=== PATIENT | male | born 1960 | race Caucasian/White ===

== ENCOUNTER 2017-11-19 12:19 | Inpatient (IN) | payer OTHER ==
[2017-11-19] MEDS ORDERED: Norepinephrine 8 MG/0.9% NS 250 ML ONE (12:35)
[2017-11-19 13:29] LABS: Hemoglobin 12.5 g/dL (14.0-18.0); Mean Corpuscular Hemoglobin 29.6 pg (27.0-31.0); Mean Corpuscular Volume 89.7 fL (78.0-98.0); RBC Distribution Width 13.6 % (11.5-14.5); Red Blood Cell (RBC) Count 4.23 mill/uL (4.70-6.10); White Blood Cell (WBC) Count 10.2 thou/uL (4.8-10.8)
--- NOTE | 2017-11-19 13:29 | RAD ---
PORTABLE CHEST 1 VIEW: DATE: 11/19/17. TIME: 1:17 p.m. HISTORY: Chest pain. FINDINGS: The heart size is borderline. No lobar consolidation, pneumothoraces, rony pulmonary edema, or larg e effusions are seen. A right-sided shunt tubing is noted. POS: [facility]
[2017-11-19 13:51] LABS: Band 49 % (5-11); Lymphocytes 4 % (21-51); MDiff Complete? YES; Mean Platelet Volume 12.1 fL (7.4-10.4); Monocytes 6 % (0-10); Neutrophil 41 % (42-75); PLT Morphology Comment Appears Decreased; Platelet Count 35 thou/uL (130-400); Toxic Granulation SLIGHT; Vacuoles SLIGHT
[2017-11-19 13:52] LABS: ALT (SGPT) 39 U/L (8-55); AST (SGOT) 36 U/L (5-34); Albumin 2.7 g/dL (3.5-5.0); Alkaline Phosphatase 67 U/L (40-150); Anion Gap 17 mmol/L (10-20); BUN (Urea Nitrogen) 38 mg/dL (8.4-25.7); Bilirubin, Total 2.3 mg/dL (0.2-1.2); Calc. Creatinine Clearance 0 mL/min (70-130); Calcium 7.9 mg/dL (7.8-10.44); Carbon Dioxide 17 mmol/L (22-29); Chloride 100 mmol/L (98-107); Estimated GFR-MDRD 18; Glucose 81 mg/dL (70-105); Potassium 3.7 mmol/L (3.5-5.1); Protein, Total 5.7 g/dL (6.0-8.3); Sodium 130 mmol/L (136-145)
[2017-11-19 13:53] LABS: CKMB 1.4 ng/mL (0-6.6); Troponin I 0.297 ng/mL (< 0.028)
[2017-11-19] MEDS ORDERED: HYDROcodone/Acetaminophen 5/325 mg Tablet ONE (14:16)
[2017-11-19] MEDS ORDERED: Clindamycin/D5W 600 mg/50 ml Premix Bag ONE (14:16)
[2017-11-19 14:50] LABS: Bilirubin Moderate (Negative); Blood, Urine Small (Negative); Glucose, Urine (Dipstick) Negative (Negative); Leukocyte Moderate (Negative); Nitrite Positive (Negative); Protein, Urine (Dipstick) Trace mg/dL (Neg-Trace); Urobilinogen 0.2 mg/dL (0.2-1.0)
[2017-11-19 14:56] LABS: Clarity HAZY (Clear)
[2017-11-19 14:57] LABS: Other Microscopic Description Less than 2 mL rec'd; Specific Gravity, Urine 1.026 (1.002-1.036)
[2017-11-19] MEDS ORDERED: Fentanyl 100 MCG/2 ML VIAL SLOW IVP SCH (15:30)
[2017-11-19] MEDS ORDERED: Dextrose 50% Abboject 50 ML SYRINGE SLOW IVP PRN (16:22)
[2017-11-19] MEDS ORDERED: Ondansetron ODT 4 MG TAB PO PRN (16:22)
[2017-11-19] MEDS ORDERED: Docusate 100 MG CAP PO PRN (16:22)
[2017-11-19] MEDS ORDERED: Norepinephrine 8 MG/0.9% NS 250 ML IVPB SCH (16:22)
[2017-11-19] MEDS ORDERED: Ondansetron HCl/PF 4 MG/2 ML Vial IVP PRN (16:22)
[2017-11-19] MEDS ORDERED: Dextrose 5% in Water 1,000 ML IV PRN (16:22)
[2017-11-19] MEDS ORDERED: Sodium Chloride 0.9% 500 ML IV SCH ×2 (16:22→22:00)
[2017-11-19] MEDS ORDERED: Furosemide 20 MG/2 ML VIAL SLOW IVP SCH (16:30)
[2017-11-19 16:40] LABS: INR-International Normal Ratio 1.1; PTT 33.8 SEC (22.9-36.1); Prothrombin Time 14.5 SEC (12.0-14.7)
[2017-11-19] MEDS ORDERED: Vancomycin HCl 1 GM in Premix Bag 1 BAG IVPB SCH ×3 (16:45→21:00)
[2017-11-19] MEDS ORDERED: Sodium Chloride 0.9% 1,000 ML IV PRN (17:13)
[2017-11-19 17:28] LABS: Lactic Acid 2.2 mmol/L (0.5-2.2)
[2017-11-19 17:39] LABS: Troponin I 0.235 ng/mL (< 0.028)
[2017-11-19] MEDS: Fentanyl 100 MCG/2 ML VIAL SLOW IVP PRN ×2 (17:42→19:34)
[2017-11-19 17:53] LABS: Syphilis Antibody Nonreactive (Nonreactive); Syphilis Antibody Index 0.11 S/CO (<1.00 Non-Reactive)
[2017-11-19 17:55] LABS: HIV (1/2) Antibody/Antigen Non-Reactive (NonReactive); HIV 1/2 INDEX 0.14 S/CO (<1.00)
--- NOTE | 2017-11-19 19:19 | PDOC.FPRHP ---
Addendum entered and electronically signed by Ricardo Martinez MD 11/20/17 16:52: Correction to original note: patient has history of recurrent LLE cellulitis and currently has abnormal skin exam on the LLE Original Note: - History of Present Illness Chief Complaint: L leg pain History of Present Illness: 57 yo CM pmhx significant for recurrent RLE cellulitis, morbid obesity, hep C cirrhosis, CHF, COPD, T2DM, and JENNY presents from [facility] in [place] for RLE redness, pain, and swelling since Wednesday. EMS noted initial BP to be 50's/30's on site, and pt was bolused 1.5 L en transit. Patient was apparently started on Bactrim by his doctor several days ago without improvement. He states that he has a long history of recurrent cellulitis in this leg s/p multiple leg surgeries starting in 2006. Denies any current internal hardware - states that his surgeons had to take it all out. Says that he has an episode of cellulitis approximately once per year. Denies any recent fevers/rigors/chills, dizziness, or weakness. States that he hasn't really urinated at all in 3 days. Denies dysuria, N/V, suprapubic or back pain. States that his current pain level is 10/10. Says that his current difficulty breathing is the same as it always is when he is reclined. Does not require oxygen at the longterm. Was supposed to be started on a CPAP soon for his JENNY. ED Course: R IJ CVC placed and levophed started due to persistent hypotension with SBPs in the 70's. Patient was not given additional fluids due to dyspnea and concern for volume overload. CXR showed borderline cardiomegaly but was otherwise clear. - Allergies/Adverse Reactions Allergies Allergy/AdvReac Type Severity Reaction Status Date / Time Penicillins Allergy Verified 11/19/17 18:41 - Home Medications Medication Instructions Recorded Confirmed Type Aspirin [Aspirin EC] 81 mg PO DAILY 11/19/17 11/19/17 History Calcium Carbonate [Tums] 1,000 mg PO QAM-WM 11/19/17 11/19/17 History Furosemide 40 mg PO BID 11/19/17 11/19/17 History Ibuprofen 600 mg PO BID 11/19/17 11/19/17 History Lactulose 10 GM/15ML Oral Jocelynn 20 gm PO BID 11/19/17 11/19/17 History [Lactulose] Lisinopril 2.5 mg PO DAILY 11/19/17 11/19/17 History Metolazone 5 mg PO Q7DAYS 11/19/17 11/19/17 History Omeprazole 40 mg PO BID 11/19/17 11/19/17 History Simethicone 80 mg PO TID PRN 11/19/17 11/19/17 History Spironolactone 4 tab PO BID 11/19/17 11/19/17 History Sulfamethoxazole/Trimethoprim 1 tablet PO BID 11/19/17 11/19/17 History [Sulfamethoxazole/TMP DS] Terazosin HCl 10 mg PO HS 11/19/17 11/19/17 History glipiZIDE [Glipizide] 5 mg PO DAILY 11/19/17 11/19/17 History metFORMIN HCl [Metformin HCl] 500 mg PO BID 11/19/17 11/19/17 History - History PMHx: 1) T2DM, non-insulin dependent 2) Hepatitis C 3) Cirrhosis of liver 4) CHF 5) COPD 6) JENNY 7) Recurrent skin infections PSHx: 1) R lower leg surgeries x 7 2) Open cholecystectomy 3) Tissue graft from abdominal wall FHx: Noncontributory Social: Denies current ETOH, tobacco, or drug use. Denies history of IV drug use. States that he was born with hep C. Has been incarcerated for multiple years. - Review of Systems General: denies: fever/chills, weight/appetite/sleep changes Eyes: denies: eye pain, vision changes ENT: denies: nasal congestion, rhinorrhea Respiratory: reports: shortness of breath, exercise intolerance. denies: cough Cardiovascular: denies: chest pain, palpitation Gastrointestinal: reports: abdominal pain (mild). denies: nausea, vomiting, diarrhea Genitourinary: reports: other (anuria). denies: dysuria Skin: reports: rashes, lesions Musculoskeletal: reports: pain, tenderness, swelling Neurological: denies: numbness, syncope - Vital signs BP: 96/45 HR: 137 RR: 30 Tmax: 97.9 Pox: 98% on 2L Wt: 158 kg - Physical Exam Constitutional: awake, alert and oriented, other (morbidly obese) -Constitutional: appears in mild distress due to breathing HEENT: normocephalic and atraumatic, PERRLA, EOMI, no scleral icterus, grossly normal hearing, other (conjunctiva injected, MM dry, mallampati IV) Neck: supple, trachea midline, no thyromegaly, other (large neck circumference) Heart: RRR, normal S1/S2, no murmurs/rubs/gallops, pulses present, other ( anasarca with peau d'orange texture on abdominal skin) Lungs: CTAB, good air movement, no wheezing, other (tachypneic with increased expiratory time) Abdomen: soft (mildly TTP diffusely), bowel sounds present, no hernias (severly distended abdomen, large reducible ventral hernia RUQ), other (no obvious fluid wave) Musculoskeletal: normal tone, other (RLE grossly abnormal appearing, limited ROM due to pain and obesity) Neurological: no focal deficit, CN II-XII intact Skin: other (extensive warmth, erythema, edema, and bullous actively draining erruptions on the RLE to the knee anteriorly and mid-thigh posteriorly; exquisitely TTP) Heme/Lymphatic: no unusual bruising or bleeding, no purpura, no petechia Psychiatric: intact recent and remote memory, other (cooperative) FMR H&P: Results - Labs Result Diagrams: 11/23/17 04:15 11/23/17 04:10 Lab results: WBC 10.2 thou/uL (4.8-10.8) 11/19/17 13:13 Hgb 12.5 g/dL (14.0-18.0) L 11/19/17 13:13 Hct 38.0 % (42.0-52.0) L 11/19/17 13:13 MCV 89.7 fL (78.0-98.0) 11/19/17 13:13 Plt Count 35 thou/uL (130-400) L 11/19/17 13:13 Band Neuts % (Manual) 49 % (5-11) H 11/19/17 13:13 ESR Westergren 19 mm/hr (Less than 20) 11/19/17 13:12 Sodium 130 mmol/L (136-145) L 11/19/17 13:13 Potassium 3.7 mmol/L (3.5-5.1) 11/19/17 13:13 Chloride 100 mmol/L (98-107) 11/19/17 13:13 Carbon Dioxide 17 mmol/L (22-29) L 11/19/17 13:13 BUN 38 mg/dL (8.4-25.7) H 11/19/17 13:13 Creatinine 3.53 mg/dL (0.6-1.3) H 11/19/17 13:13 Glucose 81 mg/dL (70-105) 11/19/17 13:13 Lactic Acid 2.2 mmol/L (0.5-2.2) 11/19/17 16:54 Calcium 7.9 mg/dL (7.8-10.44) 11/19/17 13:13 Total Bilirubin 2.3 mg/dL (0.2-1.2) H 11/19/17 13:13 AST 36 U/L (5-34) H 11/19/17 13:13 ALT 39 U/L (8-55) 11/19/17 13:13 Alkaline Phosphatase 67 U/L (40-150) 11/19/17 13:13 CK-MB (CK-2) 1.4 ng/mL (0-6.6) 11/19/17 13:13 Serum Total Protein 5.7 g/dL (6.0-8.3) L 11/19/17 13:13 Albumin 2.7 g/dL (3.5-5.0) L 11/19/17 13:13 Urine Ketones Trace mg/dL (Negative) H 11/19/17 14:36 Urine Blood Small (Negative) H 11/19/17 14:36 Urine Nitrite Positive (Negative) H 11/19/17 14:36 Ur Leukocyte Esterase Moderate (Negative) H 11/19/17 14:36 - EKG Interpretation EKG: sinus tachycardia, low voltage; no acute ST segment or T wave changes FMR H&P: A/P - Problem List (1) Sepsis due to cellulitis Current Visit: Yes Status: Acute Code(s): L03.90 - CELLULITIS, UNSPECIFIED; A41.9 - SEPSIS, UNSPECIFIED ORGANISM Comment: Severe (2) Cellulitis of right lower extremity Current Visit: Yes Status: Acute Code(s): L03.115 - CELLULITIS OF RIGHT LOWER LIMB (3) Acute respiratory failure with hypoxia Current Visit: Yes Status: Acute Code(s): J96.01 - ACUTE RESPIRATORY FAILURE WITH HYPOXIA (4) Acute kidney injury Current Visit: Yes Status: Acute Code(s): N17.9 - ACUTE KIDNEY FAILURE, UNSPECIFIED (5) Elevated troponin Current Visit: Yes Status: Acute Code(s): R74.8 - ABNORMAL LEVELS OF OTHER SERUM ENZYMES (6) CHF (congestive heart failure) Current Visit: Yes Status: Acute Code(s): I50.9 - HEART FAILURE, UNSPECIFIED (7) Thrombocytopenia Current Visit: Yes Status: Acute Code(s): D69.6 - THROMBOCYTOPENIA, UNSPECIFIED (8) T2DM (type 2 diabetes mellitus) Current Visit: Yes Status: Chronic (9) COPD (chronic obstructive pulmonary disease) Current Visit: Yes Status: Chronic (10) Chronic hepatitis C with cirrhosis Current Visit: Yes Status: Acute Code(s): B18.2 - CHRONIC VIRAL HEPATITIS C ; K74.60 - UNSPECIFIED CIRRHOSIS OF LIVER (11) JENNY (obstructive sleep apnea) Current Visit: Yes Status: Chronic Code(s): G47.33 - OBSTRUCTIVE SLEEP APNEA (ADULT) (PEDIATRIC) (12) GERD (gastroesophageal reflux disease) Current Visit: Yes Status: Chronic Code(s): K21.9 - GASTRO-ESOPHAGEAL REFLUX DISEASE WITHOUT ESOPHAGITIS (13) HTN (hypertension) Current Visit: Yes Status: Chronic Code(s): I10 - ESSENTIAL (PRIMARY) HYPERTENSION (14) Morbid obesity due to excess calories Current Visit: Yes Status: Chronic Code(s): E66.01 - MORBID (SEVERE) OBESITY DUE TO EXCESS CALORIES - Plan 57 yo CM with: 1) Severe sepsis 2/2 #3: Admitting to CCU. Currently requiring vasopressor. Was not rescuscitated to standard goals for sepsis on admission due to concern for worsening overload/resp failure. Blood/urine/wound cultures pending. UA showed evidence of possible UTI, should be covered with current antibiotics. Strict I' s and O's and q1h VS. Trending lactate. 2) Acute hypoxic respiratory failure: Prn O2 and bipap; possibly 2/2 overloaded state although initial CXR clear. Monitor fluid status carefully and obtain ABG and/or r/p CXR if worsening. Will be an extremely difficult airway. 3) RLE cellulitis, recurrent: RLE doppler to r/o DVT; ESR 19 so unlikely concomittent osteomyelitis. Clinical exam inconsistent with necrotizing fasciitis. Triple abx therapy with Vanc, cefepime, and levaquin to provide adequate antipseudomonal/gram negative coverage. Wound care consulted. NPO for now in case surgical intervention required tmrw and d/t ongoing resp distress. 4) KIRK: intermittent boluses to continue cautious volume resuscitation; wean pressor as BP tolerates; caution with aggressive lasix; avoid nephrotoxic agents if possible. FeUrea pending. Renal US pending to r/o acute obstructive process. Malik in place. Strict I's and O's as above. 5) CHF: Appears to be in acute overloaded state; IV lasix at 20mg bid; need to balance diuresis with sepsis resuscitation and KIRK; daily weights. 6) Elevated troponins: not yet NSTEMI range, trending. EKG non-concerning. Likely demand. 7) Chronic hepatitis C with cirrhosis: checking HIV/RPR; no ascites on bedside US contributing to respiratory distress 8) T2DM: accuchecks AC/HS; no evidence of DKA; hold orals for now w/ SSI to keep glucoses 140-180. 9) HTN: holding home antihypertensives for now until BPs stabilize. 10) GERD: PPI 11) Thrombocytopenia: plts 35. likely 2/2 #7, holding ppx anticoagulation for now. Monitor for bleeding. 12) JENNY: prn bipap 13) COPD: prn duonebs and O2 14) Morbid obesity: likely with OHS as well; PT/OT Disposition/LOS: Anticipate discharge back to longterm after inpatient admission for 4-5 midnights. Attending Addendum - Attending Addendum Date/Time: 11/19/171999 I personally evaluated the patient and discussed the management with Dr. Martinez I agree with the History, Examination, Assessment and Plan documented above with any addition or exceptions noted below. Will need to closely monitor patient. Needs IVFs for sepsis. Closely monitor UOP. Has had poor output thus far. Malik placed for accurate I/Os. Trend labs. Continue renal studies for KIRK. Bladder scanned in ER. No evidence of rony ascites either. Pineda cultures pending. Emperic antibiotics for complex cellulitis. May require BPAP soon. Possibly require ppx intubation to be able to adequately resuscitate patient. Balance fluids with Lasix if possible. Critical care following. Wound care consulted. Will address chronic conditions and adjust medications as needed. Ross
[2017-11-19] MEDS: Cefepime 1 GM in Sodium Chloride 0.9% 100 ML IVPB SCH (19:33)
[2017-11-19 20:27] LABS: Troponin I 0.242 ng/mL (< 0.028)
[2017-11-19] MEDS: HYDROcodone/Acetaminophen 10/325 mg Tablet PO PRN (20:36)
--- NOTE | 2017-11-19 22:26 | ULT ---
ULTRASOUND WITH DOPPLER DUPLEX VENOUS LOWER EXTREMITY LEFT: 11/19/17 HISTORY: 57-year-old male with cellulitis of the left lower extremity, with erythema, swelling and pain. Rule out DVT. TECHNIQUE: Color flow Doppler, spectral waveform analysis of pulsed Doppler, and phelps-scale imaging with nyla nae and augmentation, were used to evaluate the left common femoral, femoral, popliteal, posterior t ibial, and superficial femoral, veins; and the proximal portions of the profunda femoral and greater saphenous, veins. FINDINGS: There is normal compressibility, demonstration of blood flow by color Doppler and pulsed Doppler, and response to augmentation, in all interrogated veins. There is edema in the soft tissues of the left lower extremity, especially distally in the leg. IMPRESSION: 1. No deep vein thrombosis in the left lower extremity. 2. Soft tissue edema of the left lower extremity. becky[] POS: [facility]
--- NOTE | 2017-11-19 22:29 | ULT ---
ULTRASOUND RETROPERITONEUM COMPLETE: (RENAL) 11/19/17 HISTORY: Acute kidney injury in 57-year-old male (decreased urinary output). FINDINGS: The right kidney measures 13 x 7 x 7 cm. The left kidney measures 12.5 x 5.5 x 5.5 cm. Both kidneys have normal cortical thickness and normal cortical echogenicity. There is no hydronephrosis. There is a Malik catheter in an empty urinary bladder. IMPRESSION: 1) Normal sonographic appearance of the kidneys. 2) Malik catheter within empty bladder. becyk [] POS: [facility]
--- NOTE | 2017-11-20 00:23 | CON ---
DATE OF CONSULTATION: 11/19/2017 SERVICE: Pulmonary Medicine. REASON FOR CONSULTATION: Severe sepsis. HISTORY OF PRESENT ILLNESS: The patient is a 57-year-old white male with past medical history significant for recurrent episodes of cellulitis in the left lower extremity. He presented to the hospital with marginal blood pressures, left leg was red and swollen, fevers, and lack of urine. He was brought from the intermediate to the Emergency Department, where his blood pressures were really quite low. He got a liter and a half of fluid. They are being conservative because of history of heart failure. His blood pressures perked up a little bit. That being said, work of breathing was quite elevated. As such, he was initiated on a little bit of BiPAP. He does like using it, but his work of breathing improved considerably. He has been tucked in the ICU because there is a good possibility he could decompensate further before things start to improve slightly. PAST MEDICAL HISTORY: 1. Type 2 diabetes mellitus. 2. Congestive heart failure. 3. Hypertension. 4. Dyslipidemia. 5. Gastroesophageal reflux disease. 6. Hepatitis C. 7. Morbid obesity. 8. Obstructive sleep apnea, new diagnosis. 9. Chronic obstructive pulmonary disease. 10. Peripheral vascular disease. PAST SURGICAL HISTORY: 1. Cholecystectomy. 2. Left leg surgery x7 including multiple skin grafts. 3. Tonsillectomy. ALLERGIES: PENICILLIN. MEDICATIONS: List of his inpatient medications were reviewed and heavily modified. SOCIAL HISTORY: The patient currently lives in intermediate. As such, he does have exposures to tuberculosis. He has no exposures at this time to alcohol or illicit drug use. FAMILY HISTORY: Noncontributory. REVIEW OF SYSTEMS: General, head, ears, eyes, nose, throat, cardiovascular, respiratory, GI, , musculoskeletal, neurologic, and skin is negative except as mentioned in the HPI. PHYSICAL EXAMINATION: VITAL SIGNS: Afebrile currently. Pulse 121, blood pressure 105/52, respirations 27, saturation 100% on BiPAP. HEENT: Normocephalic, atraumatic. Sclerae white. Conjunctivae pink. Oral and nasal mucosa is moist and without lesions. LUNGS: Decent air entry. There is a prolonged expiratory phase with wheezing and crackles present. HEART: Tachycardic. Regular. ABDOMEN: Soft, nontender, nondistended. Bowel sounds are positive. He is morbidly obese. There is no rebound or guarding. MUSCULOSKELETAL: No cyanosis or clubbing. There is pitting in the bilateral lower extremities, which is more extensive in the left leg. There is also erythema of the leg. It creeps up into his mid thigh. A line has been drawn around it. The read is no longer advancing at this time. It is tender to palpation and has heat and warmth to it. GENITOURINARY: No Malik. NEUROLOGIC: Grossly nonfocal. LABORATORY DATA: WBC 10.2, hemoglobin 12.5, platelets 35,000. ESR is actually normal. INR is 1.1. Creatinine 3.53, baseline unknown; BUN 38. Basic metabolic profile is otherwise unremarkable. AST 36, ALT falls within normal limits. Troponin is down trending to 0.235. Lactate 2.2, glucose 86. Urinalysis is positive for nitrites, bilirubin, and leukocyte esterase. HIV 1 and 2 and syphilis are unremarkable. Bacterial culture is unremarkable. IMAGING: Chest x-ray demonstrates borderline cardiomegaly. No acute pleural parenchymal abnormalities are otherwise identified. There is an IJ on the right that terminates in good position. ASSESSMENT: 1. Severe sepsis. 2. Cellulitis. 3. Acute kidney injury, suspected. 4. [id number]-[id number] myocardial infarction, likely secondary to demand. 5. Urinary tract infection, possible. PLAN: We will get a gao culture including the urine and blood. Agree with empiric antibiotics directed at soft tissue infection. We are going to watch very closely the line around the erythema. If it advances in a significant way , emergent surgical evaluation will be prompted. I will place a Malik catheter so that we can monitor very closely his in's and out's. He has already got 2-1/ 2 liters of fluid. With this, his blood pressures improved fairly dramatically. He will use BiPAP on an as needed basis. Once he clears his infection profile, we are going to need to diurese him. I am going to ultrasound the leg. The ESR was not significantly elevated, which is odd. I will send off a CRP, and a procalcitonin level with tomorrow morning's laboratories. He remains quite ill. He is going to stay in the ICU until he more clearly turns the corner. Thrombocytopenia is curious and likely represents end organ damage from his severe sepsis, but this will need to be monitored through time. No active signs of bleeding, currently. We will continue to monitor this and if it drops below 10,000 without acute bleeding episodes, we will consider him for transfusion. 70 minutes have been devoted to this patient in various activities. I personally reviewed all imaging studies and laboratory data noted within this document. For fifty percent of this time, I was interacting with the patient at the bedside or coordinating care with the care team. For the remainder of the time I was immediately available to the patient in the hospital unit. ALEJANDRINA
[2017-11-20] MEDS: Fentanyl 100 MCG/2 ML VIAL SLOW IVP PRN ×3 (00:38→16:59)
[2017-11-20] MEDS ORDERED: Sodium Chloride 0.9% 500 ML IV SCH ×4 (02:00→18:00)
--- NOTE | 2017-11-20 02:17 | CON ---
DATE OF CONSULTATION: 11/19/2017 REFERRING: ICU Service. REASON FOR CONSULT: Malik catheter placement, renal failure, and insufficiency. HISTORY OF PRESENT ILLNESS: A 57-year-old male, from [facility], transferred via EMS as he presents with significant left lower extremity cellulitis, he has a history of morbid obesity, hepatitis C with cirrhosis, CHF, COPD, diabetes, obstructive sleep apnea. There was oozing and swelling of his left lower extremity, presented with hypotension, presenting blood pressure 73/37, tachycardic at 124. Afebrile. He was only able to urinate a scant amount. He states that he has not urinated over the last 2-3 days. Remote history of transurethral resection of prostate in [facility]. He does not recall the exact nature. He has had this since the transurethral resection of prostate, there was difficulty placing his Malik catheter as he presented to other facilities due to recurrent lower extremity cellulitis. He states that after the TURP at an indwelling Malik catheter for 2 -3 months; however, history is quite vague. He states that typically he voids by sitting and relaxing his perineal muscles. He denies significant sensation of incomplete void; however, his flow is somewhat slow requiring relaxation of his pelvic floor muscles to void. He also relates that he urinates quite frequently, as he is on multiple diuretics due to congestive heart failure, cirrhosis. He denies history of IV drug abuse; however, has multiple body tattoos. ER attempted to pass a 20-Turkish coude however, unable to place to the level of the bladder. Upon placement to the floor, ICU nursing staff attempted to place a 16-Turkish coude with no avail. Therefore, urologic consultation was obtained. His renal function demonstrates renal insufficiency of creatinine of 3.5, postvoid residual demonstrated minimal if at all any PVR concerning regarding oliguria. PAST MEDICAL HISTORY: Include diabetes type 2, GERD, hepatitis C, hypertension , chronic lower extremity edema, COPD, obstructive sleep apnea, peripheral vascular disease. PAST SURGICAL HISTORY: Include cholecystectomy, orthopedic surgery, left leg surgery x7, tonsillectomy, transurethral resection of prostate in [place]. HOME MEDICATIONS: Lasix, aspirin 81 mg, calcium, glipizide, lactulose, metolazone, omeprazole, spironolactone, metformin. ALLERGIES: PENICILLIN. PHYSICAL EXAMINATION: CURRENT VITAL SIGNS: 98, 98, 128/71, 75 presenting heart rate of 122. He was hypotensive at 58/35 on admission. GENERAL: Patient is a morbidly obese male, appears to have some respiratory distress, however on conversation and provides his own history. HEENT: Grossly unremarkable. HEART: Regular rate. LUNGS: Decreased inspiratory effort distant. ABDOMEN: Morbidly obese, protuberant. There is a large midline laparotomy incision with no gross evidence of hernia per se. GENITOURINARY: Demonstrates uncircumcised phallus. Meatus is grossly unremarkable. Testes are descended with no evidence of intratesticular mass. There is no evidence of cellulitic changes of the scrotum or the perineum. RECTAL: Digital rectal exam demonstrates prostate 30 to 40 grams, but no discrete nodularity. EXTREMITIES: Demonstrates significant bullous edema and cellulitic changes of the lower leg. PERTINENT LABORATORY AND IMAGING: White count 10, hemoglobin 12, platelet 35, 49 bands. INR 1.1, PTT of 33. Sodium 130, BUN 138, creatinine 3.5. Lactic acid is 2.2 high normal, total bilirubin is 2.3, AST is 36. Urinalysis demonstrates trace ketones, small blood, hazy, positive nitrites, moderate leukocyte esterase. Urine culture has been sent per nursing staff. Serology nonreactive as syphilis IgM, IgG. HIV antigen is nonreactive. IMPRESSION AND PLAN: 1. Mr. Lim is a 57-year-old [employer] inmate with history of diabetes, BPH status post TURP in the remote past, presents with left lower extremity cellulitis. 2. Acute renal insufficiency. 3. Thrombocytopenia. 4. Elevated liver enzymes. 5. History of hepatitis C. 6. History of chronic obstructive pulmonary disease. 7. Sleep apnea with urologic consultation obtained due to difficult Malik catheter placement. BEDSIDE PROCEDURE: I explained to the patient regarding indwelling Malik catheter need as he presents with early sepsis. We will need strict I's and O' s given difficult Malik catheter placement and decreased urine output. He desires to proceed. I attempted to pass a 16 and a 14-Turkish coude and resistance met was at the level of bladder neck. There was no blood at the meatus per se after the attempted Malik. Therefore, I informed the patient regarding cystoscopic guidance. Indications reviewed. PROCEDURE: Patient's genital was formally prepped and draped. Using Viscous Lidocaine, we injected local injection of Viscous Lidocaine for local anesthesia. A flexible cystoscope was passed without significant issues. There is no gross evidence of urethral stricture. The bilateral lobes of the prostate was visualized. There appears to be mild regrowth adenoma; however, does not appeared to be significantly obstructing. The bladder neck was deviated due to prior TURP. I was able to see the bladder neck without significant issues and a 0.35 Super Stiff wire was passed to the level of the bladder and the cystoscope then subsequently removed. A 16-Turkish Councill-tip Malik catheter was able to be passed with a wire guide assist without any difficulty. There was no significant urine output. I did irrigate his Malik catheter confirming proper placement of the Malik catheter and this was secured to gravity bag. Recommend initiating Flomax to maximize outlet function. Continue indwelling Malik catheter. Do not remove Malik catheter unless initiated by . NUVIAD
[2017-11-20] MEDS: HYDROcodone/Acetaminophen 10/325 mg Tablet PO PRN ×2 (03:03→12:33)
[2017-11-20 05:03] LABS: ALT (SGPT) 38 U/L (8-55); AST (SGOT) 40 U/L (5-34); Albumin 2.8 g/dL (3.5-5.0); Alkaline Phosphatase 75 U/L (40-150); Anion Gap 15 mmol/L (10-20); BUN (Urea Nitrogen) 47 mg/dL (8.4-25.7); Bilirubin, Total 2.4 mg/dL (0.2-1.2); Calc. Creatinine Clearance 45 mL/min (70-130); Carbon Dioxide 19 mmol/L (22-29); Chloride 100 mmol/L (98-107); Cholesterol 111 mg/dl (< 200 Desired); Estimated GFR-MDRD 13; Globulin 3.2 g/dL (2.4-3.5); Glucose 91 mg/dL (70-105); HDL Cholesterol Less than 8 mg/dL (>60 Neg Risk); Potassium 3.9 mmol/L (3.5-5.1); Sodium 130 mmol/L (136-145); Triglycerides 382 mg/dL (Less than 150)
[2017-11-20 05:10] LABS: Cardiac Risk TEST NOT PERFORMED (Less than 4.5)
[2017-11-20] MEDS ORDERED: Furosemide 20 MG/2 ML VIAL SLOW IVP SCH (06:00)
[2017-11-20 06:10] LABS: Band 50 % (5-11); Hemoglobin 12.5 g/dL (14.0-18.0); Large Platelets SLIGHT; Lymphocytes 5 % (21-51); MDiff Complete? YES; Mean Corpuscular HGB CONC 33.6 g/dL (32.0-36.0); Mean Corpuscular Hemoglobin 29.8 pg (27.0-31.0); Mean Corpuscular Volume 88.7 fL (78.0-98.0); Mean Platelet Volume 11.9 fL (7.4-10.4); Monocytes 7 % (0-10); Neutrophil 38 % (42-75); PLT Morphology Comment Appears Decreased; Platelet Count 35 thou/uL (130-400); RBC Distribution Width 13.6 % (11.5-14.5); Red Blood Cell (RBC) Count 4.19 mill/uL (4.70-6.10); Toxic Granulation SLIGHT; Vacuoles SLIGHT; White Blood Cell (WBC) Count 11.3 thou/uL (4.8-10.8)
--- NOTE | 2017-11-20 07:51 | PDOC.FM ---
- Subjective Subjective: States that his pain is a little better this morning but still not controlled. Asking for something else for pain. Was on the biPAP once overnight. Says breathing is better and is no longer requiring oxygen. BPs stable off levophed. - Objective MAR Reviewed: Yes Vital Signs & Weight: Vital Signs (12 hours) Temp Pulse Resp Pulse Ox 11/20/17 07:36 95 11/20/17 04:00 98.6 F 11/20/17 00:00 98.6 F 11/19/17 20:00 98.1 F 115 H 26 H 96 Weight Weight 175 kg Most Recent Monitor Data Heart Rate from ECG 108 NIBP 100/61 NIBP BP-Mean 83 Respiration from ECG 30 SpO2 95 I&O: 11/19/17 11/20/17 11/21/17 06:59 06:59 06:59 Intake Total 2028. Output Total 32 Balance 1996. Result Diagrams: 11/20/17 03:40 11/20/17 03:40 Phys Exam - Physical Examination Constitutional: NAD morbidly obese Respiratory: no wheezing, clear to auscultation bilateral Cardiovascular: RRR, no significant murmur Gastrointestinal: soft, non-tender distended, no fluid wave Musculoskeletal: pulses present (UE), edema present (anasarca) Neurological: non-focal, normal sensation Psychiatric: normal affect, A&O x 3 Deviation from normal: red wheeping L leg, cellulitis border not significantly advanced Dx/Plan (1) Sepsis due to cellulitis Code(s): L03.90 - CELLULITIS, UNSPECIFIED; A41.9 - SEPSIS, UNSPECIFIED ORGANISM Status: Acute (2) Cellulitis of right lower extremity Code(s): L03.115 - CELLULITIS OF RIGHT LOWER LIMB Status: Acute (3) Acute respiratory failure with hypoxia Code(s): J96.01 - ACUTE RESPIRATORY FAILURE WITH HYPOXIA Status: Acute (4) Acute kidney injury Code(s): N17.9 - ACUTE KIDNEY FAILURE, UNSPECIFIED Status: Acute (5) Elevated troponin Code(s): R74.8 - ABNORMAL LEVELS OF OTHER SERUM ENZYMES Status: Acute (6) CHF (congestive heart failure) Code(s): I50.9 - HEART FAILURE, UNSPECIFIED Status: Acute (7) Thrombocytopenia Code(s): D69.6 - THROMBOCYTOPENIA, UNSPECIFIED Status: Acute (8) T2DM (type 2 diabetes mellitus) Status: Chronic (9) COPD (chronic obstructive pulmonary disease) Status: Chronic (10) Chronic hepatitis C with cirrhosis Code(s): B18.2 - CHRONIC VIRAL HEPATITIS C; K74.60 - UNSPECIFIED CIRRHOSIS OF LIVER Status: Acute (11) JENNY (obstructive sleep apnea) Code(s): G47.33 - OBSTRUCTIVE SLEEP APNEA (ADULT) (PEDIATRIC) Status: Chronic (12) GERD (gastroesophageal reflux disease) Code(s): K21.9 - GASTRO-ESOPHAGEAL REFLUX DISEASE WITHOUT ESOPHAGITIS Status: Chronic (13) HTN (hypertension) Code(s): I10 - ESSENTIAL (PRIMARY) HYPERTENSION Status: Chronic (14) Morbid obesity due to excess calories Code(s): E66.01 - MORBID (SEVERE) OBESITY DUE TO EXCESS CALORIES Status: Chronic - Plan Plan: 57 yo CM with: 1) Severe sepsis 2/2 #3: Continue CCU care. Procal 8.2; CRP 27. No longer requiring vasopressor, MAPs 70's-80's. Being conservative with fluids. Blood/ urine/wound cultures still pending. Strict I's and O's and q1h VS. 2) Acute hypoxic respiratory failure: Prn O2 and bipap; possibly 2/2 overloaded state although initial CXR clear. Monitor fluid status carefully and obtain ABG and/or r/p CXR if worsening. Will be an extremely difficult airway. 3) LLE cellulitis, recurrent: LLE doppler negative for VTE; ESR 19 so unlikely concomitant osteomyelitis. Clinical exam inconsistent with necrotizing fasciitis. Broad spectrum abx therapy with Vanc and cefepime. Levaquin stopped yesterday by air traffic controller. Wound care consulted. L foot gram stain growing out gram positive organisms. Pain control. 4) Acute renal insufficiency: cautious volume resuscitation; pressor weaned. No obstructive process. FeUrea not done but likely pre-renal process 2/2 sepsis. Consider nephrology consult if continuing to worsen. Will recheck BMP in 12 hrs. 5) CHF: Appears to be in acute overloaded state; IV lasix at 20mg bid; need to balance diuresis with sepsis resuscitation and KIRK; daily weights. 6) Elevated troponins: stable; EKG non-concerning. Likely demand. 7) Chronic hepatitis C with cirrhosis: HIV, RPR negative; no evidence of ascites 8) T2DM: accuchecks AC/HS; no evidence of DKA; hold orals for now w/ SSI to keep glucoses 140-180. 9) HTN: holding home antihypertensives for now until BPs stabilize. 10) GERD: PPI 11) Thrombocytopenia: plts 35. likely 2/2 sepsis v. chronic cirrhosis, holding ppx anticoagulation for now. Monitor for bleeding. 12) JENNY: prn bipap 13) COPD: prn duonebs and O2 14) Morbid obesity: likely with OHS as well; PT/OT Keep in CCU throughout today given potential to decompensate. Possible transfer to floor tomorrow.
[2017-11-20] MEDS: Tamsulosin HCl 0.4 MG CAP PO SCH (08:09)
--- NOTE | 2017-11-20 10:54 | PRG ---
DATE OF SERVICE: 11/20/2017 INPATIENT PROGRESS NOTE SUBJECTIVE: No new complaints, patient is resting comfortably. PHYSICAL EXAMINATION: VITAL SIGNS: Stable. He is afebrile. Urine output is scant. He is oliguric. ABDOMEN: Morbidly obese, protuberant. GENITOURINARY: Malik catheter in place. There is concentrated yellow urine in the tubing. EXTREMITIES: Demonstrates significant erythema, induration, edema of the left lower extremity with seepage. PERTINENT LABORATORY DATA AND IMAGING DATA: White blood cell count is 11, hemoglobin 12, platelet 35. His bandemia remains elevated at 50. Renal ultrasound demonstrated no evidence of hydronephrosis. Malik catheter is in the bladder empty. IMPRESSION AND PLAN: Mr. Lim is a 57-year-old male with, 1. History of morbid obesity. 2. History of recurrent lower extremity cellulitis 3. History of benign prostatic hypertrophy status post transurethral resection of prostate. 4. Thrombocytopenia, history of hepatitis C. 5. History of chronic obstructive pulmonary disease, obstructive sleep apnea. 6. Difficult Malik catheter placement. Therefore, urologic consultation obtained last night. I was able to pass catheter with guidewire cyst with the flexible cystoscope. There was mild bladder neck contracture; however, no significant obstruction to result in urinary retention. Decreased urine output due to multisystem dysfunction, sepsis. Recommend Nephrology consult and General Surgery evaluation for his left lower extremity cellulitis, as he may have evolving necrotizing fasciitis which needs to be ruled out. Continue broad -spectrum antibiotics, add vancomycin. MTDD
--- NOTE | 2017-11-20 11:06 | PRG ---
DATE OF SERVICE: 11/20/2017 SERVICE: Pulmonary Medicine. INTERVAL HISTORY: The patient is doing fine overnight. He appears less toxic today. He says he is breathing comfortably, though he does have some mild respiratory distress. Apparently, this is his baseline. Otherwise, there has been no interval change to his condition. His blood pressures have firmed up a little bit. He is off Levophed. PHYSICAL EXAMINATION: VITAL SIGNS: Afebrile, pulse 108, blood pressure 139/66, respirations 27, saturation 100% on 2 liters nasal cannula. GENERAL: The patient is awake and alert, in no apparent distress. LUNGS: There is reduced air entry. No prolonged expiratory phase or wheezing is present. There are also some dependent crackles. HEART: Normal rate, regular. ABDOMEN: Soft, nontender, nondistended. Bowel sounds are positive. MUSCULOSKELETAL: No cyanosis or clubbing. There is 1+ pitting in the right lower extremity, 2+ pitting in the left lower extremity. Left lower extremity is hot, red and swollen. LABORATORY DATA: WBC 11.3, hemoglobin 12.5, platelets 35,000 and roughly stable. INR 1.1. Creatinine 4.61 and up trending. BUN 47 and up trending. Basic 19 has improved with an anion gap, it is also trending in the right direction. Basic metabolic profile is otherwise unremarkable. Hemoglobin A1c 6.0, CRP 27.7. Total bilirubin 2.4 and stable. AST is marginally elevated at 40, ALT falls within normal limits. Triglycerides are elevated. Nitrites are positive. Leukocyte esterase is moderate. Wound culture is growing beta hemolytic streptococcus. One blood culture is currently negative. A pH 7.256, pCO2 40, pO2 71 on room air. ASSESSMENT: 1. Severe sepsis. 2. Cellulitis. 3. Acute kidney injury. 4. Non-ST elevation myocardial infarction secondary to demand. 5. Urinary tract infection. 6. Anion gap metabolic acidosis with failure to completely compensate. 7. Urinary tract infection, possible. DISCUSSION AND PLAN: We will continue our antibiotics and nebulized medications. His respiratory status will be watched very closely. We will cautiously give him a small diet. We will give him a 1.5 liters of fluid restriction. A Nephrology consultation will be placed because of his kidneys do not open up over the next 24-48 hours, he may require dialysis. He will remain in the ICU for the next 24 hours. Pulmonary or Critical Care will continue to follow along. ALEJANDRINA
--- NOTE | 2017-11-20 12:41 | ULT ---
BILATERAL UPPER EXTREMITY VENOUS ULTRASOUND: HISTORY: End stage renal disease. Vein mapping for dialysis. FINDINGS: This exam was very limited secondary to body habitus, restraints, and lack of motion of the patient's arms. The left upper extremity venous structures could not be visualized. The left brachial artery and radial artery are 4.9 and 2.5 mm in size, respectively. The right brachial and radial arteries measure 5.4 and 2.5 mm in size, respectively. The ulnar arter y could not be evaluated on the right. The right cephalic vein measures 4.1 mm at the shoulder, 3.3 mm in the proximal upper arm, 3.3 mm in the mid upper arm, 3.2 mm just proximal to the elbow, 1.8 mm just distal to the elbow, 2.2 mm at the forearm, and 2.0 mm at the wrist. The right basilic vein can not be visualized proximally but could be seen in the mid forearm at 2.1 mm, just proximal to elbow a t 1.9 mm, just distal to elbow 1.5 mm, at the forearm 1.6 mm, and at the wrist 1.2 mm. IMPRESSION: Limited vein mapping as above. POS: FEI
[2017-11-20 14:49] LABS: Actual Bicarbonate (HCO3a) 17.4 mEq/L (22-28); Base Excess (BEa) -9.1 mEq/L (-2.0 to +3.0); CO2 Tension 40.1 mmHg (35.0-45.0); O2 Tension (PaO2) 70.8 mmHg (80.0-100.0); pH, Arterial 7.26 (7.35-7.45)
[2017-11-20 14:50] LABS: Hematocrit-ABG 44.9 % (42.0-52.0); Hemoglobin (Hb) 12.7 g/dL (14.0-18.0)
[2017-11-20 14:51] LABS: ALV-art Gradient 28.805 (0-20); Calcium, Ionized 1.1 mmol/L (1.12-1.30); Puncture Site RRA
[2017-11-20] MEDS: Cefepime 1 GM in Sodium Chloride 0.9% 100 ML IVPB SCH (16:44)
--- NOTE | 2017-11-20 18:29 | PDOC.EVN ---
Event Note - Event Note Event Note: Called to bedside for intermittent sleepiness and mildly low BP. He is currently using bipap. at this time, patients BP improved significantly with one bolus of fluid 105/70 with HR of 107. he is oriented x3 but does seem slightly drowsy, but easily aroused with voice alone. his air movement is mildly decreased on ausculation. He has prolonged respiratory phase. He says he feels bad but getting better and wants to sit up and eat. Will allow and see if he tolerates. Concern about increased acidosis or uremia, so will order stat ABG and CMP. will see if he tolerates eating and being off bipap, if not will resume. will schedule duonebs and call for one now.
[2017-11-20 19:01] LABS: ALT (SGPT) 34 U/L (8-55); AST (SGOT) 35 U/L (5-34); Albumin 2.8 g/dL (3.5-5.0); Alkaline Phosphatase 72 U/L (40-150); Anion Gap 18 mmol/L (10-20); BUN (Urea Nitrogen) 56 mg/dL (8.4-25.7); Bilirubin, Total 2.4 mg/dL (0.2-1.2); Calc. Creatinine Clearance 36 mL/min (70-130); Calcium 8.1 mg/dL (7.8-10.44); Carbon Dioxide 17 mmol/L (22-29); Chloride 99 mmol/L (98-107); Estimated GFR-MDRD 10; Globulin 3.4 g/dL (2.4-3.5); Glucose 146 mg/dL (70-105); Potassium 4.2 mmol/L (3.5-5.1); Protein, Total 6.2 g/dL (6.0-8.3); Sodium 130 mmol/L (136-145)
[2017-11-20 19:39] LABS: Actual Bicarbonate (HCO3a) 17.2 mEq/L (22-28); Base Excess (BEa) -9.8 mEq/L (-2.0 to +3.0); Hematocrit-ABG 44.6 % (42.0-52.0); Hemoglobin (Hb) 12.6 g/dL (14.0-18.0); pH, Arterial 7.23 (7.35-7.45)
[2017-11-20 19:40] LABS: Calcium, Ionized 1.1 mmol/L (1.12-1.30); Puncture Site L RADIAL
[2017-11-20 21:40] LABS: Vancomycin, Random 14.6 ug/mL (See Comment)
[2017-11-20] MEDS ORDERED: Vancomycin HCl 1 GM in Premix Bag 1 BAG IVPB SCH (22:00)
[2017-11-20] MEDS ORDERED: Sodium Bicarbonate 150 MEQ in Dextrose 5% in Water 1,000 ML IV SCH (23:30)
--- NOTE | 2017-11-21 03:07 | HP ---
HISTORY OF PRESENT ILLNESS: A 57-year-old male incarcerated for 32 years. The patient is in the ICU , I have been asked to see him regarding his left leg. The patient has had some sort of injury to hi s leg requiring multiple operations since 2006. He has had a free flap from his abdomen. He states he suffers infections in left leg once a year. Sometimes, the infections are worse than the current one. I have been asked to see him for a severe cellulitis of the left leg. The patient has strong d opplerable pulses. He does have a history of tobacco abuse, but has not smoked for many years. He h as a history of hepatitis C and cirrhosis. Echocardiogram this hospitalization reveals an EF of 50%- 55%. The patient is morbidly obese, 5 feet 7 inches, 385 pounds, 60 BMI. The patient states he is m obile in a wheelchair, has not been able to walk for many years. He has chronic kidney disease and i s approaching the need for dialysis. He has hepatitis C, cirrhosis, COPD, type 2 diabetes mellitus, sleep apnea, apparently was transferred from [place] with hypotension. He has a right IJ triple lum en catheter. Currently, he is being treated with cefepime. ALLERGIES: PENICILLIN. SOCIAL HISTORY: Tobacco abuse in the past. ALCOHOL: None currently. MEDICATIONS: Metformin, glipizide, terazosin, Bactrim, spironolactone, simethicone, omeprazole, meto lazone, lisinopril, lactulose, ibuprofen, furosemide, aspirin as an outpatient. PAST MEDICAL HISTORY: Chronic kidney disease, hepatitis C, cirrhosis, diabetes mellitus, insulin-dep endent. He has refused insulin in the past and therefore was treated oral medications, hypertension, sleep apnea. He has not required a CPAP. He has incisional hernia and a right subcostal scar, morb id obesity, metabolic syndrome. PAST SURGICAL HISTORY: 1. Open cholecystectomy, right subcostal scar. Has an incisional hernia at the lateral aspect of th at, left paramedian incision for a tissue transfer, surgery to his left ankle, multiple operations mo re than 7 in number left ankle and leg. 2. Nonambulatory, wheelchair mobility. LABORATORIES: White count 11, hemoglobin 12, bands 50. Sodium 130, potassium 3.9, carbon dioxide 19 , BUN 47, creatinine 4.61, GFR 13, bilirubin 2.4. PT 14, INR 1.1. PHYSICAL EXAMINATION: VITAL SIGNS: 5 feet 7 inches, 385 pounds, 60 BMI, 102/57, heart rate 109. The patient is dyspneic a t rest. HEENT: Head of the bed is elevated, conversations is interrupted with breathing difficulty. LUNGS: Clear to auscultation, no wheezing. Prolonged expiration. CARDIAC: Regular rate and rhythm. ABDOMEN: Massively obese. Right subcostal scar with lateral incisional hernia, left paramedian scar without hernia. Abdomen protuberant and obese. Strong dopplerable pedal pulses, pedal. Cellulitis , foot to knee, extending somewhat above the knee, blistering of the skin anteriorly, lower half of t he leg. Tissue transverse graft, left ankle, marked edema, cellulitis, no area of fluctuance. Blist ers opened and there was clear serous fluid. ASSESSMENT AND PLAN: 1. Severe infection, left leg. Would recommend Infectious Disease consult. The patient should have better gram-positive coverage. We will ask Dr. Weems to see him. 2. I do not think the patient needs surgical intervention for his left leg. We will continue intrav enous therapy. He is a high surgical risk, high anesthetic risk and long-term prognosis for leg is p oor. He is at high risk for amputation, but he is at risk for wound healing due to multiple medical problems. 3. Hepatitis C and cirrhosis, likely fluid wave present in abdomen. 4. Sleep apnea. 5. Hypertension. 6. Diabetes. 7. Metabolic syndrome. 8. Morbid obesity.
[2017-11-21 05:02] LABS: Albumin 2.7 g/dL (3.5-5.0); Anion Gap 16 mmol/L (10-20); BUN (Urea Nitrogen) 62 mg/dL (8.4-25.7); BUN/Creatinine Ratio 10.02; Calc. Creatinine Clearance 33 mL/min (70-130); Calcium 7.9 mg/dL (7.8-10.44); Carbon Dioxide 19 mmol/L (22-29); Chloride 97 mmol/L (98-107); Estimated GFR-MDRD 9; Glucose 192 mg/dL (70-105); Potassium 3.8 mmol/L (3.5-5.1); Sodium 128 mmol/L (136-145)
[2017-11-21 05:18] LABS: Band 41 % (5-11); Hemoglobin 12.2 g/dL (14.0-18.0); Lymphocytes 11 % (21-51); MDiff Complete? YES; Mean Corpuscular HGB CONC 33.4 g/dL (32.0-36.0); Mean Corpuscular Hemoglobin 29.9 pg (27.0-31.0); Mean Corpuscular Volume 89.5 fL (78.0-98.0); Mean Platelet Volume 11.3 fL (7.4-10.4); Neutrophil 44 % (42-75); Platelet Count 40 thou/uL (130-400); RBC Distribution Width 13.8 % (11.5-14.5); Red Blood Cell (RBC) Count 4.07 mill/uL (4.70-6.10); White Blood Cell (WBC) Count 10.1 thou/uL (4.8-10.8)
[2017-11-21 05:19] LABS: Eosinophils 1 % (0-10); Monocytes 3 % (0-10); PLT Morphology Comment Appears Decreased
[2017-11-21] MEDS ORDERED: Sodium Bicarbonate 150 MEQ in Dextrose 5% in Water 1,000 ML IV SCH (05:31)
[2017-11-21] MEDS: HumaLOG 300 UNITS/3 ML VIAL SC PRN ×3 (05:40→21:41)
--- NOTE | 2017-11-21 07:19 | CON ---
DATE OF CONSULTATION: 11/20/2017 CONSULTING PHYSICIAN: Dr. Bijan Hernandez. REQUESTING PHYSICIAN: Dr. Christensen. REASON FOR CONSULTATION: Acute kidney injury. IMPRESSION: 1. Acute kidney injury. This is likely hemodynamically mediated and cytokine-mediated acute tubular necrosis in the context of sepsis. 2. Baseline chronic kidney disease, likely stage 3 in the context of possible diabetic or hypertensi ve nephrosclerosis. PLAN: 1. Hemodynamic support with gentle IV fluid given the cardiac status of this patient. 2. Renally dose all medications per low GFR and avoid potentially nephrotoxic agents. 3. There is no emergent indication at this point for renal replacement therapy; however, depends on the degree of acute tubular necrosis. The patient's clinical condition as relates to the renal funct ion might progressively get worse before any possibility of improvement. 4. Further management will be dependent on the clinical course. HISTORY OF PRESENT ILLNESS: This is a 57-year-old incarcerated gentleman with a history significant for recurrent cellulitis of the lower extremity, morbid obesity, diabetes, who was brought in here wi th left lower extremity swelling, redness and fever and the patient noted to be severely hypotensive on presentation requiring IV fluid boluses. Further clinical evaluation of this patient did reveal e vidence of kidney injury, possibly acute on chronic. Over the course of this hospitalization, trudy mckenna's creatinine has progressively worsened to 4.61 necessitating renal consultation. PAST MEDICAL HISTORY: Significant for type 2 diabetes, congestive heart failure, hypertension, dysli pidemia, reflux disease, hepatitis C, morbid obesity, obstructive sleep apnea, chronic obstructive pu lmonary disease and peripheral vascular disease. ALLERGIES: To PENICILLIN. MEDICATIONS: As listed on GIROPTIC. SOCIAL HISTORY: The patient is currently incarcerated. No alcohol, no illicit drug use. PHYSICAL EXAMINATION: GENERAL: The patient was found to be ill-looking, morbidly obese, fighting with his BiPAP machine Cumed. VITAL SIGNS: Blood pressure improved to 113/52, heart rate of 104, respiratory rate of 17, O2 sat 96 %. HEENT: Unremarkable with moist oral mucosa. No conjunctival injection or icterus. Revealed a mask for BiPAP in place. NECK: Supple. CARDIOVASCULAR SYSTEM: First and second heart sounds were heard. RESPIRATORY SYSTEM: Revealed a lot of transmitted sounds. DIGESTIVE SYSTEM: Revealed an obese abdomen. EXTREMITIES: Showed left lower extremity redness consistent with cellulitis. SUMMARY: A 57-year-old incarcerated gentleman presented here septic, now experiencing worsening in r enal function.
--- NOTE | 2017-11-21 07:53 | PDOC.FM ---
- Subjective Subjective: Mr. Lim continues to be somewhat drowsy and slow to respond. He is awake and can answer simple questions but is not entirely with it. He is no longer refusing the bipap and has been on it most of the night. His BPs have risen significantly since getting fluids overnight. He also received some bicarb overnight due to this persistent metabolic acidosis. MAP now in the 120's. His leg looks about the same. - Objective MAR Reviewed: Yes Vital Signs & Weight: Vital Signs (12 hours) Temp Pulse Resp Pulse Ox 11/21/17 07:09 101 H 99 11/21/17 07:07 109 H 21 H 99 11/21/17 07:00 97.9 F 11/21/17 04:00 98.0 F 11/21/17 01:55 94 L 11/21/17 01:52 102 H 11/21/17 01:50 100 11/21/17 00:00 97.9 F 11/20/17 22:17 110 H 11/20/17 22:14 100 11/20/17 20:00 97.7 F 104 H 22 H 97 Weight Admit Weight 175 kg Weight 175 kg Most Recent Monitor Data Heart Rate from ECG 95 NIBP 103/52 NIBP BP-Mean 83 Respiration from ECG 17 SpO2 97 I&O: 11/20/17 11/21/17 11/22/17 06:59 06:59 06:59 Intake Total 2028.1 1772 Output Total 32 53 25 Balance 1996.1 1719 -25 Result Diagrams: 11/21/17 04:00 11/21/17 04:00 Phys Exam - Physical Examination Constitutional: NAD morbidly obese, drowsy HEENT: sclera anicteric (conjunctival injection) bipap mask in place Respiratory: no rales diminished breath sounds b/l Cardiovascular: RRR, no significant murmur Gastrointestinal: soft, positive bowel sounds distended appearing Musculoskeletal: pulses present (UE's), edema present anasarca Deviation from normal: erythematous warm LLE, ruptured bullae, partial dressing over leg Dx/Plan (1) Sepsis due to cellulitis Code(s): L03.90 - CELLULITIS, UNSPECIFIED; A41.9 - SEPSIS, UNSPECIFIED ORGANISM Status: Acute (2) Cellulitis of right lower extremity Code(s): L03.115 - CELLULITIS OF RIGHT LOWER LIMB Status: Acute (3) Acute respiratory failure with hypoxia Code(s): J96.01 - ACUTE RESPIRATORY FAILURE WITH HYPOXIA Status: Acute (4) Acute kidney injury Code(s): N17.9 - ACUTE KIDNEY FAILURE, UNSPECIFIED Status: Acute (5) Elevated troponin Code(s): R74.8 - ABNORMAL LEVELS OF OTHER SERUM ENZYMES Status: Acute (6) CHF (congestive heart failure) Code(s): I50.9 - HEART FAILURE, UNSPECIFIED Status: Acute (7) Thrombocytopenia Code(s): D69.6 - THROMBOCYTOPENIA, UNSPECIFIED Status: Acute (8) T2DM (type 2 diabetes mellitus) Status: Chronic (9) COPD (chronic obstructive pulmonary disease) Status: Chronic (10) Chronic hepatitis C with cirrhosis Code(s): B18.2 - CHRONIC VIRAL HEPATITIS C; K74.60 - UNSPECIFIED CIRRHOSIS OF LIVER Status: Acute (11) JENNY (obstructive sleep apnea) Code(s): G47.33 - OBSTRUCTIVE SLEEP APNEA (ADULT) (PEDIATRIC) Status: Chronic (12) GERD (gastroesophageal reflux disease) Code(s): K21.9 - GASTRO-ESOPHAGEAL REFLUX DISEASE WITHOUT ESOPHAGITIS Status: Chronic (13) HTN (hypertension) Code(s): I10 - ESSENTIAL (PRIMARY) HYPERTENSION Status: Chronic (14) Morbid obesity due to excess calories Code(s): E66.01 - MORBID (SEVERE) OBESITY DUE TO EXCESS CALORIES Status: Chronic - Plan Plan: 1) Severe sepsis 2/2 #3: Continue CCU care. Initial procal 8.2; CRP 27. No longer requiring vasopressor, MAP >100. Blood culture growing out 1/2 coag negative staph, likely contaminant. Chiropractic Practice Manager following, appreciate continued recs. Mentation changes likely reflect ongoing metabolic dearrangements, acidosis and/or uremia. 2) Acute hypoxic respiratory failure: Prn O2 and bipap at 15/8, rate 10, FiO2 23 %. Anticipate difficult airway if pt were to require intubation. 3) Severe LLE cellulitis, recurrent: LLE doppler negative for VTE; ESR 19 so unlikely concomitant osteomyelitis. Clinical exam inconsistent with necrotizing fasciitis. Continue broad spectrum abx therapy with Vanc and cefepime. Pending r /p trough level tonight to continue renal dosing of the Vancomycin. Wound care and surgery following. Gen surg did not want to operate at this time. L leg wound culture growing out B hemolytic strep. 4) Acute renal insufficiency on likely chronic renal disease (baseline Cr unknown): Likely 2/2 severe sepsis and/or ATN from hypoperfusion. No obstructive process evident on renal US. Continues to be severely oliguric, only 53 mL out overnight. Nephrology on board, will likely need placement of temporary HD catheter today and initiation of dialysis therapy. 5) Metabolic acidosis: 2/2 #4; s/p bicarb drip overnight, acidosis minimally improved this morning. 6) CHF: echo showed EF of 50-55% and no evidence of diastolic dysfunction but was a technically difficult study. Dialysis should help volume overloaded state which is now appearing more due to renal failure. 7) Elevated troponins: EKG non-concerning. Likely demand. 8) Chronic hepatitis C with cirrhosis: HIV, RPR negative; no evidence of ascites on bedside US. 9) T2DM: accuchecks AC/HS; no evidence of DKA; hold orals for now w/ SSI to keep glucoses 140-180. 10) HTN: holding home antihypertensives for now until BPs stabilize. 11) GERD: cont. PPI 12) Thrombocytopenia: plts 35. likely 2/2 sepsis process v. chronic cirrhosis, holding ppx anticoagulation for now. Monitor for bleeding. 13) JENNY: prn bipap 14) COPD: prn duonebs and O2 15) Morbid obesity: likely with OHS as well; PT/OT With renal functioning worsening and severity of skin infection, patient will likely need at least 1-2 more days in the CCU; pending dialysis.
[2017-11-21] MEDS: Tamsulosin HCl 0.4 MG CAP PO SCH (08:53)
--- NOTE | 2017-11-21 08:57 | PRG ---
DATE OF SERVICE: 11/21/2017 SERVICE: Pulmonary Medicine. INTERVAL HISTORY: The patient did fairly well overnight. He was started up on a bicarbonate drip. Otherwise, there has been no interval change to his condition. He is tolerating the BiPAP a little b deandre than he was. PHYSICAL EXAMINATION: VITAL SIGNS: Afebrile currently. Pulse 94, blood pressure 101/55, respirations 21, saturation 98% o n 27% FiO2 and a PEEP of 5. HEENT: Normocephalic, atraumatic. Sclerae are white, conjunctivae pink. Oral and nasal mucosa is m oist without lesions. LUNGS: Decent air entry. There is a prolonged expiratory phase with a little bit of wheezing. Crac kles are also present. No rhonchi. HEART: Normal rate, regular. ABDOMEN: Soft, nontender, nondistended. Bowel sounds are positive. MUSCULOSKELETAL: No cyanosis or clubbing. There is 1+ pitting in the right lower extremity and 2-3+ pitting in the left lower extremity with erythema there. GENITOURINARY: Malik catheter in place. NEUROLOGIC: Grossly nonfocal. LABORATORY DATA: WBC 10.1, hemoglobin 12.2, platelets 40. This is gently up trending. Band count i s also falling off a touch. INR 1.1. PH 7.23, pCO2 42 on BiPAP at 15/8 at that time, pO2 108. Crea tinine 6.19, BUN 62, bicarbonate 19 and slightly improved, sodium 128 and down trending. Phosphorus 7, calcium 7.9, albumin 2.7. Nitrites are positive. Beta hemolytic streptococcus is growing in the left foot culture. Blood culture is growing coag negative Staph in 1-2 and urine cultures unremarkab le to date. IMAGING: Echocardiogram demonstrates normal ejection fraction. ASSESSMENT: 1. Severe sepsis. 2. Cellulitis. 3. Acute kidney injury. 4. Non-ST elevation myocardial infarction secondary to demand. 5. Anion gap metabolic acidosis with failure to completely compensate. DISCUSSION AND PLAN: We will continue antibiotics, nebulized medications. I will provide him with a brief course of steroids. Eventually, I would like to diurese the patient. That being said, his ki dney injury, and marginal blood pressures are preventing us from doing so. We will watch his volume status closely, but if his oxygen requirements start to go up, he will need to be electively intubate d. Pulmonary and Critical Care will continue to follow along for the time being.
--- NOTE | 2017-11-21 12:30 | PRG ---
DATE OF SERVICE: 11/21/2017 SUBJECTIVE: The patient is resting comfortably, no new complaints. OBJECTIVE: VITAL SIGNS: Stable, afebrile. I's and O's, patient is anuric previously, with bicarbonate drip has recently started to make some urine 145 mL ABDOMEN: Morbidly obese. GENITOURINARY: Malik catheter adequately secured demonstrating concentrated yellow urine. PERTINENT LABORATORY DATA: White blood cell count 10, hemoglobin 12, platelets 40, bands 41, BUN 62, creatinine 6.1, sodium 128. IMPRESSION AND PLAN: 1. Mr. Lim is a 57-year-old male inmate admitted for left lower extremity cellulitis, recurrent. 2. Benign prostatic hypertrophy status post transurethral resection of the prostate in [facility]. 3. Thrombocytopenia. 4. History of hepatitis C. 5. Chronic obstructive pulmonary disease. 6. Sleep apnea. 7. History of difficult Malik catheter placement, he required cystoscopic assist to place a Malik catheter. He is just recently start to make some urine. Nephrology consult is pending. General Surgery input appreciated. Continue indwelling Malik catheter, do not remove Malik unless it is okay with as it was difficult to replace Malik catheter. There was no high-grade bladder neck obstruction; however, due to deviated anatomy required cystoscopic assist. Voiding trial per when his medical condition has improved. Continue Flomax. MTDD
[2017-11-21] MEDS ORDERED: Furosemide 100 MG/10 ML VIAL SLOW IVP SCH (16:45)
--- NOTE | 2017-11-21 16:48 | RAD ---
2 VIEWS LEFT TIBIA/FIBULA: Date: 11/21/17 COMPARISON: None. HISTORY: left leg inflammatory process. Prior fracture with open reduction and internal fixation. FINDINGS: Two views of the left tibia/fibula shows remodeling of the tibia from prior fracture. There is loss o f bone. Diffuse soft tissue swelling is seen. No acute fracture is identified. Multiple small clips i n the lower leg may be from prior free flap coverage of the distal tibia. IMPRESSION: Remodeling of the distal tibia from prior surgery. POS: FEI
[2017-11-21] MEDS: Cefepime 1 GM in Sodium Chloride 0.9% 100 ML IVPB SCH (17:09)
--- NOTE | 2017-11-21 18:27 | ADD-PRG ---
ADDENDUM DATE OF SERVICE: 11/20/2017 The patient was seen and evaluated, examined and discussed with the residents, see Dr. Martinez' note, f or which I agree. Patient overnight has been fairly stable. Blood pressure has been okay, even off the pressors. Seemed to be in quite a bit of respiratory distress this morning, although he really s tates he does not feel like any different than his usual state, states he does not feel short of rito th, but does have quite a bit of prolonged expiration. His creatinine bumped to 4.6 and has very lit tle urinary output despite IV resuscitation, so a little worried about if he has damaged his kidneys quite a bit and so Renal involved with that, but right now the main thing is we have him on IV antibi otics for the cellulitis and sepsis. He is currently on vancomycin and cefepime on a sliding scale i nsulin for his diabetes and we are going to potentially put him on BiPAP currently as he does seem to be struggling breathing swenson right now and no pulmonary is about to see him and we did run this by Gina Sanchez. He states he thinks is pretty much baseline on the patient. He may have get IV Lasix an d I am just diuresed him currently as he may be a little bit volume overloaded, it could be playing i nto this as well. Platelets were low, so we are holding off anticoagulation because of that.
--- NOTE | 2017-11-21 18:28 | ADD-PRG ---
ADDENDUM: DATE OF SERVICE: 11/21/2017 The patient is still in the ICU and still in pretty critical condition. Extremely acidotic based on ABGs. We have him on BiPAP to try to help his respiratory issues and it sounds like breathing swenson susie remy is doing better with less expiratory wheezes after getting some steroids, but his kidney function h as worsened with his creatinine now up to 6 making little urine. His bicarbonate is little bit aziza r this morning at 19, now he is getting bicarbonate through the IV. Renal was involved and likely wi ll need semi-emergent dialysis. Bacteria are growing out streptococcal species and he is continuing on multiple antibiotics including vancomycin, cefepime and we are waiting on a vancomycin trough ludivina powell with his renal issues based dosing on that. PHYSICAL EXAMINATION: GENERAL: Today does seem to be breathing a little more comfortably seems little more confused, but susie remy will talk and seems to be making sense, although was a little bit confused about why he is so sick. PULMONARY: Chest has less prolonged expiration then yesterday, wearing BiPAP seems to be moving air little bit better. CARDIOVASCULAR: Little bit less tachycardic. Pulse rate at 109. EXTREMITIES: Left lower extremity is still extremely erythematous, indurated and swollen with previo us surgical changes on the bulla some oozing and erythema almost to the knee, so we will continue jadiel e IV antibiotics for the current infection. ASSESSMENT AND PLAN: We will continue the BiPAP and appreciate Pulmonary's involvement. We will con tinue to follow electrolytes, especially as he is about to get diurese, but obviously a very sick ind ividual with numerous medical problems and hopefully get acidosis fixed with dialysis while we contin ue IV antibiotics.
--- NOTE | 2017-11-21 19:24 | PRG ---
DATE OF SERVICE: 11/21/2017 SUBJECTIVE: The patient was seen and examined, still having some difficulty with breathing, noted wi th the following. OBJECTIVE: VITAL SIGNS: Afebrile with temperature 97.5, pulse 23, O2 sat 92% with blood pressure 130/65. HEENT: Unremarkable. CARDIOVASCULAR: First and second heart sounds were heard. RESPIRATORY: Revealed limit diminished breath sounds anteriorly. ABDOMEN: Digestive system revealed obese abdomen. EXTREMITIES: Showed no significant peripheral edema, but did show left lower extremity cellulitis, s welling, redness. LABORATORY INVESTIGATIONS: Showed sodium of 128, creatinine 6.19 with BUN of 62, bicarbonate of 19, phosphorus of 7.0. Urinary output seems to have picked up a little bit to about 60 mL per hour. IMPRESSION: 1. Acute tubular necrosis, worsening; however, beginning to show some signs of improvement as eviden grover by increased urinary output. 2. Metabolic acidosis. 3. Respiratory failure, essentially from body habitus. 4. Sepsis. PLAN: 1. The patient currently getting gentle bicarbonate supplementation; however, we will attempt p.r.n. diuresis with this patient. 2. We will hold off on renal replacement therapy (hemodialysis) and monitor this, possible evidence of recovery. 3. Continue renal supportive measures. 4. Further management will be dependent on the clinical course. Condition of patient still remains guarded. Would like to get ABG tomorrow morning.
--- NOTE | 2017-11-21 19:40 | PRG ---
DATE OF SERVICE: 11/21/2017 SUBJECTIVE: Triston Lim remains stable in the ICU. OBJECTIVE: VITAL SIGNS: Heart rate 93, blood pressure 138/71. LABORATORY DATA: White count 10, hemoglobin 12. Sodium 128; creatinine 6.19, worse than yesterday; GFR 9. BUN increased to 62, over 56 yesterday. The patient has been oliguric. Urine output 490. Left leg is unchanged, severe cellulitis, blisters , but crepitance, no ecchymosis. ASSESSMENT AND PLAN: 1. Longstanding left lower extremity venous stasis disease, status post multiple operations essentia lly not useful, requiring wheelchair. The patient's morbid obesity, chronic obstructive pulmonary di sease, cirrhosis, anasarca makes him a high surgical risk. Dr. Weems has been consulted. He receive d a dose of vancomycin yesterday. He is on cefepime. Continue medical therapy. The patient is at [facility] for limb loss. Overall, prognosis remains poor. 2. Oliguric renal failure. 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 Although, his renal f unction has deteriorated daily. He has high risk to need dialysis. He has had ultrasound vein mappi ng both arms. Right cephalic vein 4.1, 3.3, 3.3, 3.2 mm just proximal to the elbow 1.8 mm just dist al to the elbow, basilic vein could not be visualized proximally. Left upper extremity venous struct ures could not be visualized. 3. Await Dr. Weems' consult.
--- NOTE | 2017-11-21 20:36 | CON ---
DATE OF CONSULTATION: 11/21/2017 REASON FOR CONSULTATION: Left leg inflammatory process. HISTORY OF PRESENT ILLNESS: A 57-year-old patient with an inmate [facility] and has a history of cirrhosis of liver secondary to hepatitis C, unclear if it has been treated in the past, also history of type 2 diabetes, COPD, and CHF and recurrent cellulitis of lower extremities with lymphedema. Also, histor y of right lower extremity fracture with multiple surgeries in the past who was admitted with inflamm atory changes in the left lower extremity. The patient was brought from the facility and initial BP was low. Therefore, he was diagnosed with sepsis and transferred to the ICU after fluid bolus and in itiation of broad spectrum antimicrobial coverage. He also had noticed decreased urine output 3 days before admission. The patient had associated dyspnea, particularly when in the recumbent position. No headaches, no visual symptoms, sore throat, odynophagia, dysphagia, no chest pain, no abdominal p ain. The patient was started on Levophed due to persistence of hypotension after fluid administratio n. PAST MEDICAL HISTORY: Type 2 diabetes; hepatitis C with liver cirrhosis, unknown treatment status; c ongestive heart failure; COPD; JENNY; fracture, left leg with ORIF eventually infections and eventual r emoval of all the hardware which was done elsewhere. SURGICAL HISTORY: Also includes cholecystectomy and tissue graft from abdominal wall to the left leg . FAMILY HISTORY: Noncontributory. SOCIAL HISTORY: Longstanding inmate at [facility] therefore has not smoked or had alcoholic beverage for ma ny years. PHYSICAL EXAMINATION: VITAL SIGNS: T-max 98.1, blood pressure 108/58, pulse 81, respiratory rate 22, O2 sat 89% -99%. The patient has a BiPAP mask in place at this time. The temperature shows a max of 98.6. GENERAL: He is awake, a little bit drowsy. He is able to answer questions with by nodding and monos yllabic words. The patient has a right IJ catheter and has a Malik catheter in place. Urine output is less than 200 for the past 24 hours, now is up to 355. He has been positive for the past 48 hours in the I's and O's. SKIN: Shows the area of extensive erythema in a circumferential distribution in the right leg associ ated with deformities secondary to the prior surgical interventions. No blistering is noted at this point in time. No areas of necrosis noted either. There is stasis dermatitis in the right leg. The extent of the erythema ranges from the area immediately below the left knee all the way to the foot. HEENT: Ocular movements are conjugate. Oral cavity moist. NECK: Supple. LUNGS: With symmetric air entry. Coarse breath sounds. HEART: S1, S2, regular rate. ABDOMEN: Distended but not tender. No ascites noted. No bladder distention. EXTREMITIES: He is able to move extremities with limitations imposed by the inflammatory process. H e knows his name and knows where he is, follows commands. LABORATORY DATA: White cell count 10.2 with 49% bands, now 41% bands. White cell count 10.1, hemogl obin 12, platelets 40,000. INR 1.1, pH 7.23, pCO2 of 42, pO2 of 108. Sodium 128; creatinine 6.19, h e started at 3.53 on admission. AST 35, ALT 34, alkaline phosphatase 72, albumin 2.8. Urinalysis wi th moderate leukocyte esterase. Random vancomycin 14.6. HIV serology negative. Microbiology with g roup G strep from the foot drainage in the coagulase negative Staph from blood culture likely contami nant. Urine culture more like 10, 000-25,000 mixed enteric tere. Imaging studies include echocardi ogram with EF 50%-55%. No significant valvular abnormalities . Vascular ultrasound with no DVT. Re nal ultrasound with a normal sonographic appearance. A chest x-ray with borderline heart size and no obvious infiltrates in the right IJ catheter. ASSESSMENT: 1. Chronic hepatitis C with cirrhosis, unknown prior treatment. 2. Chronic complications, left leg associated with previous fracture and multiple procedures. All h ardware has been removed reportedly, now presents with inflammatory process in the left leg consistin g of cellulitis, possible associated osteomyelitis or abscess is not ruled out. DISCUSSION: The differential diagnosis includes cellulitis associated with the venous drainage and l ymphatic drainage changes secondary to the prior multiple surgeries. The possibility of associated o steomyelitis is considered as well. An abscess is not ruled out. The organisms would include Strept ococci gram negative rods in view of his cirrhosis Staphylococcus aureus. The patient is currently o n cefepime and vancomycin, which appears to be adequate and dose adjusted for renal function. May ne ed hemodialysis depending on clinical progress and eventually will need to image his leg to evaluate the bone site. We would start with just plain films of the left leg to verify that there is no evide nce of nonunion or osteolysis.
[2017-11-21 21:30] LABS: Vancomycin, Random 17.3 ug/mL (See Comment)
[2017-11-21] MEDS ORDERED: Vancomycin HCl 750 MG in Sodium Chloride 0.9% 250 ML 250 ML IVPB SCH (22:00)
[2017-11-22 05:32] LABS: Anion Gap 19 mmol/L (10-20); BUN (Urea Nitrogen) 74 mg/dL (8.4-25.7); BUN/Creatinine Ratio 16.34; Calc. Creatinine Clearance 46 mL/min (70-130); Calcium 8.8 mg/dL (7.8-10.44); Carbon Dioxide 23 mmol/L (22-29); Chloride 97 mmol/L (98-107); Estimated GFR-MDRD 14; Glucose 133 mg/dL (70-105); Phosphorus 5.5 mg/dL (2.3-4.7); Potassium 3.8 mmol/L (3.5-5.1); Sodium 135 mmol/L (136-145)
[2017-11-22 05:55] LABS: Band 35 % (5-11); Hemoglobin 12.7 g/dL (14.0-18.0); Lymphocytes 6 % (21-51); MDiff Complete? YES; Mean Corpuscular HGB CONC 32.9 g/dL (32.0-36.0); Mean Corpuscular Volume 88.1 fL (78.0-98.0); Mean Platelet Volume 10.1 fL (7.4-10.4); Monocytes 4 % (0-10); Myelocyte 2 % (0-0); Neutrophil 53 % (42-75); PLT Morphology Comment Appears Decreased; Platelet Count 63 thou/uL (130-400); RBC Distribution Width 13.9 % (11.5-14.5); Red Blood Cell (RBC) Count 4.39 mill/uL (4.70-6.10); Toxic Granulation SLIGHT; White Blood Cell (WBC) Count 13.6 thou/uL (4.8-10.8)
[2017-11-22] MEDS ORDERED: Sodium Chloride 0.45% 1,000 ML IV SCH ×2 (07:00)
--- NOTE | 2017-11-22 07:00 | PRG ---
DATE OF SERVICE: 11/22/2017 SERVICE: Pulmonary Medicine INTERVAL HISTORY: The patient is doing fine from a cardiovascular and respiratory standpoint. He anne s gone into a polyuria phase overnight. He put out 4 liters of fluid. Additionally, he is hungry. I can clearly say he has turned the corner at this point. As such, we will start offering him a diet . He will likely have no ongoing need for BiPAP for respiratory failure moving forward. PHYSICAL EXAMINATION: VITAL SIGNS: Afebrile, pulse 110, blood pressure 124/93, respirations 15, saturation 91% on 3 liters nasal cannula. GENERAL: The patient is awake, alert, in no apparent distress. LUNGS: Decent air entry. Dependent crackles are present. The wheezing has improved a little bit. The air entry is also improved. HEART: Tachycardic. Regular. ABDOMEN: Soft, nontender, nondistended. Bowel sounds are positive. MUSCULOSKELETAL: No cyanosis or clubbing. There is trace pitting in the right lower extremity. The re is 1+ pitting in the left lower extremity which is erythematous. LABORATORY DATA: WBC 13.6, hemoglobin 12.7, platelets 63,000 and improving. Band count is also impr oving to 35%. Creatinine 4.53, BUN 74. Basic metabolic profile is otherwise unremarkable. Phosphor us is 5.5, albumin 3.0. IMAGING: X-ray of the tibia and fibula demonstrate remodeling of the distal tibia. ASSESSMENT: 1. Severe sepsis. 2. Cellulitis. 3. Acute kidney injury, secondary to acute tubular necrosis, currently in a polyuric phase. 4. Non-ST elevation myocardial infarction. 5. Anion gap metabolic acidosis, much improved. DISCUSSION AND PLAN: We will provide the patient with half normal saline. He is still volume overlo aded. That being said, he is not making any concentrated urine and he runs the risk of developing a prerenal azotemia which I think he is already doing. We will try to give him a little less than his urine output to try to keep him negative 1-2 liters over the next 24 hours, but not much more than th at. Pulmonary Critical Care will continue to follow along. From my perspective, at this point he anne s turned the corner and can be considered for transition to the floor.
[2017-11-22] MEDS: HYDROcodone/Acetaminophen 10/325 mg Tablet PO PRN (07:55)
[2017-11-22] MEDS: Tamsulosin HCl 0.4 MG CAP PO SCH (07:55)
--- NOTE | 2017-11-22 07:59 | PRG ---
DATE OF SERVICE: 11/22/2017 SUBJECTIVE: No new complaints. PHYSICAL EXAMINATION: VITAL SIGNS: Stable. He is afebrile. I's and O's; urine output 5100 over the last 24 hours, previously oliguric. Malik catheter was not secured. When asked per nursing staff, he has been unlatching his statlocks. When I inquired about this, patient used profanities at me and threatening. I explained to the patient regarding importance of keeping an indwelling urethral Malik catheter, as it was a difficult Malik catheter placement. He agrees to have it secured. LABORATORY DATA: White blood cell count 13, hemoglobin 12, platelets 63. BUN 74, creatinine 4.53, previously 6.19. Urine culture is negative. IMPRESSION AND PLAN: 1. A 57-year-old inmate admitted for severe left lower extremity cellulitis. 2. Benign prostatic hypertrophy status post TURP at [facility]. 3. History of hepatitis C. 4. Urologic consultation initially obtained due to difficult Malik catheter placement, required cystoscopic assistance. 5. Mild bladder neck contracture, difficult Malik due to deviated anatomy. When the patient's medical status, renal function has improved we will initiate voiding trial per . Continue Flomax. MTDD
--- NOTE | 2017-11-22 08:11 | PDOC.FM ---
- Subjective Subjective: Patient seems to be improving overnight. He has been polyuric overnight with > 5L urine output. He is talking and answering questions, but some things he says do not make sense. Oriented to person, place, difficulty with date. He reports pain in his left leg where his recurrent cellulitis is. Also reports he had difficulty sleeping with bipap on overnight. - Objective MAR Reviewed: Yes Vital Signs & Weight: Vital Signs (12 hours) Temp Pulse Resp Pulse Ox 11/22/17 07:38 106 H 23 H 11/22/17 04:00 98.1 F 11/22/17 03:53 93 L 11/22/17 00:00 99.3 F 11/21/17 23:07 95 Weight Admit Weight 175 kg Weight 175 kg Most Recent Monitor Data Heart Rate from ECG 110 NIBP 124/93 NIBP BP-Mean 120 Respiration from ECG 15 SpO2 86 I&O: 11/21/17 11/22/17 11/23/17 06:59 06:59 06:59 Intake Total 1772 1255 Output Total 53 5115 Balance 6350 -2175 Result Diagrams: 11/22/17 03:40 11/22/17 03:40 <Rogelio Tolbert - Last Filed: 11/22/17 08:07> - Objective Vital Signs & Weight: Vital Signs (12 hours) Temp Pulse Resp BP Pulse Ox 11/23/17 07:39 99.6 F 106 H 18 122/77 94 L 11/23/17 06:47 103 H 16 11/23/17 03:59 99.3 F 109 H 20 121/65 95 11/23/17 02:39 106 H 18 95 11/22/17 23:58 98.6 F 112 H 14 149/61 H 96 11/22/17 22:03 106 H 18 97 11/22/17 20:00 98.6 F 112 H 14 100 Weight Admit Weight 175 kg Weight 159.029 kg Most Recent Monitor Data Heart Rate from ECG 106 NIBP 108/61 NIBP BP-Mean 77 Respiration from ECG 29 SpO2 86 I&O: 11/22/17 11/23/17 11/24/17 06:59 06:59 06:59 Intake Total 1255 1584 Output Total 5111 2140 Balance -3500 -1272 Result Diagrams: 11/23/17 04:15 11/23/17 04:10 <RomaineRenzoLuis A - Last Filed: 11/23/17 07:43> Phys Exam - Physical Examination Constitutional: NAD R pupil 5mm, L 3mm; both reactive to light central line in place on right diffuse wheezing Cardiovascular: RRR, no significant murmur Gastrointestinal: soft, non-tender hernia in RUQ, pt reports it is chronic Musculoskeletal: pulses present, edema present erythematous warm LLE, ruptured bullae, partial dressing over leg Deviation from normal: somewhat altered mentation, GCS 15, not oriented to time <Rogelio Tolbert - Last Filed: 11/22/17 08:07> Dx/Plan (1) Acute kidney injury Code(s): N17.9 - ACUTE KIDNEY FAILURE, UNSPECIFIED Status: Acute (2) Acute respiratory failure with hypoxia Code(s): J96.01 - ACUTE RESPIRATORY FAILURE WITH HYPOXIA Status: Acute (3) CHF (congestive heart failure) Code(s): I50.9 - HEART FAILURE, UNSPECIFIED Status: Acute (4) Cellulitis of right lower extremity Code(s): L03.115 - CELLULITIS OF RIGHT LOWER LIMB Status: Acute (5) Chronic hepatitis C with cirrhosis Code(s): B18.2 - CHRONIC VIRAL HEPATITIS C; K74.60 - UNSPECIFIED CIRRHOSIS OF LIVER Status: Acute (6) Elevated troponin Code(s): R74.8 - ABNORMAL LEVELS OF OTHER SERUM ENZYMES Status: Acute (7) Sepsis due to cellulitis Code(s): L03.90 - CELLULITIS, UNSPECIFIED; A41.9 - SEPSIS, UNSPECIFIED ORGANISM Status: Acute (8) Thrombocytopenia Code(s): D69.6 - THROMBOCYTOPENIA, UNSPECIFIED Status: Acute (9) COPD (chronic obstructive pulmonary disease) Status: Chronic (10) GERD (gastroesophageal reflux disease) Code(s): K21.9 - GASTRO-ESOPHAGEAL REFLUX DISEASE WITHOUT ESOPHAGITIS Status: Chronic (11) HTN (hypertension) Code(s): I10 - ESSENTIAL (PRIMARY) HYPERTENSION Status: Chronic (12) Morbid obesity due to excess calories Code(s): E66.01 - MORBID (SEVERE) OBESITY DUE TO EXCESS CALORIES Status: Chronic (13) JENNY (obstructive sleep apnea) Code(s): G47.33 - OBSTRUCTIVE SLEEP APNEA (ADULT) (PEDIATRIC) Status: Chronic (14) T2DM (type 2 diabetes mellitus) Status: Chronic - Plan Plan: 1) Severe sepsis 2/2 #3: Initial procal 8.2; CRP 27. No longer requiring vasopressor, MAP >90. Wound culture positive for MRSA, contact precautions. Vanc trough last night was 17.3 and was redosed accordingly last night with repeat trough tonight. Machine Hand following, appreciate continued recs. Mentation changes likely reflect ongoing metabolic dearrangements, acidosis and/ or uremia. Possibly just patient's baseline. Will consider transferring to IMCU for continued q1hr urine output levels. 2) Acute hypoxic respiratory failure: Prn O2 and bipap at 15/8, rate 10, FiO2 23 %. Anticipate difficult airway if pt were to require intubation. 3) Severe LLE cellulitis, recurrent: LLE doppler negative for VTE; ESR 19 so unlikely concomitant osteomyelitis. Clinical exam inconsistent with necrotizing fasciitis. Continue broad spectrum abx therapy with Vanc and cefepime. Pending r /p trough level tonight to continue renal dosing of the Vancomycin. Wound care and surgery following. Gen surg did not want to operate at this time. L leg wound culture growing out B hemolytic strep and MRSA with sensitivity to vancomycin. 4) Acute renal insufficiency on likely chronic renal disease (baseline Cr unknown): Likely 2/2 severe sepsis and/or ATN from hypoperfusion. No obstructive process evident on renal US. Oliguria turned the corner overnight and he is now polyuric with 250-300 ml per hour of urine output. Will replace with 1/2 NS with rate at half the previous hour's urinary output for the time. Nephrology on board, will likely need placement of temporary HD catheter today and initiation of dialysis therapy. OK to restart po food/fluid intake. 5) Metabolic acidosis: 2/2 #4; s/p bicarb drip a couple nights ago. Continuing to improve. 6) CHF: echo showed EF of 50-55% and no evidence of diastolic dysfunction but was a technically difficult study. 7) Elevated troponins: EKG non-concerning. Likely demand. 8) Chronic hepatitis C with cirrhosis: HIV, RPR negative; no evidence of ascites on bedside US. 9) T2DM: accuchecks AC/HS; no evidence of DKA; hold orals for now w/ SSI to keep glucoses 140-180. 10) HTN: holding home antihypertensives for now until BPs stabilize. 11) GERD: cont. PPI 12) Thrombocytopenia: plts 35. likely 2/2 sepsis process v. chronic cirrhosis, holding ppx anticoagulation for now. Monitor for bleeding. 13) JENNY: prn bipap 14) COPD: prn duonebs and O2 15) Morbid obesity: likely with OHS as well; PT/OT <Rogelio Tolbert - Last Filed: 11/22/17 08:07> Attending Addendum - Attending Addendum Date/Time: 11/23/17 0742 I personally evaluated the patient and discussed the management with Dr. Tolbert. I agree with the History, Examination, Assessment and Plan documented above with any addition or exceptions noted below. Lung campos auscultate clear. No evidence of pneumonia or pulmonary edema. <Luis Gavin - Last Filed: 11/23/17 07:43>
[2017-11-22] MEDS ORDERED: Enoxaparin Sodium 30 MG/0.3 ML SYRINGE SC SCH (11:00)
[2017-11-22] MEDS ORDERED: Furosemide 100 MG/10 ML VIAL SLOW IVP SCH (11:30)
--- NOTE | 2017-11-22 11:31 | PRG ---
DATE OF SERVICE: 11/22/2017 The patient was seen and examined, seems to be doing much better. PHYSICAL EXAMINATION: VITAL SIGNS: Afebrile with temperature 97.8, pulse 106, respiratory rate of 23, O2 sat 93% on room a ir. HEENT: Unremarkable. CARDIOVASCULAR: First and second heart sounds were heard. RESPIRATORY: Clear to auscultation. ABDOMEN: Revealed an obese abdomen. EXTREMITIES: Show a left lower extremity consistent with cellulitis, swelling, redness. NEUROLOGIC: Alert, oriented. LYMPHATICS: No peripheral lymphadenopathy. LABORATORY INVESTIGATIONS: Significant for creatinine down to 4.52, BUN of 74, bicarbonate of 23, so dium 135. IMPRESSION: 1. Acute tubular necrosis which seems to be showing evidence of improvement. 2. Hypervolemia responded very well to diuretics on this study. 3. Metabolic acidosis, which seems to have improved. 4. Hyponatremia, improved with extra ____ of diuresis. PLAN: 1. There is no need for a repeat ABG today. Therefore, this needs to be discontinued. 2. Discontinue IV fluid/bicarbonate supplementation. 3. P.r.n. diuretics with loop diuretic. 4. Renally dose medications and continue with renal supportive measures, avoiding potentially nephro toxic agents. 5. Further management to be dependent on the clinical course.
--- NOTE | 2017-11-22 13:30 | PQF ---
CLINICAL DOCUMENTATION IMPROVEMENT CLARIFICATION FORM: ICD-10 Updated PLEASE DO AN ADDENDUM TO THE PROGRESS NOTE WITH ANY DOCUMENTATION UPDATES OR ADDITIONS AND CARRY THROUGH TO DC SUMMARY. THANK YOU. DATE: 11/22, & ATTN: DR. MAHOGANY FRANCISCO/ DR. Isabela MITCHELL Please exercise your independent, professional judgment in responding to the clarification form. Clinical indicators are provided on the bottom of this form for your review. Please check appropriate box(s): AMI TYPE: [ X ] NSTEMI [ ] NSTEMI Type II [ X ] Demand Ischemia [ ] Other diagnosis [ ] Unable to determine CLINICAL INDICATORS - SIGNS / SYMPTOMS / LABS TROP I: 0.297, 0.235, 0.242 (11/19) ATTENDING H&P 11/19: PLAN: 6) ELEVATED TROPONINS: NOT YET NSTEMI RANGE, TRENDING. EKG NON-CONCERNING. LIKELY DEMAND. PULMONOLOGY H&P 11/19: ASSESSMENT: 4) NSTEMI, LIKELY 2/2 DEMAND PULMONOLOGY PN 11/20: NSTEMI, 2/2 DEMAND ATTENDING PN 11/20: PLAN: 7) ELEVATED TROPONINS: EKG NON-CONCERNING. LIKELY DEMAND RISKS: SEVERE SEPSIS ACUTE HYPOXIC RESPIRATORY FAILURE ELEVATED TROPONIN I DM II TREATMENTS: SERIAL CARDIAC ENZYMES IV ANTIBIOTICS (CEFEPIME & VANCOMYCIN 10/30 - PRESENT) SUPPLEMENTAL 02 (BIPAP 11/19 - ) INFECTIOUS DX CONSULT THANK YOU! Fany (This form is maintained as a part of the permanent medical record) 2014 [employer]. All Rights Reserved Fany Montano RN, BSN [email or web address] Office: [phone] [facility]
[2017-11-22] MEDS: Cefepime 1 GM in Sodium Chloride 0.9% 100 ML IVPB SCH (17:06)
--- NOTE | 2017-11-22 18:04 | PRG ---
DATE OF SERVICE: 11/22/2017 SUBJECTIVE: The patient is transferred to [facility]. He is awake. He does not have a BiPAP mask at this time. He is oriented, still with quite a bit of pain in the right shoulder and inflammatory changes in the left leg as noted below. No diarrhea and still with an indwelling Malik catheter. OBJECTIVE: GENERAL: Awake, oriented, does not appear in distress. CARDIOVASCULAR: S1, S2 regular rate. ABDOMEN: Soft. LUNGS: Symmetric clear breath sounds. EXTREMITIES: Somewhat erythematous right shoulder with btfywuyv-[id number] tenderness on palpation. On the left leg, inflammatory changes is still quite prominent. White cell count 13.6, hemoglobin 12, platelets 63,000 with 35% bands. Microbiology, group G strep a nd MRSA. MEDICATIONS: Medication list includes cefepime and vancomycin. Vancomycin trough 17.3. ASSESSMENT AND DISCUSSION: Chronic hepatitis C with cirrhosis, unknown prior treatment; chronic comp lications in left leg associated with prior fractures and multiple interventions. Reportedly, all anne rdware has been removed. The tibia and fibula x-ray showed remodeling from prior fracture, some loss of bone, but no acute fracture. No hardware in place. The patient has cellulitis, most likely rule out osteomyelitis in the left leg. The right shoulder may be involved by his septic arthritis. May need an arthrocentesis. Continue cefepime and vancomycin.
[2017-11-22] MEDS: Vancomycin HCl 750 MG in Sodium Chloride 0.9% 250 ML 250 ML IVPB SCH (20:59)
--- NOTE | 2017-11-22 20:59 | PRG ---
DATE OF SERVICE: 11/22/2017 SUBJECTIVE: Triston Lim has been moved to [facility]. He has had an increased urine output and IV flui ds that have been started to compensate. PHYSICAL EXAMINATION: VITAL SIGNS: 97.8 degrees, 111 heart rate, 136/70. LABORATORY DATA: White count 13, hemoglobin 12, sodium 135, potassium 3.8, BUN 74, creatinine 4.53. IMPRESSION AND PLAN: Patient's left leg is stable. Cellulitis is slowly resolving. Dr. Weems has s een him. Antibiotics adjusted. At this point, there is no indication for surgical intervention. MR I of the leg could be considered in the future, although renal failure this may be a relative contrai ndication. At this point, I will see him as needed. Please call if necessary.
[2017-11-23] MEDS: HYDROcodone/Acetaminophen 10/325 mg Tablet PO PRN (04:52)
[2017-11-23 05:23] LABS: Albumin 2.9 g/dL (3.5-5.0); Anion Gap 13 mmol/L (10-20); BUN (Urea Nitrogen) 57 mg/dL (8.4-25.7); BUN/Creatinine Ratio 28.36; Calc. Creatinine Clearance 93 mL/min (70-130); Calcium 8.7 mg/dL (7.8-10.44); Carbon Dioxide 27 mmol/L (22-29); Chloride 102 mmol/L (98-107); Estimated GFR-MDRD 35; Glucose 142 mg/dL (70-105); Phosphorus 2.9 mg/dL (2.3-4.7); Potassium 3.1 mmol/L (3.5-5.1); Sodium 139 mmol/L (136-145)
[2017-11-23 05:57] LABS: Band 31 % (5-11); Hemoglobin 12.2 g/dL (14.0-18.0); Lymphocytes 17 % (21-51); MDiff Complete? YES; Mean Corpuscular HGB CONC 32.7 g/dL (32.0-36.0); Mean Corpuscular Hemoglobin 28.6 pg (27.0-31.0); Mean Corpuscular Volume 87.3 fL (78.0-98.0); Mean Platelet Volume 9.4 fL (7.4-10.4); Monocytes 6 % (0-10); Neutrophil 46 % (42-75); PLT Morphology Comment Appears Decreased; Platelet Count 78 thou/uL (130-400); RBC Distribution Width 13.7 % (11.5-14.5); Red Blood Cell (RBC) Count 4.28 mill/uL (4.70-6.10); White Blood Cell (WBC) Count 8.3 thou/uL (4.8-10.8)
[2017-11-23] MEDS ORDERED: Potassium Chloride 20 MEQ TAB PO SCH (07:15)
--- NOTE | 2017-11-23 07:58 | PRG ---
DATE OF SERVICE: 11/23/2017 SUBJECTIVE: The patient is resting comfortably. PHYSICAL EXAMINATION: VITAL SIGNS: Stable. He is afebrile. I's and O's, urine output over 5 liters for 24 hours. Malik catheter adequately secured. LABORATORY DATA: White count today is decreased to 8, hemoglobin 12, platelets 73, BUN 57, creatinine 2.01. His highest creatinine was 6.19. IMPRESSION AND PLAN: 1. Mr. Lim is a 57-year-old inmate with history of severe left lower extremity cellulitis. 2. Benign prostatic hypertrophy status post TURP at [facility]. 3. History of hepatitis C. 4. Urologic consultation due to difficult Malik catheter placement, at that time, patient was anuric. Malik catheter required to be placed over a cystoscopic guidance due to altered anatomy due to mild bladder neck contracture. The patient has high output urine right now, renal function recovering as his septic parameters are improving. Continue indwelling Malik catheter, Flomax. When patient's medical status is improved, will initiate voiding trial. Please do not remove Malki unless it is okay with . As he is currently mostly bedbound, with high output urine, continue indwelling Malik catheter. will follow p.r.n. NUVIAD
[2017-11-23] MEDS: Enoxaparin Sodium 30 MG/0.3 ML SYRINGE SC SCH (09:11)
[2017-11-23] MEDS: Tamsulosin HCl 0.4 MG CAP PO SCH (09:11)
--- NOTE | 2017-11-23 09:22 | PDOC.FM ---
- Subjective Subjective: Patient has voided about 4 liters over the past 24 hours. He used bipap overnight and is currently >95% on RA. His mentation is stable from yesterday. Denies CP, N/V/D/C, SOB. Pain in leg about the same as yesterday per patient. - Objective MAR Reviewed: Yes Vital Signs & Weight: Vital Signs (12 hours) Temp Pulse Resp BP Pulse Ox 11/23/17 07:39 99.6 F 106 H 18 122/77 94 L 11/23/17 06:47 103 H 16 11/23/17 03:59 99.3 F 109 H 20 121/65 95 11/23/17 02:39 106 H 18 95 11/22/17 23:58 98.6 F 112 H 14 149/61 H 96 11/22/17 22:03 106 H 18 97 Weight Admit Weight 175 kg Weight 159.029 kg Most Recent Monitor Data Heart Rate from ECG 106 NIBP 108/61 NIBP BP-Mean 77 Respiration from ECG 29 SpO2 86 I&O: 11/22/17 11/23/17 11/24/17 06:59 06:59 06:59 Intake Total 1255 1584 Output Total 2034 6320 Balance -8906 -7658 Result Diagrams: 11/23/17 04:15 11/23/17 04:10 <Rogelio Tolbert - Last Filed: 11/23/17 16:33> - Objective Vital Signs & Weight: Vital Signs (12 hours) Temp Pulse Resp BP Pulse Ox 11/23/17 16:11 97.5 F L 97 18 144/82 H 90 L 11/23/17 13:50 93 L 11/23/17 13:10 98.8 F 96 24 H 129/74 93 L 11/23/17 11:08 98.3 F 105 H 22 H 124/66 94 L 11/23/17 10:16 97 20 11/23/17 08:00 99.6 F 106 H 20 94 L 11/23/17 07:39 99.6 F 106 H 18 122/77 94 L 11/23/17 06:47 103 H 16 Weight Admit Weight 175 kg Weight 159.029 kg Most Recent Monitor Data Heart Rate from ECG 106 NIBP 108/61 NIBP BP-Mean 77 Respiration from ECG 29 SpO2 86 I&O: 11/22/17 11/23/17 11/24/17 06:59 06:59 06:59 Intake Total 1255 1584 Output Total 5112 4410 Balance -1689 -5903 Result Diagrams: 11/23/17 04:15 11/23/17 04:10 <Jaswant Shirley - Last Filed: 11/23/17 16:51> Phys Exam - Physical Examination Constitutional: NAD R pupil 5cm, L 3mm; same as yesterday minimal diffuse wheezing, improved from yesterday Cardiovascular: RRR, no significant murmur Gastrointestinal: soft, non-tender hernia in RUQ, stable 2+ edema in LLE, warm Neurological: moves all 4 limbs GCS 15, mentation still altered, answers to questions not making total sens <Rogelio Tolbert - Last Filed: 11/23/17 16:33> Dx/Plan (1) Acute kidney injury Code(s): N17.9 - ACUTE KIDNEY FAILURE, UNSPECIFIED Status: Acute (2) Acute respiratory failure with hypoxia Code(s): J96.01 - ACUTE RESPIRATORY FAILURE WITH HYPOXIA Status: Acute (3) CHF (congestive heart failure) Code(s): I50.9 - HEART FAILURE, UNSPECIFIED Status: Acute (4) Cellulitis of right lower extremity Code(s): L03.115 - CELLULITIS OF RIGHT LOWER LIMB Status: Acute (5) Chronic hepatitis C with cirrhosis Code(s): B18.2 - CHRONIC VIRAL HEPATITIS C; K74.60 - UNSPECIFIED CIRRHOSIS OF LIVER Status: Acute (6) Elevated troponin Code(s): R74.8 - ABNORMAL LEVELS OF OTHER SERUM ENZYMES Status: Acute (7) Sepsis due to cellulitis Code(s): L03.90 - CELLULITIS, UNSPECIFIED; A41.9 - SEPSIS, UNSPECIFIED ORGANISM Status: Acute (8) Thrombocytopenia Code(s): D69.6 - THROMBOCYTOPENIA, UNSPECIFIED Status: Acute (9) COPD (chronic obstructive pulmonary disease) Status: Chronic (10) GERD (gastroesophageal reflux disease) Code(s): K21.9 - GASTRO-ESOPHAGEAL REFLUX DISEASE WITHOUT ESOPHAGITIS Status: Chronic (11) HTN (hypertension) Code(s): I10 - ESSENTIAL (PRIMARY) HYPERTENSION Status: Chronic (12) Morbid obesity due to excess calories Code(s): E66.01 - MORBID (SEVERE) OBESITY DUE TO EXCESS CALORIES Status: Chronic (13) JENNY (obstructive sleep apnea) Code(s): G47.33 - OBSTRUCTIVE SLEEP APNEA (ADULT) (PEDIATRIC) Status: Chronic (14) T2DM (type 2 diabetes mellitus) Status: Chronic - Plan Plan: 1) Severe sepsis 2/2 #3: Initial procal 8.2; CRP 27. No longer requiring vasopressor, MAP >90. Wound culture positive for MRSA, contact precautions. Vanc trough repeat tonight. Mentation changes likely reflect ongoing metabolic dearrangements, acidosis and/or uremia. Possibly just patient's baseline. Will consider transferring to [facility] for continued q1hr urine output levels. 2) Acute hypoxic respiratory failure: Prn O2 and bipap at 15/8, rate 10, FiO2 23 %. 3) Severe LLE cellulitis, recurrent: LLE doppler negative for VTE; ESR 19 so unlikely concomitant osteomyelitis. Clinical exam inconsistent with necrotizing fasciitis. Continue broad spectrum abx therapy with Vanc and cefepime. Pending r /p trough level tonight to continue renal dosing of the Vancomycin. Wound care and surgery following. Gen surg did not want to operate at this time. L leg wound culture growing out B hemolytic strep and MRSA with sensitivity to vancomycin. 4) Acute renal insufficiency on likely chronic renal disease (baseline Cr unknown): Likely 2/2 severe sepsis and/or ATN from hypoperfusion. No obstructive process evident on renal US. He is still polyuric with 250-300 ml per hour of urine output. Nephrology on board. OK to restart po food/fluid intake. 5) Metabolic acidosis: 2/2 #4; s/p bicarb drip a couple nights ago. Continuing to improve. 6) CHF: echo showed EF of 50-55% and no evidence of diastolic dysfunction but was a technically difficult study. 7) Elevated troponins: EKG non-concerning. Likely demand. 8) Chronic hepatitis C with cirrhosis: HIV, RPR negative; no evidence of ascites on bedside US. 9) T2DM: accuchecks AC/HS; no evidence of DKA; hold orals for now w/ SSI to keep glucoses 140-180. 10) HTN 11) GERD: cont. PPI 12) Thrombocytopenia: plts 78 today, continuing to improve. likely 2/2 sepsis process v. chronic cirrhosis. Monitor for bleeding. 13) JENNY: prn bipap 14) COPD: prn duonebs and O2 15) Morbid obesity: likely with OHS as well; PT/OT 16) AMS: with history of cirrhosis 2/2 HepC, we will check ammonia <Rogelio Tolbert - Last Filed: 11/23/17 16:33> Attending Addendum - Attending Addendum Date/Time: 11/23/17 4109 I personally evaluated the patient and discussed the management with Dr. Tolbert. I agree with the History, Examination, Assessment and Plan documented above with any addition or exceptions noted below. Patient doing somewhat better. Severe sepsis is resolved, and he has been afebrile. Continue abx per ID recs. His renal function is improving and is in polyuric phase currently. No evidence for volume overload or contraction. Acidosis resolved. Will transition to Medical floor. Continue current management. Patient has history of cirrhosis and has intermittent confusion, will check ammonia level to ensure that hepatic encephalopathy is not a current and ongoing problem. <Jaswant Shirley - Last Filed: 11/23/17 16:51>
[2017-11-23] MEDS ORDERED: Magnesium Sulfate 2 GM in Sodium Chloride 0.9% 100 ML IVPB SCH (10:00)
--- NOTE | 2017-11-23 10:26 | PRG ---
DATE OF SERVICE: 11/23/2017 SERVICE: Pulmonary Medicine. INTERVAL HISTORY: The patient is doing fine from a cardiovascular and respiratory standpoint. He is breathing comfortably. He is on less oxygen. He was 4 liters negative over the last 24 hours. IV fluids were interrupted, and he was given Lasix. Otherwise, there has been no interval change to his condition. PHYSICAL EXAMINATION: VITAL SIGNS: Afebrile, pulse 106, blood pressure 122/77, respirations 18, saturation 94% on room air. GENERAL: The patient is awake, alert, in no apparent distress. LUNGS: Decent air entry. There is no prolonged expiratory phase. Dependent crackles are present. HEART: Normal rate, regular. ABDOMEN: Soft, nontender, nondistended. Bowel sounds are positive. MUSCULOSKELETAL: No cyanosis or clubbing. There is no pitting in the bilateral lower extremities. NEUROLOGIC: Grossly nonfocal. LABORATORY DATA: WBC 8.3 and downtrending, hemoglobin 12.2, band count continues to downtrend to 31%. Monocytes are starting to pick back up. Creatinine 2.01, BUN 57, potassium 3.1. Basic metabolic profile is, otherwise, unremarkable. Strep group G is growing as well as methicillin-resistant Staphylococcus aureus. ASSESSMENT: 1. Acute hypoxic respiratory failure. 2. Severe sepsis. 3. Cellulitis. 4. Acute kidney injury secondary to acute tubular necrosis, resolving polyuric phase. 5. Afa-DC-vwwfokunq myocardial infarction. 6. Anion gap metabolic acidosis. DISCUSSION AND PLAN: The patient is doing fine. We will discontinue the IV fluids. Our goal is to get him 1-2 liters negative over each 24-hour period, as long as there remains volume. Potassium will be replaced. He will be managed on the floor, I will sign off. [facility]AMPUSGina
[2017-11-23] MEDS: Potassium Chloride 20 MEQ TAB PO SCH ×3 (14:48→20:04)
[2017-11-23] MEDS: Cefepime 1 GM in Sodium Chloride 0.9% 100 ML IVPB SCH (17:11)
--- NOTE | 2017-11-23 19:03 | PRG ---
DATE OF SERVICE: 11/23/2017 SUBJECTIVE: The patient was seen and examined, seems to be doing much better, sleepy, but arousable, noted with the following vital signs. PHYSICAL EXAMINATION: VITAL SIGNS: Afebrile with temperature 97.5, pulse 97, respiratory rate 18, O2 sat 96% with blood pr essure 144/82. HEENT: Unremarkable. Moist oral mucosa. NECK: Supple, no conjunctival injection or icterus. CARDIOVASCULAR: First and second heart sounds were heard. RESPIRATORY: Diminished breath sounds. ABDOMEN: Obese abdomen. EXTREMITIES: No peripheral edema. LABORATORY INVESTIGATION: Showed a creatinine that has gone down to 2, potassium 3.1. IMPRESSION: 1. Acute tubular necrosis, much improved. 2. Sepsis. 3. Hypokalemia. 4. Morbid obesity. PLAN: 1. Replete the potassium. 2. Renal supportive measures. 3. Avoid potentially nephrotoxic agents. 4. Further management to be dependent on the clinical course.
[2017-11-23] MEDS: Vancomycin HCl 750 MG in Sodium Chloride 0.9% 250 ML 250 ML IVPB SCH (21:46)
[2017-11-24] MEDS: Potassium Chloride 20 MEQ TAB PO SCH ×6 (00:18→21:59)
[2017-11-24] MEDS ORDERED: Furosemide 20 MG/2 ML VIAL SLOW IVP SCH (05:30)
[2017-11-24 05:34] LABS: Albumin 2.8 g/dL (3.5-5.0); Anion Gap 11 mmol/L (10-20); BUN (Urea Nitrogen) 27 mg/dL (8.4-25.7); BUN/Creatinine Ratio 32.93; Calc. Creatinine Clearance 229 mL/min (70-130); Calcium 8.4 mg/dL (7.8-10.44); Carbon Dioxide 27 mmol/L (22-29); Chloride 105 mmol/L (98-107); Estimated GFR-MDRD Greater than 90; Glucose 111 mg/dL (70-105); Phosphorus 1.6 mg/dL (2.3-4.7); Potassium 4.2 mmol/L (3.5-5.1); Sodium 139 mmol/L (136-145)
[2017-11-24 05:50] LABS: Actual Bicarbonate (HCO3a) 26.9 mEq/L (22-28); CO2 Tension 40.6 mmHg (35.0-45.0); O2 Tension (PaO2) 66.6 mmHg (80.0-100.0); pH, Arterial 7.44 (7.35-7.45)
[2017-11-24 05:53] LABS: Base Excess (BEa) 2.6 mEq/L (-2.0 to +3.0)
[2017-11-24 05:54] LABS: Calcium, Ionized 1.2 mmol/L (1.12-1.30); Hematocrit-ABG 39.9 % (42.0-52.0); Hemoglobin (Hb) 12.4 g/dL (14.0-18.0)
[2017-11-24 05:55] LABS: Analyzer IN Cardio ER; Puncture Site RRA
--- NOTE | 2017-11-24 06:16 | PDOC.EVN ---
Event Note - Event Note Event Note: Was paged by nurse with concern for patient becoming agitated and confused. Reported normal VS. Upon evaluation of patient, O2 sat at 87% on RA, RR-28 and labored. Auscultation reveals diffuse wheezing throughout. Patient is confused , AOx1-2. Had previously been requiring Bipap at night and reportedly has been drinking a great amount overnight with known diagnosis of CHF. A fluid restriction was placed, ABG ordered, and one time dose of IV lasix. ABG with pH 7.4, pCO2 40, and paO2 66. With the amount of distress patient is in, it is thought he could benefit from Bipap rather than o2 alone. Will transfer to [facility]. <Aminah Saravia - Last Filed: 11/24/17 06:12> Attending Addendum - Attending Addendum Date/Time: 11/24/17717 Evaluated patient. Confused, Ox1, thinks he is at the med after a long time spent thinking and believes it is 2020 or 2030 with Martinez as president. He denies shortness of breath or chest pain. O2 92%, RR 28, diffuse wheezes, no prominent crackles, no diaphoresis. Improved form a volume status, and even though drinking quite a bit has had impressive output. Feel tachypnea 2/2 obstructive lung disease. Nebs, CXR now , ABG not c/f retaining. May xfer to [facility] pending improvement but anticipate he will refuse mask. <Brennan Krishna - Last Filed: 11/24/17 07:21>
--- NOTE | 2017-11-24 07:31 | PDOC.FM ---
- Subjective Subjective: Patient was transferred to medical floor yesterday after improved respiratory and renal status. However, overnight patient had difficulty breathing. There was concern for fluid overload so CXR, ABG was done and patient sent to IMCU for possible bipap which patient has used at night since he has been in the hospital. During hospitalization, patient has fought the bipap and sometimes refused it. He is refusing at this time. Oriented to person, but not place or time. Mentation is somewhat worse at this time. - Objective Vital Signs & Weight: Vital Signs (12 hours) Temp Pulse Resp BP Pulse Ox 11/24/17 04:47 97.8 F 74 20 120/77 93 L 11/24/17 02:20 94 22 H 11/24/17 00:00 97.9 F 87 20 120/76 92 L 11/23/17 20:47 98.3 F 101 H 20 93 L 11/23/17 19:36 98.3 F 101 H 20 143/83 H 93 L Weight Admit Weight 175 kg Weight 159.029 kg Most Recent Monitor Data Heart Rate from ECG 106 NIBP 108/61 NIBP BP-Mean 77 Respiration from ECG 29 SpO2 86 I&O: 11/23/17 11/24/17 11/25/17 06:59 06:59 06:59 Intake Total 1584 4100 Output Total 5550 3450 Balance -3966 650 Result Diagrams: 11/23/17 04:15 11/24/17 04:25 <Rogelio Tolbert - Last Filed: 11/24/17 10:44> - Objective Vital Signs & Weight: Vital Signs (12 hours) Temp Pulse Resp BP BP Pulse Ox 11/24/17 11:51 98.0 F 87 20 128/52 L 94 L 11/24/17 10:23 95 24 H 94 L 11/24/17 08:00 97.8 F 74 20 92 L 11/24/17 04:47 97.8 F 74 20 120/77 93 L 11/24/17 02:20 94 22 H Weight Admit Weight 175 kg Weight 159.029 kg Most Recent Monitor Data Heart Rate from ECG 106 NIBP 108/61 NIBP BP-Mean 77 Respiration from ECG 29 SpO2 86 I&O: 11/23/17 11/24/17 11/25/17 06:59 06:59 06:59 Intake Total 1584 4100 Output Total 5550 3450 Balance -3966 650 Result Diagrams: 11/23/17 04:15 11/24/17 04:25 <Luis Gavin - Last Filed: 11/24/17 14:12> Phys Exam - Physical Examination Constitutional: NAD Neck: no JVD, full ROM wheezing in all lung campos, worse than yesterday Cardiovascular: RRR, no significant murmur Gastrointestinal: soft, non-tender edema in LLE which is improved from yesterday, erythema improving Neurological: normal sensation, moves all 4 limbs Deviation from normal: mentation mildly worse than yesterday, orientated to person, not time/place Deviation from normal: erythema improving from yesterday <Rogeilo Tolbert - Last Filed: 11/24/17 10:44> Dx/Plan (1) Acute kidney injury Code(s): N17.9 - ACUTE KIDNEY FAILURE, UNSPECIFIED Status: Acute (2) Acute respiratory failure with hypoxia Code(s): J96.01 - ACUTE RESPIRATORY FAILURE WITH HYPOXIA Status: Acute (3) CHF (congestive heart failure) Code(s): I50.9 - HEART FAILURE, UNSPECIFIED Status: Acute (4) Cellulitis of right lower extremity Code(s): L03.115 - CELLULITIS OF RIGHT LOWER LIMB Status: Acute (5) Chronic hepatitis C with cirrhosis Code(s): B18.2 - CHRONIC VIRAL HEPATITIS C; K74.60 - UNSPECIFIED CIRRHOSIS OF LIVER Status: Acute (6) Elevated troponin Code(s): R74.8 - ABNORMAL LEVELS OF OTHER SERUM ENZYMES Status: Acute (7) Sepsis due to cellulitis Code(s): L03.90 - CELLULITIS, UNSPECIFIED; A41.9 - SEPSIS, UNSPECIFIED ORGANISM Status: Acute (8) Thrombocytopenia Code(s): D69.6 - THROMBOCYTOPENIA, UNSPECIFIED Status: Acute (9) COPD (chronic obstructive pulmonary disease) Status: Chronic (10) GERD (gastroesophageal reflux disease) Code(s): K21.9 - GASTRO-ESOPHAGEAL REFLUX DISEASE WITHOUT ESOPHAGITIS Status: Chronic (11) HTN (hypertension) Code(s): I10 - ESSENTIAL (PRIMARY) HYPERTENSION Status: Chronic (12) Morbid obesity due to excess calories Code(s): E66.01 - MORBID (SEVERE) OBESITY DUE TO EXCESS CALORIES Status: Chronic (13) JENNY (obstructive sleep apnea) Code(s): G47.33 - OBSTRUCTIVE SLEEP APNEA (ADULT) (PEDIATRIC) Status: Chronic (14) T2DM (type 2 diabetes mellitus) Status: Chronic - Plan Plan: 1) Severe sepsis 2/2 #3: Initial procal 8.2; CRP 27. No longer requiring vasopressor. Wound culture positive for MRSA, contact precautions. Vanc trough repeat tonight. Mentation changes likely reflect ongoing metabolic dearrangements, acidosis and/or uremia. Possibly just patient's baseline. 2) Acute hypoxic respiratory failure: Prn O2 and bipap. 3) Severe LLE cellulitis, recurrent: LLE doppler negative for VTE; ESR 19 so unlikely concomitant osteomyelitis. Clinical exam inconsistent with necrotizing fasciitis. Continue broad spectrum abx therapy with Vanc and cefepime. Pending r /p trough level tonight to continue renal dosing of the Vancomycin. Wound care and surgery following. Gen surg did not want to operate at this time. L leg wound culture growing out B hemolytic strep and MRSA with sensitivity to vancomycin. 4) Acute renal insufficiency on likely chronic renal disease (baseline Cr unknown): Likely 2/2 severe sepsis and/or ATN from hypoperfusion. No obstructive process evident on renal US. Urine output has been appropriate, 1700ml output yesterday. 5) Metabolic acidosis: 2/2 #4; s/p bicarb drip a couple nights ago. Continuing to improve. 6) CHF: echo showed EF of 50-55% and no evidence of diastolic dysfunction but was a technically difficult study. 7) Elevated troponins: EKG non-concerning. Likely demand. 8) Chronic hepatitis C with cirrhosis: HIV, RPR negative; no evidence of ascites on bedside US. 9) T2DM: accuchecks AC/HS; no evidence of DKA; hold orals for now w/ SSI to keep glucoses 140-180. 10) HTN 11) GERD: cont. PPI 12) Thrombocytopenia: continuing to improve. likely 2/2 sepsis process v. chronic cirrhosis. Monitor for bleeding. 13) JENNY: prn bipap 14) COPD: prn duonebs and O2 15) Morbid obesity: likely with OHS as well; PT/OT 16) AMS: with history of cirrhosis 2/2 HepC, ammonia was appropriate <Rogelio Tolbert - Last Filed: 11/24/17 10:44> Attending Addendum - Attending Addendum Date/Time: 11/24/17 1410 I personally evaluated the patient and discussed the management with Dr. Tolbert. I agree with the History, Examination, Assessment and Plan documented above with any addition or exceptions noted below. On my exam today, bilateral wheezing, tachypnea noted. Consistent with COPD exascerbation. Steroids to be initiated and regular duonebs. Still has indwelling roldan. Urology recommends leaving it until he is ambulatory. I have asked nursing to encourage ambulation with assistance. Dr Tolbert to talk with Dr Weems about outpt antibiotic therapy. <Luis Gavin - Last Filed: 11/24/17 14:12>
--- NOTE | 2017-11-24 07:42 | RAD ---
PORTABLE UPRIGHT CHEST 1 VIEW: HISTORY: A 57-year-old male with a history of shortness of breath. COMPARISON: 11/19/17. FINDINGS: Right jugulovenous catheter. Monitor leads overlie the chest. Heart size is within normal limits. No confluent pneumonia, overt edema, or pleural effusion or other acute process. IMPRESSION: No significant acute intrathoracic disease. Stable from prior study. POS: OFF
--- NOTE | 2017-11-24 08:46 | PRG ---
DATE OF SERVICE: 11/24/2017 SUBJECTIVE: The patient was transferred to the medical unit, I did come to see and evaluate the patient as he was transferred back to the [facility]. It appears he was hypoxic and more confused. PHYSICAL EXAMINATION: VITAL SIGNS: 97.8, 74, 20, 93% on room air, blood pressure is stable at 120/ 77. I's and O's are 4100 in, 3450 out previously over 5.5 liters in 24 hours. ABDOMEN: Morbidly obese, protuberant. GENITOURINARY: Malik catheter is secured, concentrated yellow urine. Renal function has normalized, creatinine of 0.86. The patient was admitted with creatinine of 6.1, anuric. Recovery of renal function noted with septic parameters improved. IMPRESSION AND PLAN: Mr. Lim is a 57-year-old morbidly obese male with history of left lower extremity cellulitis. 1. Benign prostatic hypertrophy status post transurethral resection of the prostate at [facility]. 2. History of hepatitis C. 3. Urologic consultation was obtained due to difficult Malik catheter placement. On initial assessment, he had no urine in his bladder. Malik catheter required cystoscopic assist due to deviated anatomy due to previous transurethral resection of the prostate. He has mild bladder neck contracture; however, this was not significantly obstructing his catheter was able to be placed without difficulty over a guidewire assist. Due to the patient's mental status, recovering renal function, polyuria, recommend indwelling Malik catheter to continue. I will continue to follow him as needed. Continue Flomax. Do not remove Malik unless is initiated by for a voiding trial. ALEJANDRINA
[2017-11-24] MEDS ORDERED: Sodium Phosphate 30 MMOL in Sodium Chloride 0.9% 250 ML 250 ML IVPB SCH (09:00)
[2017-11-24] MEDS: Enoxaparin Sodium 30 MG/0.3 ML SYRINGE SC SCH (10:29)
[2017-11-24] MEDS: Potassium Phosphate 9 MMOL in Sodium Chloride 0.9% 100 ML IVPB SCH ×2 (10:29→10:30)
[2017-11-24] MEDS: Tamsulosin HCl 0.4 MG CAP PO SCH (10:30)
[2017-11-24] MEDS ORDERED: predniSONE 20 MG TAB PO SCH (12:00)
--- NOTE | 2017-11-24 17:20 | PRG ---
DATE OF SERVICE: 11/24/2017 SERVICE: Pulmonary Medicine. INTERVAL HISTORY: The patient is doing fine from a respiratory standpoint. Last night, he looked to have a little bit of respiratory distress. Despite the fact the ABG was normal, the floor nursing s taff suggested that they were unable to handle him on the floor because of impending respiratory fail ure. He was moved down to the [facility] where he abruptly refused wearing any BiPAP or CPAP. I spent the rest of the night doing just fine. He denies any current chest pain, nausea, vomiting, fevers or ch ills. PHYSICAL EXAMINATION: VITAL SIGNS: Afebrile, pulse 97, blood pressure 94/39, respirations 22, saturation 95% on room air. GENERAL: Patient is awake, alert, in no apparent distress. LUNGS: Decent air entry. There is minimal dependent crackles present. HEART: Normal rate and regular. ABDOMEN: Soft, nontender, nondistended. Bowel sounds are positive. MUSCULOSKELETAL: No cyanosis or clubbing. There is no pitting in the bilateral lower extremities. NEUROLOGIC: Grossly nonfocal. LABORATORY DATA: Phosphorus 1.6. Basic metabolic profile is otherwise unremarkable. Creatinine 0.8 2, which has returned to the normal range. MRSA and Streptococcus group G are growing in the left fo ot. One out of two blood cultures growing coag negative staph. Urine culture negative to date. IMAGING DATA: Chest x-ray demonstrates no interval change compared to prior study. ASSESSMENT: 1. Severe sepsis. 2. Cellulitis. 3. Acute kidney injury, resolved. 4. Non-ST elevation myocardial infarction. 5. Non-anion gap metabolic acidosis, resolved. PLAN: The patient is once again stable for transition out of the ICU to the medical unit. He has ab solutely no evidence of acute respiratory failure, does not require BiPAP or CPAP in the acute settin g. As such, in my opinion, he can be transitioned back to the floor. Supportive measures will other swenson be continued.
[2017-11-24] MEDS: Cefepime 1 GM in Sodium Chloride 0.9% 100 ML IVPB SCH ×2 (17:40→17:49)
[2017-11-24] MEDS: cefTRIAXone\\ROCEPHIN 2 GM in Sodium Chloride 0.9% 100 ML IVPB SCH (18:41)
--- NOTE | 2017-11-24 18:55 | PRG ---
DATE OF SERVICE: 11/24/2017 SUBJECTIVE: Mr. Lim is quite drowsy. He has had no diarrhea, no respiratory symptoms. PHYSICAL EXAMINATION: VITAL SIGNS: Showed normal temperature, blood pressure 94/39, pulse 97, respirations 22, and O2 sat 95%. GENERAL: Appears drowsy. HEENT: Ocular movements conjugate. LUNGS: Symmetric air entry. HEART: S1 and S2, regular rate. No wheezing. EXTREMITIES: Left leg with improvement in erythema, the thigh erythema component is resolved. He anne s residual erythema in the leg. Microbiology with MRSA and group G Streptococcus. MRSA susceptible to doxycycline, rifampin, vancomy reji. He is currently receiving cefepime and vancomycin. ASSESSMENT AND DISCUSSION: Chronic hepatitis C with cirrhosis, unknown prior treatment, chronic comp lications with left leg after fracture, multiple interventions, hardware has been removed. No eviden ce of an aggressive bony process/osteolysis at this time, just remodeling from prior fracture. Impro vement in the cellulitis. We will switch him to Rocephin alone. If continues to do well, then trans itioned to oral Keflex for discharge planning, right shoulder seems to be improving.
--- NOTE | 2017-11-24 21:27 | PRG ---
DATE OF SERVICE: 11/19/2017 SUBJECTIVE: Patient seen and examined, feeling much better, walking around in the room, noted with t he following vital signs. PHYSICAL EXAMINATION: VITAL SIGNS: Afebrile with temperature 97.8, pulse 97, respiratory rate of 22, O2 sat 95%, blood pre ssure 94/79. HEENT: Unremarkable with moist oral mucosa. NECK: Supple. No conjunctival injection or icterus. CARDIOVASCULAR SYSTEM: First and second heart sounds were normal. RESPIRATORY SYSTEM: Diminished breath sounds anteriorly. DIGESTIVE SYSTEM: Revealed a benign abdomen with positive bowel sounds. EXTREMITIES: No peripheral edema. SKIN: No new gross rash. LYMPHATICS: No peripheral lymphadenopathy. LABORATORY INVESTIGATION: Significant for creatinine down to 0.8. IMPRESSION: 1. Acute tubular necrosis, which has resolved. 2. Morbid obesity. 3. Sepsis and treatment. PLAN: 1. We will continue with current renal supportive measures. 2. Further management to be dependent on the clinical course.
[2017-11-24 21:39] LABS: Vancomycin, Trough 2.9 ug/mL
[2017-11-25] MEDS: Potassium Chloride 20 MEQ TAB PO SCH (02:05)
[2017-11-25 05:50] LABS: Anion Gap 11 mmol/L (10-20); BUN (Urea Nitrogen) 20 mg/dL (8.4-25.7); Calc. Creatinine Clearance 250 mL/min (70-130); Calcium 8.6 mg/dL (7.8-10.44); Carbon Dioxide 28 mmol/L (22-29); Chloride 106 mmol/L (98-107); Estimated GFR-MDRD Greater than 90; Glucose 134 mg/dL (70-105); Sodium 140 mmol/L (136-145)
--- NOTE | 2017-11-25 07:42 | PDOC.FM ---
- Subjective Subjective: Patient has better mentation today, oriented to month, place, person. Answers questions coherently. Only complaint is leg pain which he says is not improved, but not worse. Endorses he has been getting up and sitting in chair, walking in room with no dizziness reported. Denies CP, N/V. Denies difficulty breathing, but then admits to trouble breathing after discussing the nasal canula he is currently wearing. Refused autopap overnight. - Objective MAR Reviewed: Yes Vital Signs & Weight: Vital Signs (12 hours) Temp Pulse Resp BP Pulse Ox 11/25/17 07:06 80 18 96 11/25/17 04:00 98.9 F 61 20 128/63 94 L 11/25/17 02:13 95 11/25/17 01:46 90 24 H 95 11/25/17 00:05 98.7 F 90 20 117/58 L 92 L 11/24/17 22:20 85 24 H 91 L 11/24/17 21:00 85 24 H 94 L 11/24/17 20:00 98.4 F 74 21 H 92 L 11/24/17 19:39 98.4 F 74 21 H 117/58 L 92 L Weight Admit Weight 175 kg Weight 163.86 kg Most Recent Monitor Data Heart Rate from ECG 106 NIBP 108/61 NIBP BP-Mean 77 Respiration from ECG 29 SpO2 86 I&O: 11/24/17 11/25/17 11/26/17 06:59 06:59 06:59 Intake Total 4100 1600 Output Total 3450 4925 Balance 650 -3322 Result Diagrams: 11/23/17 04:15 11/25/17 05:30 <Rogelio Tolbert - Last Filed: 11/25/17 07:36> - Objective Vital Signs & Weight: Vital Signs (12 hours) Temp Pulse Resp BP BP Pulse Ox 11/25/17 11:50 84 20 94 L 11/25/17 10:51 98.5 F 85 22 H 91 L 11/25/17 10:30 98.5 F 85 22 H 118/79 91 L 11/25/17 08:00 97.8 F 80 20 94 L 11/25/17 07:41 97.8 F 80 20 125/62 99 11/25/17 07:06 80 18 96 11/25/17 04:00 98.9 F 61 20 128/63 94 L 11/25/17 02:13 95 11/25/17 01:46 90 24 H 95 Weight Admit Weight 175 kg Weight 163.86 kg Most Recent Monitor Data Heart Rate from ECG 106 NIBP 108/61 NIBP BP-Mean 77 Respiration from ECG 29 SpO2 86 I&O: 11/24/17 11/25/17 11/26/17 06:59 06:59 06:59 Intake Total 4100 1600 Output Total 3450 4925 Balance 650 -3325 Result Diagrams: 11/23/17 04:15 11/25/17 05:30 <Luis Gavin - Last Filed: 11/25/17 12:33> Phys Exam - Physical Examination Sleeping prior to interview HEENT: moist MMs, oral pharynx no lesions minimal wheezing throughout, improved from yesterday Cardiovascular: RRR Gastrointestinal: soft, positive bowel sounds hernia in RUQ, stable Musculoskeletal: pulses present Neurological: non-focal, moves all 4 limbs Deviation from normal: says it is 2017, otherwise improved from yesterday Deviation from normal: wound dressing with continued improved erythema on left lower leg <Rogelio Tolbert - Last Filed: 11/25/17 07:36> Dx/Plan (1) Acute kidney injury Code(s): N17.9 - ACUTE KIDNEY FAILURE, UNSPECIFIED Status: Acute (2) Acute respiratory failure with hypoxia Code(s): J96.01 - ACUTE RESPIRATORY FAILURE WITH HYPOXIA Status: Acute (3) CHF (congestive heart failure) Code(s): I50.9 - HEART FAILURE, UNSPECIFIED Status: Acute (4) Cellulitis of right lower extremity Code(s): L03.115 - CELLULITIS OF RIGHT LOWER LIMB Status: Acute (5) Chronic hepatitis C with cirrhosis Code(s): B18.2 - CHRONIC VIRAL HEPATITIS C; K74.60 - UNSPECIFIED CIRRHOSIS OF LIVER Status: Acute (6) Elevated troponin Code(s): R74.8 - ABNORMAL LEVELS OF OTHER SERUM ENZYMES Status: Acute (7) Sepsis due to cellulitis Code(s): L03.90 - CELLULITIS, UNSPECIFIED; A41.9 - SEPSIS, UNSPECIFIED ORGANISM Status: Acute (8) Thrombocytopenia Code(s): D69.6 - THROMBOCYTOPENIA, UNSPECIFIED Status: Acute (9) COPD (chronic obstructive pulmonary disease) Status: Chronic (10) GERD (gastroesophageal reflux disease) Code(s): K21.9 - GASTRO-ESOPHAGEAL REFLUX DISEASE WITHOUT ESOPHAGITIS Status: Chronic (11) HTN (hypertension) Code(s): I10 - ESSENTIAL (PRIMARY) HYPERTENSION Status: Chronic (12) Morbid obesity due to excess calories Code(s): E66.01 - MORBID (SEVERE) OBESITY DUE TO EXCESS CALORIES Status: Chronic (13) JENNY (obstructive sleep apnea) Code(s): G47.33 - OBSTRUCTIVE SLEEP APNEA (ADULT) (PEDIATRIC) Status: Chronic (14) T2DM (type 2 diabetes mellitus) Status: Chronic - Plan Plan: - Severe sepsis 2/2 severe LLE cellulitis: Initial procal 8.2; CRP 27. No longer requiring vasopressor. Wound culture positive for MRSA, contact precautions. Vanc trough repeat tonight. Mentation changes likely reflect ongoing metabolic dearrangements, acidosis and/or uremia. Possibly just patient' s baseline. - COPD exacerbation: scheduled duonebs and prednisone started yesterday. Seems to be improving today. - Acute hypoxic respiratory failure: patient refused autopap last night, but accepted NC at 2 L. I turned this off during the interview today and he tolerated saturation at 94-95%. Pt has HX of COPD. - Severe LLE cellulitis, recurrent: LLE doppler negative for VTE; ESR 19 so unlikely concomitant osteomyelitis. Clinical exam inconsistent with necrotizing fasciitis. Continue broad spectrum abx therapy with Vanc and cefepime. Vanc and cefepime stopped yesterday. Rocephin started today with plan to transition to keflex po on discharge. Wound care following. Gen surg did not want to operate at this time. L leg wound culture growing out B hemolytic strep and MRSA with sensitivity to vancomycin. - Acute renal insufficiency on likely chronic renal disease (baseline Cr unknown ): Likely 2/2 severe sepsis and/or ATN from hypoperfusion. No obstructive process evident on renal US. Urine output has been appropriate. - Metabolic acidosis: 2/2 acute renal insufficiency; s/p bicarb drip a couple nights ago. Continuing to improve. - CHF: echo showed EF of 50-55% and no evidence of diastolic dysfunction but was a technically difficult study. - Elevated troponins: EKG non-concerning. Likely demand. - Chronic hepatitis C with cirrhosis: HIV, RPR negative; no evidence of ascites on bedside US. - T2DM: accuchecks AC/HS; no evidence of DKA; hold orals for now w/ SSI to keep glucoses 140-180. - HTN - GERD: cont. PPI - Thrombocytopenia: continuing to improve. likely 2/2 sepsis process v. chronic cirrhosis. Monitor for bleeding. - JENNY: prn bipap - COPD: prn duonebs and O2 - Morbid obesity: likely with OHS as well; PT/OT - AMS: with history of cirrhosis 2/2 HepC, ammonia was appropriate, improving today - BPH: initially there was concern for obstruction based on patient's enuresis and HX of TURP. Roldan was placed by and has been in place since then. will do voiding trial prior to discharge. <Rogelio Tolbert - Last Filed: 11/25/17 07:36> Attending Addendum - Attending Addendum Date/Time: 11/25/17 1232 I personally evaluated the patient and discussed the management with Dr. Tolbert I agree with the History, Examination, Assessment and Plan documented above with any addition or exceptions noted below. COPD improving. Working with urology to remove roldan catheter. Anticipate discharge in 1-2 days. <Luis Gavin - Last Filed: 11/25/17 12:33>
[2017-11-25] MEDS: predniSONE 20 MG TAB PO SCH (09:34)
[2017-11-25] MEDS: Tamsulosin HCl 0.4 MG CAP PO SCH (09:34)
[2017-11-25] MEDS: Enoxaparin Sodium 40 MG/0.4 ML SYRINGE SC SCH (09:35)
[2017-11-25 10:08] VITALS: BMI 56.5
--- NOTE | 2017-11-25 11:20 | PRG ---
DATE OF SERVICE: 11/25/2017 SERVICE: Pulmonary Medicine. INTERVAL HISTORY: The patient is doing fine from a respiratory standpoint. He denies any current ch est pain, nausea, vomiting, fevers or chills. Otherwise, there has been no interval change to his co ndition. His breathing is much more comfortable and his work of breathing is down. PHYSICAL EXAMINATION: VITAL SIGNS: Afebrile, pulse 85, blood pressure 118/79, respirations 22, saturation 91% on room air. GENERAL: The patient is awake, alert, no apparent distress. LUNGS: Decent air entry. There is no prolonged expiratory phase or wheezing present. Dependent crayon grader ckles are still evident. HEART: Normal rate and regular. ABDOMEN: Soft, nontender and nondistended. Bowel sounds are positive. MUSCULOSKELETAL: No cyanosis or clubbing. There is no pitting in the bilateral lower extremities. NEUROLOGIC: Grossly nonfocal. LABORATORY DATA: Basic metabolic profile is essentially unremarkable at this time with a creatinine that is in the normal range of 0.75 and potassium 5.0. ASSESSMENT: 1. Severe sepsis. 2. Cellulitis. 3. Acute kidney injury, resolved. 4. Non-ST elevation myocardial infarction. PLAN: The patient is doing fine from a respiratory standpoint. He is clearing his infectious profil e. He is stable for transition to the floor once again. Pulmonary or Critical Care will continue to follow along if he remains in house, but when he lands on the floor, he will have no further require ments for inpatient Pulmonary or Critical Care opinion.
[2017-11-25] MEDS: cefTRIAXone\\ROCEPHIN 2 GM in Sodium Chloride 0.9% 100 ML IVPB SCH (18:00)
[2017-11-25] MEDS: HYDROcodone/Acetaminophen 10/325 mg Tablet PO PRN (21:10)
--- NOTE | 2017-11-26 01:21 | PRG ---
DATE OF SERVICE: 11/25/2017 SUBJECTIVE: The patient seems to be doing much better and noted with the following vital signs. PHYSICAL EXAMINATION: VITAL SIGNS: Temperature afebrile, blood pressure 118/79, pulse 85, respiratory rate 22, O2 sat 91%. HEENT: Unremarkable. Moist oral mucosa. NECK: Supple, no conjunctival injection, no icterus. DIGESTIVE SYSTEM: Revealed an obese abdomen. EXTREMITIES: No peripheral edema. SKIN: No new gross rash except that of cellulitis is systemic, no significant peripheral edema. LABORATORY DATA: Laboratory investigation significant for , potassium 5.0. IMPRESSION: 1. Acute tubular necrosis in the context of sepsis. 2. Sepsis. 3. Respiratory failure. PLAN: 1. Continue renal supportive measures. 2. Further management to be dependent on the clinical course. We will sign off at this point and __ ___ in case of any renal derangements.
--- NOTE | 2017-11-26 07:33 | PDOC.FM ---
- Subjective Subjective: Patient reports doing fine overnight. He did use the bipap which he said he used because he was having trouble breathing. We discussed his need for a CPAP and apparently they said he needed one, but he has not yet received it. This morning he was answering questions clearly and coherently. Only complaint is LLE pain. No JAIN, N/V, CP, SOB at this time. - Objective MAR Reviewed: Yes Vital Signs & Weight: Vital Signs (12 hours) Temp Pulse Resp BP BP Pulse Ox 11/26/17 07:19 97.6 F 86 24 H 145/84 H 92 L 11/26/17 06:38 93 L 11/26/17 06:33 79 20 93 L 11/26/17 04:00 97.7 F 82 20 133/85 93 L 11/26/17 02:11 89 20 93 L 11/26/17 02:00 89 24 H 93 L 11/26/17 01:30 93 L 11/26/17 00:00 98.4 F 89 20 135/72 93 L 11/25/17 21:59 80 24 H 96 11/25/17 21:47 80 24 H 96 11/25/17 20:00 98.2 F 80 20 118/71 93 L Weight Admit Weight 175 kg Weight 163.86 kg Most Recent Monitor Data Heart Rate from ECG 106 NIBP 108/61 NIBP BP-Mean 77 Respiration from ECG 29 SpO2 86 I&O: 11/25/17 11/26/17 11/27/17 06:59 06:59 06:59 Intake Total 1600 720 Output Total 4925 Balance -6535 720 Result Diagrams: 11/23/17 04:15 11/25/17 05:30 <Rogelio Tolbert - Last Filed: 11/26/17 07:52> - Objective Vital Signs & Weight: Vital Signs (12 hours) Temp Pulse Resp BP BP Pulse Ox 11/26/17 11:00 98.3 F 85 24 H 126/79 92 L 11/26/17 10:41 80 28 H 11/26/17 08:00 97.6 F 86 24 H 92 L 11/26/17 07:19 97.6 F 86 24 H 145/84 H 92 L 11/26/17 07:00 97.6 F 86 24 H 145/84 H 92 L 06/29/18 06:38 93 L 11/26/17 06:33 79 20 93 L 11/26/17 04:00 97.7 F 82 20 133/85 93 L 11/26/17 02:11 89 20 93 L 11/26/17 02:00 89 24 H 93 L 11/26/17 01:30 93 L 11/26/17 00:00 98.4 F 89 20 135/72 93 L Weight Admit Weight 175 kg Weight 163.86 kg Most Recent Monitor Data Heart Rate from ECG 106 NIBP 108/61 NIBP BP-Mean 77 Respiration from ECG 29 SpO2 86 I&O: 11/25/17 11/26/17 11/27/17 06:59 06:59 06:59 Intake Total 1600 720 Output Total 4925 Balance -3325 720 Result Diagrams: 11/23/17 04:15 11/25/17 05:30 <Luis Gavin - Last Filed: 11/26/17 11:54> Phys Exam - Physical Examination Constitutional: NAD R pupil slightly larger than left, both reactive to light Rt IJ central line, no erythema or sign of infection mild diffuse wheezing Cardiovascular: RRR, no significant murmur Gastrointestinal: soft, positive bowel sounds rt sided hernia, stable LLE edema and erythema continues to improve, about at mid-yoo Neurological: normal sensation, moves all 4 limbs Psychiatric: normal affect Deviation from normal: mentation today is best I have seen the last 5 days Deviation from normal: erythema of LLE <Rogelio Tolbert - Last Filed: 11/26/17 07:52> Dx/Plan (1) Acute kidney injury Code(s): N17.9 - ACUTE KIDNEY FAILURE, UNSPECIFIED Status: Acute (2) Acute respiratory failure with hypoxia Code(s): J96.01 - ACUTE RESPIRATORY FAILURE WITH HYPOXIA Status: Acute (3) CHF (congestive heart failure) Code(s): I50.9 - HEART FAILURE, UNSPECIFIED Status: Acute (4) Cellulitis of right lower extremity Code(s): L03.115 - CELLULITIS OF RIGHT LOWER LIMB Status: Acute (5) Chronic hepatitis C with cirrhosis Code(s): B18.2 - CHRONIC VIRAL HEPATITIS C; K74.60 - UNSPECIFIED CIRRHOSIS OF LIVER Status: Acute (6) Elevated troponin Code(s): R74.8 - ABNORMAL LEVELS OF OTHER SERUM ENZYMES Status: Acute (7) Sepsis due to cellulitis Code(s): L03.90 - CELLULITIS, UNSPECIFIED; A41.9 - SEPSIS, UNSPECIFIED ORGANISM Status: Acute (8) Thrombocytopenia Code(s): D69.6 - THROMBOCYTOPENIA, UNSPECIFIED Status: Acute (9) COPD (chronic obstructive pulmonary disease) Status: Chronic (10) GERD (gastroesophageal reflux disease) Code(s): K21.9 - GASTRO-ESOPHAGEAL REFLUX DISEASE WITHOUT ESOPHAGITIS Status: Chronic (11) HTN (hypertension) Code(s): I10 - ESSENTIAL (PRIMARY) HYPERTENSION Status: Chronic (12) Morbid obesity due to excess calories Code(s): E66.01 - MORBID (SEVERE) OBESITY DUE TO EXCESS CALORIES Status: Chronic (13) JENNY (obstructive sleep apnea) Code(s): G47.33 - OBSTRUCTIVE SLEEP APNEA (ADULT) (PEDIATRIC) Status: Chronic (14) T2DM (type 2 diabetes mellitus) Status: Chronic (15) NSTEMI (non-ST elevated myocardial infarction) Code(s): I21.4 - NON-ST ELEVATION (NSTEMI) MYOCARDIAL INFARCTION Status: Acute - Plan Plan: - Severe sepsis 2/2 severe LLE cellulitis: Initial procal 8.2; CRP 27. No longer requiring vasopressor. Wound culture positive for MRSA, contact precautions. Switched to rocephin and will transition to keflex for discharge. Mentation changes likely reflect ongoing metabolic dearrangements, acidosis and/ or uremia. Possibly just patient's baseline. - COPD exacerbation: scheduled duonebs and prednisone started yesterday. Seems to be improving today. Will plan for 2-3 more days of prednisone. - Acute hypoxic respiratory failure: patient did use some bipap overnight. Pt has HX of COPD. - Severe LLE cellulitis, recurrent: LLE doppler negative for VTE; ESR 19 so unlikely concomitant osteomyelitis. Clinical exam inconsistent with necrotizing fasciitis. Switched from Vanc and cefepime to rocephin and will continue keflex in outpatient setting for 10 day course. Wound care following. Gen surg did not want to operate at this time. L leg wound culture growing out B hemolytic strep and MRSA. - Acute renal insufficiency on likely chronic renal disease (baseline Cr unknown ): Likely 2/2 severe sepsis and/or ATN from hypoperfusion. No obstructive process evident on renal US. Urine output has been appropriate. - Metabolic acidosis: 2/2 acute renal insufficiency; s/p bicarb drip a couple nights ago. Continuing to improve. - CHF: echo showed EF of 50-55% and no evidence of diastolic dysfunction but was a technically difficult study. - NSTEMI, likely demand ischemia: EKG non-concerning. - Chronic hepatitis C with cirrhosis: HIV, RPR negative; no evidence of ascites on bedside US. - T2DM: accuchecks AC/HS; no evidence of DKA; hold orals for now w/ SSI to keep glucoses 140-180. - HTN - GERD: cont. PPI - Thrombocytopenia: continuing to improve. likely 2/2 sepsis process v. chronic cirrhosis. Monitor for bleeding. - JENNY: prn bipap - COPD: prn duonebs and O2 - Morbid obesity: likely with OHS as well; PT/OT - AMS: with history of cirrhosis 2/2 HepC, ammonia was appropriate, improving today - BPH: initially there was concern for obstruction based on patient's enuresis and HX of TURP. Malik was placed by and has been in place. Malik was removed about an hour ago, awaiting void. - Deconditioning: patient was in wheelchair dorm at senior living. Review of record with CM showed patient had order for rehab in August 2017, but no-showed. CM will follow up on this. <Rogelio Tolbert - Last Filed: 11/26/17 07:52> Attending Addendum - Attending Addendum Date/Time: 11/26/17 [id number] I personally evaluated the patient and discussed the management with Dr. Tolbert. I agree with the History, Examination, Assessment and Plan documented above with any addition or exceptions noted below. Patient is stable. Evaluating urinary function for discharge. <Luis Gavin - Last Filed: 11/26/17 11:54>
--- NOTE | 2017-11-26 07:44 | PRG ---
DATE OF SERVICE: 11/26/2017 SUBJECTIVE: The patient is resting comfortably, vital signs are stable. He is afebrile. Malik catheter was removed this morning , as he is medically cleared to be disposed back to correction facility. Abdomen is morbidly obese, protuberant. LABORATORY DATA: White count 8, hemoglobin 12, platelets 78. Creatinine 0.75. He presented with renal failure, prerenal oliguric, presenting creatinine 3.5 to 6.1. Urine culture is negative. IMPRESSION AND PLAN: 1. Mr. Lim is a 57-year-old morbidly obese male with history of left lower extremity cellulitis, recurrent, improved. He is cleared to be discharged per medical service. 2. Benign prostatic hypertrophy status post TURP at [facility]. 3. History of hepatitis C. Initial urologic consultation due to difficult Malik catheter placement, he has mild bladder neck contracture; however, I was able to pass a 16 [place] catheter without difficulty over a guidewire assist, did not require dilatation. He did not present with urinary retention, he had no significant postvoid residual. Malik catheter is removed, the patient can be transitioned back to correction facility. Continue Flomax. I did put orders in for him to follow up with [facility] Urology Department to further stage his bladder neck contracture. Anticipate the patient will be discharged this afternoon back to his facility per primary service. ALEJANDRINA
[2017-11-26] MEDS: Tamsulosin HCl 0.4 MG CAP PO SCH (08:10)
[2017-11-26] MEDS: predniSONE 20 MG TAB PO SCH (08:10)
[2017-11-26] MEDS: Enoxaparin Sodium 40 MG/0.4 ML SYRINGE SC SCH (08:11)
[2017-11-26] MEDS: HYDROcodone/Acetaminophen 10/325 mg Tablet PO PRN (09:16)
[2017-11-26] MEDS: Cephalexin 250 MG CAP PO SCH ×2 (12:57→17:40)
[2017-11-26] MEDS: HumaLOG 300 UNITS/3 ML VIAL SC PRN (16:56)
--- NOTE | 2017-11-26 18:06 | PRG ---
DATE OF SERVICE: 11/26/2017 SUBJECTIVE: Still with pain in the left lower extremity complaining of the fluid restriction as well as no respiratory symptoms, no abdominal pain. His T-max 100.2 yesterday at 4:00 p.m. Blood pressu re 120/79, pulse 85, respirations 24. The left leg erythema has improved markedly. No evidence of a bscess formation or necrosis. The thigh erythema has resolved. Voiding spontaneously. OBJECTIVE: LUNGS: Clear. CARDIOVASCULAR: S1, S2, regular rate. ABDOMEN: Soft and not distended. NEUROLOGIC: He is awake, oriented, much more alert than previously. LABORATORY DATA: Creatinine 0.75.: White cell count 8.3, hemoglobin 12, platelets 78,000, 46% neutr ophils, 31% bands. Microbiology: We have group G strep from the foot swab in moderate amounts and a few MRSA mixed with the skin tere. ASSESSMENT AND DISCUSSION: Chronic hepatitis C, cirrhosis with no prior treatments, previous leg fra cture with various complications, lymphedema, status post hardware removal in the past, now with cell ulitis. There has been quite significant improvement. Therefore, I believe it is very likely that t digna beta hemolytic streptococcus is the culprit here. Continue Rocephin and eventual transition to Ke flex for discharge planning.
[2017-11-26] MEDS: cefTRIAXone\\ROCEPHIN 2 GM in Sodium Chloride 0.9% 100 ML IVPB SCH (18:39)
[2017-11-27] MEDS: Cephalexin 250 MG CAP PO SCH ×3 (00:59→14:20)
[2017-11-27 05:12] LABS: #Eosinphils 0.1 thou/uL (0.0-0.7); #Lymphocytes 1.3 thou/uL (1.20-3.40); #Monocytes 0.5 thou/uL (0.11-0.59); #Neutrophils 6.4 thou/uL (1.40-6.50); %Basophils 0.3 % (0.0-1.0); %Eosinophils 1.5 % (0.0-10.0); %Lymphocytes 15.2 % (21.0-51.0); Mean Corpuscular HGB CONC 32.1 g/dL (32.0-36.0); Mean Corpuscular Hemoglobin 29.8 pg (27.0-31.0); Mean Corpuscular Volume 92.7 fL (78.0-98.0); Mean Platelet Volume 8.7 fL (7.4-10.4); Platelet Count 97 thou/uL (130-400); RBC Distribution Width 14.6 % (11.5-14.5); Red Blood Cell (RBC) Count 4.36 mill/uL (4.70-6.10); White Blood Cell (WBC) Count 8.3 thou/uL (4.8-10.8)
[2017-11-27 05:25] LABS: Anion Gap 9 mmol/L (10-20); BUN (Urea Nitrogen) 15 mg/dL (8.4-25.7); Calc. Creatinine Clearance 269 mL/min (70-130); Carbon Dioxide 30 mmol/L (22-29); Chloride 104 mmol/L (98-107); Estimated GFR-MDRD Greater than 90; Glucose 118 mg/dL (70-105); Magnesium 1.3 mg/dL (1.6-2.6); Potassium 4.8 mmol/L (3.5-5.1); Sodium 138 mmol/L (136-145)
--- NOTE | 2017-11-27 07:05 | PDOC.FM ---
Addendum entered and electronically signed by Nba Whitaker MD 11/27/17 10:13 : During attending rounds, patient was initially resting comfortably. I auscultated his lungs and noted clear breath sounds with occasional upper airway sounds. His oxygen saturation was 85-86% on room air. Upon awakening and instructing to take deep breaths, his saturations increased in the mid to upper 90s on room air. His respiratory issues are likely 2/2 JENNY/obesity hypoventilation syndrome. He states he has had a sleep study and is awaiting CPAP. In his discharge orders, I instructed his PCP to obtain a sleep study or CPAP RASHMI. The patient was informed that this in an outpatient evaluation and cannot be performed in the hospital. He expressed gratitude towards the provider for assisting in this process. Plan to d/c back to [facility] today with close follow up. Original Note: - Subjective Subjective: CC: SOB HPI: Patient reports wheezing. Of note, upon entering the patients room he was receiving a duoneb treatment and did not have audible wheezes. Upon auscultation , he developed audible wheezes. He complained of the wound care staff not addressing his legs and also asked if the hospital could provide him a "breathing machine." I informed him that his legs would require outpatient wound care for several months to address chronic cellulitis and that he would need to acquire his BiPAP/CPAP outpatient. i informed him I would put an order for both in his d/c paperwork. He was not made aware of the possibility of d/c today. - Objective MAR Reviewed: Yes Vital Signs & Weight: Vital Signs (12 hours) Temp Pulse Resp BP Pulse Ox 11/27/17 05:16 98.1 F 86 18 139/72 97 11/27/17 00:59 86 20 97 11/27/17 00:31 95 11/27/17 00:00 97.5 F L 86 22 H 130/79 97 11/26/17 22:46 80 24 H 95 11/26/17 20:40 98.1 F 86 22 H 130/74 97 11/26/17 20:35 95 24 H 95 11/26/17 20:00 98.1 F 86 20 90 L Weight Admit Weight 175 kg Weight 163.86 kg Most Recent Monitor Data Heart Rate from ECG 106 NIBP 108/61 NIBP BP-Mean 77 Respiration from ECG 29 SpO2 86 I&O: 11/26/17 11/27/17 11/28/17 06:59 06:59 06:59 Intake Total 720 480 Output Total 200 Balance 720 280 Result Diagrams: 11/27/17 04:48 11/27/17 04:48 EKG Reviewed by me: No Radiology Reviewed by me: Yes (improved XR from admission to 2 days prior. ) <Nba Whitaker - Last Filed: 11/27/17 07:41> - Objective Vital Signs & Weight: Vital Signs (12 hours) Temp Pulse Resp BP Pulse Ox 11/27/17 07:51 98.3 F 96 20 124/73 91 L 11/27/17 07:17 97 11/27/17 07:12 89 22 H 97 11/27/17 05:16 98.1 F 86 18 139/72 97 11/27/17 00:59 86 20 97 11/27/17 00:31 95 11/27/17 00:00 97.5 F L 86 22 H 130/79 97 11/26/17 22:46 80 24 H 95 Weight Admit Weight 175 kg Weight 163.86 kg Most Recent Monitor Data Heart Rate from ECG 106 NIBP 108/61 NIBP BP-Mean 77 Respiration from ECG 29 SpO2 86 I&O: 11/26/17 11/27/17 11/28/17 06:59 06:59 06:59 Intake Total 720 480 Output Total 200 Balance 720 280 Result Diagrams: 11/27/17 04:48 11/27/17 04:48 <Naseem Merrill - Last Filed: 11/27/17 10:22> Phys Exam - Physical Examination Constitutional: NAD HEENT: moist MMs, sclera anicteric Neck: no nodes, no JVD Respiratory: clear to auscultation bilateral he developed audible wheezes and worsening labored breathing with exam. Cardiovascular: RRR, no significant murmur Gastrointestinal: soft, non-tender Musculoskeletal: edema present (1 to 2+ bilaterally ) stasis dermatitis v chronic cellulitis appearing lesion in lower left leg. Looks impoved compared to wound care photos. Neurological: non-focal, moves all 4 limbs Psychiatric: normal affect, A&O x 3 Skin: no rash, cap refill <2 seconds <Nba Whitaker - Last Filed: 11/27/17 07:41> Dx/Plan (1) Acute kidney injury Code(s): N17.9 - ACUTE KIDNEY FAILURE, UNSPECIFIED Status: Acute (2) Acute respiratory failure with hypoxia Code(s): J96.01 - ACUTE RESPIRATORY FAILURE WITH HYPOXIA Status: Acute (3) Cellulitis of right lower extremity Code(s): L03.115 - CELLULITIS OF RIGHT LOWER LIMB Status: Acute (4) Chronic hepatitis C with cirrhosis Code(s): B18.2 - CHRONIC VIRAL HEPATITIS C; K74.60 - UNSPECIFIED CIRRHOSIS OF LIVER Status: Acute (5) Sepsis due to cellulitis Code(s): L03.90 - CELLULITIS, UNSPECIFIED; A41.9 - SEPSIS, UNSPECIFIED ORGANISM Status: Acute (6) Thrombocytopenia Code(s): D69.6 - THROMBOCYTOPENIA, UNSPECIFIED Status: Acute (7) COPD (chronic obstructive pulmonary disease) Status: Chronic (8) GERD (gastroesophageal reflux disease) Code(s): K21.9 - GASTRO-ESOPHAGEAL REFLUX DISEASE WITHOUT ESOPHAGITIS Status: Chronic (9) HTN (hypertension) Code(s): I10 - ESSENTIAL (PRIMARY) HYPERTENSION Status: Chronic (10) Morbid obesity due to excess calories Code(s): E66.01 - MORBID (SEVERE) OBESITY DUE TO EXCESS CALORIES Status: Chronic (11) JENNY (obstructive sleep apnea) Code(s): G47.33 - OBSTRUCTIVE SLEEP APNEA (ADULT) (PEDIATRIC) Status: Chronic (12) T2DM (type 2 diabetes mellitus) Status: Chronic - Plan Plan: - Severe LLE cellulitis: patient was switched to PO keflex yesterday per ID recommendations. will need 10 day course. discharge pending O2 requirement. - COPD exacerbation: scheduled duonebs and prednisone started 11/25. attempt to wean oxygen today. given Hx COPD goal SpO2 is > 88% - Acute hypoxic respiratory failure: No BiPAP last night. - Severe LLE cellulitis, recurrent: LLE doppler negative for VTE; ESR 19 so unlikely concomitant osteomyelitis. Clinical exam inconsistent with necrotizing fasciitis. Continue keflex in outpatient setting for 10 day course. Wound care following. Gen surg did not want to operate at this time. L leg wound culture growing out B hemolytic strep and MRSA. - Acute renal insufficiency (resolved): Likely 2/2 severe sepsis and/or ATN from hypoperfusion. No obstructive process evident on renal US. Urine output has been appropriate. Replace mag IV today. - Metabolic acidosis: 2/2 acute renal insufficiency; - Possible HF: echo showed EF of 50-55% and no evidence of diastolic dysfunction but was a technically difficult study. - Chronic hepatitis C with cirrhosis: HIV, RPR negative; no evidence of ascites on bedside US. - T2DM: accuchecks AC/HS; no evidence of DKA; hold orals for now w/ SSI to keep glucoses 140-180. - HTN - GERD: cont. PPI - Thrombocytopenia: continuing to improve. likely 2/2 chronic cirrhosis. Monitor for bleeding. - JENNY: prn bipap. needs outpatient CPAP or sleep study. - COPD: prn duonebs and O2. keep sats >88% nurse to wean oxygen today. - Morbid obesity: likely with OHS as well; PT/OT - BPH: initially there was concern for obstruction based on patient's enuresis and HX of TURP. Malik was placed by and has been in place. Malik was removed and voiding well. - Deconditioning: patient was in wheelchair dorm at skilled nursing. Review of record with CM showed patient had order for rehab in August 2017, but no-showed. CM will follow up on this. - Dispo- pending response to O2 weaning trial, possible discharge today. patient will not be made aware of plan. <Nba Whitaker - Last Filed: 11/27/17 07:41> Attending Addendum - Attending Addendum Date/Time: 11/27/17 1019 I personally evaluated the patient and discussed the management with Dr. Whitaker I agree with the History, Examination, Assessment and Plan documented above with any addition or exceptions noted below. Patient appears stable for dismissal component JENNY noted to current symptoms Breath Sounds are clear and O2 sats in 90's and stable off supplemental oxygen will transfer [facility] <Naseem Merrill - Last Filed: 11/27/17 10:22>
[2017-11-27] MEDS ORDERED: Magnesium Sulfate 2 GM in Sodium Chloride 0.9% 100 ML IVPB SCH (07:15)
[2017-11-27] MEDS ORDERED: Magnesium Oxide 400 MG TAB PO SCH (09:00)
[2017-11-27] MEDS: Tamsulosin HCl 0.4 MG CAP PO SCH (10:22)
[2017-11-27] MEDS: predniSONE 20 MG TAB PO SCH (10:22)
[2017-11-27] MEDS: Enoxaparin Sodium 40 MG/0.4 ML SYRINGE SC SCH (10:24)
[2017-11-27 11:40] VITALS: BP 137/73; TEMP 98.8
--- NOTE | 2017-11-27 13:26 | EKG ---
Test Reason : Blood Pressure : / mmHG Vent. Rate : 117 BPM Atrial Rate : 117 BPM P-R Int : 154 ms QRS Dur : 098 ms QT Int : 344 ms P-R-T Axes : 067 056 043 degrees QTc Int : 479 ms Sinus tachycardia Low voltage QRS Borderline ECG Confirmed by HOPE LARES ([id number]), editor city OUMOU GOMEZ ([id number]) on 11/27/2017 1:26:15 PM Referred By: Confirmed By:HOPE LARES
--- NOTE | 2017-11-30 00:13 | DIS-2 ---
DATE OF ADMISSION: 11/19/2017 DATE OF DISCHARGE: 11/27/2017 RESIDENT: Rogelio Tolbert D.O. ADMITTING ATTENDING: Dr. Socrates Griffin. DISCHARGE ATTENDING: Dr. Naseem Merrill. CONSULTATIONS: Dr. Sanchez of Pulmonology, Dr. Knight by Urology, Dr. Farris of General Surgery , Dr. Hernandez of Nephrology, Dr. Weems of Infectious Disease. PROCEDURES: 1. Chest x-ray on 11/19/2017 showing borderline heart size, but no lobar consolidation pneumothorace s, pulmonary edema or effusions. 2. Renal ultrasound showing normal sonographic appearance of the kidneys with Malik catheter with an empty bladder. 3. Vascular ultrasound on 11/19/2017 showing no DVT in the left lower extremity with soft tissue raffy ma in the left lower extremity. 4. Echocardiogram on 11/20/2017 showing a technically difficult study oriented for endocardial defin ition; ejection fraction estimated at 50%-55% with mild mitral regurgitation. 5. Tibiofibular x-ray showing remodeling of the distal tibia from prior surgery. Chest x-ray on 11/24/2017 showing no significant acute intrathoracic disease; stable from prior study on 11/19/2017. PRIMARY DIAGNOSES: 1. Severe sepsis secondary to left lower extremity methicillin-resistant Staphylococcus aureus cellu litis. 2. Acute kidney injury secondary to acute tubular necrosis. 3. Respiratory distress likely secondary to obstructive sleep apnea. SECONDARY DIAGNOSES: 1. Elevated troponin, likely demand ischemia. 2. Thrombocytopenia. 3. Congestive heart failure. 4. Chronic obstructive pulmonary disease. 5. Hypertension. 6. Morbid obesity. 7. Gastroesophageal reflux disease. 8. Ventral hernia. 9. Cirrhosis secondary to hepatitis C. 10. Type 2 diabetes. 11. Hypophosphatemia. 12. Hypomagnesemia. DISCHARGE MEDICATIONS: 1. Prednisone 40 mg p.o. q.a.m. with breakfast x3 days. 2. Keflex 500 mg p.o. q.8 hours x3 days. 3. Metformin 500 mg p.o. b.i.d. 4. Terazosin 10 mg p.o. at bedtime. 5. Simethicone 80 mg p.o. t.i.d. as needed for gas pain. 6. Spironolactone 4 tablets p.o. b.i.d. 7. Omeprazole 40 mg p.o. b.i.d. 8. Metolazone 5 mg p.o. weekly. 9. Lisinopril 2.5 mg p.o. daily. 10. Lactulose 10 g/15 mL oral solution 20 g p.o. b.i.d. 11. Ibuprofen 600 mg p.o. b.i.d. 12. Glipizide 5 mg p.o. daily. 13. Furosemide 40 mg p.o. b.i.d. 14. Tums 1000 mg p.o. q.a.m. with breakfast. 15. Aspirin 81 mg p.o. daily. DISCONTINUED MEDICATIONS: None. HISTORY OF PRESENT ILLNESS AND HOSPITAL COURSE: The patient is a 57-year-old male who presented to [facility] emergency room in sepsis. The patient is a prisoner in [place], who has a history of recurrent c ellulitis in the left lower extremity with an extensive history of previous surgeries. The patient f aleta outpatient treatment with Bactrim and was started on cefepime and vancomycin. Infectious Disea se was consulted to confirm appropriate regimen. Cultures grew back MRSA in the wound as well as melody up G Streptococcus. During hospitalization, patient's leg improved in regards to erythema and edema; however, the patient reported pain was consistent with no improvement throughout hospitalization. W ound care was provided during hospitalization and recommended at home for followup. Regarding the patient's severe sepsis, the patient's initial lab values included blood pressure 96/45 , heart rate of 137, temperature of 97.9 and required vasopressor, but was not given boluses of fluid s early on due to his reported history of CHF. Additionally, lactic acid was 2.1 on admission. CRP was 27.7, procalcitonin was 8.29. On day 2 of hospitalization, patient's vital signs improved and st ayed stable throughout hospitalization. In regard to the patient's KIRK, initially, his creatinine was 3.53 and worsened to 6.19 over the firs t 2 days of hospitalization. Additionally, the patient was making little to no urine on the first 2 days of hospitalization with reported output over the first 24 hours 32 mL and then 53 mL the subsequ ent day; however, on the following days, the patient diuresed 5115 mL, 5550 mL, 3450 mL and then 4925 mL Initially there was concerns the patient would need dialysis. Therefore, Dr. Hernandze and Dr. Steve weinstein were consulted for possible need of dialysis, however, the patient's kidneys woke up and it was determined that was not required. Additionally, his creatinine improved on subsequent days of hospi talization and normalized to 0.72 on day of discharge. Additionally, Dr. Knight was consulted a s the azotemia could have had a post-renal obstruction source and with the patient's history of TURP Dr. Knight placed Malik catheter, which stayed in during hospitalization until the day before di scharge. On day of discharge, patient did urinate appropriately and pressure residual volume was in appropriate range. Regarding the patient's hyponatremia, the patient came in with a sodium of 130. This normalized to 1 39 on day 4 of hospitalization. Regarding the patient's hypokalemia, the patient received p.o. potassium on day 5 of hospitalization after a potassium of 3.1. This remained normal during the rest of the hospitalization. Regarding the patient's hypophosphatemia, initially, patient came in with phosphorus 7.0; however, th is normalized to 2.9, then on day 5 of hospitalization, patient's phosphorus level was 1.6. This was thought to be possibly a contributing factor to his respiratory distress on that day, it was replace d and the patient's respiratory distress did improve and it was normal for the rest of the hospitaliz ation. Regarding the patient's respiratory distress, according to records, patient was diagnosed with obstru ctive sleep apnea prior to admission to the hospital; however, he reports that he never received a CP AP machine. During hospitalization, patient did have respiratory distress, which was thought to be c ongestive heart failure exacerbation secondary to fluid overload versus COPD exacerbation due to obst ructive sleep apnea. Regardless, the patient did require BiPAP most nights of hospitalization, which he tolerated poorly most nights. The patient also sometimes use nasal cannula with oxygen saturatio ns recorded between 91% and 100%. Three days prior to discharge, patient was believed to be in COPD exacerbation, therefore, he was started on steroids and breathing treatments. Regarding the patient's mobility status, the patient prior to arriving in the hospital was in the [facility] and was treated with physical therapy and occupational therapy while in [facility] with recommendations to continue at home. DISPOSITION: Stable. DISCHARGE INSTRUCTIONS: 1. Location: Skilled Nursing. 2. Diet: Diabetic diet. 3. Activity: As tolerated. 4. Follow up with jail doctor as well as; Dr. Knight requested [facility] facility to arrange follo w up with [facility] when patient is discharged back to facility in the next 1-2 weeks.
== END 2017-11-27 15:26 | DRG 871 ==
LOC: ERS 12:19 → CCU 16:02 → IMCU/EMU 11-22 12:47 → T4-B 11-23 13:28 → IMCU/EMU 11-24 07:23 → T4-B 11-25 10:16
PROVIDERS: ADMIT Student in an Organized Health Care Education/Training Program; ATTEND Student in an Organized Health Care Education/Training Program
PROC: 0WHR8YZ Insertion of Other Device into Genitourinary Tract, Via Natural or Artificial Opening Endoscopic (ICD-10-PCS; principal; 2017-11-19)
PROC: 05HM33Z Insertion of Infusion Device into Right Internal Jugular Vein, Percutaneous Approach (ICD-10-PCS; 2017-11-19)
DX: A41.02 Sepsis due to Methicillin resistant Staphylococcus aureus (principal); N17.0 Acute kidney failure with tubular necrosis; J96.01 Acute respiratory failure with hypoxia; I21.A1 Myocardial infarction type 2; R65.21 Severe sepsis with septic shock; L03.115 Cellulitis of right lower limb; J44.1 Chronic obstructive pulmonary disease with (acute) exacerbation; Z68.43 Body mass index [BMI] 50.0-59.9, adult; E87.2 Acidosis; E87.1 Hypo-osmolality and hyponatremia; I13.0 Hypertensive heart and chronic kidney disease with heart failure and stage 1 through stage 4 chronic kidney disease, or unspecified chronic kidney disease; B18.2 Chronic viral hepatitis C; D69.6 Thrombocytopenia, unspecified; K21.9 Gastro-esophageal reflux disease without esophagitis; E66.01 Morbid (severe) obesity due to excess calories; G47.33 Obstructive sleep apnea (adult) (pediatric); E11.51 Type 2 diabetes mellitus with diabetic peripheral angiopathy without gangrene; N40.0 Benign prostatic hyperplasia without lower urinary tract symptoms; E87.6 Hypokalemia; E87.70 Fluid overload, unspecified; N32.0 Bladder-neck obstruction; I87.8 Other specified disorders of veins; E11.22 Type 2 diabetes mellitus with diabetic chronic kidney disease; N18.3 Chronic kidney disease, stage 3 (moderate); I50.9 Heart failure, unspecified
CPT/HCPCS: 36415; 36416; 36556; 51700; 71045; 76770; 80048; 80053; 80061; 80069; 80202; 81003; 81015; 82140; 82553; 82805; 83036; 83605; 83735; 83970; 84100; 84145; 84484; 85025; 85610; 85652; 85730; 86140; 86780; 87040; 87070; 87077; 87086; 87149; 87186; 87205; 87389; 93005; 93306; 93970; 94640; 94660; 94760; 96365; 96366; 96367; 96368; 96375; A4216; G0365; G8981-GP-CL; G8982-GP-CJ; G8987-GO-CL; G8988-GO-CK; J0692; J0696; J1650; J1940; J1956; J2920; J3010; J3370; J3475; J3490; J7050; J7070; J7506; J7620

== ENCOUNTER 2018-01-03 05:51 | Inpatient (IN) | payer OTHER ==
[2018-01-03] MEDS ORDERED: Ondansetron HCl/PF 4 MG/2 ML Vial ONE (06:11)
[2018-01-03] MEDS ORDERED: Morphine 4 MG/ML VIAL ONE (06:11)
[2018-01-03] MEDS ORDERED: Clindamycin/D5W 900 mg/50 ml Premix Bag ONE (06:52)
[2018-01-03 07:28] LABS: Band 42 % (5-11); Hemoglobin 11.2 g/dL (14.0-18.0); Lymphocytes 6 % (21-51); MDiff Complete? YES; Mean Corpuscular HGB CONC 29.9 g/dL (32.0-36.0); Mean Corpuscular Hemoglobin 28.3 pg (27.0-31.0); Mean Corpuscular Volume 94.7 fL (78.0-98.0); Mean Platelet Volume 10.4 fL (7.4-10.4); Metamyelocyte 2 % (0-0); Monocytes 7 % (0-10); Neutrophil 42 % (42-75); PLT Morphology Comment Appears Decreased; Platelet Count 39 thou/uL (130-400); RBC Distribution Width 15.2 % (11.5-14.5); Reactive Lymphocytes 1 % (0-10); Red Blood Cell (RBC) Count 3.96 mill/uL (4.70-6.10); Toxic Granulation SLIGHT; Vacuoles SLIGHT; White Blood Cell (WBC) Count 8.9 thou/uL (4.8-10.8)
[2018-01-03 07:36] LABS: ALT (SGPT) 54 U/L (8-55); AST (SGOT) 27 U/L (5-34); Albumin 2.6 g/dL (3.5-5.0); Alkaline Phosphatase 58 U/L (40-150); Anion Gap 24 mmol/L (10-20); BUN (Urea Nitrogen) 25 mg/dL (8.4-25.7); Bilirubin, Total 2.2 mg/dL (0.2-1.2); Calc. Creatinine Clearance 0 mL/min (70-130); Calcium 8.1 mg/dL (7.8-10.44); Carbon Dioxide 15 mmol/L (22-29); Chloride 105 mmol/L (98-107); Estimated GFR-MDRD 27; Globulin 2.6 g/dL (2.4-3.5); Glucose 110 mg/dL (70-105); Potassium 3.9 mmol/L (3.5-5.1); Protein, Total 5.2 g/dL (6.0-8.3); Sodium 140 mmol/L (136-145)
--- NOTE | 2018-01-03 08:59 | RAD ---
PORTABLE CHEST ONE VIEW: Date: 01-03-18 Time: 6:04 a.m. History: Nausea, vomiting, cellulitis in the legs. FINDINGS/IMPRESSION: Comparison is made with exam of 11-24-17. The heart is enlarged. The lungs are well expanded without lobar consolidation, pneumothoraces, rony pleural edema or large effusions. POS: [facility]
[2018-01-03] MEDS ORDERED: Norepinephrine 8 MG/0.9% NS 250 ML ONE (10:03)
[2018-01-03] MEDS ORDERED: Fentanyl 100 MCG/2 ML VIAL ONE (10:03)
--- NOTE | 2018-01-03 10:51 | RAD ---
PORTABLE CHEST ONE VIEW: Date: 01-03-18 Time: 9:34 a.m. History: Central line placement. FINDINGS/IMPRESSION: There has been interval placement of a right internal ventricular central line with tip in the direct ion of the SVC since the earlier exam of 6:04 a.m. from the same date. No pneumothorax is seen. POS: [facility]
--- NOTE | 2018-01-03 11:01 | PDOC.PULCN ---
<Rogelio Hansen - Last Filed: 01/03/18 11:12> Pulmonology Consult: HPI - Date of Consult Date: 01/03/18 Time: 10:30 - Consult Details Reason for Consult: Severe sepsis Requesting Physician: laure - History of Present Illness HPI: VERITO SALAZAR is a 57 year-old M with complicated PMH including EF 50-55%, KIRK/ ATN, HTN, Cirrhosis 2/2 hep C , T2DM, TURP, JENNY who comes in with chief complaint of bilateral leg pain. He states the legs have been hurting worse and worse for about 4 days. He denies fevers. He states he is feeling short of breath and malaised in general. He is feeling nauseated and has had diarrhea but denies noting blood in the stool. He states he has not been able to eat or drink for 3 days, he also has not urinated for three days per his report. He was discharged on 11/27 for MRSA cellulitus and KIRK complicated by ATN. See d/ c summary from that stay for more details. He did have to have a roldan placed with camera assistance by urology at that time. He was supposed to follow-up with urology at [facility] after that discharge but never did. Pulmonology Consult: ROS - Review of Systems Constitutional: weakness, malaise. negative: fever, chills, sweats Cardiovascular: negative: chest pain, palpitations Respiratory: short of breath. negative: bloody sputum, cough, orthopnea Pulmonology Consult: PMH Source: patient, other (chart review) Past Medical History: Acute tubular necrosis, TURP, CHF, HTN, Cirrhosis 2/2 hep c, T2DM, JENNY, possible COPD PSH: R lower leg surgery x7, open cholecystectomy, tissue graft from abdominal wall - Family History Family history: reviewed and not pertinent - Social History Smoking Status: Former smoker Alcohol Use: none Drug Use History: none Living Situation: in custody ([facility]) Pulmonology Consult: Meds - Medications MAR Reviewed: Yes Medications: Home meds: pred 40mg TID metformin 500mg bID terazosin 10mg qhs simethicone 80mg ITD spironolactone 4 tablets po BID omeprazole 40mg bid metolazone 5mg weekly lisinopril 2.5mg daily lactulose 20g Po bid ibu 600mg po bid glipizide 5mg daily lasix 40mg BID 81mg ASA daily - Allergies Allergies/Adverse Reactions: Allergies Allergy/AdvReac Type Severity Reaction Status Date / Time Penicillins Allergy Verified 11/19/17 18:41 Pulmonology Consult: PE - Physical Exam Deviation from normal: mild distress, pain, increased wob HEENT: PERRLA, moist MMs Neck: full ROM Cardiovascular: RRR, no significant murmur, no rub Respiratory: clear to auscultation bilaterally, accessory muscle use, respiratory distress (mild, speaks in complete sentences). negative: wheezes Gastrointestinal: soft, non-tender, positive bowel sounds Deviation from normal: +3 edema of legs bilaterally, redness to mid-calf on R -: redness just above ankle on the L Neurological: non-focal, moves all 4 limbs Skin: cap refill <2 seconds Pulmonology Consult: Results - Labs Result Diagrams: 01/03/18 07:01 01/03/18 07:01 Pulmonology Consult: A/P - Problem (1) Lactic acidosis Current Visit: Yes Code(s): E87.2 - ACIDOSIS Status: Acute (2) Sepsis associated hypotension Current Visit: Yes Code(s): A41.9 - SEPSIS, UNSPECIFIED ORGANISM; I95.9 - HYPOTENSION, UNSPECIFIED Status: Acute (3) Sepsis due to cellulitis Current Visit: Yes Code(s): L03.90 - CELLULITIS, UNSPECIFIED; A41.9 - SEPSIS, UNSPECIFIED ORGANISM Status: Acute (4) Anemia, normocytic normochromic Current Visit: Yes Code(s): D64.9 - ANEMIA, UNSPECIFIED Status: Chronic (5) COPD (chronic obstructive pulmonary disease) Current Visit: Yes Status: Chronic (6) Chronic hepatitis C with cirrhosis Current Visit: Yes Code(s): B18.2 - CHRONIC VIRAL HEPATITIS C; K74.60 - UNSPECIFIED CIRRHOSIS OF LIVER Status: Chronic (7) GERD (gastroesophageal reflux disease) Current Visit: Yes Code(s): K21.9 - GASTRO-ESOPHAGEAL REFLUX DISEASE WITHOUT ESOPHAGITIS Status: Chronic (8) HTN (hypertension) Current Visit: Yes Code(s): I10 - ESSENTIAL (PRIMARY) HYPERTENSION Status: Chronic (9) Morbid obesity due to excess calories Current Visit: Yes Code(s): E66.01 - MORBID (SEVERE) OBESITY DUE TO EXCESS CALORIES Status: Chronic (10) JENNY (obstructive sleep apnea) Current Visit: Yes Code(s): G47.33 - OBSTRUCTIVE SLEEP APNEA (ADULT) ( PEDIATRIC) Status: Chronic (11) T2DM (type 2 diabetes mellitus) Current Visit: Yes Status: Chronic (12) Thrombocytopenia Current Visit: Yes Code(s): D69.6 - THROMBOCYTOPENIA, UNSPECIFIED Status: Chronic - Time Time: 50% of the time was spent in coordination of care (as documented) at patient's floor/unit and/or counseling patient. Time with Patient: greater than 50 minutes - Plan Plan: This is a 57 yo M being admitted for recurrent lower extremity cellulitus. He has a history including EF 50-55%, KIRK/ATN, HTN, Cirrhosis 2/2 hep C, likely COPD, T2DM, TURP, JENNY Consults: ID, Pulm DISPATCHER RELAY () - A&Ox3 - Follows commands - Sedation: none Resp (likely COPD, JENNY) - 97% on 2L, titrate up to CPAP as needed - told he needs a CPAP never obtained - Needed Bipap at night last stay CV (HTN, CHF, recurrent cellulitus) - EF 50-55% - on levophed, s/p 3L NS in ED - hypotension likely chronic from Hep C, worsened by sepsis - trop x2 ordered - will check CVP once in ICU GI (N/V, Hep C) - continue home lactulose - zofran - c diff assay pending for diarrhea, could be 2/2 lactulose - likely hepatorenal syndrome, consider GI consultation if BP does not improve w / fluids/antibiotics Nutrition - PO as tolerated Hematologic (anemia) - hgb 11.2, baseline 12.5 last stay - plts 39, cirrhotic /Renal (hx TURP, bladder neck contracture, carrol urine output, recent KIRK w/ ATN ) - states he has not urinated for 3 days, has not tolerated PO intake during this time - diagnosed with bladder neck contracture by urology last visit, referred to [facility] for staging, never made it there - roldan in place now, will do bladder scan on the floor - monitor I/Os urology consult if needed - Cr 2.47 today, as high as 6.19 last visit, monitor Infection (recent cellulitus attributed to beta-hemolytic strep, also w/ history of MRSA, severe sepsis) - Vanc, clinda in ED - blood cultures pending - Levofloxacin IV, will check vanc trough in AM - ID consult pending appreciate recs Endo (T2DM) - SSI Code status: full PPx: pepcid, thrombocytopenia Diet: diabetic Dispo: >2 days Will check cultures, monitor fluid status, monitor output. Appreciated ID input. <Deonte Villagran E - Last Filed: 01/03/18 11:48> Pulmonology Consult: HPI - History of Present Illness HPI: VERITO SALAZAR is a 57 year-old M Pulmonology Consult: Results - Labs Result Diagrams: 01/03/18 07:01 01/03/18 07:01 Pulmonology Consult: A/P - Time Time: 50% of the time was spent in coordination of care (as documented) at patient's floor/unit and/or counseling patient. - Plan Plan: Addendum by Dr. Villagran: I have seen the patient, personally interviewed the patient, and have personally examined the patient. This patient is in septic shock from apparent LE cellulitis which is worse on Right leg than Left. I don' t think this is necrotizing fasciitis based on my initial exam, but I have drawn an outline on the wound and will watch closely for worsening. He needs a bladder scan to see if his bladder is full, otherwise may need urology consultation for evaluation of the roldan. Agree with vanc and levaquin. ID has been consulted by Dr. Alvarez. We will place a CVP monitor to evaluate his intravascular volume, as he may require more aggressive hydration. Continue levophed. Check cortisol, TSH if not done. I agree with evaluation, A&P above. 70 minutes CC time.
[2018-01-03] MEDS ORDERED: Loratadine 10 MG TAB PO PRN (11:56)
[2018-01-03] MEDS ORDERED: Senokot 8.6 MG TAB PO PRN (11:56)
[2018-01-03] MEDS ORDERED: Sodium Chloride 0.65% Nasal 44 ML BOT EA NARE PRN (11:56)
[2018-01-03] MEDS ORDERED: Milk Of Magnesia 30 ML UDCUP PO PRN (11:56)
[2018-01-03] MEDS ORDERED: Loperamide HCl 2 MG CAP PO PRN (11:56)
[2018-01-03] MEDS ORDERED: Ondansetron ODT 4 MG TAB PO PRN (11:56)
[2018-01-03] MEDS ORDERED: Artificial Tears 18 DROP/0.9 ML EA EYE PRN (11:56)
[2018-01-03] MEDS ORDERED: Sodium Chloride 0.9% 1,000 ML IV SCH (11:56)
[2018-01-03] MEDS ORDERED: Mag-Al 1200 mg/1200 mg/30 ML UDCUP PO PRN (11:56)
[2018-01-03] MEDS ORDERED: HumaLOG 300 UNITS/3 ML VIAL SC PRN (11:56)
[2018-01-03] MEDS ORDERED: Dextrose 50% Abboject 50 ML SYRINGE SLOW IVP PRN (11:56)
[2018-01-03] MEDS ORDERED: Dextrose 5% in Water 1,000 ML IV PRN (11:56)
[2018-01-03] MEDS ORDERED: Diabetic Tussin 200 MG/10 ML UDCUP PO PRN (11:56)
[2018-01-03] MEDS ORDERED: Ondansetron HCl/PF 4 MG/2 ML Vial IVP PRN (11:56)
[2018-01-03] MEDS ORDERED: Chloraseptic Spray 180 ml Bottle PO PRN (11:56)
[2018-01-03] MEDS ORDERED: Eucerin (Mineral Oil/Petrolatum,White) 30 gm Jar TOP PRN (11:56)
--- NOTE | 2018-01-03 12:07 | HP ---
PRIMARY CARE PHYSICIAN: City call admission. Patient is from jail. REASON FOR ADMISSION: Septic shock, bilateral lower extremity cellulitis, predominantly right lower extremity, acute kidney failure. HISTORY OF PRESENT ILLNESS: A 57-year-old male who has underlying history of cirrhosis of liver seco ndary to hepatitis C, diabetes type 2, chronic diastolic heart failure, morbid obesity, obstructive s leep apnea, and COPD, who was recently admitted in our hospital in 10/2017. At that time, patient wa s treated for severe sepsis secondary to methicillin-resistant Staphylococcus aureus. At that time, patient also had lower extremity cellulitis. The patient does get recurrent cellulitis. This time, he was brought to ER because he was having increasing amount of leg pain. He also had increasing nick unt of swelling and redness on both lower extremities, predominantly more on the right lower extremit y. He was also feeling weak and dizzy. He had nausea, vomiting and diarrhea yesterday. His blood p ressure was running low. Paramedics reported his blood pressure 72/48. The patient was given almost 2.5 liters of IV fluid. Despite that, his blood pressure was going low. His lowest blood pressure in the emergency room was 58/33. He required central line placement for poor IV access and subsequen tly Levophed was started. In the emergency room, patient was given broad spectrum antibiotic therapy with vancomycin and clindamycin. The patient denies any fever at prison, but he was feeling fatigued, tired, dizzy and weak. REVIEW OF SYSTEMS: The following complete review of systems was negative, unless otherwise mentioned in the HPI or below: Constitutional: Weight loss or gain, ability to conduct usual activities. Skin: Rash, itching. Eyes: Double vision, pain. ENT/Mouth: Nose bleeding, neck stiffness, pain, tenderness. Cardiovascular: Palpitations, dyspnea on exertion, orthopnea. Respiratory: Shortness of breath, wheezing, cough, hemoptysis, fever or night sweats. Gastrointestinal: Poor appetite, abdominal pain, heartburn, nausea, vomiting, constipation, or diarr hea. Genitourinary: Urgency, frequency, dysuria, nocturia. Musculoskeletal: Pain, swelling. Neurologic/Psychiatric: Anxiety, depression. Allergy/Immunologic: Skin rash, bleeding tendency. Please see my HPI for pertinent positive and negative. All other review of systems reviewed and nega tive except as mentioned in the HPI. ALLERGIES: PENICILLIN. CURRENT HOME MEDICATIONS: Lasix 40 mg p.o. daily, aspirin 81 mg p.o. daily, calcium carbonate 500 mg p.o. daily, glipizide 5 mg p.o. daily, lactulose 30 mL p.o. b.i.d., metolazone 5 mg p.o. once a week , omeprazole 20 mg twice daily, Aldactone 400 mg twice daily, metformin 500 mg twice daily, terazosin 10 mg p.o. at bedtime, lisinopril 2.5 mg p.o. daily, simethicone 80 mg 3 times daily. EMERGENCY ROOM COURSE: Patient has received 3 liters of IV fluid. He received vancomycin and clinda mycin. He is receiving Levophed drip. He was given fentanyl 50 mcg as well as DuoNeb therapy, Zofra n and morphine 4 mg was given. PAST MEDICAL HISTORY: Diabetes type 2 on oral hypoglycemic agent, chronic hepatitis C, cirrhosis of liver due to chronic hepatitis C, chronic diastolic heart failure, chronic obstructive pulmonary dise ase, morbid obesity, obstructive sleep apnea, recurrent cellulitis of lower extremity, gastroesophage al reflux disease, chronic foot and ankle pain, chronic lymphedema, chronic venous insufficiency. PAST SURGICAL HISTORY: Open cholecystectomy, left leg surgery x7, tonsillectomy, tissue graft from a bdominal wall. PAST PSYCHIATRIC HISTORY: Anxiety, depression and bipolar disorder. SOCIAL HISTORY: Patient lives at jail. No history of tobacco, alcohol or illicit drug abuse. FAMILY HISTORY: No strong family history of premature coronary artery disease, stroke or cancer. PHYSICAL EXAMINATION: VITAL SIGNS: Lowest blood pressure 58/33, pulse 126, respiratory rate 34, saturation 93% on 2 liter oxygen and weight 181.4 kilograms. GENERAL: Patient is uncomfortable from back pain as well as patient is not able to lie down flat bec ause of shortness of breath. He is tachycardic, tachypneic, hypotensive. HEAD: Normocephalic, atraumatic. EYES: Pupils round, reactive to light. Extraocular muscle intact. ENT: Oropharynx within normal limit. Dry appearing mucous membranes. No oral lesion, no pharyngeal erythema, no exudate. NECK: Supple, no JVD, short neck. Difficult to assess JVD, no thyromegaly, no carotid bruit. LUNGS: Bilateral reduced air entry at base. No accessory muscles of respiration in use. Tachypnea and morbid obesity limiting examination. CARDIAC: S1, S2 regular, tachycardia, distant heart sound. No murmur elicited though obesity limiti ng examination. ABDOMEN: Morbid obesity with surgical scar noted. Ventral hernia noted. No guarding, no rigidity, no rebound, no peritoneal sign, no suprapubic discomfort. BACK: Examination unremarkable, no CVA tenderness. EXTREMITIES: Upper extremity passive movements of all joints are normal. Lower extremities, bilater al lower extremity edema noted. Right lower extremity erythematous, tender, more than left lower ext remity. NEUROLOGIC: Grossly nonfocal examination. His speech is normal. He moves all 4 limbs. SKIN: No skin rash other than cellulitis. HEMATOLOGIC: No lymphadenopathy. PSYCHIATRIC: Normal affect. IMAGING DATA AND SIGNIFICANT LABORATORY DATA: 1. EKG showing sinus tachycardia, low voltage QRS complex. Chest x-ray based on my review, no acute cardiopulmonary process. Chest x-ray done after central line which is also not showing any complica tions. 2. CBC: WBC 8.9, hemoglobin 11.2, platelet 39 with bandemia. 3. BMP: Sodium 140, potassium 3.9, chloride 105, carbon dioxide 15, anion gap 24, BUN 25, creatinin e 2.47, glucose 110, calcium 8.1, lactic acid 10.3. 4. LFT: Bilirubin 2.2, AST 27, ALT 54, alkaline phosphatase 58, albumin 2.6, serum ketones 0.18. ASSESSMENT AND PLAN/IMPRESSION: 1. Septic shock. The patient is given almost 3.5 liters of IV fluid in the emergency room despite h is blood pressure recurrently dropping in the emergency room. Patient required central line placemen t and Levophed drip has started to improve low blood pressure. The patient will be kept on broad spe ctrum antibiotic therapy as well, and we will follow up on culture result. Source of infection is ce llulitis. The patient will require Intensive Care Unit admission. He will require titration of Levo phed drip. He will need close monitoring in CCU for any hemodynamic compromise. 2. Severe sepsis with acute organ dysfunction. The patient does have acute kidney failure. He has acute organ dysfunction with hypotension. He has metabolic acidosis. This patient is kept on broad spectrum antibiotic therapy. Pulmonary Group will be consulted for critical care illness. Infectiou s Disease will be consulted as well. Depending upon culture result, we will change antibiotic therap y accordingly. We will monitor renal function and any hemodynamic compromise in CCU. 3. Acute kidney failure, likely due to sepsis. The patient will be given gentle IV fluid at NS 100 mL per hour. We will monitor renal function. We will watch for any fluid overload status. We will avoid nephrotoxin agent and all medication will be given based on the renal dose. 4. Bilateral lower extremity cellulitis, more on the right side. This is the main source of infecti on. The patient is kept on vancomycin, pharmacy adjusted dose and Levaquin renally adjusted dose. W e will monitor clinical response. ID team is consulted. 5. Anion gap acidosis due to sepsis with lactic acidosis. We will continue with IV fluid. We will continue with broad spectrum antibiotic therapy and vasopressor support. We will repeat lactic acid level tomorrow. 6. Thrombocytopenia, chronic from hypersplenism from cirrhosis. We will avoid antiplatelet agent as well as heparin products because of low platelet count. 7. Anemia, normocytic, normochromic. We will repeat CBC tomorrow. 8. Cirrhosis of liver from chronic hepatitis C. At this point, because of low blood pressure, we wi ll hold on Lasix, Aldactone therapy. Patient also had diarrhea and that is why we will also hold on lactulose therapy and we will check stool for C. diff. 9. Morbid obesity. Dietary education given, weight loss education given 10. Obstructive sleep apnea. The patient will resume continuous positive airway pressure machine wh ile in hospital. 11. Chronic obstructive pulmonary disease. We will continue DuoNeb therapy q.6 hourly p.r.n. 12. Gastrointestinal prophylaxis, Pepcid 20 mg IV daily. 13. Code status: The patient is FULL CODE. Patient does not have any surrogate decision maker. Disposition plan based on clinical course. Total time spent providing critical care to this patient was 35 minutes in the Emergency Room.
[2018-01-03 12:09] LABS: Lactic Acid 8.6 mmol/L (0.5-2.2); Troponin I 0.301 ng/mL (< 0.028)
[2018-01-03] MEDS ORDERED: Vancomycin HCl 1 GM in Premix Bag 1 BAG IVPB SCH (12:30)
[2018-01-03] MEDS: HYDROcodone/Acetaminophen 5/325 mg Tablet PO PRN ×2 (13:15→22:20)
[2018-01-03 14:20] LABS: Troponin I 0.293 ng/mL (< 0.028)
[2018-01-03] MEDS: Sodium Chloride 0.9% 1,000 ML IV SCH ×2 (15:00→22:56)
[2018-01-03] MEDS ORDERED: Vancomycin HCl 1.25 GM in Sodium Chloride 0.9% 250 ML 250 ML IVPB SCH (15:15)
[2018-01-03] MEDS ORDERED: Lidocaine 1% (PF) 30 ML VIAL ONE (15:16)
[2018-01-03] MEDS: MEROPENEM 1 GM/50 ML 1 GM in Premix Bag 1 BAG IVPB SCH (16:07)
[2018-01-03] MEDS: Fentanyl 100 MCG/2 ML VIAL SLOW IVP PRN ×2 (16:08→20:02)
--- NOTE | 2018-01-03 19:16 | CON ---
DATE OF CONSULTATION: 01/03/2018 REASON FOR CONSULTATION: Cellulitis with sepsis. HISTORY OF PRESENT ILLNESS: A 57-year-old whom I had recently seen in 2017 when he presented with history of hepatitis C and cirrhosis of the liver as well as type 2 diabetes, COPD, and CHF with bilateral lower extremity cellulitis with lymphedema. The patient has a history of right lower extremity fractures with ORIF and at that time he had sepsis. The impression was cellulitis with venous insufficiency lymphatic drainage problems, prior multiple surgeries, possibility of osteomyelitis is considered. The cultures revealed group G strep and MRSA. The patient improved after initial phase of broad spectrum antimicrobial therapy and was eventually transitioned to oral Keflex and now has had recrudescence which developed day before admission. Apparently, he was not taking any suppressive medication to prevent recrudescence of cellulitis. This had been recommended upon discharge. Here at this time, he was hypotensive. He was given IV fluids and broad spectrum coverage. Central line placement vasopressors and transferred to the ICU. Currently, he is awake and oriented. He has moderate to severe pain in the right leg and some pain in the left leg. Some headaches and moderate dyspnea without chest pain, no cough. Moderate abdominal pain which is diffuse. The patient has a Malik catheter in place. He is oriented and follows commands. PAST MEDICAL HISTORY: Type 2 diabetes, chronic hepatitis C, cirrhosis of liver without prior treatment, diastolic heart failure, COPD, obesity, obstructive sleep apnea, recurrent cellulitis of lower extremities, prior fracture of left lower extremity with ORIF, apparent removal of the hardware. PAST SURGICAL HISTORY: Also includes cholecystectomy, left leg surgery x7 and tonsillectomy. SOCIAL HISTORY: He is a prisoner at [facility], never smoker. FAMILY HISTORY: Noncontributory. PHYSICAL EXAMINATION: VITAL SIGNS: T-max of 101, blood pressure 88/51, pulse 101, O2 sat 95%. SKIN: Shows area of purpuric erythema in a circumferential distribution right leg extending from the ankle all the way to the knee, right side with areas of hemorrhagic blistering in the anteromedial aspect. Left leg has some erythema, but much less confluent and extensive done the right. There is marked tenderness on palpation of the right side. There is swelling of lower extremities with 3-4+ edema. Patient has a central line in the IJ position. HEENT: No lymphadenopathy. Conjunctivae are hyperemic. Oral cavity with numerous missing teeth. NECK: Supple, no jugular venous distention. LUNGS: Symmetric air entry. HEART: S1, S2, regular rate. No S3, S4. ABDOMEN: Soft, not distended or tender. No ascites. No bladder distention. The patient has a Malik catheter in place. Pulses are difficult to evaluate in lower extremities because of swelling. NEUROLOGIC: He is awake, oriented, follows commands. LABORATORY DATA AND IMAGING DATA: White cell count 8.9, hemoglobin 11, platelets 39,000 with 42% neutrophils, 42% bands. Chemistry with sodium 140, creatinine 2.47. Transaminases normal, bilirubin 2.2, albumin 2.6. Chest x- ray on admission, right internal jugular central line, no infiltrates. Previous x-rays included a tibia fibula x-ray of the left side with remodeling of the distal tibia from surgery, but no hardware noted. Renal ultrasound from October with normal appearance. ASSESSMENT: Type 2 diabetes, chronic obstructive pulmonary disease, congestive heart failure, venous insufficiency, prior fractures lower extremity cellulitis , recurrent, now with recrudescence of cellulitis after recent treatment in October. DISCUSSION: It appears that he was not receiving antimicrobials for secondary prophylaxis at [facility], but will have to verify that. He had been prescribed suppressive antimicrobial therapy after completion of the acute phase of last treatment. The likely organisms include beta hemolytic Streptococci, gram negatives including the possibility of ESBL organisms and Staphylococcus. We will switch him to meropenem and vancomycin, adjust vancomycin dose for renal function. Monitor blood cultures and x-ray of the right tibia fibula. [facility]
[2018-01-03] MEDS ORDERED: Sodium Chloride 0.9% 500 ML IV SCH (22:45)
--- NOTE | 2018-01-03 22:46 | HP ---
HISTORY OF PRESENT ILLNESS: A 57-year-old male prisoner transferred [facility] with sepsis. He had a s imilar process in his left leg cut about 2 months ago. He has frequent episodes of cellulitis, treat ed, and requiring intravenous antibiotics. He has had ORIF of left ankle with free flap closure. He has chronic venous stasis disease. He is admitted on this occasion with sepsis. Dr. Villagran was co ncerned about his leg developing blisters and sepsis and asked me to see him. The patient has multip le medical problems. He states he frequently has these infections requiring two weeks of intravenous and oral antibiotics. Dr. Weems saw him last hospitalization. On 11/20/2017, I saw him. ALLERGIES: PENICILLIN. TOBACCO: Abuse in the past, incarcerated currently. ALCOHOL: None currently, incarcerated. MEDICATIONS: Metformin, glipizide, terazosin, Bactrim, spironolactone, simethicone, omeprazole, meto prolol, lisinopril, lactulose, ibuprofen, furosemide, aspirin as an outpatient intravenous antibiotic s. PAST MEDICAL HISTORY: Chronic kidney disease, hepatitis C, cirrhosis, diabetes mellitus, insulin dep endent. He has refused insulin in the past, sleep apnea, hypertension, CPAP use at home. He has an incisional hernia and a right subcostal scar from open cholecystectomy, morbid obesity, metabolic syn drome. PAST SURGICAL HISTORY: Open cholecystectomy, subcostal scar right, wheelchair mobility, nonambulator y. PHYSICAL EXAMINATION: VITAL SIGNS: 5 foot 2 inches, 382 pounds over 50 BMI. 147/60, 127 heart rate. LUNGS: Clear to auscultation. CARDIAC: Regular rate and rhythm. ABDOMEN: Obese, soft. EXTREMITIES: Edematous lower extremities, worse right than left. Right leg reveals severe chronic v enous stasis changes. Erythema toes to below the knee, blistering of the skin. White count 8.9, 42 bands. Hemoglobin 11.2. Lactic acid 8.6, creatinine 2.47, BUN 25. ASSESSMENT AND PLAN: Severe cellulitis, right leg. Would recommend biopsying or make a small incisi on in the area of most prominent proximal medial right leg and assure there is no necrotizing process in light of his developing blisters. The patient consents.
--- NOTE | 2018-01-03 22:49 | OP ---
DATE OF PROCEDURE: 01/03/2018 PREOPERATIVE DIAGNOSES: Severe cellulitis, right leg with developing blisters and concern for necrot izing fasciitis. POSTOPERATIVE DIAGNOSIS: Severe cellulitis, right leg with developing blisters and concern for necro tizing fasciitis. PROCEDURE: Incision right leg proximal medial below the knee and an area where there were some most prominent skin changes noting edematous clear fluid. Culture submitted. PROCEDURE IN DETAIL: At the patient's bedside, the area described, prepared with ChloraPrep. Local anesthetic, 1% Xylocaine, was infiltrated into the skin and subcutaneous tissue and an 1.5 cm incisio n was made. Underlying tissue was viable with abundant clear edema. ASSESSMENT AND PLAN: Severe infection, right leg. Continue intravenous antibiotic therapy.
[2018-01-04] MEDS: Fentanyl 100 MCG/2 ML VIAL SLOW IVP PRN ×3 (00:38→12:04)
[2018-01-04] MEDS: HYDROcodone/Acetaminophen 5/325 mg Tablet PO PRN ×2 (02:06→09:13)
[2018-01-04] MEDS: MEROPENEM 1 GM/50 ML 1 GM in Premix Bag 1 BAG IVPB SCH ×2 (04:30→15:57)
[2018-01-04 05:14] LABS: Lactic Acid 3.9 mmol/L (0.5-2.2)
[2018-01-04 05:50] LABS: Anion Gap 20 mmol/L (10-20); BUN (Urea Nitrogen) 43 mg/dL (8.4-25.7); Calc. Creatinine Clearance 0 mL/min (70-130); Calcium 7.3 mg/dL (7.8-10.44); Carbon Dioxide 18 mmol/L (22-29); Chloride 103 mmol/L (98-107); Estimated GFR-MDRD 17; Glucose 118 mg/dL (70-105); Potassium 4.2 mmol/L (3.5-5.1); Sodium 137 mmol/L (136-145)
[2018-01-04 06:11] LABS: Band 44 % (5-11); Hemoglobin 12.2 g/dL (14.0-18.0); Lymphocytes 5 % (21-51); MDiff Complete? YES; Mean Corpuscular HGB CONC 32.3 g/dL (32.0-36.0); Mean Corpuscular Hemoglobin 30.3 pg (27.0-31.0); Mean Corpuscular Volume 93.6 fL (78.0-98.0); Metamyelocyte 26 % (0-0); Monocytes 5 % (0-10); Myelocyte 1 % (0-0); Neutrophil 19 % (42-75); PLT Morphology Comment Appears Decreased; Platelet Count 44 thou/uL (130-400); RBC Distribution Width 15.1 % (11.5-14.5); Red Blood Cell (RBC) Count 4.04 mill/uL (4.70-6.10); White Blood Cell (WBC) Count 8.9 thou/uL (4.8-10.8)
--- NOTE | 2018-01-04 07:53 | PDOC.PULCC ---
<Rogelio Hansen - Last Filed: 01/04/18 07:58> CCU Progress Note: Subj/Obj - Subjective Date: 01/04/18 Time: 07:30 Subjective: This morning patient states "I feel sick." He ate a few pieces of carter for breakfast but could not eat more because of feeling sick. He denies N/V or abdominal pain. He states the only place he has pain is in his legs. He states the pain is about the same as yesterday and has been asking for pain medications overnight. Dr. Farris made an incision on the R leg below the knee 2/2 to development of blisters on the R leg yesterday afternoon. - ROS Review of Systems: Denies: cough, shortness of breath - Objective Allergies/Adverse Reactions: Allergies Allergy/AdvReac Type Severity Reaction Status Date / Time Penicillins Allergy Verified 11/19/17 18:41 Medications: Current Medications Acetaminophen (Tylenol) 650 mg PO Q4H PRN PRN Reason: Headache/Fever or Pain Hydrocodone Bitart/Acetaminophen ([place] 5/325) 1 tab PO Q4H PRN PRN Reason: Moderate Pain (4-6) Last Admin: 01/04/18 02:06 Dose: 1 tab Al Hydroxide/Mg Hydroxide (Maalox) 30 ml PO Q6H PRN PRN Reason: Heartburn or Indigestion Albuterol/Ipratropium (Duoneb) 3 ml NEB [id number] PRN PRN Reason: SOB &/or Wheezing Artificial Tears (Tears Naturale) 0 drop EA EYE PRN PRN PRN Reason: Dry Eyes Dextrose/Water (Dextrose 50%) 25 gm SLOW IVP PRN PRN PRN Reason: Hypoglycemia Famotidine (Pepcid) 20 mg SLOW IVP DAILY [facility] Fentanyl (Sublimaze) 50 mcg SLOW IVP Q4H PRN PRN Reason: Severe Pain (7-10) Last Admin: 01/04/18 00:38 Dose: 50 mcg Glucagon (Glucagon) 1 mg IM PRN PRN PRN Reason: Hypoglycemia Guaifenesin (Robitussin Sf) 200 mg PO Q4H PRN PRN Reason: Cough Dextrose/Water (D5w) 1,000 mls @ 0 mls/hr IV .Q0M PRN; As Directed PRN Reason: Hypoglycemia Norepinephrine Bitartrate (Levophed) 250 mls @ 0 mls/hr IVPB INF [facility]; Titrate PRN Reason: Protocol Sodium Chloride (Normal Saline 0.9%) 1,000 mls @ 125 mls/hr IV .Q8H [facility] Last Admin: 01/03/18 22:56 Dose: 1,000 mls Meropenem 1 gm/ Device 50 mls @ 100 mls/hr IVPB 0400,1600 [facility] Last Admin: 01/04/18 04:30 Dose: 50 mls Vancomycin HCl 2 gm/ Sodium (Chloride) 500 mls @ 250 mls/hr IVPB 0800 [facility] Insulin Human Lispro (Humalog) 0 units SC .MODERATE SLIDING SC PRN PRN Reason: Moderate Correctional Scale Insulin Human Lispro (Humalog) 0 units SC .BEDTIME SLIDING SC PRN PRN Reason: Bedtime Correctional Scale Loperamide HCl (Imodium) 2 mg PO PRN PRN PRN Reason: Diarrhea/Loose Stools Loratadine (Claritin) 10 mg PO DAILYPRN PRN PRN Reason: Sinus Symptoms Magnesium Hydroxide (Milk Of Magnesium) 30 ml PO DAILYPRN PRN PRN Reason: Constipation Mineral Oil/White Petrolatum (Eucerin Cream) 0 gm TOP BIDPRN PRN PRN Reason: Dry Skin Miscellaneous Medication (Pharmacy To Dose) 1 each IVPB ONE PRN PRN Reason: Pharmacy to dose Stop: 01/13/18 11:57 Ondansetron HCl (Zofran Odt) 4 mg PO Q6H PRN PRN Reason: Nausea/Vomiting Ondansetron HCl (Zofran) 4 mg IVP Q6H PRN PRN Reason: Nausea/Vomiting Phenol (Chloraseptic [place] 180 Ml Bot) 0 ml PO PRN PRN PRN Reason: Sore Throat Pneumococcal 13-Valent Conj Vacc (Prevnar) 0.5 ml IM .ONCE ONE Stop: 01/04/18 09:01 Saccharomyces Boulardii (Florastor) 250 mg PO DAILY [facility] Senna (Senokot) 2 tab PO HSPRN PRN PRN Reason: Constipation Sodium Chloride ([place] Nasal [place] 0.65%) 0 ml EA NARE QIDPRN PRN PRN Reason: Nasal Congestion MAR Reviewed: Yes Vital Signs and I&O: Vital Signs Temp 98.0 F 01/04/18 07:00 Pulse 123 H 01/03/18 20:00 Resp 32 H 01/03/18 20:00 BP Pulse Ox 2 L 01/03/18 20:00 Intake & Output 01/03/18 01/04/18 01/04/18 18:59 06:59 18:59 Intake Total 4367 2409 0 Output Total 0 0 0 Balance 4367 2409 0 Weight 173.5 kg 183.2 g Intake: Intake, IV Amount 4047 1929 Norepinephrine 8 MG/0.9% 220 271 NS 250 ml @ Titrate IVPB INF [facility] Rx#:[id number] Sodium Chloride 0.9% 1, 827 1158 000 ml @ 100 mls/hr IV . Q10H [facility] Rx#:[id number] Sodium Chloride 0.9% 500 500 ml @ As Directed IV .Q0M [facility] Rx#:[id number] Oral 320 480 0 Output: Urine 0 Output, [place] 0 0 0 Other: Voiding Method Indwelling Catheter Indwelling Catheter # Bowel Movements 1 0 Vent Setting: % Fraction of Inspired Oxygen 40 (FIO2) Lines (incl Aterial, CVC, PICC+Insertion date): R IJ femoral line catheter inserted via camera assistance by urology CCU Progress Note: Exam - Physical Exam Constitutional: NAD HEENT: moist MMs Cardiovascular: RRR, no significant murmur Respiratory: accessory muscle use, wheezes (expiratory), other (small breaths, pickwickian syndrome) Gastrointestinal: soft, non-tender, positive bowel sounds Neurological: non-focal, moves all 4 limbs Psychiatric: A&O x 3 Deviation from normal: cellulitis increasing on the R side, wound is dressed -: L side erythema decreasing, pitting edema, very tender to palpation CCU Progress Note: Data - Labs Result Diagrams: 01/04/18 04:25 01/04/18 04:25 Lab results: Laboratory Results 01/03/18 01/03/18 01/03/18 11:25 11:25 13:40 WBC RBC Hgb Hct MCV MCH MCHC RDW Plt Count MPV Neutrophils % (Manual) Band Neuts % (Manual) Lymphocytes % (Manual) Monocytes % (Manual) Metamyelocytes % (Man) Myelocytes % Plt Morphology Comment Sodium Potassium Chloride Carbon Dioxide Anion Gap BUN Creatinine Estimated GFR (MDRD) Glucose POC Glucose Lactic Acid 8.6 H* Calcium Troponin I 0.301 H* 0.293 H TSH 3rd Generation Cortisol 01/03/18 01/03/18 01/03/18 13:40 13:40 13:51 WBC RBC Hgb Hct MCV MCH MCHC RDW Plt Count MPV Neutrophils % (Manual) Band Neuts % (Manual) Lymphocytes % (Manual) Monocytes % (Manual) Metamyelocytes % (Man) Myelocytes % Plt Morphology Comment Sodium Potassium Chloride Carbon Dioxide Anion Gap BUN Creatinine Estimated GFR (MDRD) Glucose POC Glucose 110 Lactic Acid Calcium Troponin I TSH 3rd Generation 2.0214 Cortisol 52.20 01/03/18 01/03/18 01/04/18 17:45 21:13 00:14 WBC RBC Hgb Hct MCV MCH MCHC RDW Plt Count MPV Neutrophils % (Manual) Band Neuts % (Manual) Lymphocytes % (Manual) Monocytes % (Manual) Metamyelocytes % (Man) Myelocytes % Plt Morphology Comment Sodium Potassium Chloride Carbon Dioxide Anion Gap BUN Creatinine Estimated GFR (MDRD) Glucose POC Glucose 97 85 98 Lactic Acid Calcium Troponin I TSH 3rd Generation Cortisol 01/04/18 01/04/18 01/04/18 04:24 04:25 04:25 WBC 8.9 RBC 4.04 L Hgb 12.2 L Hct 37.8 L MCV 93.6 MCH 30.3 MCHC 32.3 RDW 15.1 H Plt Count 44 L MPV 11.0 H Neutrophils % (Manual) 19 L Band Neuts % (Manual) 44 H Lymphocytes % (Manual) 5 L Monocytes % (Manual) 5 Metamyelocytes % (Man) 26 H Myelocytes % 1 H Plt Morphology Comment Appears Decreased L Sodium 137 Potassium 4.2 Chloride 103 Carbon Dioxide 18 L Anion Gap 20 BUN 43 H Creatinine 3.75 H Estimated GFR (MDRD) 17 Glucose 118 H POC Glucose 112 H Lactic Acid Calcium 7.3 L Troponin I TSH 3rd Generation Cortisol 01/04/18 04:25 WBC RBC Hgb Hct MCV MCH MCHC RDW Plt Count MPV Neutrophils % (Manual) Band Neuts % (Manual) Lymphocytes % (Manual) Monocytes % (Manual) Metamyelocytes % (Man) Myelocytes % Plt Morphology Comment Sodium Potassium Chloride Carbon Dioxide Anion Gap BUN Creatinine Estimated GFR (MDRD) Glucose POC Glucose Lactic Acid 3.9 H Calcium Troponin I TSH 3rd Generation Cortisol CCU Progress Note: A/P - Problems (1) Lactic acidosis Current Visit: Yes Status: Acute Code(s): E87.2 - ACIDOSIS (2) Sepsis associated hypotension Current Visit: Yes Status: Acute Code(s): A41.9 - SEPSIS, UNSPECIFIED ORGANISM; I95.9 - HYPOTENSION, UNSPECIFIED (3) Sepsis due to cellulitis Current Visit: Yes Status: Acute Code(s): L03.90 - CELLULITIS, UNSPECIFIED; A41.9 - SEPSIS, UNSPECIFIED ORGANISM (4) Anemia, normocytic normochromic Current Visit: Yes Status: Chronic Code(s): D64.9 - ANEMIA, UNSPECIFIED (5) COPD (chronic obstructive pulmonary disease) Current Visit: Yes Status: Chronic (6) Chronic hepatitis C with cirrhosis Current Visit: Yes Status: Chronic Code(s): B18.2 - CHRONIC VIRAL HEPATITIS C; K74.60 - UNSPECIFIED CIRRHOSIS OF LIVER (7) GERD (gastroesophageal reflux disease) Current Visit: Yes Status: Chronic Code(s): K21.9 - GASTRO-ESOPHAGEAL REFLUX DISEASE WITHOUT ESOPHAGITIS (8) HTN (hypertension) Current Visit: Yes Status: Chronic Code(s): I10 - ESSENTIAL (PRIMARY) HYPERTENSION (9) Morbid obesity due to excess calories Current Visit: Yes Status: Chronic Code(s): E66.01 - MORBID (SEVERE) OBESITY DUE TO EXCESS CALORIES (10) JENNY (obstructive sleep apnea) Current Visit: Yes Status: Chronic Code(s): G47.33 - OBSTRUCTIVE SLEEP APNEA (ADULT) (PEDIATRIC) (11) T2DM (type 2 diabetes mellitus) Current Visit: Yes Status: Chronic (12) Thrombocytopenia Current Visit: Yes Status: Chronic Code(s): D69.6 - THROMBOCYTOPENIA, UNSPECIFIED - Plan Plan: This is a 57 yo M being admitted for recurrent lower extremity cellulitus. He has a history including EF 50-55%, KIRK/ATN, HTN, Cirrhosis 2/2 hep C, likely COPD, T2DM, TURP, JENNY Consults: ID, Pulm, General Surgery, Urology, Nephrology NEWS SPECIALIST () - A&Ox3 - Follows commands - Sedation: none Resp (Pickwickian syndrome) - satting low 90s on RA - intermittent BiPAP overnight, patient will only use it for short spells - consider trial of nasal CPAP if available - told he needs a CPAP never obtained CV (HTN, CHF, recurrent cellulitus, venous stasis, lymphedema) - EF 50-55% - on levophed 30mcg/min this AM - hypotension likely chronic from Hep C, worsened by sepsis GI (N/V, Hep C) - continue home lactulose - zofran - c diff assay pending for diarrhea, could be 2/2 lactulose - likely hepatorenal syndrome Nutrition - PO as tolerated Hematologic (anemia) - hgb 23.3, baseline 12.5 last stay - plts 44, cirrhotic /Renal (hx TURP, bladder neck contracture, lo2 urine output, recent KIRK w/ ATN ) - states he has not urinated for 3 days before admission, has not tolerated PO intake during this time - diagnosed with bladder neck contracture by urology last visit, referred to [facility] for staging, never made it there - roldan in place via urology camera - scant urine output overnight, will consult nephrology, may need dialysis - Cr 2.47-> 3.75 as high as 6.19 last visit Infection (recent cellulitus attributed to beta-hemolytic strep, also w/ history of MRSA, severe sepsis) - continue with meropenem, vanc per ID, recs appreciated - blood cultures pending -developed bullae on R leg 01/03, incised by Dr. Farris 01/03 - erythema about the same on R leg, not quite as red today, will follow Endo (T2DM) - SSI Code status: full PPx: pepcid, thrombocytopenia Diet: diabetic Dispo: >2 days <Min Sanchez - Last Filed: 01/04/18 21:45> CCU Progress Note: Subj/Obj - Objective Medications: Current Medications Acetaminophen (Tylenol) 650 mg PO Q4H PRN PRN Reason: Headache/Fever or Pain Al Hydroxide/Mg Hydroxide (Maalox) 30 ml PO Q6H PRN PRN Reason: Heartburn or Indigestion Albuterol/Ipratropium (Duoneb) 3 ml NEB [id number] PRN PRN Reason: SOB &/or Wheezing Artificial Tears (Tears Naturale) 0 drop EA EYE PRN PRN PRN Reason: Dry Eyes Dextrose/Water (Dextrose 50%) 25 gm SLOW IVP PRN PRN PRN Reason: Hypoglycemia Famotidine (Pepcid) 20 mg SLOW IVP DAILY [facility] Last Admin: 01/04/18 08:45 Dose: 20 mg Fluconazole (Diflucan) 100 mg PO DAILY [facility] Stop: 01/13/18 10:00 Glucagon (Glucagon) 1 mg IM PRN PRN PRN Reason: Hypoglycemia Guaifenesin (Robitussin Sf) 200 mg PO Q4H PRN PRN Reason: Cough Hydrocortisone Sodium Succinate (Solu-Cortef) 50 mg IVP Q6HR [facility] Dextrose/Water (D5w) 1,000 mls @ 0 mls/hr IV .Q0M PRN; As Directed PRN Reason: Hypoglycemia Norepinephrine Bitartrate (Levophed) 250 mls @ 0 mls/hr IVPB INF [facility]; Titrate PRN Reason: Protocol Last Admin: 01/04/18 10:19 Dose: 250 mls Meropenem 1 gm/ Device 50 mls @ 100 mls/hr IVPB 0400,1600 [facility] Last Admin: 01/04/18 15:57 Dose: 50 mls Vancomycin HCl 2 gm/ Sodium (Chloride) 500 mls @ 250 mls/hr IVPB 0800 [facility] Last Admin: 01/04/18 09:14 Dose: 500 mls Sodium Bicarbonate 150 meq/ (Dextrose/Water) 1,000 mls @ 75 mls/hr IV .[id number] [facility] Last Admin: 01/04/18 12:12 Dose: 1,000 mls Fentanyl Citrate 2,000 mcg/ (Sodium Chloride) 100 mls @ 0 mls/hr IV INF [facility]; Per Protocol PRN Reason: Protocol Stop: 02/03/18 16:02 Fentanyl Citrate (Fentanyl Bolus) 250 mls @ 0 mls/hr IVPB PRN PRN; As Directed PRN Reason: Breakthrough pain/agitation Stop: 02/03/18 16:02 Vasopressin 40 unit/ Sodium (Chloride) 102 mls @ 6 mls/hr IV INF PRN PRN Reason: Map >60 Insulin Human Lispro (Humalog) 0 units SC .MODERATE SLIDING SC PRN PRN Reason: Moderate Correctional Scale Last Admin: 01/04/18 16:20 Dose: 2 unit Insulin Human Lispro (Humalog) 0 units SC .BEDTIME SLIDING SC PRN PRN Reason: Bedtime Correctional Scale Loperamide HCl (Imodium) 2 mg PO PRN PRN PRN Reason: Diarrhea/Loose Stools Loratadine (Claritin) 10 mg PO DAILYPRN PRN PRN Reason: Sinus Symptoms Lorazepam (Ativan) 2 mg SLOW IVP Q1H PRN PRN Reason: Breakthrough agitation Stop: 02/03/18 16:02 Magnesium Hydroxide (Milk Of Magnesium) 30 ml PO DAILYPRN PRN PRN Reason: Constipation Mineral Oil/White Petrolatum (Eucerin Cream) 0 gm TOP BIDPRN PRN PRN Reason: Dry Skin Miscellaneous Medication (Pharmacy To Dose) 1 each IVPB ONE PRN PRN Reason: Pharmacy to dose Stop: 01/13/18 11:57 Morphine Sulfate (Morphine Sulfate) 2 mg SLOW IVP Q1H PRN PRN Reason: BREAKTHROUGH PAIN/AGITATION Stop: 02/03/18 16:02 Discontinue Previous Narcotic Pain Medications And Benzodiazepines 1 each FS .ONE [facility] Stop: 02/03/18 16:02 Ondansetron HCl (Zofran Odt) 4 mg PO Q6H PRN PRN Reason: Nausea/Vomiting Ondansetron HCl (Zofran) 4 mg IVP Q6H PRN PRN Reason: Nausea/Vomiting Phenol (Chloraseptic [place] 180 Ml Bot) 0 ml PO PRN PRN PRN Reason: Sore Throat Propofol (Diprivan) 1,000 mg IV INF PRN; Protocol PRN Reason: TO ACHIEVE GOAL RASS Stop: 02/03/18 16:02 Propofol (Diprivan Bolus) 20 mg IV Q5MIN PRN PRN Reason: BREAKTHROUGH AGITATION Stop: 02/03/18 16:02 Saccharomyces Boulardii (Florastor) 250 mg PO DAILY [facility] Last Admin: 01/04/18 08:45 Dose: 250 mg Senna (Senokot) 2 tab PO HSPRN PRN PRN Reason: Constipation Sodium Chloride ([place] Nasal [place] 0.65%) 0 ml EA NARE QIDPRN PRN PRN Reason: Nasal Congestion Vital Signs and I&O: Vital Signs Temp 98.6 F 01/04/18 15:51 Pulse 97 01/04/18 15:51 Resp 19 01/04/18 16:00 BP 99/37 L 01/04/18 15:51 Pulse Ox 94 L 01/04/18 15:52 Intake & Output 01/03/18 01/04/18 01/04/18 18:59 06:59 18:59 Intake Total 4367 2409 1300 Output Total 0 0 15 Balance 4367 2409 1285 Weight 382 lb 8.032 oz 6.462 oz Intake: Intake, IV Amount 4047 1929 940 Norepinephrine 8 MG/0.9% 220 271 NS 250 ml @ Titrate IVPB INF [facility] Rx#:[id number] Sodium Chloride 0.9% 1, 827 1158 000 ml @ 100 mls/hr IV . Q10H [facility] Rx#:[id number] Sodium Chloride 0.9% 1, 440 000 ml @ 125 mls/hr IV . Q8H [facility] Rx#:[id number] Sodium Chloride 0.9% 500 500 ml @ As Directed IV .Q0M [facility] Rx#:[id number] Vancomycin HCl 2 gm In 500 Sodium Chloride 0.9% 500 ml @ 250 mls/hr IVPB 0800 [facility] Rx#:[id number] Oral 320 480 360 Output: Urine 0 Output, [place] 0 0 15 Other: Voiding Method Indwelling Catheter Indwelling Catheter Indwelling Catheter # Bowel Movements 1 0 Vent Setting: Positive End Expiratory 7 Pressure % Fraction of Inspired Oxygen 61 (FIO2) 01/04/18 15:51 Resp: Vent Adult CONTINUOUS 01/04/18 16:02 Fentanyl BOLUS 250 ml IVPB PRN Lorazepam [Ativan] 2 mg SLOW IVP Q1H PRN Morphine Sulfate 2 mg SLOW IVP Q1H PRN Non-Formulary Item 1 each FS .ONE Propofol BOLUS [Diprivan BOLUS] 20 mg IV Q5MIN PRN Propofol [Diprivan] 1,000 mg IV INF PRN fentaNYL Citrate/PF [Fentanyl 500 Mcg/10 ml Vial] 2,000 mcg Sodium Chloride 0.9% [Normal Saline 0.9%] 60 ml IV INF CCU Progress Note: Data - Labs Result Diagrams: 01/04/18 04:25 01/04/18 04:25 Lab results: Laboratory Results 01/03/18 01/03/18 01/03/18 11:25 11:25 13:40 WBC RBC Hgb Hct MCV MCH MCHC RDW Plt Count MPV Neutrophils % (Manual) Band Neuts % (Manual) Lymphocytes % (Manual) Monocytes % (Manual) Metamyelocytes % (Man) Myelocytes % Plt Morphology Comment Specimen Type Puncture Site Bicarbonate Actual ABG pH ABG pCO2 ABG pO2 ABG O2 Sat Calc/Rober ABG O2 Content ABG Base Excess ABG Hematocrit ABG Hemoglobin ABG Oxyhemoglobin ABG Carboxyhemoglobin ABG Methemoglobin Moose Test VBG pH VBG pCO2 VBG pO2 VBG HCO3 VBG O2 Sat (Rober) VBG Base Excess VBG Hematocrit VBG Hemoglobin VBG Carboxyhemoglobin VBG Methemoglobin A-a O2 Gradient Ionized Calcium Mode of Support Mechanical Rate Inspired O2 Tidal Volume Pressure Support PEEP or CPAP Sodium Whole Bld Sodium Potassium Whole Bld Potassium Chloride Whole Bld Chloride Carbon Dioxide Anion Gap BUN Creatinine Estimated GFR (MDRD) Glucose POC Glucose Lactic Acid 8.6 H* Calcium Whole Bld Ioniz Calcium Troponin I 0.301 H* 0.293 H TSH 3rd Generation Cortisol 01/03/18 01/03/18 01/03/18 13:40 13:40 13:51 WBC RBC Hgb Hct MCV MCH MCHC RDW Plt Count MPV Neutrophils % (Manual) Band Neuts % (Manual) Lymphocytes % (Manual) Monocytes % (Manual) Metamyelocytes % (Man) Myelocytes % Plt Morphology Comment Specimen Type Puncture Site Bicarbonate Actual ABG pH ABG pCO2 ABG pO2 ABG O2 Sat Calc/Rober ABG O2 Content ABG Base Excess ABG Hematocrit ABG Hemoglobin ABG Oxyhemoglobin ABG Carboxyhemoglobin ABG Methemoglobin Moose Test VBG pH VBG pCO2 VBG pO2 VBG HCO3 VBG O2 Sat (Rober) VBG Base Excess VBG Hematocrit VBG Hemoglobin VBG Carboxyhemoglobin VBG Methemoglobin A-a O2 Gradient Ionized Calcium Mode of Support Mechanical Rate Inspired O2 Tidal Volume Pressure Support PEEP or CPAP Sodium Whole Bld Sodium Potassium Whole Bld Potassium Chloride Whole Bld Chloride Carbon Dioxide Anion Gap BUN Creatinine Estimated GFR (MDRD) Glucose POC Glucose 110 Lactic Acid Calcium Whole Bld Ioniz Calcium Troponin I TSH 3rd Generation 2.0214 Cortisol 52.20 01/03/18 01/03/18 01/04/18 17:45 21:13 00:14 WBC RBC Hgb Hct MCV MCH MCHC RDW Plt Count MPV Neutrophils % (Manual) Band Neuts % (Manual) Lymphocytes % (Manual) Monocytes % (Manual) Metamyelocytes % (Man) Myelocytes % Plt Morphology Comment Specimen Type Puncture Site Bicarbonate Actual ABG pH ABG pCO2 ABG pO2 ABG O2 Sat Calc/Rober ABG O2 Content ABG Base Excess ABG Hematocrit ABG Hemoglobin ABG Oxyhemoglobin ABG Carboxyhemoglobin ABG Methemoglobin Moose Test VBG pH VBG pCO2 VBG pO2 VBG HCO3 VBG O2 Sat (Rober) VBG Base Excess VBG Hematocrit VBG Hemoglobin VBG Carboxyhemoglobin VBG Methemoglobin A-a O2 Gradient Ionized Calcium Mode of Support Mechanical Rate Inspired O2 Tidal Volume Pressure Support PEEP or CPAP Sodium Whole Bld Sodium Potassium Whole Bld Potassium Chloride Whole Bld Chloride Carbon Dioxide Anion Gap BUN Creatinine Estimated GFR (MDRD) Glucose POC Glucose 97 85 98 Lactic Acid Calcium Whole Bld Ioniz Calcium Troponin I TSH 3rd Generation Cortisol 01/04/18 01/04/18 01/04/18 04:24 04:25 04:25 WBC 8.9 RBC 4.04 L Hgb 12.2 L Hct 37.8 L MCV 93.6 MCH 30.3 MCHC 32.3 RDW 15.1 H Plt Count 44 L MPV 11.0 H Neutrophils % (Manual) 19 L Band Neuts % (Manual) 44 H Lymphocytes % (Manual) 5 L Monocytes % (Manual) 5 Metamyelocytes % (Man) 26 H Myelocytes % 1 H Plt Morphology Comment Appears Decreased L Specimen Type Puncture Site Bicarbonate Actual ABG pH ABG pCO2 ABG pO2 ABG O2 Sat Calc/Rober ABG O2 Content ABG Base Excess ABG Hematocrit ABG Hemoglobin ABG Oxyhemoglobin ABG Carboxyhemoglobin ABG Methemoglobin Moose Test VBG pH VBG pCO2 VBG pO2 VBG HCO3 VBG O2 Sat (Rober) VBG Base Excess VBG Hematocrit VBG Hemoglobin VBG Carboxyhemoglobin VBG Methemoglobin A-a O2 Gradient Ionized Calcium Mode of Support Mechanical Rate Inspired O2 Tidal Volume Pressure Support PEEP or CPAP Sodium 137 Whole Bld Sodium Potassium 4.2 Whole Bld Potassium Chloride 103 Whole Bld Chloride Carbon Dioxide 18 L Anion Gap 20 BUN 43 H Creatinine 3.75 H Estimated GFR (MDRD) 17 Glucose 118 H POC Glucose 112 H Lactic Acid Calcium 7.3 L Whole Bld Ioniz Calcium Troponin I TSH 3rd Generation Cortisol 01/04/18 01/04/18 01/04/18 04:25 08:09 08:22 WBC RBC Hgb Hct MCV MCH MCHC RDW Plt Count MPV Neutrophils % (Manual) Band Neuts % (Manual) Lymphocytes % (Manual) Monocytes % (Manual) Metamyelocytes % (Man) Myelocytes % Plt Morphology Comment Specimen Type Puncture Site Bicarbonate Actual ABG pH ABG pCO2 ABG pO2 ABG O2 Sat Calc/Rober ABG O2 Content ABG Base Excess ABG Hematocrit ABG Hemoglobin ABG Oxyhemoglobin ABG Carboxyhemoglobin ABG Methemoglobin Moose Test VBG pH VBG pCO2 VBG pO2 VBG HCO3 VBG O2 Sat (Rober) VBG Base Excess VBG Hematocrit VBG Hemoglobin VBG Carboxyhemoglobin VBG Methemoglobin A-a O2 Gradient Ionized Calcium Mode of Support Mechanical Rate Inspired O2 Tidal Volume Pressure Support PEEP or CPAP Sodium Whole Bld Sodium Potassium Whole Bld Potassium Chloride Whole Bld Chloride Carbon Dioxide Anion Gap BUN Creatinine Estimated GFR (MDRD) Glucose POC Glucose 122 H Lactic Acid 3.9 H 3.1 H Calcium Whole Bld Ioniz Calcium Troponin I TSH 3rd Generation Cortisol 01/04/18 01/04/18 01/04/18 12:03 14:30 16:18 WBC RBC Hgb Hct MCV MCH MCHC RDW Plt Count MPV Neutrophils % (Manual) Band Neuts % (Manual) Lymphocytes % (Manual) Monocytes % (Manual) Metamyelocytes % (Man) Myelocytes % Plt Morphology Comment Specimen Type ARTERIAL Puncture Site LBRACH Bicarbonate Actual 20.7 L ABG pH 7.10 L* ABG pCO2 68.3 H* ABG pO2 72.2 L ABG O2 Sat Calc/Rober 90.6 L ABG O2 Content 16.6 L ABG Base Excess -9.8 L ABG Hematocrit 39.0 L ABG Hemoglobin 13.3 L ABG Oxyhemoglobin 88.7 L ABG Carboxyhemoglobin 1.8 ABG Methemoglobin 0.30 Moose Test POSITIVE VBG pH 7.067 L* VBG pCO2 73.9 H* VBG pO2 38.0 VBG HCO3 21 L VBG O2 Sat (Rober) 59.9 L VBG Base Excess -10.7 L VBG Hematocrit 42.0 L VBG Hemoglobin 14.3 VBG Carboxyhemoglobin 2.0 H VBG Methemoglobin 0.3 A-a O2 Gradient 277.355 H Ionized Calcium 1.0 L Mode of Support SIMV Mechanical Rate 13 Inspired O2 61 Tidal Volume 440 Pressure Support 23 PEEP or CPAP 7.0 Sodium 134 L Whole Bld Sodium 135.2 Potassium 5.0 Whole Bld Potassium 4.8 Chloride 102 Whole Bld Chloride 101 Carbon Dioxide Anion Gap BUN Creatinine Estimated GFR (MDRD) Glucose POC Glucose 136 H Lactic Acid Calcium Whole Bld Ioniz Calcium 0.99 L Troponin I TSH 3rd Generation Cortisol - ABG Interpretation ABG Results: ABG pH 7.10 (7.35-7.45) L* 01/04/18 16:18 ABG pCO2 68.3 mmHg (35.0-45.0) H* 01/04/18 16:18 ABG O2 Sat Calc/Rober 90.6 % (94.0-98.0) L 01/04/18 16:18 ABG Base Excess -9.8 mEq/L (-2.0 to +3.0) L 01/04/18 16:18 Attending Addendum - Attending Addendum Date/Time: 01/04/18 2706 Because of an editing error, a large part of the template was regenerated. I personally evaluated the patient and discussed the management with Dr. Hansen I agree with the History, Examination, Assessment and Plan documented above with any addition or exceptions noted below.
[2018-01-04] MEDS ORDERED: Sodium Bicarbonate 150 MEQ in Dextrose 5 % And 0.9 % NaCl 1,000 ML IV SCH (08:15)
[2018-01-04] MEDS: Saccharomyces boulardii 250 MG CAP PO SCH (08:45)
[2018-01-04 08:52] LABS: Lactic Acid 3.1 mmol/L (0.5-2.2)
[2018-01-04] MEDS ORDERED: Famotidine/PF 20 mg/2ml Vial SLOW IVP SCH (09:00)
[2018-01-04] MEDS ORDERED: Prevnar 13-Val Conj/PF 0.5 ML SYRINGE IM ONE (09:00)
--- NOTE | 2018-01-04 09:43 | ULT ---
BILATERAL RENAL ULTRASOUND: Date: 01/04/18 CLINICAL HISTORY: AKF, oliguria. FINDINGS: The right kidney is not reliably visualized on the basis of this exam. The central portion is seen wi thout a discrete hydronephrosis evident. There is no acute pathology of the imaged left kidney. Urina ry bladder is not visualized for comment. IMPRESSION: Limited assessment. No overt hydronephrosis is seen within limitations. POS: FEI
[2018-01-04] MEDS ORDERED: Sodium Bicarbonate 150 MEQ in Dextrose 5% in Water 1,000 ML IV SCH (10:15)
[2018-01-04] MEDS: Norepinephrine 8 MG/0.9% NS 250 ML IVPB SCH ×2 (10:19→19:52)
[2018-01-04] MEDS ORDERED: Fluconazole 100 MG TAB PO SCH (10:30)
[2018-01-04] MEDS: Sodium Bicarbonate 150 MEQ in Dextrose 5% in Water 850 ML IV SCH (12:12)
--- NOTE | 2018-01-04 13:43 | PDOC.PN ---
- Subjective Encounter Start Date: 01/04/18 Encounter Start Time: 07:15 -: old records requested/rev pt has lot of pain in his right leg, he used cpap last night, no fever, still on levophed pt has very little urine output - Objective Resuscitation Status: Resuscitation Status FULL:Full Resuscitation MAR Reviewed: Yes Vital Signs & Weight: Vital Signs (12 hours) Temp Pulse Resp Pulse Ox 01/04/18 11:50 98.1 F 01/04/18 10:57 98.1 F 01/04/18 08:00 98.0 F 109 H 24 H 94 L 01/04/18 07:00 98.0 F 01/04/18 04:24 97.5 F L Weight Weight 6.462 oz Most Recent Monitor Data Heart Rate from ECG 102 NIBP 60/31 NIBP BP-Mean 45 Respiration from ECG 26 SpO2 92 I&O: 01/03/18 01/04/18 01/05/18 06:59 06:59 06:59 Intake Total 6776 1300 Output Total 0 5 Balance 6776 1295 Result Diagrams: 01/04/18 04:25 01/04/18 04:25 Additional Labs: Accuchecks 01/04/18 01/04/18 01/04/18 12:03 08:09 04:24 POC Glucose 136 H 122 H 112 H 01/04/18 01/03/18 01/03/18 00:14 21:13 17:45 POC Glucose 98 85 97 01/03/18 13:51 POC Glucose 110 Radiology Reviewed by me: Yes (renal us- normal) EKG Reviewed by me: Yes (nsr) Phys Exam - Physical Examination Constitutional: NAD HEENT: PERRLA, moist MMs, sclera anicteric Neck: no nodes, supple, full ROM Respiratory: no rales, wheezing present reduced air entry at base Cardiovascular: RRR, no significant murmur, no rub tachycardia Gastrointestinal: soft, non-tender, no distention, positive bowel sounds morbid obesity with hernia right leg celluliits , wound with dressing, chronic change in left leg Neurological: non-focal, normal sensation Lymphatic: no nodes Psychiatric: normal affect Skin: no rash, normal turgor Dx/Plan (1) Acute kidney failure Status: Acute Plan: urology on case will get us kidney monitor renal function will consider nephrology if creatinine is getting worse will start bicarbonate drip Comment: creatinine is getting worse (2) Demand ischemia of myocardium Code(s): I24.8 - OTHER FORMS OF ACUTE ISCHEMIC HEART DISEASE Status: Acute Comment: due to sepsis (3) Lactic acidosis Code(s): E87.2 - ACIDOSIS Status: Acute (4) Sepsis associated hypotension Code(s): A41.9 - SEPSIS, UNSPECIFIED ORGANISM; I95.9 - HYPOTENSION, UNSPECIFIED Status: Acute Comment: on levophed (5) Sepsis due to cellulitis Code(s): L03.90 - CELLULITIS, UNSPECIFIED; A41.9 - SEPSIS, UNSPECIFIED ORGANISM Status: Acute Comment: Severe (6) Sepsis with acute organ dysfunction Code(s): A41.9 - SEPSIS, UNSPECIFIED ORGANISM; R65.20 - SEVERE SEPSIS WITHOUT SEPTIC SHOCK Status: Acute (7) Anemia, normocytic normochromic Code(s): D64.9 - ANEMIA, UNSPECIFIED Status: Chronic (8) COPD (chronic obstructive pulmonary disease) Status: Chronic Comment: stable, continue respiratory therapy (9) Chronic hepatitis C with cirrhosis Code(s): B18.2 - CHRONIC VIRAL HEPATITIS C; K74.60 - UNSPECIFIED CIRRHOSIS OF LIVER Status: Chronic (10) GERD (gastroesophageal reflux disease) Code(s): K21.9 - GASTRO-ESOPHAGEAL REFLUX DISEASE WITHOUT ESOPHAGITIS Status: Chronic (11) HTN (hypertension) Code(s): I10 - ESSENTIAL (PRIMARY) HYPERTENSION Status: Chronic (12) Morbid obesity due to excess calories Code(s): E66.01 - MORBID (SEVERE) OBESITY DUE TO EXCESS CALORIES Status: Chronic (13) JENNY (obstructive sleep apnea) Code(s): G47.33 - OBSTRUCTIVE SLEEP APNEA (ADULT) (PEDIATRIC) Status: Chronic (14) T2DM (type 2 diabetes mellitus) Status: Chronic (15) Thrombocytopenia Code(s): D69.6 - THROMBOCYTOPENIA, UNSPECIFIED Status: Chronic - Plan cont current plan of care, continue antibiotics * continue vancomycin and meropenam * ID team recommendation appreciated * surgeon on case, may need more debridement * medication reviewed as below * symptomatic treatment * pain control with fantanyl * wound care * cpap during night * continue levophed * follow culture. Review of Systems - Review of Systems Constitutional: weakness. negative: fever, chills, sweats, malaise, other ENT: negative: Ear Pain, Ear Discharge, Nose Pain, Nose Discharge, Nose Congestion, Mouth Pain, Mouth Swelling, Throat Pain, Throat Swelling, Other Respiratory: SOB with Excertion. negative: Cough, Dry, Shortness of Breath, Hemoptysis, Pleuritic Pain, Sputum, Wheezing Cardiovascular: negative: chest pain, palpitations, orthopnea, paroxysmal nocturnal dyspnea, edema, light headedness, other Gastrointestinal: negative: Nausea, Vomiting, Abdominal Pain, Diarrhea, Constipation, Melena, Hematochezia, Other Genitourinary: negative: Dysuria, Frequency, Incontinence, Hematuria, Retention , Other Musculoskeletal: Leg Pain. negative: Neck Pain, Shoulder Pain, Arm Pain, Back Pain, Hand Pain, Foot Pain, Other Skin: negative: Rash, Lesions, Serafin, Bruising, Other - Medications/Allergies Allergies/Adverse Reactions: Allergies Allergy/AdvReac Type Severity Reaction Status Date / Time Penicillins Allergy Verified 11/19/17 18:41 Medications: Current Medications Acetaminophen (Tylenol) 650 mg PO Q4H PRN PRN Reason: Headache/Fever or Pain Hydrocodone Bitart/Acetaminophen (Stover 5/325) 1 tab PO Q4H PRN PRN Reason: Moderate Pain (4-6) Last Admin: 01/04/18 09:13 Dose: 1 tab Al Hydroxide/Mg Hydroxide (Maalox) 30 ml PO Q6H PRN PRN Reason: Heartburn or Indigestion Albuterol/Ipratropium (Duoneb) 3 ml NEB [id number] PRN PRN Reason: SOB &/or Wheezing Artificial Tears (Tears Naturale) 0 drop EA EYE PRN PRN PRN Reason: Dry Eyes Dextrose/Water (Dextrose 50%) 25 gm SLOW IVP PRN PRN PRN Reason: Hypoglycemia Famotidine (Pepcid) 20 mg SLOW IVP DAILY [facility] Last Admin: 01/04/18 08:45 Dose: 20 mg Fentanyl (Sublimaze) 50 mcg SLOW IVP Q4H PRN PRN Reason: Severe Pain (7-10) Last Admin: 01/04/18 12:04 Dose: 50 mcg Fluconazole (Diflucan) 100 mg PO DAILY [facility] Stop: 01/13/18 10:00 Glucagon (Glucagon) 1 mg IM PRN PRN PRN Reason: Hypoglycemia Guaifenesin (Robitussin Sf) 200 mg PO Q4H PRN PRN Reason: Cough Dextrose/Water (D5w) 1,000 mls @ 0 mls/hr IV .Q0M PRN; As Directed PRN Reason: Hypoglycemia Norepinephrine Bitartrate (Levophed) 250 mls @ 0 mls/hr IVPB INF [facility]; Titrate PRN Reason: Protocol Last Admin: 01/04/18 10:19 Dose: 250 mls Meropenem 1 gm/ Device 50 mls @ 100 mls/hr IVPB 0400,1600 [facility] Last Admin: 01/04/18 04:30 Dose: 50 mls Vancomycin HCl 2 gm/ Sodium (Chloride) 500 mls @ 250 mls/hr IVPB 0800 [facility] Last Admin: 01/04/18 09:14 Dose: 500 mls Sodium Bicarbonate 150 meq/ (Dextrose/Water) 1,000 mls @ 75 mls/hr IV .[id number] [facility] Last Admin: 01/04/18 12:12 Dose: 1,000 mls Insulin Human Lispro (Humalog) 0 units SC .MODERATE SLIDING SC PRN PRN Reason: Moderate Correctional Scale Insulin Human Lispro (Humalog) 0 units SC .BEDTIME SLIDING SC PRN PRN Reason: Bedtime Correctional Scale Loperamide HCl (Imodium) 2 mg PO PRN PRN PRN Reason: Diarrhea/Loose Stools Loratadine (Claritin) 10 mg PO DAILYPRN PRN PRN Reason: Sinus Symptoms Magnesium Hydroxide (Milk Of Magnesium) 30 ml PO DAILYPRN PRN PRN Reason: Constipation Mineral Oil/White Petrolatum (Eucerin Cream) 0 gm TOP BIDPRN PRN PRN Reason: Dry Skin Miscellaneous Medication (Pharmacy To Dose) 1 each IVPB ONE PRN PRN Reason: Pharmacy to dose Stop: 01/13/18 11:57 Ondansetron HCl (Zofran Odt) 4 mg PO Q6H PRN PRN Reason: Nausea/Vomiting Ondansetron HCl (Zofran) 4 mg IVP Q6H PRN PRN Reason: Nausea/Vomiting Phenol (Chloraseptic [place] 180 Ml Bot) 0 ml PO PRN PRN PRN Reason: Sore Throat Saccharomyces Boulardii (Florastor) 250 mg PO DAILY [facility] Last Admin: 01/04/18 08:45 Dose: 250 mg Senna (Senokot) 2 tab PO HSPRN PRN PRN Reason: Constipation Sodium Chloride ([place] Nasal [place] 0.65%) 0 ml EA NARE QIDPRN PRN PRN Reason: Nasal Congestion
[2018-01-04] MEDS ORDERED: Vecuronium 10 MG VIAL ONE (14:48)
[2018-01-04] MEDS ORDERED: Midazolam HCl 2 mg/2 ml Vial ONE (14:52)
[2018-01-04] MEDS ORDERED: Propofol 1,000 MG/100 ML VIAL IV ONE (15:20)
[2018-01-04 15:22] LABS: pH (venous) 7.067 (7.32-7.43)
[2018-01-04 15:23] LABS: Actual Bicarbonate (HCO3v) 21 mEq/L (22-28); Base Excess -10.7 mEq/L (-2.0 to +3.0); Hemoglobin (Hb) 14.3 g/dL (13.1-17.2)
[2018-01-04 15:24] LABS: Calcium, Ionized 0.99 mmol/L (1.16-1.32); Chloride (ABG LAB) 101 mmol/L (98-106); Potassium - ABG Lab 4.8 mmol/L (3.70-5.30); Sodium 135.2 mmol/L (133-146)
--- NOTE | 2018-01-04 15:38 | ULT ---
ARTERIAL DUPLEX SONOGRAM BILATERAL LOWER EXTREMITY: 01/04/18 HISTORY: Diminished pulses. Vascular disease. FINDINGS: RIGHT: Good color and spectral doppler flow. Triphasic waveform within the common femoral and deep femoral, femoral, and popliteal artery. Monophasic flow within the anterior and posterior tibial arteries. Bip hasic flow within the dorsalis pedis artery. No abnormally elevated peak systolic velocities. LEFT: Good color and spectral doppler flow with biphasic waveform throughout the common femoral and deep fe moral, femoral, popliteal artery, anterior tibial and dorsalis pedis arteries. IMPRESSION: Good arterial flow throughout each lower extremity. Dampened pulsatility throughout the entirety of t he left leg and below the right knee suggests medium sized vessel disease. Conventional or CT arterio graphy could be used for better characterization of vascular disease if needed. POS: [facility]
[2018-01-04] MEDS ORDERED: fentaNYL Citrate/PF 2,000 MCG in Sodium Chloride 0.9% 60 ML IV SCH (16:02)
[2018-01-04] MEDS ORDERED: Fentanyl BOLUS 250 ML IVPB PRN (16:02)
[2018-01-04] MEDS ORDERED: DISCONTINUE PREVIOUS NARCOTIC PAIN MEDICATIONS AND BENZODIAZEPINES FS SCH (16:02)
[2018-01-04] MEDS ORDERED: Propofol BOLUS 1,000 MG/100 ML VIAL IV PRN (16:02)
[2018-01-04] MEDS: HumaLOG 300 UNITS/3 ML VIAL SC PRN ×2 (16:20→19:53)
--- NOTE | 2018-01-04 16:23 | RAD ---
CHEST ONE VIEW: 01/04/18 COMPARISON: 01/03/18 HISTORY: Status post intubation. FINDINGS: Portable semiupright chest demonstrates endotracheal tube. Heart is enlarged. Pulmonary vessels are p rominent. Right sided internal jugular central venous catheter is again demonstrated. No significant pleural fluid. There are patchy interstitial opacities. No pneumothorax. IMPRESSION: 1. Endotracheal tube at the level of the clavicles. 2. Cardiomegaly, pulmonary vascular prominence and interstitial opacities. Correlate for congest brandi heart failure. POS: [facility]
[2018-01-04 16:25] LABS: CO2 Tension 68.3 mmHg (35.0-45.0)
[2018-01-04 16:26] LABS: Actual Bicarbonate (HCO3a) 20.7 mEq/L (22-28); Base Excess (BEa) -9.8 mEq/L (-2.0 to +3.0); Carboxyhemoglobin (COHb) 1.8 gm% (0.0-3.0); Hemoglobin (Hb) 13.3 g/dL (14.0-18.0); O2 Tension (PaO2) 72.2 mmHg (80.0-100.0)
[2018-01-04 16:27] LABS: ALV-art Gradient 277.355 (0-20); Puncture Site LBRACH
--- NOTE | 2018-01-04 16:30 | PDOC.OP ---
Operative Note - Operative Note Operative Note: Patient had become more obtunded. Was requiring bipap and not fighting to take bipap off as he had been before. Checked venous blood gas and found pH 7.01 and decision was made to intubate. INDICATION: as above PROCEDURE MARK UP DESIGNER: Rogelio Maria CONSENT: Emergent procedure. PROCEDURE SUMMARY: A time out was performed. My hands were washed immediately prior to the procedure. The patient was placed on a equipment monitor phototypesetting including continuous pulse oximetry. Rapid Sequence Intubation was conducted. The patient received 40mg of etomidate for induction.Using a t4 glidescope and a size 8.0 endotracheal tube with stylet, the patient was intubated on the 1st attempt. The stylet was removed and cuff balloon was inflated. Appropriate endotracheal tube position was confirmed by direct visualization of vocal cord passage, fogging of the tube, CO2 colometric indicator and symmetric breath sounds. The tube was secured at 24 cm at the lips. Post intubation cxr showed atelectasis. <Rogelio Hansen - Last Filed: 01/04/18 16:27> Attending Addendum - Attending Addendum Date/Time: 01/04/18 [id number] I was present for the entirety of the procedure. <Min Sanchez - Last Filed: 01/04/18 21:39>
[2018-01-04] MEDS: Hydrocortisone Sod Succ/PF 100 mg/2 ml Vial IVP SCH ×2 (17:47→23:43)
--- NOTE | 2018-01-04 17:47 | PRG ---
DATE OF SERVICE: 01/04/2018 SUBJECTIVE: Triston Lim is in ICU still. OBJECTIVE: VITAL SIGNS: Blood pressure 102/34, respiratory rate 19, heart rate 99. White count 8.9, 44 bands. His urine output is markedly compromised and minimal. LUNGS: Clear to auscultation, few rhonchi. CARDIAC: Regular rate and rhythm. ABDOMEN: Soft, obese. EXTREMITIES: Edematous lower extremities, right worse than left. The right lower extremity below th e knee looks slightly better than yesterday. Ecchymosis and cellulitis less intense. There is some blistering that was taken down. No evidence of an abscess. Continue antibiotics. LABORATORY DATA: BUN 43, creatinine 3.375. Renal ultrasound, no hydronephrosis. ASSESSMENT AND PLAN: Acute renal failure and oliguric. Nephrology consult pending. The patient is at risk for needing a dialysis catheter. If patient is in need of dialysis, please keep n.p.o. for a cuffed tunnel dialysis catheter. He is not a good candidate for a temporary catheter due to his obe sity and lower extremity problems.
[2018-01-04] MEDS: Propofol 1,000 MG/100 ML VIAL IV PRN (19:53)
[2018-01-04] MEDS: Sodium Chloride 0.9% 1,000 ML IV SCH (19:54)
--- NOTE | 2018-01-05 03:01 | CON ---
DATE OF CONSULTATION: 01/04/2018 CONSULTING PHYSICIAN: Bijan Hernandez M.D. REQUESTING PHYSICIAN: Dr. Alvarez. REASON FOR CONSULTATION: Acute kidney injury. IMPRESSION: 1. Acute kidney injury. This is likely prerenal in the context of poor p.o. intake compounded by cy tokine/hemodynamically mediated acute kidney injury in the context of sepsis. 2. Respiratory failure, likely in the context of body habitus likely/hypercapnic respiratory failure . 3. Mental status change. I do suspect this to be more of a carbon dioxide narcosis as opposed to ju st toxic metabolic encephalopathy. PLAN: 1. We will recommend blood gas and outcome to be addressed by the Pulmonary and Critical Care team. 2. If the patient's renal function is continued to deteriorate and the patient remains anuric, we wi ll likely require renal replacement therapy not in the nearest period of time. 3. Discontinue current IV fluids. If fluid seems to be hypotonic. We will adjust this to dextrose with bicarbonate. 4. Renally dose all medications and avoid potentially nephrotoxic agents. 5. Further management will be dependent on the clinical course. The condition of this patient is cr itical. HISTORY OF PRESENT ILLNESS: This is a 57-year-old incarcerated gentleman, morbidly obese, who presen jose here with features of septic shock in the context of bilateral lower extremity cellulitis. Patie nt also is noted with renal failure. The patient is not making much of any urine, does have history of urethral stricture but a Malik catheter placed. He is not draining any urine and no evidence of h ydronephrosis. The patient has not been eating and drinking well lately. As a result of these findi ngs, decision has been taken to involve Renal in the management of this case. I could not get much o f history from this patient due to mental status as patient seems to be having some respiratory distr ess. PAST MEDICAL HISTORY: Significant for morbid obesity, history of acute kidney injury in the past, ty pe 2 diabetes, chronic hepatitis C, cirrhosis of the liver due to hepatitis C, recurrent cellulitis, reflux disease, lymphedema. MEDICATIONS: Reviewed and as documented on [facility]. ALLERGIES: PENICILLIN. SOCIAL HISTORY: The patient currently is in [place] [facility]. REVIEW OF SYSTEMS: Could not be obtained from this patient given the fact that this patient is havin g some mental status change at this point. PHYSICAL EXAMINATION: GENERAL: The patient is noted to be morbidly obese, not very coherent and in some respiratory distre ss. VITAL SIGNS: Blood pressure 125/49, respiratory rate 20, O2 sat 95%. HEENT: Unremarkable. CARDIOVASCULAR SYSTEM: First and second heart sounds were heard. RESPIRATORY SYSTEM: Reveals some diminished breath sounds. DIGESTIVE SYSTEM: Revealed an obese abdomen with positive bowel sounds. EXTREMITIES: Showed chronic lymphedema. SUMMARY: A 57-year-old morbidly obese gentleman from the [place] [facility] who is here with evidence of sepsis and now experiencing worsening renal failure. Thank you for this consultation. We will follow with you.
--- NOTE | 2018-01-05 03:01 | CON ---
DATE OF CONSULTATION: 01/04/2018 CONSULTING: Dr. Deonte Villagran. CONSULTING PHYSICIAN: Lobo Stevens M.D. REASON FOR CONSULTATION: Difficult Malik placement, catheter check. HISTORY OF PRESENT ILLNESS: Mr. Lim is a 57-year-old white male who is currently incarcerated wi th multiple comorbidities. He is currently admitted to the hospital for sepsis, which is presumably from a skin origin of his lower extremities, although urinary tract has not been excluded. Attempts to place a catheter due to his sepsis and need to be in the ICU was attempted; however, there was dif ficulty in placing the catheter and they are not sure it is in the right place. The patient reports a history of a TURP in the past in [place] and on a prior admission for sepsis in the hospital, he had seen Dr. Valeria Knight, who had to use a cystoscope to pass in a catheter at that time, as th ere was inability to pass the catheter and under normal circumstances. He currently states that the catheter that is in, causing pain. He is urinating primarily around the catheter rather than through it and is having a significant amount of pelvic discomfort. He has not had any hematuria. He does currently have an acute kidney injury with elevated creatinine likely secondary to his sepsis. He no rmally states that he is able to void relatively well when he is at the intermediate when he is not sick. ALLERGIES: PENICILLIN. HOME MEDICATIONS: 1. Lasix. 2. Aspirin. 3. Calcium carbonate. 4. Glipizide. 5. Lactulose. 6. Metolazone. 7. Omeprazole. 8. Aldactone. 9. Metformin 10. Terazosin. 11. Lisinopril. 12. Simethicone. PAST MEDICAL HISTORY: 1. Type 2 diabetes. 2. Chronic hepatitis C. 3. Cirrhosis. 4. Diastolic heart failure. 5. Chronic obstructive pulmonary disease. 6. Morbid obesity. 7. Obstructive sleep apnea. 8. Recurrent cellulitis of the lower extremities. 9. Gastroesophageal reflux disease. 10. Chronic foot pain and osteoarthritis. 11. Chronic lymphedema. 12. Chronic venous insufficiency. 13. BPH. PAST SURGICAL HISTORY: 1. Open cholecystectomy. 2. Left leg surgery x7. 3. Tonsillectomy. 4. Tissue graft, abdominal wall. 5. TURP. SOCIAL HISTORY: Patient currently lives at a intermediate. He denies current tobacco, alcohol, or illicit drug use. FAMILY HISTORY: Noncontributory. REVIEW OF SYSTEMS: A 12-point review of system is currently unremarkable other than shortness of pam ath, malaise, pelvic pain, lower extremity swelling, and discomfort. Patient reports chills, but no current fevers. Remainder of 12-point review of systems was reviewed and otherwise negative. PHYSICAL EXAMINATION: VITAL SIGNS: Temperature 98.6, pulse 101, respirations 14, saturation is 95% on room air. GENERAL: Somewhat uncomfortable appearing, morbidly obese otherwise communicative and alert, answeri ng questions appropriately. HEENT: Normocephalic, atraumatic. Sclerae nonicteric. Pupils are symmetric and round. Extraocular movements intact, but the patient does have some strabismus. Moist mucous membranes. Trachea midli ne. CARDIOVASCULAR: Regular rate and rhythm. Normal S1 and S2. Symmetric pulses. CHEST: Increased work of breathing with somewhat labored respirations. There is diffuse wheezing th roughout the lung campos on both sides. ABDOMEN: Extremely obese, difficult to palpate, mild suprapubic tenderness. No obvious rebound, gua rding, tenderness. Positive bowel sounds. GENITOURINARY: There is a current Malik catheter in place with almost no urine output in the Malik. Penis is circumcised. Testes are bilaterally descended. RECTAL: Deferred. EXTREMITIES: 4+ edema bilaterally with chronic stasis ulcers. There is gauze wrapping that are satu rated on both legs. Evidence of mild cyanosis. MUSCULOSKELETAL: No obvious joint deformities, joint erythema noted. Patient has limited range of m otion of the lower extremity secondary to his lymphedema. SKIN: Warm, dry, good turgor, no rashes anywhere in the body except the lower extremities which tabitha nixon was previously described. NEUROLOGIC: Cranial nerves II-XII appear grossly intact. There are no obvious focal sensory or erika r deficits identified. PSYCHIATRIC: Alert and oriented x3, appropriate mood and affect. LABORATORY AND X-RAY FINDINGS: The full set of labs in the [facility] system, which I reviewed. Of no te, the patient's white count of 8.9 with hemoglobin 12.2. Creatinine is currently 3.75. Renal ultrasound demonstrates no overt hydronephrosis, although there is a limited assessment seconda ry to patient's obesity. PROCEDURE: After discussion with the patient, he requested attempted a placement of catheter with th e cystoscope. Given that was required last time, I told him I could try with a regular Coude cathete r, but he requested a cystoscopy; therefore, the patient was prepped and draped in the usual sterile fashion. A flexible cystoscope was set up and brought in and used to cannulate the urethra, which di d not demonstrate any evidence of strictures. The sphincter was coapted. The prostate demonstrates at traditional TURP defect. There is a significant upward curvature, which is likely why a standard catheter does not going normally, entry into the bladder was normal. Bladder evaluation was limited given that there was no camera hooked up to the cystoscope. An Amplatz Super Stiff wire was then adv anced through the cystoscope into the bladder under direct vision. The cystoscope was then removed a nd a 16-Ni[place] Max[place]elton tip catheter was advanced over the Super Stiff wire with ease into the bladder . There was immediate release of urine and irrigation fluid, which had gone during the cystoscopy. A 10 mL of sterile water placed into the balloon and the catheter was then affixed to a StatLock and affixed to gravity drainage. The patient tolerated the procedure well. He is currently already on a ntibiotics. ASSESSMENT AND PLAN: A 57-year-old white male with acute kidney injury and oliguria secondary to sep sis with difficult Malik placement, which was placed with assistance of a cystoscope. Patient did we ll from my standpoint, the catheter should be kept in while the patient is in critical care. Once th e need for his catheter is no longer necessary by the medicine team and advice clerk, the catheter can be discontinued per routine at the request. From my standpoint, I do not think there is anything fu rther that needs to be done from a Urology standpoint. I will sign off and please reconsult if there is any further assistance necessary.
[2018-01-05] MEDS: MEROPENEM 1 GM/50 ML 1 GM in Premix Bag 1 BAG IVPB SCH ×2 (05:04→15:58)
[2018-01-05] MEDS: Hydrocortisone Sod Succ/PF 100 mg/2 ml Vial IVP SCH ×3 (05:05→17:05)
[2018-01-05] MEDS: Sodium Bicarbonate 150 MEQ in Dextrose 5% in Water 850 ML IV SCH ×2 (05:05→16:06)
[2018-01-05 05:24] LABS: Lactic Acid 2.5 mmol/L (0.5-2.2)
[2018-01-05 05:36] LABS: Anion Gap 22 mmol/L (10-20); BUN (Urea Nitrogen) 62 mg/dL (8.4-25.7); Calc. Creatinine Clearance 46 mL/min (70-130); Calcium 6.9 mg/dL (7.8-10.44); Carbon Dioxide 18 mmol/L (22-29); Chloride 100 mmol/L (98-107); Estimated GFR-MDRD 14; Glucose 205 mg/dL (70-105); Potassium 5.3 mmol/L (3.5-5.1); Sodium 135 mmol/L (136-145)
[2018-01-05 06:10] LABS: Anisocytosis SLIGHT = 6-15 cells (100X) (0-5/hpf); Band 42 % (5-11); Hemoglobin 12.8 g/dL (14.0-18.0); Lymphocytes 3 % (21-51); MDiff Complete? YES; Mean Corpuscular HGB CONC 33.5 g/dL (32.0-36.0); Mean Corpuscular Hemoglobin 30.8 pg (27.0-31.0); Mean Corpuscular Volume 92.1 fL (78.0-98.0); Mean Platelet Volume 10.4 fL (7.4-10.4); Metamyelocyte 16 % (0-0); Monocytes 5 % (0-10); Myelocyte 8 % (0-0); Neutrophil 26 % (42-75); PLT Morphology Comment Appears Decreased; Platelet Count 53 thou/uL (130-400); RBC Distribution Width 15.1 % (11.5-14.5); Red Blood Cell (RBC) Count 4.16 mill/uL (4.70-6.10); Toxic Granulation MODERATE
[2018-01-05] MEDS: Norepinephrine 16 MG in Dextrose 5% in Water 234 ML IVPB PRN ×2 (06:29→16:06)
[2018-01-05 07:28] LABS: Vancomycin, Trough 28.8 ug/mL
[2018-01-05] MEDS: Fluconazole 100 MG TAB PO SCH (07:29)
[2018-01-05] MEDS: Propofol 1,000 MG/100 ML VIAL IV PRN ×4 (07:29→20:36)
[2018-01-05] MEDS: Saccharomyces boulardii 250 MG CAP PO SCH (08:25)
[2018-01-05] MEDS: HumaLOG 300 UNITS/3 ML VIAL SC PRN ×3 (08:26→20:34)
--- NOTE | 2018-01-05 08:29 | PDOC.PULPN ---
<Rogelio Hansen - Last Filed: 01/05/18 08:27> Progress Note: Subj/Obj - Subjective Date: 01/05/18 Time: 08:00 - ROS ROS unobtainable: due to mental status - Objective Allergies/Adverse Reactions: Allergies Allergy/AdvReac Type Severity Reaction Status Date / Time Penicillins Allergy Verified 11/19/17 18:41 Vital Signs: Vital Signs Temp 99.4 F 01/05/18 07:35 Pulse 86 01/05/18 07:47 Resp 23 H 01/05/18 07:48 BP 148/52 H 01/05/18 07:47 Pulse Ox 98 01/05/18 07:35 Intake & Output 01/04/18 01/05/18 01/05/18 18:59 06:59 18:59 Intake Total 2647.7 1883.5 60 Output Total 315 132 7 Balance 2332.7 1751.5 53 Weight 174.6 kg Intake: Intake, IV Amount 2287.7 1883.5 Norepinephrine 8 MG/0.9% 647 735.5 NS 250 ml @ Titrate IVPB INF [facility] Rx#:[id number] Propofol 1000 mg IV .STK- 53.1 256 MED ONE Rx#:[id number] Sodium Bicarbonate 150 647 826 meq In Dextrose 5% in Water 1,000 ml @ 75 mls/ hr IV .[id number] [facility] Rx#: [id number] Sodium Chloride 0.9% 1, 440 000 ml @ 125 mls/hr IV . Q8H [facility] Rx#:[id number] Vancomycin HCl 2 gm In 500 Sodium Chloride 0.9% 500 ml @ 250 mls/hr IVPB 0800 [facility] Rx#:[id number] Vasopressin 40 unit In 0.6 66 Sodium Chloride 0.9% 100 ml @ 6 mls/hr IV INF PRN Rx#:[id number] Oral 360 0 Tube Irrigant 60 Output: Gastric Drainage 300 50 Output, Roldan 15 82 7 Other: Voiding Method Indwelling Catheter Indwelling Catheter Indwelling Catheter Progress Note: Exam - Physical Exam Constitutional: NAD HEENT: moist MMs Cardiovascular: RRR, no significant murmur Respiratory: clear to auscultation anteriorly. Denies: prolonged expiratory phase, respiratory distress, wheezes Deviation from normal: incisional hernia reducible, soft, positive bowel sounds Deviation from normal: pulses present per doppler, cap refill 4s on R foot, 3s on L Deviation from normal: sedated Deviation from normal: still forming bullae Progress Note: Data - Labs Result Diagrams: 01/05/18 04:55 01/05/18 04:55 Progress Note: A/P - Problems (1) Lactic acidosis Current Visit: Yes Status: Acute Code(s): E87.2 - ACIDOSIS (2) Sepsis associated hypotension Current Visit: Yes Status: Acute Code(s): A41.9 - SEPSIS, UNSPECIFIED ORGANISM; I95.9 - HYPOTENSION, UNSPECIFIED (3) Sepsis due to cellulitis Current Visit: Yes Status: Acute Code(s): L03.90 - CELLULITIS, UNSPECIFIED; A41.9 - SEPSIS, UNSPECIFIED ORGANISM (4) Anemia, normocytic normochromic Current Visit: Yes Status: Chronic Code(s): D64.9 - ANEMIA, UNSPECIFIED (5) COPD (chronic obstructive pulmonary disease) Current Visit: Yes Status: Chronic (6) Chronic hepatitis C with cirrhosis Current Visit: Yes Status: Chronic Code(s): B18.2 - CHRONIC VIRAL HEPATITIS C; K74.60 - UNSPECIFIED CIRRHOSIS OF LIVER (7) GERD (gastroesophageal reflux disease) Current Visit: Yes Status: Chronic Code(s): K21.9 - GASTRO-ESOPHAGEAL REFLUX DISEASE WITHOUT ESOPHAGITIS (8) HTN (hypertension) Current Visit: Yes Status: Chronic Code(s): I10 - ESSENTIAL (PRIMARY) HYPERTENSION (9) Morbid obesity due to excess calories Current Visit: Yes Status: Chronic Code(s): E66.01 - MORBID (SEVERE) OBESITY DUE TO EXCESS CALORIES (10) JENNY (obstructive sleep apnea) Current Visit: Yes Status: Chronic Code(s): G47.33 - OBSTRUCTIVE SLEEP APNEA (ADULT) (PEDIATRIC) (11) T2DM (type 2 diabetes mellitus) Current Visit: Yes Status: Chronic (12) Thrombocytopenia Current Visit: Yes Status: Chronic Code(s): D69.6 - THROMBOCYTOPENIA, UNSPECIFIED - Plan Plan: This is a 57 yo M being admitted for recurrent lower extremity cellulitus. 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 () - sedated, arousable - Sedation: propofol Resp (Pickwickian syndrome) - intubated 01/04 2/2 resp distress - check blood gas this AM, likely hypercapnic at baseline - rate of 13, TV 440, Ppl 20, Minute vent 9 CV (Hypotension, CHF, recurrent cellulitus, venous stasis, lymphedema) - EF 50-55% - on levophed 30mcg/min this AM - added vasopressin overnight 2/2 inability to maintain adequate MAP - hypotension likely chronic from Hep C, worsened by sepsis - poor cap refill at toes GI (N/V, Hep C) - continue home lactulose - zofran - monitor hernia Nutrition - NPO Hematologic (anemia) - hgb 12.8, baseline 12.5 last stay - plts 53, cirrhotic /Renal (hx TURP, bladder neck contracture, lo2 urine output, recent KIRK w/ ATN ) - states he has not urinated for 3 days before admission, has not tolerated PO intake during this time - diagnosed with bladder neck contracture by urology last visit, referred to [facility] for staging, never made it there - roldan in place via urology camera - 100ml urine output last 24hrs - Cr 2.47-> 3.75-> 4.48 as high as 6.19 last visit - will likely need PRODUCTION QUALITY MANAGER, Nephro consulted - currenlty on D5W w/ bicarb at 75ml/hr, may need to decrease/stop Infection (recent cellulitus attributed to beta-hemolytic strep, also w/ history of MRSA, severe sepsis) - continue with meropenem, vanc per ID, recs appreciated - WBC increased to 16, continues to form bullae - wound culture shows gram - rods, BC x2 shows Serratia -developed bullae on R leg 01/03, incised by Dr. Farris 01/03 -continues to form bullae on R leg, wound dressed, poor cap refill at toes - doppler US yesterday showed "good arterial flow, poor pulsality" Endo (T2DM) - SSI Code status: full PPx: pepcid, thrombocytopenia Diet: diabetic Dispo: >2 days <Min Sanchez - Last Filed: 01/05/18 12:41> Progress Note: Subj/Obj - Objective Vital Signs: Vital Signs Temp 98.5 F 01/05/18 12:00 Pulse 88 01/05/18 10:27 Resp 23 H 01/05/18 12:00 BP 170/41 H 01/05/18 10:27 Pulse Ox 98 01/05/18 07:35 Intake & Output 01/04/18 01/05/18 01/05/18 18:59 06:59 18:59 Intake Total 2647.7 1883.5 591 Output Total 315 132 22 Balance 2332.7 1751.5 569 Weight 384 lb 14.833 oz Intake: Intake, IV Amount 2287.7 1883.5 531 Norepinephrine 8 MG/0.9% 647 735.5 NS 250 ml @ Titrate IVPB INF [facility] Rx#:[id number] Propofol 1000 mg IV .STK- 53.1 256 MED ONE Rx#:[id number] Sodium Bicarbonate 150 647 826 meq In Dextrose 5% in Water 1,000 ml @ 75 mls/ hr IV .[id number] [facility] Rx#: [id number] Sodium Chloride 0.9% 1, 440 000 ml @ 125 mls/hr IV . Q8H [facility] Rx#:[id number] Vancomycin HCl 2 gm In 500 500 Sodium Chloride 0.9% 500 ml @ 250 mls/hr IVPB 0800 [facility] Rx#:[id number] Vasopressin 40 unit In 0.6 66 31 Sodium Chloride 0.9% 100 ml @ 6 mls/hr IV INF PRN Rx#:[id number] Oral 360 0 Tube Irrigant 60 Output: Gastric Drainage 300 50 Output, Roldan 15 82 22 Other: Voiding Method Indwelling Catheter Indwelling Catheter Indwelling Catheter Progress Note: Data - Labs Result Diagrams: 01/05/18 04:55 01/05/18 04:55 Attending Addendum - Attending Addendum Date/Time: 01/05/18 1240 I personally evaluated the patient and discussed the management with Dr. Hansen I agree with the History, Examination, Assessment and Plan documented above with any addition or exceptions noted below. Septic shock 2/2 GNR bacteremia. KIRK, with improving UOP. Critical care time: 30 minutes.
[2018-01-05 08:54] LABS: CO2 Tension 37.6 mmHg (35.0-45.0); pH, Arterial 7.33 (7.35-7.45)
[2018-01-05 08:55] LABS: Actual Bicarbonate (HCO3a) 19.2 mEq/L (22-28); Base Excess (BEa) -6.2 mEq/L (-2.0 to +3.0); Calcium, Ionized 0.9 mmol/L (1.12-1.30); Carboxyhemoglobin (COHb) 0.6 gm% (0.0-3.0); Hemoglobin (Hb) 13.4 g/dL (14.0-18.0); O2 Tension (PaO2) 76.1 mmHg (80.0-100.0)
[2018-01-05 08:56] LABS: Puncture Site RB
[2018-01-05] MEDS ORDERED: Famotidine 20 MG TAB PO SCH (09:00)
--- NOTE | 2018-01-05 09:39 | PRG ---
DATE OF SERVICE: 01/04/2018 HISTORY: Mr. Lim developed altered mental status and had to be intubated just a while ago. PHYSICAL EXAMINATION: VITAL SIGNS: T-max 98.6, blood pressure 99/46, pulse 105, respirations 20, O2 sat 96%. Orotracheal intubation. LUNGS: Coarse breath sounds. HEART: S1, S2. ABDOMEN: Soft. Extensive areas of blistering on the right lower extremity. There is one area of the elliptical incision, which was performed by Dr. Farris to evaluate for possible necrotizing changes. This did not show any evidence of necrosis of tissue. LABORATORY DATA: The white cell count 8.9, hemoglobin 12, platelets 44,000 with 44% bands, 90% neutrophils. Sodium 137, creatinine 3.75. It is a bit higher than on admission. AST 27, ALT 54. Currently on meropenem and vancomycin. Chest x-ray: ET tube by the level of the clavicles, cardiomegaly. ASSESSMENT AND DISCUSSION: Type 2 diabetes, COPD, CHF, liver cirrhosis, chronic hepatitis C without treatment and recrudescence of cellulitis with a Gram-negative caitie bacteremia. Discontinue vancomycin. Add quinolone until final susceptibility results of the organism isolated. Usual pathogens include E. coli in this kind of scenario including E. coli, Pseudomonas serratia. The Verigene identification did not retrieve any of those, so still waiting on the final report to determine the etiology. In one of the samples, there was a possibility of a mixed culture. [facility]
[2018-01-05] MEDS ORDERED: Calcium Gluc 4.6 MEQ/10 ML (100 MG/ML) SLOW IVP SCH (09:40)
--- NOTE | 2018-01-05 09:52 | PDOC.EVN ---
Event Note - Event Note Event Note: stopped vanc 2/2 gram negative blood cultures and wound culture added 1g calcium gluconate x2 D5W to TKO
[2018-01-05] MEDS: Famotidine/PF 20 mg/2ml Vial SLOW IVP SCH (09:59)
[2018-01-05] MEDS: Calcium Gluc 4.6 MEQ/10 ML (100 MG/ML) SLOW IVP SCH ×2 (10:05→14:00)
--- NOTE | 2018-01-05 12:58 | PDOC.PN ---
- Subjective Encounter Start Date: 01/05/18 Encounter Start Time: 11:00 pt became lethargic and altered, required intubation, he is on levophed and vasopressin, he is not making urine output, his renal function is getting worse , he has lot of drainage through right leg, - Objective Resuscitation Status: Resuscitation Status FULL:Full Resuscitation MAR Reviewed: Yes Vital Signs & Weight: Vital Signs (12 hours) Temp Pulse Resp BP Pulse Ox 01/05/18 12:53 90 01/05/18 12:00 98.5 F 23 H 01/05/18 10:27 88 170/41 H 01/05/18 09:52 25 H 01/05/18 09:22 22 H 01/05/18 07:48 23 H 01/05/18 07:47 86 148/52 H 01/05/18 07:35 99.4 F 87 19 98 01/05/18 07:00 99.4 F 01/05/18 06:00 21 H 01/05/18 04:00 20 01/05/18 02:00 23 H Weight Admit Weight 382 lb Weight 384 lb 14.833 oz Most Recent Monitor Data Heart Rate from ECG 81 NIBP 108/52 NIBP BP-Mean 75 Respiration from ECG 6 SpO2 96 I&O: 01/04/18 01/05/18 01/06/18 06:59 06:59 06:59 Intake Total 6776 4531.2 591 Output Total 0 447 22 Balance 6776 4084.2 569 Result Diagrams: 01/05/18 04:55 01/05/18 04:55 Additional Labs: Accuchecks 01/05/18 01/05/18 01/05/18 11:07 08:17 04:05 POC Glucose 170 H 184 H 191 H 01/05/18 01/04/18 00:05 19:43 POC Glucose 179 H 179 H EKG Reviewed by me: Yes (nsr) Phys Exam - Physical Examination Constitutional: NAD intubated HEENT: PERRLA, sclera anicteric Neck: no JVD, supple Respiratory: no wheezing, no rales, no rhonchi Cardiovascular: RRR, no significant murmur, no rub Gastrointestinal: soft, no distention, positive bowel sounds obesity+, surgical scar old with hernia right leg with dressing with lot of drainage unable to assess due to intubated status Lymphatic: no nodes Deviation from normal: unable to assess due to intubated status Dx/Plan (1) Acute respiratory failure with hypoxia and hypercarbia Code(s): J96.01 - ACUTE RESPIRATORY FAILURE WITH HYPOXIA; J96.02 - ACUTE RESPIRATORY FAILURE WITH HYPERCAPNIA Status: Acute (2) Bacterial infection due to Serratia Code(s): A49.8 - OTHER BACTERIAL INFECTIONS OF UNSPECIFIED SITE Status: Acute (3) Acute metabolic encephalopathy Code(s): G93.41 - METABOLIC ENCEPHALOPATHY Status: Acute (4) Acute kidney failure Status: Acute Comment: creatinine is getting worse (5) Demand ischemia of myocardium Code(s): I24.8 - OTHER FORMS OF ACUTE ISCHEMIC HEART DISEASE Status: Acute Comment: due to sepsis (6) Lactic acidosis Code(s): E87.2 - ACIDOSIS Status: Acute (7) Sepsis associated hypotension Code(s): A41.9 - SEPSIS, UNSPECIFIED ORGANISM; I95.9 - HYPOTENSION, UNSPECIFIED Status: Acute Comment: on levophed and vasopressin (8) Sepsis due to cellulitis Code(s): L03.90 - CELLULITIS, UNSPECIFIED; A41.9 - SEPSIS, UNSPECIFIED ORGANISM Status: Acute Comment: Severe (9) Sepsis with acute organ dysfunction Code(s): A41.9 - SEPSIS, UNSPECIFIED ORGANISM; R65.20 - SEVERE SEPSIS WITHOUT SEPTIC SHOCK Status: Acute (10) Anemia, normocytic normochromic Code(s): D64.9 - ANEMIA, UNSPECIFIED Status: Chronic (11) COPD (chronic obstructive pulmonary disease) Status: Chronic Comment: stable, continue respiratory therapy (12) Chronic hepatitis C with cirrhosis Code(s): B18.2 - CHRONIC VIRAL HEPATITIS C; K74.60 - UNSPECIFIED CIRRHOSIS OF LIVER Status: Chronic (13) GERD (gastroesophageal reflux disease) Code(s): K21.9 - GASTRO-ESOPHAGEAL REFLUX DISEASE WITHOUT ESOPHAGITIS Status: Chronic (14) HTN (hypertension) Code(s): I10 - ESSENTIAL (PRIMARY) HYPERTENSION Status: Chronic (15) Morbid obesity due to excess calories Code(s): E66.01 - MORBID (SEVERE) OBESITY DUE TO EXCESS CALORIES Status: Chronic (16) JENNY (obstructive sleep apnea) Code(s): G47.33 - OBSTRUCTIVE SLEEP APNEA (ADULT) (PEDIATRIC) Status: Chronic (17) T2DM (type 2 diabetes mellitus) Status: Chronic (18) Thrombocytopenia Code(s): D69.6 - THROMBOCYTOPENIA, UNSPECIFIED Status: Chronic (19) Hypocalcemia Code(s): E83.51 - HYPOCALCEMIA Status: Acute - Plan cont current plan of care, roldan catheter, continue antibiotics, respiratory therapy * continue levophed and vasopressin * nephrology on case, pt may need HD * DC vancomycin * continue meropenam for serratia bacteremia * wound care * prognosis is poor * continue vent management as per pulmonary * medication reviewed as below * symptomatic treatment. * pt is not on any heparin product due to low platelet count * calcium gluconate given Review of Systems - Review of Systems Other: unable to review due to intubated status - Medications/Allergies Allergies/Adverse Reactions: Allergies Allergy/AdvReac Type Severity Reaction Status Date / Time Penicillins Allergy Verified 11/19/17 18:41 Medications: Current Medications Acetaminophen (Tylenol) 650 mg PO Q4H PRN PRN Reason: Headache/Fever or Pain Al Hydroxide/Mg Hydroxide (Maalox) 30 ml PO Q6H PRN PRN Reason: Heartburn or Indigestion Albuterol/Ipratropium (Duoneb) 3 ml NEB [id number] PRN PRN Reason: SOB &/or Wheezing Artificial Tears (Tears Naturale) 0 drop EA EYE PRN PRN PRN Reason: Dry Eyes Calcium Gluconate (Calcium Gluconate) 4.6 meq SLOW IVP 1000,1400 WILMER Stop: 01/05/18 16:00 Last Admin: 01/05/18 10:05 Dose: 4.6 meq Dextrose/Water (Dextrose 50%) 25 gm SLOW IVP PRN PRN PRN Reason: Hypoglycemia Famotidine (Pepcid) 20 mg SLOW IVP DAILY [facility] Last Admin: 01/05/18 09:59 Dose: Not Given Fluconazole (Diflucan) 100 mg PO DAILY WILMER Stop: 01/13/18 10:00 Last Admin: 01/05/18 07:29 Dose: 100 mg Glucagon (Glucagon) 1 mg IM PRN PRN PRN Reason: Hypoglycemia Guaifenesin (Robitussin Sf) 200 mg PO Q4H PRN PRN Reason: Cough Hydrocortisone Sodium Succinate (Solu-Cortef) 50 mg IVP Q6HR [facility] Last Admin: 01/05/18 11:08 Dose: 50 mg Dextrose/Water (D5w) 1,000 mls @ 0 mls/hr IV .Q0M PRN PRN Reason: Hypoglycemia Meropenem 1 gm/ Device 50 mls @ 100 mls/hr IVPB 0400,1600 WILMER Last Admin: 01/05/18 05:04 Dose: 50 mls Sodium Bicarbonate 150 meq/ (Dextrose/Water) 1,000 mls @ 75 mls/hr IV .[id number] WILMER Last Admin: 01/05/18 05:05 Dose: 1,000 mls Fentanyl Citrate 2,000 mcg/ (Sodium Chloride) 100 mls @ 0 mls/hr IV INF WILMER; Protocol Stop: 02/03/18 16:02 Fentanyl Citrate (Fentanyl Bolus) 250 mls @ 0 mls/hr IVPB PRN PRN PRN Reason: Breakthrough pain/agitation Stop: 02/03/18 16:02 Norepinephrine Bitartrate 16 (mg/ Dextrose/Water) 250 mls @ 0 mls/hr IVPB INF PRN; Protocol PRN Reason: TO MAINTAIN MAP > 65 Last Admin: 01/05/18 06:29 Dose: 250 mls Insulin Human Lispro (Humalog) 0 units SC .MODERATE SLIDING SC PRN PRN Reason: Moderate Correctional Scale Last Admin: 01/05/18 11:10 Dose: 2 unit Insulin Human Lispro (Humalog) 0 units SC .BEDTIME SLIDING SC PRN PRN Reason: Bedtime Correctional Scale Loperamide HCl (Imodium) 2 mg PO PRN PRN PRN Reason: Diarrhea/Loose Stools Loratadine (Claritin) 10 mg PO DAILYPRN PRN PRN Reason: Sinus Symptoms Lorazepam (Ativan) 2 mg SLOW IVP Q1H PRN PRN Reason: Breakthrough agitation Stop: 02/03/18 16:02 Magnesium Hydroxide (Milk Of Magnesium) 30 ml PO DAILYPRN PRN PRN Reason: Constipation Mineral Oil/White Petrolatum (Eucerin Cream) 0 gm TOP BIDPRN PRN PRN Reason: Dry Skin Miscellaneous Medication (Pharmacy To Dose) 1 each IVPB ONE PRN PRN Reason: Pharmacy to dose Stop: 01/13/18 11:57 Morphine Sulfate (Morphine Sulfate) 2 mg SLOW IVP Q1H PRN PRN Reason: BREAKTHROUGH PAIN/AGITATION Stop: 02/03/18 16:02 Discontinue Previous Narcotic Pain Medications And Benzodiazepines 1 each FS .ONE [facility] Stop: 02/03/18 16:02 Ondansetron HCl (Zofran Odt) 4 mg PO Q6H PRN PRN Reason: Nausea/Vomiting Ondansetron HCl (Zofran) 4 mg IVP Q6H PRN PRN Reason: Nausea/Vomiting Phenol (Chloraseptic [place] 180 Ml Bot) 0 ml PO PRN PRN PRN Reason: Sore Throat Propofol (Diprivan) 1,000 mg IV INF PRN; Protocol PRN Reason: TO ACHIEVE GOAL RASS Stop: 02/03/18 16:02 Last Admin: 01/05/18 10:59 Dose: 1,000 mg Propofol (Diprivan Bolus) 20 mg IV Q5MIN PRN PRN Reason: BREAKTHROUGH AGITATION Stop: 02/03/18 16:02 Saccharomyces Boulardii (Florastor) 250 mg PO DAILY [facility] Last Admin: 01/05/18 08:25 Dose: 250 mg Senna (Senokot) 2 tab PO HSPRN PRN PRN Reason: Constipation Sodium Chloride (Saline Nasal [place] 0.65%) 0 ml EA NARE QIDPRN PRN PRN Reason: Nasal Congestion
--- NOTE | 2018-01-05 15:40 | PRG ---
DATE OF SERVICE: 01/05/2018 SUBJECTIVE: Patient is intubated. OBJECTIVE: VITAL SIGNS: Temperature max 99.4 and blood pressure 115/58 on Levophed. SKIN: Right leg with purpuric blisters along the surface of the anterior and lateral leg and foot. LUNGS: With symmetric coarse breath sounds. HEART: S1 and S2. ABDOMEN: Soft, mildly distended. Malik catheter in place. LABORATORY DATA: Urinary output 97 for the past 24 hours, indwelling Malik catheter. Gastric draina ge 350. White cell count is up to 16,000, hemoglobin 12.8, platelets 53,000, 26% neutrophils, 42% ba nds. Sodium 135, creatinine 4.48. Microbiology has been identified as Serratia marcescens from 2 se ts of blood cultures with a very broad susceptibility profile. ASSESSMENT AND DISCUSSION: Type 2 diabetes, chronic obstructive pulmonary disease, congestive heart failure, liver cirrhosis with chronic hepatitis C without treatment and cellulitis, right leg. At th is time with Serratia marcescens. No necrotizing infection noted yet. Bouts of susceptibility abilio quiroz. The vancomycin has been discontinued. Continue supportive therapy, antimicrobial therapy, wound care.
--- NOTE | 2018-01-05 16:54 | PRG ---
DATE OF SERVICE: 01/05/2018 SUBJECTIVE: Triston Lim has required intubation. He is essentially anuric. His right leg dressi ngs have been changed today. The process does not extend to more proximally that has before. Alvin mckenna has been seen by Dr. Thakkar from a Nephrology standpoint. He is likely to need dialysis in the future. Dialysis access will be difficult due to his morbid obesity. I will be out of town on . We will return Wednesday if he needs a cuffed tunnel dialysis catheter. I can place that on ay.
[2018-01-05] MEDS: Lorazepam 2 MG/ML VIAL SLOW IVP PRN (21:18)
[2018-01-06] MEDS: Hydrocortisone Sod Succ/PF 100 mg/2 ml Vial IVP SCH ×5 (00:11→23:36)
[2018-01-06] MEDS: Propofol 1,000 MG/100 ML VIAL IV PRN ×6 (00:11→23:36)
[2018-01-06] MEDS: HumaLOG 300 UNITS/3 ML VIAL SC PRN (00:14)
--- NOTE | 2018-01-06 00:23 | PRG ---
DATE OF SERVICE: 01/05/2018 SUBJECTIVE: Patient is seen and examined on life support noted with the following vital signs. PHYSICAL EXAMINATION: VITAL SIGNS: Afebrile, temperature 99.4, blood pressure 92/58. HEENT: Remarkable for endotracheal tube in place. CARDIOVASCULAR: First and second heart sounds were heard. RESPIRATORY: Reveals vented sounds. DIGESTIVE: Revealed an obese abdomen. EXTREMITIES: Showed evidence of cellulitis and recent surgical incision. LABORATORY INVESTIGATION: Significant for pH of 7.33. Chemistry showed potassium of 5.3, BUN of 62, creatinine 4.48, calcium 6.9. IMPRESSION: 1. Hemodynamically mediated acute tubular necrosis in the context of sepsis. 2. Hyperkalemia. 3. Combined metabolic and respiratory acidosis, much improved status post intubation. 4. Morbid obesity. 5. Sepsis. PLAN: 1. The patient to continue with current renal supportive measures. 2. No emergent indication for renal replacement therapy (hemodialysis); however, if the patient's re nal function continues in this projectile, this modality of treatment might become indicated to address the volume status, to address the electrolyte issues including hyperkalemia. 3. Further management to be dependent on the clinical course.
[2018-01-06] MEDS: MEROPENEM 1 GM/50 ML 1 GM in Premix Bag 1 BAG IVPB SCH (03:32)
[2018-01-06 04:49] LABS: Anion Gap 19 mmol/L (10-20); BUN (Urea Nitrogen) 78 mg/dL (8.4-25.7); Calc. Creatinine Clearance 37 mL/min (70-130); Carbon Dioxide 22 mmol/L (22-29); Chloride 99 mmol/L (98-107); Estimated GFR-MDRD 11; Glucose 148 mg/dL (70-105); Potassium 4.7 mmol/L (3.5-5.1); Sodium 135 mmol/L (136-145)
[2018-01-06 05:06] LABS: Actual Bicarbonate (HCO3a) 22.8 mEq/L (22-28); Base Excess (BEa) -5.8 mEq/L (-2.0 to +3.0); CO2 Tension 59.9 mmHg (35.0-45.0); O2 Tension (PaO2) 65.4 mmHg (80.0-100.0)
[2018-01-06 05:07] LABS: Carboxyhemoglobin (COHb) 0.9 gm% (0.0-3.0); Hemoglobin (Hb) 12.3 g/dL (14.0-18.0)
[2018-01-06 05:08] LABS: Calcium, Ionized 0.9 mmol/L (1.12-1.30); Potassium - ABG Lab 4.7 mmol/L (3.70-5.30); Puncture Site R BRACHIAL
[2018-01-06 05:09] LABS: ALV-art Gradient 123.535 (0-20)
[2018-01-06 05:47] LABS: Band 36 % (5-11); Hemoglobin 11.2 g/dL (14.0-18.0); Lymphocytes 7 % (21-51); MDiff Complete? YES; Mean Corpuscular HGB CONC 33.1 g/dL (32.0-36.0); Mean Corpuscular Volume 90.7 fL (78.0-98.0); Mean Platelet Volume 9.7 fL (7.4-10.4); Monocytes 8 % (0-10); Neutrophil 49 % (42-75); PLT Morphology Comment Appears Decreased; Platelet Count 36 thou/uL (130-400); RBC Distribution Width 15.2 % (11.5-14.5); Red Blood Cell (RBC) Count 3.74 mill/uL (4.70-6.10); White Blood Cell (WBC) Count 6.2 thou/uL (4.8-10.8)
--- NOTE | 2018-01-06 06:54 | PDOC.PULPN ---
<Rogelio Hansen - Last Filed: 01/06/18 10:53> Progress Note: Subj/Obj - Subjective Date: 01/06/18 Time: 06:30 Narrative: Resp distress overnight, increased fi02 and rate - ROS ROS unobtainable: due to mental status - Objective Allergies/Adverse Reactions: Allergies Allergy/AdvReac Type Severity Reaction Status Date / Time Penicillins Allergy Verified 11/19/17 18:41 MAR Reviewed: Yes Vital Signs: Vital Signs Temp 97.6 F 01/06/18 04:00 Pulse 77 01/06/18 06:28 Resp 20 01/06/18 06:00 BP 122/74 01/06/18 06:28 Pulse Ox 95 01/05/18 20:00 Intake & Output 01/05/18 01/05/18 01/06/18 06:59 18:59 06:59 Intake Total 1883.5 1259 435.3 Output Total 132 42 75 Balance 1751.5 1217 360.3 Weight 174.6 kg 174.601 kg 179.3 kg Intake: Intake, IV Amount 1883.5 1199 435.3 Norepinephrine 16 mg In 190 53.3 Dextrose 5% in Water 234 ml @ As Directed IVPB INF PRN Rx#:[id number] Norepinephrine 8 MG/0.9% 735.5 NS 250 ml @ Titrate IVPB INF [facility] Rx#:[id number] Propofol 1000 mg (See 280 355 Protocol) IV INF PRN Rx#: [id number] Propofol 1000 mg IV .STK- 256 MED ONE Rx#:[id number] Sodium Bicarbonate 150 826 meq In Dextrose 5% in Water 1,000 ml @ 75 mls/ hr IV .[id number] [facility] Rx#: [id number] Sodium Bicarbonate 150 198 27 meq In Dextrose 5% in Water 850 ml @ KVO IV . Q0M [facility] Rx#:[id number] Vancomycin HCl 2 gm In 500 Sodium Chloride 0.9% 500 ml @ 250 mls/hr IVPB 0800 [facility] Rx#:[id number] Vasopressin 40 unit In 66 31 Sodium Chloride 0.9% 100 ml @ 6 mls/hr IV INF PRN Rx#:[id number] Oral 0 Tube Irrigant 60 Output: Gastric Drainage 50 Output, Roldan 82 42 75 Other: Voiding Method Indwelling Catheter Indwelling Catheter Indwelling Catheter Progress Note: Exam - Physical Exam HEENT: moist MMs Cardiovascular: RRR, no significant murmur Deviation from normal: decreased breath sounds, prolonged expiratory phase, exp wheezes Gastrointestinal: soft, non-tender Deviation from normal: reducible incisional hernia Deviation from normal: improved cap refill at feet, <2s bilaterally, still forming bullae Progress Note: Data - Labs Result Diagrams: 01/06/18 04:15 01/06/18 04:15 Progress Note: A/P - Problems (1) Lactic acidosis Current Visit: Yes Status: Acute Code(s): E87.2 - ACIDOSIS (2) Sepsis associated hypotension Current Visit: Yes Status: Acute Code(s): A41.9 - SEPSIS, UNSPECIFIED ORGANISM; I95.9 - HYPOTENSION, UNSPECIFIED (3) Sepsis due to cellulitis Current Visit: Yes Status: Acute Code(s): L03.90 - CELLULITIS, UNSPECIFIED; A41.9 - SEPSIS, UNSPECIFIED ORGANISM (4) Anemia, normocytic normochromic Current Visit: Yes Status: Chronic Code(s): D64.9 - ANEMIA, UNSPECIFIED (5) COPD (chronic obstructive pulmonary disease) Current Visit: Yes Status: Chronic (6) Chronic hepatitis C with cirrhosis Current Visit: Yes Status: Chronic Code(s): B18.2 - CHRONIC VIRAL HEPATITIS C; K74.60 - UNSPECIFIED CIRRHOSIS OF LIVER (7) GERD (gastroesophageal reflux disease) Current Visit: Yes Status: Chronic Code(s): K21.9 - GASTRO-ESOPHAGEAL REFLUX DISEASE WITHOUT ESOPHAGITIS (8) HTN (hypertension) Current Visit: Yes Status: Chronic Code(s): I10 - ESSENTIAL (PRIMARY) HYPERTENSION (9) Morbid obesity due to excess calories Current Visit: Yes Status: Chronic Code(s): E66.01 - MORBID (SEVERE) OBESITY DUE TO EXCESS CALORIES (10) JENNY (obstructive sleep apnea) Current Visit: Yes Status: Chronic Code(s): G47.33 - OBSTRUCTIVE SLEEP APNEA (ADULT) (PEDIATRIC) (11) T2DM (type 2 diabetes mellitus) Current Visit: Yes Status: Chronic (12) Thrombocytopenia Current Visit: Yes Status: Chronic Code(s): D69.6 - THROMBOCYTOPENIA, UNSPECIFIED - Plan Plan: This is a 57 yo M being admitted for recurrent lower extremity cellulitus. He has a history including EF 50-55%, KIRK/ATN, HTN, Cirrhosis 2/2 hep C, likely COPD, T2DM, TURP, JENNY Consults: ID, Pulm, General Surgery, Urology (signed off), Nephrology EMPLOYMENT COORDINATOR () - sedated, arousable - Sedation: propofol Resp (Pickwickian syndrome) - intubated 01/04 2/ resp distress - agonal breathing about 0400 reported per nursing, CXR ordered - PH 7.2, Co2 60, 02 65.4 - rate increased to 20, Fio2 50%, TV 440 CV (Hypotension, CHF, recurrent cellulitus, venous stasis, lymphedema) - EF 50-55% - off pressors, adequate BP overnight - hypotension likely chronic from Hep C, worsened by sepsis - cap refill improved GI (N/V, Hep C) - zofran - hernia developed 01/04 after he was intubated - CT to r/o SBO Nutrition - npo, OG in place Hematologic (anemia) - hgb 12.2 - plts 36, cirrhotic /Renal (hx TURP, bladder neck contracture, lo2 urine output, recent KIRK w/ ATN ) - stated he had not urinated for 3 days before admission, has not tolerated PO intake during this time - diagnosed with bladder neck contracture by urology last visit, referred to [facility] for staging, never made it there - roldan in place via urology camera - 100ml urine output yesterday - Cr 2.47-> 3.75-> 4.48-> 5.6 as high as 6.19 last visit - will likely need CLERICAL ADMINISTRATOR, Nephro consulted - no fluids currently Infection (recent cellulitus attributed to beta-hemolytic strep, also w/ history of MRSA, severe sepsis) - continue with meropenem - WBC 11.2, continues to form bullae - wound culture shows gram - rods, BC x2 shows Serratia -stopped vanc -developed bullae on R leg 01/03 -continues to form bullae on R leg, wound dressed - doppler US 01/03 showed "good arterial flow, poor pulsality" Endo (T2DM) - SSI Code status: full PPx: pepcid, thrombocytopenia Diet: NPO Dispo: >2 days <Min Sanchez - Last Filed: 01/06/18 11:14> Progress Note: Subj/Obj - Objective Vital Signs: Vital Signs Temp 97.5 F L 01/06/18 07:00 Pulse 99 01/06/18 10:37 Resp 20 01/06/18 10:00 BP 161/83 H 01/06/18 10:37 Pulse Ox 95 01/05/18 20:00 Intake & Output 01/05/18 01/06/18 01/06/18 18:59 06:59 18:59 Intake Total 1259 435.3 Output Total 42 75 40 Balance 1217 360.3 -40 Weight 384 lb 14.88 oz 395 lb 4.621 oz Intake: Intake, IV Amount 1199 435.3 Norepinephrine 16 mg In 190 53.3 Dextrose 5% in Water 234 ml @ As Directed IVPB INF PRN Rx#:[id number] Propofol 1000 mg (See 280 355 Protocol) IV INF PRN Rx#: [id number] Sodium Bicarbonate 150 198 27 meq In Dextrose 5% in Water 850 ml @ KVO IV . Q0M [facility] Rx#:[id number] Vancomycin HCl 2 gm In 500 Sodium Chloride 0.9% 500 ml @ 250 mls/hr IVPB 0800 [facility] Rx#:[id number] Vasopressin 40 unit In 31 Sodium Chloride 0.9% 100 ml @ 6 mls/hr IV INF PRN Rx#:[id number] Tube Irrigant 60 Output: Output, Roldan 42 75 40 Other: Voiding Method Indwelling Catheter Indwelling Catheter Progress Note: Data - Labs Result Diagrams: 01/06/18 04:15 01/06/18 04:15 Attending Addendum - Attending Addendum Date/Time: 01/06/18 1114 I personally evaluated the patient and discussed the management with Dr. [] I agree with the History, Examination, Assessment and Plan documented above with any addition or exceptions noted below. Critical care time: 30 minutes.
--- NOTE | 2018-01-06 08:18 | RAD ---
CHEST ONE VIEW: HISTORY: Dyspnea. Intubated. Followup. COMPARISON: 01/04/2018 FINDINGS: The cardiac silhouette remains magnified, enlarged, and partially obscured by patchy bibasilar infilt rates. The pulmonary vasculature remains engorged with bilateral perihilar infiltrates. Lines and t ubes appear unchanged in position. No evidence of pneumothorax. equipment monitor phototypesetting leads overly the ch est. IMPRESSION: Radiographic findings of congestive heart failure and other findings are stable. POS: [facility]
[2018-01-06] MEDS: Famotidine/PF 20 mg/2ml Vial SLOW IVP SCH (09:04)
[2018-01-06] MEDS: Fluconazole 100 MG TAB PO SCH (09:04)
[2018-01-06] MEDS: Saccharomyces boulardii 250 MG CAP PO SCH (09:04)
[2018-01-06 10:39] LABS: ALT (SGPT) 44 U/L (8-55); AST (SGOT) 16 U/L (5-34); Albumin 2.3 g/dL (3.5-5.0); Alkaline Phosphatase 50 U/L (40-150); Bilirubin, Direct 0.9 mg/dL (0.1-0.3); Bilirubin, Total 1.3 mg/dL (0.2-1.2); CRP (Inflammatory) 27.22 mg/dL (= or < 0.5); Phosphorus 8.4 mg/dL (2.3-4.7); Protein, Total 5.3 g/dL (6.0-8.3)
--- NOTE | 2018-01-06 10:53 | PDOC.EVN ---
Event Note - Event Note Event Note: ordered CT abd/pelv 2/2 increasing OG output and difficult to reduce incisional hernia
[2018-01-06] MEDS ORDERED: Sodium Chloride 0.9% 1,000 ML IV SCH ×2 (11:00→19:00)
--- NOTE | 2018-01-06 12:09 | PDOC.PN ---
- Subjective Encounter Start Date: 01/06/18 Encounter Start Time: 09:45 Patient seen and examined. pt is intubated, sedated, now off on levophed and vasopressin, still has anuria. No overnight events - Objective Resuscitation Status: Resuscitation Status FULL:Full Resuscitation MAR Reviewed: Yes Vital Signs & Weight: Vital Signs (12 hours) Temp Pulse Resp BP Pulse Ox 01/06/18 10:37 99 161/83 H 01/06/18 10:00 20 01/06/18 08:00 97.5 F L 99 20 100 01/06/18 07:00 97.5 F L 01/06/18 06:28 77 122/74 01/06/18 06:00 20 01/06/18 04:12 87 01/06/18 04:00 97.6 F 20 01/06/18 02:00 22 H 01/06/18 00:30 94 112/59 L Weight Admit Weight 382 lb Weight 395 lb 4.621 oz Most Recent Monitor Data Heart Rate from ECG 91 NIBP 131/64 NIBP BP-Mean 87 Respiration from ECG 10 SpO2 100 I&O: 01/05/18 01/06/18 01/07/18 06:59 06:59 06:59 Intake Total 4531.2 1694.3 Output Total 447 117 50 Balance 4084.2 1577.3 -50 Result Diagrams: 01/06/18 04:15 01/06/18 04:15 Additional Labs: Accuchecks 01/06/18 01/05/18 01/05/18 00:13 20:29 16:12 POC Glucose 160 H 163 H 136 H Radiology Reviewed by me: Yes (chest xray reviewed) EKG Reviewed by me: Yes (nsr) Phys Exam - Physical Examination Constitutional: NAD intubated, sedated HEENT: moist MMs Neck: no JVD, supple Respiratory: no wheezing, no rales, no rhonchi Cardiovascular: RRR, no significant murmur, no rub Gastrointestinal: soft, no distention, positive bowel sounds obesity, incisional hernia right leg cellultis with drainage, left leg chronic edema unable to assess Deviation from normal: unable to assess Skin: normal turgor Dx/Plan (1) Acute respiratory failure with hypoxia and hypercarbia Code(s): J96.01 - ACUTE RESPIRATORY FAILURE WITH HYPOXIA; J96.02 - ACUTE RESPIRATORY FAILURE WITH HYPERCAPNIA Status: Acute (2) Bacterial infection due to Serratia Code(s): A49.8 - OTHER BACTERIAL INFECTIONS OF UNSPECIFIED SITE Status: Acute (3) Acute metabolic encephalopathy Code(s): G93.41 - METABOLIC ENCEPHALOPATHY Status: Acute (4) Acute kidney failure Status: Acute Comment: creatinine is getting worse (5) Demand ischemia of myocardium Code(s): I24.8 - OTHER FORMS OF ACUTE ISCHEMIC HEART DISEASE Status: Acute Comment: due to sepsis (6) Lactic acidosis Code(s): E87.2 - ACIDOSIS Status: Acute (7) Sepsis associated hypotension Code(s): A41.9 - SEPSIS, UNSPECIFIED ORGANISM; I95.9 - HYPOTENSION, UNSPECIFIED Status: Acute Comment: on levophed and vasopressin (8) Sepsis due to cellulitis Code(s): L03.90 - CELLULITIS, UNSPECIFIED; A41.9 - SEPSIS, UNSPECIFIED ORGANISM Status: Acute Comment: Severe (9) Sepsis with acute organ dysfunction Code(s): A41.9 - SEPSIS, UNSPECIFIED ORGANISM; R65.20 - SEVERE SEPSIS WITHOUT SEPTIC SHOCK Status: Acute (10) Anemia, normocytic normochromic Code(s): D64.9 - ANEMIA, UNSPECIFIED Status: Chronic (11) COPD (chronic obstructive pulmonary disease) Status: Chronic Comment: stable, continue respiratory therapy (12) Chronic hepatitis C with cirrhosis Code(s): B18.2 - CHRONIC VIRAL HEPATITIS C; K74.60 - UNSPECIFIED CIRRHOSIS OF LIVER Status: Chronic (13) GERD (gastroesophageal reflux disease) Code(s): K21.9 - GASTRO-ESOPHAGEAL REFLUX DISEASE WITHOUT ESOPHAGITIS Status: Chronic (14) HTN (hypertension) Code(s): I10 - ESSENTIAL (PRIMARY) HYPERTENSION Status: Chronic (15) Morbid obesity due to excess calories Code(s): E66.01 - MORBID (SEVERE) OBESITY DUE TO EXCESS CALORIES Status: Chronic (16) JENNY (obstructive sleep apnea) Code(s): G47.33 - OBSTRUCTIVE SLEEP APNEA (ADULT) (PEDIATRIC) Status: Chronic (17) T2DM (type 2 diabetes mellitus) Status: Chronic (18) Thrombocytopenia Code(s): D69.6 - THROMBOCYTOPENIA, UNSPECIFIED Status: Chronic - Plan cont current plan of care, continue antibiotics, respiratory therapy * CT abdomen ordered today * ID, pulmonary, nephrology recommendation noted * medication reviewed as below * symptomatic treatment * continue meropenam based on renal dose * ventilator as per pulmonary * may need HD if renal function does not improve. Review of Systems - Review of Systems Other: unable to review due to intubated status - Medications/Allergies Allergies/Adverse Reactions: Allergies Allergy/AdvReac Type Severity Reaction Status Date / Time Penicillins Allergy Verified 11/19/17 18:41 Medications: Current Medications Acetaminophen (Tylenol) 650 mg PO Q4H PRN PRN Reason: Headache/Fever or Pain Al Hydroxide/Mg Hydroxide (Maalox) 30 ml PO Q6H PRN PRN Reason: Heartburn or Indigestion Albuterol/Ipratropium (Duoneb) 3 ml NEB [id number] PRN PRN Reason: SOB &/or Wheezing Artificial Tears (Tears Naturale) 0 drop EA EYE PRN PRN PRN Reason: Dry Eyes Dextrose/Water (Dextrose 50%) 25 gm SLOW IVP PRN PRN PRN Reason: Hypoglycemia Famotidine (Pepcid) 20 mg SLOW IVP DAILY [facility] Last Admin: 01/06/18 09:04 Dose: 20 mg Fluconazole (Diflucan) 100 mg PO DAILY [facility] Stop: 01/13/18 10:00 Last Admin: 01/06/18 09:04 Dose: 100 mg Glucagon (Glucagon) 1 mg IM PRN PRN PRN Reason: Hypoglycemia Guaifenesin (Robitussin Sf) 200 mg PO Q4H PRN PRN Reason: Cough Hydrocortisone Sodium Succinate (Solu-Cortef) 50 mg IVP Q6HR [facility] Last Admin: 01/06/18 06:17 Dose: 50 mg Dextrose/Water (D5w) 1,000 mls @ 0 mls/hr IV .Q0M PRN PRN Reason: Hypoglycemia Sodium Bicarbonate 150 meq/ (Dextrose/Water) 1,000 mls @ 0 mls/hr IV .Q0M [facility] Last Admin: 01/05/18 16:06 Dose: 1,000 mls Fentanyl Citrate 2,000 mcg/ (Sodium Chloride) 100 mls @ 0 mls/hr IV INF [facility]; Protocol Stop: 02/03/18 16:02 Fentanyl Citrate (Fentanyl Bolus) 250 mls @ 0 mls/hr IVPB PRN PRN PRN Reason: Breakthrough pain/agitation Stop: 02/03/18 16:02 Norepinephrine Bitartrate 16 (mg/ Dextrose/Water) 250 mls @ 0 mls/hr IVPB INF PRN; Protocol PRN Reason: TO MAINTAIN MAP > 65 Last Admin: 01/05/18 16:06 Dose: 250 mls Meropenem 500 mg/ Sodium (Chloride) 100 mls @ 200 mls/hr IVPB 0400,1600 [facility] Insulin Human Lispro (Humalog) 0 units SC .MODERATE SLIDING SC PRN PRN Reason: Moderate Correctional Scale Last Admin: 01/06/18 00:14 Dose: 2 unit Insulin Human Lispro (Humalog) 0 units SC .BEDTIME SLIDING SC PRN PRN Reason: Bedtime Correctional Scale Loperamide HCl (Imodium) 2 mg PO PRN PRN PRN Reason: Diarrhea/Loose Stools Loratadine (Claritin) 10 mg PO DAILYPRN PRN PRN Reason: Sinus Symptoms Lorazepam (Ativan) 2 mg SLOW IVP Q1H PRN PRN Reason: Breakthrough agitation Stop: 02/03/18 16:02 Last Admin: 01/05/18 21:18 Dose: 2 mg Magnesium Hydroxide (Milk Of Magnesium) 30 ml PO DAILYPRN PRN PRN Reason: Constipation Mineral Oil/White Petrolatum (Eucerin Cream) 0 gm TOP BIDPRN PRN PRN Reason: Dry Skin Miscellaneous Medication (Pharmacy To Dose) 1 each IVPB PRN PRN PRN Reason: Pharmacy to dose Morphine Sulfate (Morphine Sulfate) 2 mg SLOW IVP Q1H PRN PRN Reason: BREAKTHROUGH PAIN/AGITATION Stop: 02/03/18 16:02 Discontinue Previous Narcotic Pain Medications And Benzodiazepines 1 each FS .ONE [facility] Stop: 02/03/18 16:02 Ondansetron HCl (Zofran Odt) 4 mg PO Q6H PRN PRN Reason: Nausea/Vomiting Ondansetron HCl (Zofran) 4 mg IVP Q6H PRN PRN Reason: Nausea/Vomiting Phenol (Chloraseptic [place] 180 Ml Bot) 0 ml PO PRN PRN PRN Reason: Sore Throat Propofol (Diprivan) 1,000 mg IV INF PRN; Protocol PRN Reason: TO ACHIEVE GOAL RASS Stop: 02/03/18 16:02 Last Admin: 01/06/18 08:40 Dose: 1,000 mg Propofol (Diprivan Bolus) 20 mg IV Q5MIN PRN PRN Reason: BREAKTHROUGH AGITATION Stop: 02/03/18 16:02 Saccharomyces Boulardii (Florastor) 250 mg PO DAILY [facility] Last Admin: 01/06/18 09:04 Dose: 250 mg Senna (Senokot) 2 tab PO HSPRN PRN PRN Reason: Constipation Sodium Chloride ([place] Nasal [place] 0.65%) 0 ml EA NARE QIDPRN PRN PRN Reason: Nasal Congestion
[2018-01-06 12:10] LABS: Lactic Acid 1.1 mmol/L (0.5-2.2)
[2018-01-06] MEDS: Lorazepam 2 MG/ML VIAL SLOW IVP PRN (13:12)
--- NOTE | 2018-01-06 14:30 | CT ---
CT ABDOMEN AND PELVIS WITHOUT IV CONTRAST: Date: 01/06/18 Multiple axial tomograms obtained through the abdomen and pelvis without IV enhancement. Oral contras t was administered through an indwelling NG tube. INDICATION: Abdominal pain. Question small bowel obstruction. FINDINGS: Exam is suboptimal due to patient body habitus. The anterior abdominal wall to the right of midline i s not well evaluated due to body habitus. Images through the lung bases reveal dense bibasilar atelectasis/consolidation. Spleen is mildly enlarged, measuring up to 20 cm. The liver is unremarkable. Pancreas appears unremar kable. Adrenal glands unremarkable. No hydronephrosis. There is a small, nonobstructing calculus in the upper collecting structures of th e right kidney measuring in the 3.0 mm range. Kidneys are otherwise unremarkable given the limitation s of a noncontrasted study. Review of small bowel loops shows mild dilatation of proximal and mid jejunal loops. The mid to dista l ileal loops are decompressed and are small caliber. Right colon is poorly evaluated due to artifact . The entire colon is nondistended and not well assessed. There is a small amount of free fluid in the deep pelvis with mesenteric edema. Aorta is normal caliber. No adenopathy identified. IMPRESSION: 1. Dense bibasilar atelectasis or consolidation in the lung bases. 2. Splenomegaly. 3. Mild dilatation of proximal and mid jejunal loops. Mid to distal ileal loops are decompressed. Pa rtial mid small bowel obstruction cannot be excluded. Small bowel follow-through may be of benefit. 4. Tiny, nonobstructing calculus in upper collecting structures of right kidney. 5. Small amount of fluid in the lower abdomen and pelvis with mild mesenteric edema. POS: [facility]
[2018-01-06] MEDS ORDERED: Iopamidol 370 76% 50 ML VIAL FS ONE (15:20)
[2018-01-06] MEDS: Meropenem 500 MG in Sodium Chloride 0.9% 100 ML IVPB SCH (16:46)
--- NOTE | 2018-01-06 21:38 | PRG ---
DATE OF SERVICE: 01/06/2018 SUBJECTIVE: The patient seen and examined, still in critical condition on life-support, noted with t he following vital signs. PHYSICAL EXAMINATION: VITAL SIGNS: Pulse 84; blood pressure 140/66, off pressors; O2 sat of 98% on ventilator. HEENT: Remarkable for endotracheal tube in place. CARDIOVASCULAR SYSTEM: First and second heart sounds were heard. RESPIRATORY SYSTEM: Vented sounds. DIGESTIVE SYSTEM: Obese abdomen. EXTREMITIES: Weeping bilateral lower extremity edema. LABORATORY INVESTIGATION: Hemoglobin of 11.2. Chemistry showed sodium of 135, BUN of 78 with a crea tinine 5.6, phosphorus of 8.4. T bilirubin of 1.3 with calcium of 7. Blood gas showed a pH of 7.2 w ith pCO2 of 59.9. IMPRESSION: 1. Dense acute tubular necrosis, likely in the context of /hemodynamically mediated acute tubu lar necrosis due to sepsis. 2. Morbid obesity. 3. Hyperphosphatemia in the context of dense acute tubular necrosis. 4. Metabolic acidosis, which seems to have resolved, but now the patient does have respiratory acido sis which I do believe has been corrected by adjusting the ventilator. The patient still remains vir tually anuric. PLAN: 1. We will continue renal supportive measures. 2. Discontinue bicarbonate drip. 3. Renally dose all medications extremely low GFR. 4. There is no emergent indication for renal replacement therapy (hemodialysis); however, if the pat ient's clinical condition continues in this trajectory, this modality of treatment will become immine nt. 5. Further management to be dependent on the clinical course. The condition of this patient is still critical.
--- NOTE | 2018-01-06 21:40 | PRG ---
DATE OF SERVICE: 01/06/2018 SUBJECTIVE: Mr. Lim was intubated in the ICU. He has developed worsening renal function to the point where he is going to need dialytic therapy to be probably initiated tomorrow. He still does not have an access for that yet. PHYSICAL EXAMINATION: VITAL SIGNS: Normal temperature, blood pressure 140/66, heart rate 73, O2 sat 98%. SKIN: With the areas of blistering, serpiginous areas of necrosis and areas of more wide skin necrosis noted in the right lower extremity. GENITOURINARY: Malik catheter in place. Urine output is 220 mL for the past 24 hours. HEENT: The patient has miotic pupils. Oral tracheal intubation. LUNGS: With coarse breath sounds, symmetrically distributed, right and left hemithorax. HEART: S1, S2, regular rate. ABDOMEN: Soft with moderate distention. Bowel sounds are not audible. EXTREMITIES: Marked swelling of the right lower extremity and moderate swelling of the left lower extremity with the changes in the skin noted above. LABORATORY DATA: White cell count 6.2, hemoglobin 11, platelets 36,000, 49% neutrophils and 36% bands. Creatinine is up to 5.6, bilirubin 1.3. Transaminases normal. CRP 27. Microbiology with Serratia marcescens with a very broad susceptibility profile in wound sample and 2 sets of blood cultures. The patient had an abdomen and pelvis CT scan and it showed basilar atelectases and consolidation, splenomegaly, dilatation of jejunal loops, nonobstructing calculus in the upper collecting structures of right kidney. Small amount of fluid in the lower abdomen with mesenteric edema. ASSESSMENT AND DISCUSSION: Type 2 diabetes with chronic obstructive pulmonary disease, congestive heart failure, liver cirrhosis with chronic hepatitis C, which has not yet been treated. Recent episode of left lower extremity cellulitis and now with Serratia marcescens cellulitis with bacteremia in the areas of superficial skin necrosis. The patient has developed acute renal failure and he is currently on antimicrobial therapy to manage the Gram- negative caitie bacteremia. This will have to be adjusted for renal function. Continue supportive care, pt at high risk of poor outcome from this infection with multiple organ dysfunction. MTDD
[2018-01-07] MEDS: Meropenem 500 MG in Sodium Chloride 0.9% 100 ML IVPB SCH ×2 (03:48→15:39)
[2018-01-07 04:41] LABS: Anion Gap 19 mmol/L (10-20); BUN (Urea Nitrogen) 89 mg/dL (8.4-25.7); Calc. Creatinine Clearance 35 mL/min (70-130); Carbon Dioxide 21 mmol/L (22-29); Chloride 99 mmol/L (98-107); Estimated GFR-MDRD 10; Glucose 98 mg/dL (70-105); Potassium 4.7 mmol/L (3.5-5.1); Sodium 134 mmol/L (136-145)
[2018-01-07 05:09] LABS: Band 13 % (5-11); Hemoglobin 10.7 g/dL (14.0-18.0); Hypochromia SLIGHT = 6-15 cells (100X) (0-5/hpf); Lymphocytes 20 % (21-51); MDiff Complete? YES; Mean Corpuscular HGB CONC 34.2 g/dL (32.0-36.0); Mean Corpuscular Hemoglobin 30.8 pg (27.0-31.0); Mean Corpuscular Volume 89.9 fL (78.0-98.0); Metamyelocyte 2 % (0-0); Monocytes 6 % (0-10); Myelocyte 1 % (0-0); Neutrophil 58 % (42-75); PLT Morphology Comment Appears Decreased; Platelet Count 30 thou/uL (130-400); RBC Distribution Width 15.3 % (11.5-14.5); Red Blood Cell (RBC) Count 3.49 mill/uL (4.70-6.10); Toxic Granulation SLIGHT; White Blood Cell (WBC) Count 5.6 thou/uL (4.8-10.8)
[2018-01-07] MEDS: Hydrocortisone Sod Succ/PF 100 mg/2 ml Vial IVP SCH (05:13)
[2018-01-07] MEDS ORDERED: Vancomycin HCl 1.25 GM in Sodium Chloride 0.9% 250 ML 250 ML IVPB SCH (08:00)
[2018-01-07] MEDS ORDERED: Furosemide 100 MG/10 ML VIAL SLOW IVP SCH (08:15)
[2018-01-07] MEDS: Saccharomyces boulardii 250 MG CAP PO SCH (08:58)
[2018-01-07] MEDS: Fluconazole 100 MG TAB PO SCH (08:59)
[2018-01-07] MEDS: Famotidine/PF 20 mg/2ml Vial SLOW IVP SCH (08:59)
--- NOTE | 2018-01-07 09:16 | PRG ---
DATE OF SERVICE: 01/07/2018 SERVICE: Pulmonary Medicine. INTERVAL HISTORY: The patient is doing really well from a respiratory standpoint. He has cleared hi s sepsis profile. He is no longer requiring Levophed. He is on a little bit of propofol for sedatio n purposes. Otherwise, there were no significant overnight events. PHYSICAL EXAMINATION: VITAL SIGNS: Afebrile, pulse 85, blood pressure 123/65, respirations 22, saturation 98% on room air. GENERAL: The patient is awake, alert, no apparent distress. LUNGS: Excellent air entry. There are crackles present. There is slightly prolonged expiratory pha se, but I do not hear any overt wheezing. Extensive rhonchi are present throughout bilateral lung fi elds. HEART: Normal rate, regular. ABDOMEN: Soft, nontender, nondistended. Bowel sounds are positive. MUSCULOSKELETAL: No cyanosis or clubbing. No pitting in the bilateral lower extremities. NEUROLOGIC: Grossly nonfocal. LABORATORY DATA: WBC down trending to 5.6, hemoglobin 10.7, platelets 30,000. His band count is kandis n trending to 13%. Creatinine 6.06, BUN 89. Urine output is actually starting to increase beautiful ly. Blood cultures x2 and leg culture growing Serratia which is essentially pansensitive organism. IMAGING DATA: CT of the abdomen and pelvis demonstrates dense bibasilar atelectasis/consolidation, s plenomegaly, dilated proximal and mid jejunal loops, partial mid small-bowel obstruction cannot be ex cluded. Tiny obstructing calculus. ASSESSMENT: 1. Septic shock secondary to serratia cellulitis and bacteremia. 2. Cellulitis. 3. Bacteremia. 4. Acute hypoxic respiratory failure. 5. Morbid obesity. 6. Acute kidney injury on chronic kidney disease stage 3. DISCUSSION AND PLAN: The kidney function is starting to improve as the patient started to make some urine. I will give him a dose of Lasix today to see if we can help mobilize some fluid. Our barrier to extubation is currently that he has 16 liters up for the hospital stay and his oxygen requirement s are quite high. We will try to wean down some of oxygen requirements throughout the next 24-48 mw rs and hopefully will be a candidate for extubation on Wednesday or Wednesday. Pulmonary will continue to follow along. CRITICAL CARE TIME: 30 minutes.
[2018-01-07] MEDS: Propofol 1,000 MG/100 ML VIAL IV PRN ×4 (11:21→21:40)
--- NOTE | 2018-01-07 12:10 | PDOC.PN ---
- Subjective Encounter Start Date: 01/07/18 Encounter Start Time: 10:15 pt is intubated, has now urine output, - Objective Resuscitation Status: Resuscitation Status FULL:Full Resuscitation MAR Reviewed: Yes Vital Signs & Weight: Vital Signs (12 hours) Temp Pulse Resp BP Pulse Ox 01/07/18 10:00 32 H 01/07/18 09:58 89 132/81 01/07/18 08:00 19 01/07/18 07:51 85 123/65 01/07/18 07:38 98.1 F 90 22 H 98 01/07/18 07:00 98.1 F 01/07/18 06:00 17 01/07/18 04:29 87 108/44 L 01/07/18 04:00 97.9 F 01/07/18 02:04 77 01/07/18 02:00 19 Weight Admit Weight 382 lb Weight 398 lb 4.8 oz Most Recent Monitor Data Heart Rate from ECG 101 NIBP 150/81 NIBP BP-Mean 107 Respiration from ECG 19 SpO2 95 I&O: 01/06/18 01/07/18 01/08/18 06:59 06:59 06:59 Intake Total 1694.3 2728.2 120 Output Total 117 1140 380 Balance 1577.3 1588.2 -260 Result Diagrams: 01/07/18 04:00 01/07/18 04:00 Additional Labs: Accuchecks 01/07/18 01/07/18 01/07/18 11:24 03:53 00:57 POC Glucose 92 106 108 01/06/18 01/06/18 01/06/18 20:36 16:50 10:05 POC Glucose 100 99 125 H 01/04/18 16:06 POC Glucose 160 H Radiology Reviewed by me: Yes (CT abdomen reviewed) EKG Reviewed by me: Yes (nsr) Phys Exam - Physical Examination Constitutional: NAD intubated, sedated HEENT: PERRLA, sclera anicteric Neck: no JVD, supple Respiratory: no wheezing, no rales, no rhonchi Cardiovascular: RRR, no significant murmur, no rub Gastrointestinal: soft, no distention, positive bowel sounds obesity+ right leg with drssing and draining fluid unable to assess Lymphatic: no nodes Deviation from normal: unable to assess Skin: no rash, normal turgor Dx/Plan (1) Acute respiratory failure with hypoxia and hypercarbia Code(s): J96.01 - ACUTE RESPIRATORY FAILURE WITH HYPOXIA; J96.02 - ACUTE RESPIRATORY FAILURE WITH HYPERCAPNIA Status: Acute (2) Bacterial infection due to Serratia Code(s): A49.8 - OTHER BACTERIAL INFECTIONS OF UNSPECIFIED SITE Status: Acute (3) Acute metabolic encephalopathy Code(s): G93.41 - METABOLIC ENCEPHALOPATHY Status: Acute (4) Acute kidney failure Status: Acute Comment: creatinine is getting worse (5) Demand ischemia of myocardium Code(s): I24.8 - OTHER FORMS OF ACUTE ISCHEMIC HEART DISEASE Status: Acute Comment: due to sepsis (6) Lactic acidosis Code(s): E87.2 - ACIDOSIS Status: Acute (7) Sepsis associated hypotension Code(s): A41.9 - SEPSIS, UNSPECIFIED ORGANISM; I95.9 - HYPOTENSION, UNSPECIFIED Status: Acute Comment: on levophed and vasopressin (8) Sepsis due to cellulitis Code(s): L03.90 - CELLULITIS, UNSPECIFIED; A41.9 - SEPSIS, UNSPECIFIED ORGANISM Status: Acute Comment: Severe (9) Sepsis with acute organ dysfunction Code(s): A41.9 - SEPSIS, UNSPECIFIED ORGANISM; R65.20 - SEVERE SEPSIS WITHOUT SEPTIC SHOCK Status: Acute (10) Anemia, normocytic normochromic Code(s): D64.9 - ANEMIA, UNSPECIFIED Status: Chronic (11) COPD (chronic obstructive pulmonary disease) Status: Chronic Comment: stable, continue respiratory therapy (12) Chronic hepatitis C with cirrhosis Code(s): B18.2 - CHRONIC VIRAL HEPATITIS C; K74.60 - UNSPECIFIED CIRRHOSIS OF LIVER Status: Chronic (13) GERD (gastroesophageal reflux disease) Code(s): K21.9 - GASTRO-ESOPHAGEAL REFLUX DISEASE WITHOUT ESOPHAGITIS Status: Chronic (14) HTN (hypertension) Code(s): I10 - ESSENTIAL (PRIMARY) HYPERTENSION Status: Chronic (15) Morbid obesity due to excess calories Code(s): E66.01 - MORBID (SEVERE) OBESITY DUE TO EXCESS CALORIES Status: Chronic (16) JENNY (obstructive sleep apnea) Code(s): G47.33 - OBSTRUCTIVE SLEEP APNEA (ADULT) (PEDIATRIC) Status: Chronic (17) T2DM (type 2 diabetes mellitus) Status: Chronic (18) Thrombocytopenia Code(s): D69.6 - THROMBOCYTOPENIA, UNSPECIFIED Status: Chronic - Plan cont current plan of care, continue antibiotics, respiratory therapy * medication reviewed as below * supportive treatment * continue meropenam. * agree with lasix * will monitor renal function * nephrology following * ventilator as per pulmonary * HD decision will defer to nephrology Review of Systems - Review of Systems Other: unable to review due to intubated status - Medications/Allergies Allergies/Adverse Reactions: Allergies Allergy/AdvReac Type Severity Reaction Status Date / Time Penicillins Allergy Verified 11/19/17 18:41 Medications: Current Medications Acetaminophen (Tylenol) 650 mg PO Q4H PRN PRN Reason: Headache/Fever or Pain Al Hydroxide/Mg Hydroxide (Maalox) 30 ml PO Q6H PRN PRN Reason: Heartburn or Indigestion Albuterol/Ipratropium (Duoneb) 3 ml NEB [id number] PRN PRN Reason: SOB &/or Wheezing Last Admin: 01/06/18 22:55 Dose: 3 ml Artificial Tears (Tears Naturale) 0 drop EA EYE PRN PRN PRN Reason: Dry Eyes Dextrose/Water (Dextrose 50%) 25 gm SLOW IVP PRN PRN PRN Reason: Hypoglycemia Famotidine (Pepcid) 20 mg SLOW IVP DAILY [facility] Last Admin: 01/07/18 08:59 Dose: 20 mg Fluconazole (Diflucan) 100 mg PO DAILY [facility] Stop: 01/13/18 10:00 Last Admin: 01/07/18 08:59 Dose: 100 mg Furosemide (Lasix) 40 mg SLOW IVP DAILY [facility] Glucagon (Glucagon) 1 mg IM PRN PRN PRN Reason: Hypoglycemia Guaifenesin (Robitussin Sf) 200 mg PO Q4H PRN PRN Reason: Cough Dextrose/Water (D5w) 1,000 mls @ 0 mls/hr IV .Q0M PRN PRN Reason: Hypoglycemia Fentanyl Citrate 2,000 mcg/ (Sodium Chloride) 100 mls @ 0 mls/hr IV INF [facility]; Protocol Stop: 02/03/18 16:02 Fentanyl Citrate (Fentanyl Bolus) 250 mls @ 0 mls/hr IVPB PRN PRN PRN Reason: Breakthrough pain/agitation Stop: 02/03/18 16:02 Norepinephrine Bitartrate 16 (mg/ Dextrose/Water) 250 mls @ 0 mls/hr IVPB INF PRN; Protocol PRN Reason: TO MAINTAIN MAP > 65 Last Admin: 01/05/18 16:06 Dose: 250 mls Meropenem 500 mg/ Sodium (Chloride) 100 mls @ 200 mls/hr IVPB 0400,1600 [facility] Last Admin: 01/07/18 03:48 Dose: 100 mls Sodium Chloride (Normal Saline 0.9%) 1,000 mls @ 0 mls/hr IV .Q0M [facility] Insulin Human Lispro (Humalog) 0 units SC .MODERATE SLIDING SC PRN PRN Reason: Moderate Correctional Scale Last Admin: 01/06/18 00:14 Dose: 2 unit Insulin Human Lispro (Humalog) 0 units SC .BEDTIME SLIDING SC PRN PRN Reason: Bedtime Correctional Scale Loperamide HCl (Imodium) 2 mg PO PRN PRN PRN Reason: Diarrhea/Loose Stools Loratadine (Claritin) 10 mg PO DAILYPRN PRN PRN Reason: Sinus Symptoms Magnesium Hydroxide (Milk Of Magnesium) 30 ml PO DAILYPRN PRN PRN Reason: Constipation Mineral Oil/White Petrolatum (Eucerin Cream) 0 gm TOP BIDPRN PRN PRN Reason: Dry Skin Miscellaneous Medication (Pharmacy To Dose) 1 each IVPB PRN PRN PRN Reason: Pharmacy to dose Discontinue Previous Narcotic Pain Medications And Benzodiazepines 1 each FS .ONE [facility] Stop: 02/03/18 16:02 Ondansetron HCl (Zofran Odt) 4 mg PO Q6H PRN PRN Reason: Nausea/Vomiting Ondansetron HCl (Zofran) 4 mg IVP Q6H PRN PRN Reason: Nausea/Vomiting Phenol (Chloraseptic [place] 180 Ml Bot) 0 ml PO PRN PRN PRN Reason: Sore Throat Propofol (Diprivan) 1,000 mg IV INF PRN; Protocol PRN Reason: TO ACHIEVE GOAL RASS Stop: 02/03/18 16:02 Last Admin: 01/07/18 11:21 Dose: 1,000 mg Propofol (Diprivan Bolus) 20 mg IV Q5MIN PRN PRN Reason: BREAKTHROUGH AGITATION Stop: 02/03/18 16:02 Saccharomyces Boulardii (Florastor) 250 mg PO DAILY [facility] Last Admin: 08/10/18 08:58 Dose: 250 mg Senna (Senokot) 2 tab PO HSPRN PRN PRN Reason: Constipation Sodium Chloride ([place] Nasal [place] 0.65%) 0 ml EA NARE QIDPRN PRN PRN Reason: Nasal Congestion
[2018-01-07 16:26] LABS: Actual Bicarbonate (HCO3a) 19.8 mEq/L (22-28); Base Excess (BEa) -7.1 mEq/L (-2.0 to +3.0); CO2 Tension 45.1 mmHg (35.0-45.0); Carboxyhemoglobin (COHb) 0.7 gm% (0.0-3.0); Hemoglobin (Hb) 12.5 g/dL (14.0-18.0); O2 Tension (PaO2) 73.6 mmHg (80.0-100.0); pH, Arterial 7.26 (7.35-7.45)
[2018-01-07 16:27] LABS: ALV-art Gradient 160.305 (0-20); Potassium - ABG Lab 4.3 mmol/L (3.70-5.30); Puncture Site RR
--- NOTE | 2018-01-07 19:03 | PRG ---
DATE OF SERVICE: 01/07/2018 SUBJECTIVE: The patient was seen and examined, is still in critical condition, noted with the follow ing vital signs. OBJECTIVE: VITAL SIGNS: Blood pressure 92/62, respiratory rate of 24, O2 sat of 96%. HEENT: Remarkable for endotracheal tube in place. CARDIOVASCULAR SYSTEM: First and second heart sounds were heard. RESPIRATORY SYSTEM: Revealed vented sounds. DIGESTIVE SYSTEM: Revealed an obese abdomen. EXTREMITIES: Showed peripheral edema. LABORATORY INVESTIGATION: Showed a white count of 5600, hemoglobin 10.7. Chemistry showed a BUN of 89 with a creatinine of 6.06, calcium 7. IMPRESSION: 1. Dense acute tubular necrosis in the context of sepsis. The patient seems increasing urinar y output. 2. Sepsis. PLAN: 1. We will continue renal supportive measures. 2. Hopefully, the increase in urinary output might be a beginning sign of renal recovery. Otherwise , this patient will require renal replacement therapy. 3. Further management to be dependent on the clinical course. The patient's clinical condition meme lacey remains critical.
[2018-01-08] MEDS: Propofol 1,000 MG/100 ML VIAL IV PRN ×7 (01:30→22:26)
[2018-01-08] MEDS: Meropenem 500 MG in Sodium Chloride 0.9% 100 ML IVPB SCH ×2 (04:46→16:19)
--- NOTE | 2018-01-08 08:14 | PRG ---
HISTORY OF PRESENT ILLNESS: Triston Lim is actually doing somewhat better. He is off vasopressor s. He is in ICU. He has been followed by Dr. Weems. 130/79. Respiratory rate 31, heart rate 100. Urine output 24 hours, 520 meals. The patient is edematous. His right lower extremity does reveal some blisters on his foot and leg, but there is no progression proximally of the infectious process. ASSESSMENT AND PLAN: 1. Severe venous insufficiency with frequent episodes of cellulitis. Continue local wound care and antibiotics. in the next week to [address] Richardson is available next week. Please mayelin l surgery if necessary. 2. Acute renal failure, currently not need a lytic therapy followed Dr. Thakkar. 3. Obesity. 4. Nonambulatory. 5. Chronic venous stasis disease.
[2018-01-08] MEDS: Fluconazole 100 MG TAB PO SCH (08:55)
[2018-01-08] MEDS: Famotidine/PF 20 mg/2ml Vial SLOW IVP SCH (08:55)
[2018-01-08] MEDS: Saccharomyces boulardii 250 MG CAP PO SCH (08:55)
[2018-01-08] MEDS: Furosemide 40 MG/4 ML VIAL SLOW IVP SCH (08:55)
[2018-01-08] MEDS ORDERED: Pancrelipase DR 12000 1 CAP FS PRN (09:20)
[2018-01-08] MEDS ORDERED: Sodium Bicarbonate Tab 325 MG TAB PER TUBE PRN (09:20)
[2018-01-08 09:35] LABS: Anion Gap 17 mmol/L (10-20); BUN (Urea Nitrogen) 100 mg/dL (8.4-25.7); Calc. Creatinine Clearance 35 mL/min (70-130); Calcium 7.3 mg/dL (7.8-10.44); Carbon Dioxide 24 mmol/L (22-29); Chloride 99 mmol/L (98-107); Estimated GFR-MDRD 10; Glucose 77 mg/dL (70-105); Magnesium 2.2 mg/dL (1.6-2.6); Phosphorus 11.1 mg/dL (2.3-4.7); Potassium 4.6 mmol/L (3.5-5.1); Sodium 135 mmol/L (136-145)
[2018-01-08 10:47] LABS: Band 18 % (5-11); Hemoglobin 10.9 g/dL (14.0-18.0); Hypochromia SLIGHT = 6-15 cells (100X) (0-5/hpf); Lymphocytes 13 % (21-51); MDiff Complete? YES; Mean Corpuscular HGB CONC 35.1 g/dL (32.0-36.0); Mean Corpuscular Hemoglobin 31.2 pg (27.0-31.0); Mean Corpuscular Volume 88.8 fL (78.0-98.0); Mean Platelet Volume 8.4 fL (7.4-10.4); Monocytes 6 % (0-10); Myelocyte 1 % (0-0); Neutrophil 62 % (42-75); PLT Morphology Comment Appears Decreased; Platelet Count 51 thou/uL (130-400); Polychromasia SLIGHT = 2-3 cells (100X) (0-2/hpf); RBC Distribution Width 15.5 % (11.5-14.5); Red Blood Cell (RBC) Count 3.51 mill/uL (4.70-6.10); White Blood Cell (WBC) Count 6.5 thou/uL (4.8-10.8)
--- NOTE | 2018-01-08 12:58 | PDOC.PN ---
- Subjective Encounter Start Date: 01/08/18 Encounter Start Time: 10:45 pt is intubated, sedated, has urine output, vitals stable - Objective Resuscitation Status: Resuscitation Status FULL:Full Resuscitation MAR Reviewed: Yes Vital Signs & Weight: Vital Signs (12 hours) Temp Pulse Resp BP Pulse Ox 01/08/18 12:00 17 01/08/18 11:00 85 102/49 L 01/08/18 10:00 17 01/08/18 08:45 83 119/68 01/08/18 08:00 98.9 F 85 17 97 01/08/18 06:33 86 104/57 L 01/08/18 06:00 17 01/08/18 04:19 89 01/08/18 04:00 97.8 F 17 01/08/18 02:00 17 Weight Admit Weight 382 lb Weight 399 lb 0.587 oz Most Recent Monitor Data Heart Rate from ECG 76 NIBP 106/62 NIBP BP-Mean 82 Respiration from ECG 7 SpO2 98 I&O: 01/07/18 01/08/18 01/09/18 06:59 06:59 06:59 Intake Total 2728.2 1284 100 Output Total 1140 2040 715 Balance 1588.2 -756 -615 Result Diagrams: 01/08/18 08:12 01/08/18 08:12 Additional Labs: Accuchecks 01/08/18 01/07/18 01/07/18 10:26 20:51 17:47 POC Glucose 84 75 95 EKG Reviewed by me: Yes (nsr) Phys Exam - Physical Examination Constitutional: NAD intubated, sedated HEENT: PERRLA, sclera anicteric Neck: no JVD, supple Respiratory: no wheezing, no rales, no rhonchi Cardiovascular: RRR, no significant murmur, no rub Gastrointestinal: soft, non-tender, no distention, positive bowel sounds right leg with dressing and noted drainage unable to assess Lymphatic: no nodes Deviation from normal: unable to assess Skin: no rash, normal turgor Dx/Plan (1) Acute respiratory failure with hypoxia and hypercarbia Code(s): J96.01 - ACUTE RESPIRATORY FAILURE WITH HYPOXIA; J96.02 - ACUTE RESPIRATORY FAILURE WITH HYPERCAPNIA Status: Acute (2) Bacterial infection due to Serratia Code(s): A49.8 - OTHER BACTERIAL INFECTIONS OF UNSPECIFIED SITE Status: Acute (3) Acute metabolic encephalopathy Code(s): G93.41 - METABOLIC ENCEPHALOPATHY Status: Acute (4) Acute kidney failure Status: Acute Comment: creatinine is getting worse (5) Demand ischemia of myocardium Code(s): I24.8 - OTHER FORMS OF ACUTE ISCHEMIC HEART DISEASE Status: Acute Comment: due to sepsis (6) Lactic acidosis Code(s): E87.2 - ACIDOSIS Status: Acute (7) Sepsis associated hypotension Code(s): A41.9 - SEPSIS, UNSPECIFIED ORGANISM; I95.9 - HYPOTENSION, UNSPECIFIED Status: Acute Comment: on levophed and vasopressin (8) Sepsis due to cellulitis Code(s): L03.90 - CELLULITIS, UNSPECIFIED; A41.9 - SEPSIS, UNSPECIFIED ORGANISM Status: Acute Comment: Severe (9) Sepsis with acute organ dysfunction Code(s): A41.9 - SEPSIS, UNSPECIFIED ORGANISM; R65.20 - SEVERE SEPSIS WITHOUT SEPTIC SHOCK Status: Acute (10) Anemia, normocytic normochromic Code(s): D64.9 - ANEMIA, UNSPECIFIED Status: Chronic (11) COPD (chronic obstructive pulmonary disease) Status: Chronic Comment: stable, continue respiratory therapy (12) Chronic hepatitis C with cirrhosis Code(s): B18.2 - CHRONIC VIRAL HEPATITIS C; K74.60 - UNSPECIFIED CIRRHOSIS OF LIVER Status: Chronic (13) GERD (gastroesophageal reflux disease) Code(s): K21.9 - GASTRO-ESOPHAGEAL REFLUX DISEASE WITHOUT ESOPHAGITIS Status: Chronic (14) HTN (hypertension) Code(s): I10 - ESSENTIAL (PRIMARY) HYPERTENSION Status: Chronic (15) Morbid obesity due to excess calories Code(s): E66.01 - MORBID (SEVERE) OBESITY DUE TO EXCESS CALORIES Status: Chronic (16) JENNY (obstructive sleep apnea) Code(s): G47.33 - OBSTRUCTIVE SLEEP APNEA (ADULT) (PEDIATRIC) Status: Chronic (17) T2DM (type 2 diabetes mellitus) Status: Chronic (18) Thrombocytopenia Code(s): D69.6 - THROMBOCYTOPENIA, UNSPECIFIED Status: Chronic (19) Hyperphosphatemia Code(s): E83.39 - OTHER DISORDERS OF PHOSPHORUS METABOLISM Status: Acute (20) Hypocalcemia Code(s): E83.51 - HYPOCALCEMIA Status: Acute - Plan cont current plan of care, continue antibiotics, respiratory therapy * continue vent as per pulmonary * continue iv meropenam * will start renvela for hyperphosphatemia * medication reviewed as below * symptomatic treatment * nephrology, ID following * wound care. * on lasix creatinine is stable Review of Systems - Review of Systems Other: unable to assess as pt is intubated - Medications/Allergies Allergies/Adverse Reactions: Allergies Allergy/AdvReac Type Severity Reaction Status Date / Time Penicillins Allergy Verified 11/19/17 18:41 Medications: Current Medications Acetaminophen (Tylenol) 650 mg PO Q4H PRN PRN Reason: Headache/Fever or Pain Al Hydroxide/Mg Hydroxide (Maalox) 30 ml PO Q6H PRN PRN Reason: Heartburn or Indigestion Albuterol/Ipratropium (Duoneb) 3 ml NEB [id number] PRN PRN Reason: SOB &/or Wheezing Last Admin: 01/07/18 22:38 Dose: 3 ml Lipase/Protease/Amylase ([place] [id number]) 1 cap FS .PER PROTOCOL PRN PRN Reason: TUBE OCCLUSION PROTOCOL Artificial Tears (Tears Naturale) 0 drop EA EYE PRN PRN PRN Reason: Dry Eyes Dextrose/Water (Dextrose 50%) 25 gm SLOW IVP PRN PRN PRN Reason: Hypoglycemia Famotidine (Pepcid) 20 mg SLOW IVP DAILY [facility] Last Admin: 01/08/18 08:55 Dose: 20 mg Fluconazole (Diflucan) 100 mg PO DAILY [facility] Stop: 01/13/18 10:00 Last Admin: 01/08/18 08:55 Dose: 100 mg Furosemide (Lasix) 40 mg SLOW IVP DAILY [facility] Last Admin: 01/08/18 08:55 Dose: 40 mg Glucagon (Glucagon) 1 mg IM PRN PRN PRN Reason: Hypoglycemia Guaifenesin (Robitussin Sf) 200 mg PO Q4H PRN PRN Reason: Cough Dextrose/Water (D5w) 1,000 mls @ 0 mls/hr IV .Q0M PRN PRN Reason: Hypoglycemia Fentanyl Citrate 2,000 mcg/ (Sodium Chloride) 100 mls @ 0 mls/hr IV INF [facility]; Protocol Stop: 02/03/18 16:02 Fentanyl Citrate (Fentanyl Bolus) 250 mls @ 0 mls/hr IVPB PRN PRN PRN Reason: Breakthrough pain/agitation Stop: 02/03/18 16:02 Norepinephrine Bitartrate 16 (mg/ Dextrose/Water) 250 mls @ 0 mls/hr IVPB INF PRN; Protocol PRN Reason: TO MAINTAIN MAP > 65 Last Admin: 01/05/18 16:06 Dose: 250 mls Meropenem 500 mg/ Sodium (Chloride) 100 mls @ 200 mls/hr IVPB 0400,1600 [facility] Last Admin: 01/08/18 04:46 Dose: 100 mls Sodium Chloride (Normal Saline 0.9%) 1,000 mls @ 0 mls/hr IV .Q0M [facility] Insulin Human Lispro (Humalog) 0 units SC .MODERATE SLIDING SC PRN PRN Reason: Moderate Correctional Scale Last Admin: 01/06/18 00:14 Dose: 2 unit Insulin Human Lispro (Humalog) 0 units SC .BEDTIME SLIDING SC PRN PRN Reason: Bedtime Correctional Scale Loperamide HCl (Imodium) 2 mg PO PRN PRN PRN Reason: Diarrhea/Loose Stools Loratadine (Claritin) 10 mg PO DAILYPRN PRN PRN Reason: Sinus Symptoms Magnesium Hydroxide (Milk Of Magnesium) 30 ml PO DAILYPRN PRN PRN Reason: Constipation Mineral Oil/White Petrolatum (Eucerin Cream) 0 gm TOP BIDPRN PRN PRN Reason: Dry Skin Miscellaneous Medication (Pharmacy To Dose) 1 each IVPB PRN PRN PRN Reason: Pharmacy to dose Discontinue Previous Narcotic Pain Medications And Benzodiazepines 1 each FS .ONE [facility] Stop: 02/03/18 16:02 Ondansetron HCl (Zofran Odt) 4 mg PO Q6H PRN PRN Reason: Nausea/Vomiting Ondansetron HCl (Zofran) 4 mg IVP Q6H PRN PRN Reason: Nausea/Vomiting Phenol (Chloraseptic [place] 180 Ml Bot) 0 ml PO PRN PRN PRN Reason: Sore Throat Propofol (Diprivan) 1,000 mg IV INF PRN; Protocol PRN Reason: TO ACHIEVE GOAL RASS Stop: 02/03/18 16:02 Last Admin: 01/08/18 12:53 Dose: 1,000 mg Propofol (Diprivan Bolus) 20 mg IV Q5MIN PRN PRN Reason: BREAKTHROUGH AGITATION Stop: 02/03/18 16:02 Saccharomyces Boulardii (Florastor) 250 mg PO DAILY [facility] Last Admin: 01/08/18 08:55 Dose: 250 mg Senna (Senokot) 2 tab PO HSPRN PRN PRN Reason: Constipation Sevelamer Carbonate (Renvela) 1,600 mg PER TUBE TID-WM [facility] Sodium Bicarbonate (Bicarbonate, Sodium) 650 mg PER TUBE .PER PROTOCOL PRN PRN Reason: ENTERAL TUBE OCCLUSION Sodium Chloride ([place] Nasal [place] 0.65%) 0 ml EA NARE QIDPRN PRN PRN Reason: Nasal Congestion
--- NOTE | 2018-01-08 13:34 | PRG ---
DATE OF SERVICE: 01/08/2018 PULMONARY CRITICAL CARE PROGRESS NOTE Thirty-five minutes critical care time. SUBJECTIVE: The patient is sedated on mechanical ventilation. PHYSICAL EXAMINATION: VITAL SIGNS: Temperature is 97.8, pulse 83, blood pressure intake for 24 hours 1284, output 20 40. He is sedated heavily on propofol. He is requiring no vasopressors. HEENT: Pupils react. Sclerae icteric. Oropharynx: ET tube in place. NECK: No JVD. LUNGS: Clear anteriorly. CARDIOVASCULAR: S1 and S2 regular. ABDOMEN: Morbidly obese, soft and nontender. EXTREMITIES: Cellulitis right lower extremity, bandage is in place. LABORATORY DATA: White blood cell count 5.6, hemoglobin 10.7, hematocrit 31.3, platelet count 30. A BG pending. Sodium 134, potassium 4.7, chloride 99, CO2 of 21, BUN 89, creatinine 6.1, and glucose 9 8. ASSESSMENT: 1. Acute respiratory failure requiring mechanical ventilation. 2. Septic shock secondary to serratia cellulitis and bacteremia. 3. Morbid obesity. 4. Acute kidney injury. PLAN: 1. Enteral tube feeds will be started today. 2. Continue meropenem and fluconazole. 3. Not weanable yet based on continued fluid overload. The patient is receiving diuretics. 4. Dialysis may be necessary in this patient.
[2018-01-08] MEDS: Sevelamer Carbonate 800 MG TAB PER TUBE SCH (16:20)
--- NOTE | 2018-01-08 21:23 | PRG ---
DATE OF SERVICE: 01/08/2018 SUBJECTIVE: The patient was seen and examined, still on life support, hemodynamically stable, off pr essors with blood pressure 113/62. OBJECTIVE: HEENT: Unremarkable for endotracheal tube in place. CARDIOVASCULAR SYSTEM: First and second heart sounds were heard. RESPIRATORY SYSTEM: Revealed vented sounds. DIGESTIVE SYSTEM: Revealed an obese abdomen. EXTREMITIES: Showed some weeping peripheral edema. NEUROLOGIC: Revealed the patient is sedated and intubated. LABORATORY INVESTIGATIONS: Significant for BUN of 100 with creatinine of 6.06, calcium 7.3, phosphor us of 11.1. IMPRESSION: 1. Dense acute tubular necrosis in the context of sepsis; however, creatinine seems to be plateauing at this point. 2. Hyperphosphatemia in the context of dense acute tubular necrosis. 3. Cardiopulmonary failure. 4. Morbid obesity. PLAN: 1. The patient's renal function seems to be plateauing. Hopefully, this might be the beginning of a cute tubular necrosis recovery; however, if renal function recovery continues to lack within the next 24-48 hours, decision will be taken to possibly initiate renal replacement therapy (hemodialysis) un less renal recovery picks up. 2. Renally dose all medications and avoid potentially nephrotoxic agents while continue renal suppor tive measures. Condition of the patient still remains guarded.
[2018-01-09] MEDS: Propofol 1,000 MG/100 ML VIAL IV PRN ×6 (02:01→22:22)
[2018-01-09] MEDS: Meropenem 500 MG in Sodium Chloride 0.9% 100 ML IVPB SCH ×2 (05:40→16:12)
[2018-01-09 06:24] LABS: Anion Gap 20 mmol/L (10-20); BUN (Urea Nitrogen) 108 mg/dL (8.4-25.7); Calc. Creatinine Clearance 38 mL/min (70-130); Calcium 7.8 mg/dL (7.8-10.44); Carbon Dioxide 22 mmol/L (22-29); Chloride 98 mmol/L (98-107); Estimated GFR-MDRD 11; Glucose 113 mg/dL (70-105); Potassium 4.8 mmol/L (3.5-5.1); Sodium 135 mmol/L (136-145)
[2018-01-09 06:50] LABS: Band 19 % (5-11); Hypochromia SLIGHT = 6-15 cells (100X) (0-5/hpf); Lymphocytes 4 % (21-51); MDiff Complete? YES; Mean Corpuscular HGB CONC 33.1 g/dL (32.0-36.0); Mean Corpuscular Hemoglobin 29.5 pg (27.0-31.0); Mean Corpuscular Volume 89.1 fL (78.0-98.0); Mean Platelet Volume 9.7 fL (7.4-10.4); Monocytes 8 % (0-10); Neutrophil 69 % (42-75); PLT Morphology Comment Appears Decreased; Platelet Count 42 thou/uL (130-400); RBC Distribution Width 15.4 % (11.5-14.5); Red Blood Cell (RBC) Count 3.72 mill/uL (4.70-6.10); White Blood Cell (WBC) Count 8.7 thou/uL (4.8-10.8)
[2018-01-09 07:03] LABS: Actual Bicarbonate (HCO3a) 20.3 mEq/L (22-28); Base Excess (BEa) -7.2 mEq/L (-2.0 to +3.0); Carboxyhemoglobin (COHb) 0.9 gm% (0.0-3.0); Hemoglobin (Hb) 11.3 g/dL (14.0-18.0); O2 Tension (PaO2) 78.6 mmHg (80.0-100.0); pH, Arterial 7.23 (7.35-7.45)
[2018-01-09 07:04] LABS: Potassium - ABG Lab 4.7 mmol/L (3.70-5.30); Puncture Site RRA
[2018-01-09] MEDS: Fluconazole 100 MG TAB PO SCH (07:37)
[2018-01-09] MEDS: Sevelamer Carbonate 800 MG TAB PER TUBE SCH ×3 (07:37→16:13)
[2018-01-09] MEDS: Famotidine/PF 20 mg/2ml Vial SLOW IVP SCH (07:37)
[2018-01-09] MEDS: Saccharomyces boulardii 250 MG CAP PO SCH (07:38)
[2018-01-09] MEDS: Furosemide 40 MG/4 ML VIAL SLOW IVP SCH (07:38)
--- NOTE | 2018-01-09 08:16 | PRG ---
DATE OF SERVICE: 01/09/2018 Thirty-five minutes critical care time. SUBJECTIVE: The patient remains intubated on mechanical ventilation. He is sedated. There have bee n no acute changes overnight. PHYSICAL EXAMINATION: VITAL SIGNS: On exam, his temperature is 98.2, pulse 93, blood pressure 141/69. He is currently off all vasopressors. Total intake for the last 24 hours 1873 and output 1700. Weight 402 pounds. NEUROLOGIC: He is sedated. HEENT EXAM: Unremarkable. NECK: No JVD. LUNGS: Clear anteriorly. CARDIOVASCULAR: S1 and S2, regular, without murmur. ABDOMEN: Obese, soft, nontender, nondistended. EXTREMITIES: He has a bandage over his right lower leg. His chest x-ray shows cardiomegaly. Endotracheal tube is in good position. LABORATORY DATA: Sodium 135, potassium 4.6, chloride 99, CO2 of 24, BUN 100, creatinine 6.1, glucose 77, phosphorus 11.1. PH 7.23, PCO2 of 50, pO2 of 78 on SIMV rate 17, tidal volume 440, PEEP 7, pres sure support 23, FiO2 of 50%. White blood cell count 8.7, hematocrit 33.1, platelet count 42. ASSESSMENT: 1. Acute respiratory failure, requiring mechanical ventilation - no improvement in gas exchange. 2. Septic shock secondary to serratia cellulitis and bacteremia. 3. Morbid obesity. 4. Right lower extremity cellulitis. 5. Acute kidney injury. 6. Thrombocytopenia. PLAN: 1. The patient is continuing broad-spectrum IV antibiotics. He is not weanable and I have adjusted his minute ventilation for his respiratory acidosis. 2. Probably will need dialysis given his overt fluid overload and hyperphosphatemia. 3. Probably also going to need tracheostomy down the road.
--- NOTE | 2018-01-09 09:53 | PDOC.PN ---
- Subjective Encounter Start Date: 01/09/18 Encounter Start Time: 09:50 Patient seen and examined. pt is intubated, No overnight events - Objective Resuscitation Status: Resuscitation Status FULL:Full Resuscitation MAR Reviewed: Yes Vital Signs & Weight: Vital Signs (12 hours) Temp Pulse Resp BP Pulse Ox 01/09/18 08:46 89 103/56 L 01/09/18 08:00 98.3 F 83 24 H 99 01/09/18 06:51 78 141/69 H 01/09/18 06:00 17 01/09/18 04:00 98.2 F 17 01/09/18 03:49 88 01/09/18 02:00 17 01/09/18 00:00 98.2 F 17 01/08/18 23:36 81 106/45 L 98 01/08/18 22:00 17 Weight Admit Weight 382 lb Weight 402 lb 5.498 oz Most Recent Monitor Data Heart Rate from ECG 85 NIBP 103/56 NIBP BP-Mean 66 Respiration from ECG 13 SpO2 99 I&O: 01/08/18 01/09/18 01/10/18 06:59 06:59 06:59 Intake Total 1284 1873 50 Output Total 2040 1700 150 Balance -756 173 -100 Result Diagrams: 01/09/18 05:58 01/09/18 05:58 Additional Labs: Accuchecks 01/09/18 01/09/18 01/08/18 05:07 00:58 20:40 POC Glucose 115 H 114 H 98 01/08/18 01/08/18 16:31 10:26 POC Glucose 96 84 Radiology Reviewed by me: Yes (chest xray reviewed by me) EKG Reviewed by me: Yes (nsr) Phys Exam - Physical Examination Constitutional: NAD intubated, sedated HEENT: PERRLA, sclera anicteric Neck: no JVD, supple Respiratory: no wheezing, no rales, no rhonchi Cardiovascular: RRR, no significant murmur, no rub Gastrointestinal: soft, no distention, positive bowel sounds obesity+ right leg with dressing and draining fluid unable to assess Lymphatic: no nodes Deviation from normal: unable to assess Skin: normal turgor Dx/Plan (1) Acute respiratory failure with hypoxia and hypercarbia Code(s): J96.01 - ACUTE RESPIRATORY FAILURE WITH HYPOXIA; J96.02 - ACUTE RESPIRATORY FAILURE WITH HYPERCAPNIA Status: Acute (2) Bacterial infection due to Serratia Code(s): A49.8 - OTHER BACTERIAL INFECTIONS OF UNSPECIFIED SITE Status: Acute (3) Acute metabolic encephalopathy Code(s): G93.41 - METABOLIC ENCEPHALOPATHY Status: Acute (4) Acute kidney failure Status: Acute Comment: creatinine is getting worse (5) Demand ischemia of myocardium Code(s): I24.8 - OTHER FORMS OF ACUTE ISCHEMIC HEART DISEASE Status: Acute Comment: due to sepsis (6) Lactic acidosis Code(s): E87.2 - ACIDOSIS Status: Acute (7) Sepsis associated hypotension Code(s): A41.9 - SEPSIS, UNSPECIFIED ORGANISM; I95.9 - HYPOTENSION, UNSPECIFIED Status: Acute Comment: on levophed and vasopressin (8) Sepsis due to cellulitis Code(s): L03.90 - CELLULITIS, UNSPECIFIED; A41.9 - SEPSIS, UNSPECIFIED ORGANISM Status: Acute Comment: Severe (9) Sepsis with acute organ dysfunction Code(s): A41.9 - SEPSIS, UNSPECIFIED ORGANISM; R65.20 - SEVERE SEPSIS WITHOUT SEPTIC SHOCK Status: Acute (10) Anemia, normocytic normochromic Code(s): D64.9 - ANEMIA, UNSPECIFIED Status: Chronic (11) COPD (chronic obstructive pulmonary disease) Status: Chronic Comment: stable, continue respiratory therapy (12) Chronic hepatitis C with cirrhosis Code(s): B18.2 - CHRONIC VIRAL HEPATITIS C; K74.60 - UNSPECIFIED CIRRHOSIS OF LIVER Status: Chronic (13) GERD (gastroesophageal reflux disease) Code(s): K21.9 - GASTRO-ESOPHAGEAL REFLUX DISEASE WITHOUT ESOPHAGITIS Status: Chronic (14) HTN (hypertension) Code(s): I10 - ESSENTIAL (PRIMARY) HYPERTENSION Status: Chronic (15) Morbid obesity due to excess calories Code(s): E66.01 - MORBID (SEVERE) OBESITY DUE TO EXCESS CALORIES Status: Chronic (16) JENNY (obstructive sleep apnea) Code(s): G47.33 - OBSTRUCTIVE SLEEP APNEA (ADULT) (PEDIATRIC) Status: Chronic (17) T2DM (type 2 diabetes mellitus) Status: Chronic (18) Thrombocytopenia Code(s): D69.6 - THROMBOCYTOPENIA, UNSPECIFIED Status: Chronic (19) Hyperphosphatemia Code(s): E83.39 - OTHER DISORDERS OF PHOSPHORUS METABOLISM Status: Acute (20) Hypocalcemia Code(s): E83.51 - HYPOCALCEMIA Status: Acute - Plan cont current plan of care, continue antibiotics, respiratory therapy * ventilator management as per pulmonary * continue meropenam * renal function started improving, but pt is still fluid overloaded, will defer HD decision to nephrology * medication reviewed as below * symptomatic treatment * will repeat blood culture tomorrow. Review of Systems - Review of Systems Other: unable to assess due to intubated status - Medications/Allergies Allergies/Adverse Reactions: Allergies Allergy/AdvReac Type Severity Reaction Status Date / Time Penicillins Allergy Verified 11/19/17 18:41 Medications: Current Medications Acetaminophen (Tylenol) 650 mg PO Q4H PRN PRN Reason: Headache/Fever or Pain Al Hydroxide/Mg Hydroxide (Maalox) 30 ml PO Q6H PRN PRN Reason: Heartburn or Indigestion Albuterol/Ipratropium (Duoneb) 3 ml NEB [id number] PRN PRN Reason: SOB &/or Wheezing Last Admin: 01/08/18 23:36 Dose: 3 ml Lipase/Protease/Amylase ([place] [id number]) 1 cap FS .PER PROTOCOL PRN PRN Reason: TUBE OCCLUSION PROTOCOL Artificial Tears (Tears Naturale) 0 drop EA EYE PRN PRN PRN Reason: Dry Eyes Dextrose/Water (Dextrose 50%) 25 gm SLOW IVP PRN PRN PRN Reason: Hypoglycemia Famotidine (Pepcid) 20 mg SLOW IVP DAILY [facility] Last Admin: 01/09/18 07:37 Dose: 20 mg Fluconazole (Diflucan) 100 mg PO DAILY [facility] Stop: 01/13/18 10:00 Last Admin: 01/09/18 07:37 Dose: 100 mg Furosemide (Lasix) 40 mg SLOW IVP DAILY [facility] Last Admin: 01/09/18 07:38 Dose: 40 mg Glucagon (Glucagon) 1 mg IM PRN PRN PRN Reason: Hypoglycemia Guaifenesin (Robitussin Sf) 200 mg PO Q4H PRN PRN Reason: Cough Dextrose/Water (D5w) 1,000 mls @ 0 mls/hr IV .Q0M PRN PRN Reason: Hypoglycemia Fentanyl Citrate 2,000 mcg/ (Sodium Chloride) 100 mls @ 0 mls/hr IV INF W[facility]; Protocol Stop: 02/03/18 16:02 Fentanyl Citrate (Fentanyl Bolus) 250 mls @ 0 mls/hr IVPB PRN PRN PRN Reason: Breakthrough pain/agitation Stop: 02/03/18 16:02 Norepinephrine Bitartrate 16 (mg/ Dextrose/Water) 250 mls @ 0 mls/hr IVPB INF PRN; Protocol PRN Reason: TO MAINTAIN MAP > 65 Last Admin: 01/05/18 16:06 Dose: 250 mls Meropenem 500 mg/ Sodium (Chloride) 100 mls @ 200 mls/hr IVPB 0400,1600 [facility] Last Admin: 01/09/18 05:40 Dose: 100 mls Sodium Chloride (Normal Saline 0.9%) 1,000 mls @ 0 mls/hr IV .Q0M [facility] Insulin Human Lispro (Humalog) 0 units SC .MODERATE SLIDING SC PRN PRN Reason: Moderate Correctional Scale Last Admin: 01/06/18 00:14 Dose: 2 unit Insulin Human Lispro (Humalog) 0 units SC .BEDTIME SLIDING SC PRN PRN Reason: Bedtime Correctional Scale Loperamide HCl (Imodium) 2 mg PO PRN PRN PRN Reason: Diarrhea/Loose Stools Loratadine (Claritin) 10 mg PO DAILYPRN PRN PRN Reason: Sinus Symptoms Magnesium Hydroxide (Milk Of Magnesium) 30 ml PO DAILYPRN PRN PRN Reason: Constipation Mineral Oil/White Petrolatum (Eucerin Cream) 0 gm TOP BIDPRN PRN PRN Reason: Dry Skin Miscellaneous Medication (Pharmacy To Dose) 1 each IVPB PRN PRN PRN Reason: Pharmacy to dose Discontinue Previous Narcotic Pain Medications And Benzodiazepines 1 each FS .ONE [facility] Stop: 02/03/18 16:02 Ondansetron HCl (Zofran Odt) 4 mg PO Q6H PRN PRN Reason: Nausea/Vomiting Ondansetron HCl (Zofran) 4 mg IVP Q6H PRN PRN Reason: Nausea/Vomiting Phenol (Chloraseptic [place] 180 Ml Bot) 0 ml PO PRN PRN PRN Reason: Sore Throat Propofol (Diprivan) 1,000 mg IV INF PRN; Protocol PRN Reason: TO ACHIEVE GOAL RASS Stop: 02/03/18 16:02 Last Admin: 08/12/18 07:34 Dose: 1,000 mg Propofol (Diprivan Bolus) 20 mg IV Q5MIN PRN PRN Reason: BREAKTHROUGH AGITATION Stop: 02/03/18 16:02 Saccharomyces Boulardii (Florastor) 250 mg PO DAILY [facility] Last Admin: 01/09/18 07:38 Dose: 250 mg Senna (Senokot) 2 tab PO HSPRN PRN PRN Reason: Constipation Sevelamer Carbonate (Renvela) 1,600 mg PER TUBE TID-WM [facility] Last Admin: 01/09/18 07:37 Dose: 1,600 mg Sodium Bicarbonate (Bicarbonate, Sodium) 650 mg PER TUBE .PER PROTOCOL PRN PRN Reason: ENTERAL TUBE OCCLUSION Sodium Chloride ([place] Nasal [place] 0.65%) 0 ml EA NARE QIDPRN PRN PRN Reason: Nasal Congestion
--- NOTE | 2018-01-09 10:27 | RAD ---
PORTABLE CHEST: HISTORY: CCU followup. Dyspnea. COMPARISON: 01/06/18. FINDINGS: Cardiomegaly. ET tube and NG tube remain in place. Central line is unchanged. Cardiomegaly with vascular congestion again noted. There is focal atelectasis and/or infiltrate in t he medial right lung base which is slightly more prominent today. No other significant change. IMPRESSION: Cardiomegaly with vascular congestion. Parenchymal opacity in the medial right lung base is more pro minent. POS: [facility]
--- NOTE | 2018-01-09 16:36 | PRG ---
DATE OF SERVICE: 01/09/2018 SUBJECTIVE: The patient was seen and examined, still on life support. OBJECTIVE: VITAL SIGNS: Blood pressure 97/51, pulse 74. HEENT: Remarkable for endotracheal tube in place. CARDIOVASCULAR: First and second heart sounds were heard. RESPIRATORY: Reveals vented sounds. DIGESTIVE: Reviewed obese abdomen. EXTREMITIES: Showed weeping lower extremity edema. LABORATORY INVESTIGATION: Showed a creatinine down to 5.61, BUN of 18, potassium 4.8. IMPRESSION: 1. Dense acute tubular necrosis in the context of sepsis. 2. Morbid obesity. 3. Cardiopulmonary failure. 4. Sepsis. PLAN: 1. We will continue renal supportive measures and monitor this patient closely. No emergent indicat ion at this point for hemodialysis; however, if the patient begins to , this might become indica jose fluid. 2. Renally dose all medications and avoid potentially nephrotoxic agents.
[2018-01-10] MEDS: Propofol 1,000 MG/100 ML VIAL IV PRN ×6 (02:00→22:03)
[2018-01-10] MEDS: Meropenem 500 MG in Sodium Chloride 0.9% 100 ML IVPB SCH ×2 (04:59→15:30)
[2018-01-10 05:15] LABS: Anion Gap 20 mmol/L (10-20); BUN (Urea Nitrogen) 122 mg/dL (8.4-25.7); Calc. Creatinine Clearance 42 mL/min (70-130); Calcium 8.2 mg/dL (7.8-10.44); Carbon Dioxide 20 mmol/L (22-29); Chloride 100 mmol/L (98-107); Estimated GFR-MDRD 12; Glucose 119 mg/dL (70-105); Potassium 4.2 mmol/L (3.5-5.1); Sodium 136 mmol/L (136-145)
[2018-01-10 05:48] LABS: Band 40 % (5-11); Hemoglobin 10.4 g/dL (14.0-18.0); Lymphocytes 6 % (21-51); MDiff Complete? YES; Mean Corpuscular HGB CONC 35.3 g/dL (32.0-36.0); Mean Corpuscular Hemoglobin 30.8 pg (27.0-31.0); Mean Corpuscular Volume 87.1 fL (78.0-98.0); Mean Platelet Volume 9.7 fL (7.4-10.4); Monocytes 4 % (0-10); Neutrophil 50 % (42-75); PLT Morphology Comment Appears Decreased; Platelet Count 47 thou/uL (130-400); RBC Distribution Width 15.3 % (11.5-14.5); Red Blood Cell (RBC) Count 3.36 mill/uL (4.70-6.10)
[2018-01-10 07:49] LABS: Actual Bicarbonate (HCO3a) 19.3 mEq/L (22-28); CO2 Tension 33.6 mmHg (35.0-45.0); Carboxyhemoglobin (COHb) 0.5 gm% (0.0-3.0); Hemoglobin (Hb) 12.7 g/dL (14.0-18.0); O2 Tension (PaO2) 77.8 mmHg (80.0-100.0); pH, Arterial 7.38 (7.35-7.45)
[2018-01-10 07:50] LABS: Calcium, Ionized 1.1 mmol/L (1.12-1.30); Potassium - ABG Lab 4.1 mmol/L (3.70-5.30); Puncture Site RBRACH
[2018-01-10] MEDS: Furosemide 40 MG/4 ML VIAL SLOW IVP SCH ×2 (08:20→13:30)
[2018-01-10] MEDS: Sevelamer Carbonate 800 MG TAB PER TUBE SCH ×3 (08:20→16:15)
[2018-01-10] MEDS: Fluconazole 100 MG TAB PO SCH (08:20)
[2018-01-10] MEDS: Saccharomyces boulardii 250 MG CAP PO SCH (08:20)
[2018-01-10] MEDS: Famotidine/PF 20 mg/2ml Vial SLOW IVP SCH (08:20)
[2018-01-10] MEDS ORDERED: Lidocaine 1% PF 5 ML VIAL ONE (11:59)
[2018-01-10] MEDS ORDERED: ePHEDrine/0.9% NaCl/PF SYRINGE 50 mg/10 ml ONE (11:59)
[2018-01-10] MEDS ORDERED: PHENYLEPHRINE-NS 100 MCG/ML 10 ML SYRINGE ONE (11:59)
--- NOTE | 2018-01-10 12:23 | PRG ---
DATE OF SERVICE: 01/10/2018 SERVICE: Pulmonary Medicine. INTERVAL HISTORY: The patient is doing fine from a respiratory standpoint. Oxygen requirements are actually improving a little bit. He cannot provide additional elements of the history. We will put him on a spontaneous breathing trial today. It lasted about 15-20 minutes before he started becoming increasingly hypoxemic and had increasing work of breathing with tachycardia. As such, we will put him back on mechanical ventilation. He cannot provide additional elements of the history at this alex e, because of his current sedation. He is moving all 4 extremities however. Apparently, his legs lo ok a little bit worse prompting an evaluation by Surgery. PHYSICAL EXAMINATION: VITAL SIGNS: Afebrile with a T-max of 100.1, pulse 115, blood pressure 124/51, respirations 37, satu ration 95% on 41% FIO2 and a PEEP of 5. GENERAL: Patient is intubated and sedated. HEENT: Normocephalic, atraumatic. Sclerae are white, conjunctivae pink. Oral and nasal mucosa is m oist without lesions. LUNGS: Decent air entry with crackles present dependently. HEART: Normal rate, regular. ABDOMEN: Soft, nontender, nondistended. Bowel sounds are positive. MUSCULOSKELETAL: No cyanosis or clubbing. There is diffuse 2+ pitting throughout. GENITOURINARY: Malik catheter in place. NEUROLOGIC: Grossly nonfocal. LABORATORY DATA: WBC increasing to 12.0, hemoglobin 10.4, platelets 47,000. Band count is increasin g once again to 40%. PH 7.38, pCO2 of 33, pO2 of 78. Basic metabolic profile is trending downward t o 5.14, sodium 136, bicarbonate 20 and down trending. BUN has gone up to 122. Serratia is growing i n blood cultures, and right leg culture. C. diff antigen and toxin was previously unremarkable. IMAGING: Chest x-ray demonstrates cardiomegaly with vascular congestion. Parenchymal opacity in the right medial lung base is more prominent. ASSESSMENT: 1. Acute hypoxic respiratory failure. 2. Septic shock. 3. Cellulitis secondary to serratia. 4. Bacteremia secondary to serratia. 5. Morbid obesity. 6. Acute kidney injury on chronic kidney disease stage 3. DISCUSSION AND PLAN: We will continue to gently diurese the patient. Our goal is to get him negativ e 1-2 liters over the next 24 hours. At this point, his oxygen requirements still prevent us from ex tubating him that we are moving in the right direction. He remains 15 liters up for this [facility]. We will increase our Lasix to twice daily at this point. Pulmonary and Critical Care will landon nue to follow along. CRITICAL CARE TIME: 30 minutes.
[2018-01-10] MEDS: Dextrose 5% in Water 1,000 ML IV SCH (12:27)
--- NOTE | 2018-01-10 13:12 | PDOC.PN ---
- Subjective Encounter Start Date: 01/10/18 Encounter Start Time: 09:00 pt is on ventilator, this morning he was off sedation - Objective Resuscitation Status: Resuscitation Status FULL:Full Resuscitation MAR Reviewed: Yes Vital Signs & Weight: Vital Signs (12 hours) Temp Pulse Resp BP Pulse Ox 01/10/18 12:00 99.9 F H 34 H 01/10/18 10:22 115 H 119/51 L 01/10/18 10:00 29 H 01/10/18 08:00 24 H 01/10/18 07:26 109 H 104/38 L 01/10/18 07:11 100.1 F H 104 H 24 H 98 01/10/18 07:00 100.1 F H 01/10/18 05:24 24 H 01/10/18 04:00 98.7 F 25 H 01/10/18 03:40 112 H 01/10/18 02:00 24 H Weight Admit Weight 382 lb Weight 399 lb 0.587 oz Most Recent Monitor Data Heart Rate from ECG 118 NIBP 116/53 NIBP BP-Mean 75 Respiration from ECG 14 SpO2 96 I&O: 01/09/18 01/10/18 01/11/18 06:59 06:59 06:59 Intake Total 1873 1774 60 Output Total 1700 2155 1365 Balance 922 -280 -8160 Result Diagrams: 01/10/18 04:50 01/10/18 04:50 Additional Labs: Accuchecks 01/10/18 01/10/18 11:54 00:05 POC Glucose 109 105 EKG Reviewed by me: Yes (nsr) Phys Exam - Physical Examination Constitutional: NAD on vent HEENT: PERRLA, sclera anicteric Neck: no JVD, supple Respiratory: no wheezing, no rales, no rhonchi Cardiovascular: RRR, no significant murmur, no rub Gastrointestinal: soft, no distention, positive bowel sounds morbid obesity right leg with dressing and noted drainage unable to assess Deviation from normal: unable to assess Skin: no rash, normal turgor Dx/Plan (1) Acute respiratory failure with hypoxia and hypercarbia Code(s): J96.01 - ACUTE RESPIRATORY FAILURE WITH HYPOXIA; J96.02 - ACUTE RESPIRATORY FAILURE WITH HYPERCAPNIA Status: Acute (2) Bacterial infection due to Serratia Code(s): A49.8 - OTHER BACTERIAL INFECTIONS OF UNSPECIFIED SITE Status: Acute (3) Acute metabolic encephalopathy Code(s): G93.41 - METABOLIC ENCEPHALOPATHY Status: Acute (4) Acute kidney failure Status: Acute Comment: creatinine is getting worse (5) Demand ischemia of myocardium Code(s): I24.8 - OTHER FORMS OF ACUTE ISCHEMIC HEART DISEASE Status: Acute Comment: due to sepsis (6) Lactic acidosis Code(s): E87.2 - ACIDOSIS Status: Acute (7) Sepsis associated hypotension Code(s): A41.9 - SEPSIS, UNSPECIFIED ORGANISM; I95.9 - HYPOTENSION, UNSPECIFIED Status: Acute Comment: on levophed and vasopressin (8) Sepsis due to cellulitis Code(s): L03.90 - CELLULITIS, UNSPECIFIED; A41.9 - SEPSIS, UNSPECIFIED ORGANISM Status: Acute Comment: Severe (9) Sepsis with acute organ dysfunction Code(s): A41.9 - SEPSIS, UNSPECIFIED ORGANISM; R65.20 - SEVERE SEPSIS WITHOUT SEPTIC SHOCK Status: Acute (10) Anemia, normocytic normochromic Code(s): D64.9 - ANEMIA, UNSPECIFIED Status: Chronic (11) COPD (chronic obstructive pulmonary disease) Status: Chronic Comment: stable, continue respiratory therapy (12) Chronic hepatitis C with cirrhosis Code(s): B18.2 - CHRONIC VIRAL HEPATITIS C; K74.60 - UNSPECIFIED CIRRHOSIS OF LIVER Status: Chronic (13) GERD (gastroesophageal reflux disease) Code(s): K21.9 - GASTRO-ESOPHAGEAL REFLUX DISEASE WITHOUT ESOPHAGITIS Status: Chronic (14) HTN (hypertension) Code(s): I10 - ESSENTIAL (PRIMARY) HYPERTENSION Status: Chronic (15) Morbid obesity due to excess calories Code(s): E66.01 - MORBID (SEVERE) OBESITY DUE TO EXCESS CALORIES Status: Chronic (16) JENNY (obstructive sleep apnea) Code(s): G47.33 - OBSTRUCTIVE SLEEP APNEA (ADULT) (PEDIATRIC) Status: Chronic (17) T2DM (type 2 diabetes mellitus) Status: Chronic (18) Thrombocytopenia Code(s): D69.6 - THROMBOCYTOPENIA, UNSPECIFIED Status: Chronic (19) Hyperphosphatemia Code(s): E83.39 - OTHER DISORDERS OF PHOSPHORUS METABOLISM Status: Acute (20) Hypocalcemia Code(s): E83.51 - HYPOCALCEMIA Status: Acute - Plan cont current plan of care, roldan catheter, continue antibiotics, respiratory therapy * continue diuresis to make him euvolemic * pulmonary managing ventilator * continue current renal dose of iv antibiotics * medication reviewed as below * symptomatic treatment * wound care * as per nephrology, no need of HD, his creatinine is continue to improve. Review of Systems - Review of Systems Other: unable to review due to intubated status - Medications/Allergies Allergies/Adverse Reactions: Allergies Allergy/AdvReac Type Severity Reaction Status Date / Time Penicillins Allergy Verified 11/19/17 18:41 Medications: Current Medications Acetaminophen (Tylenol) 650 mg PO Q4H PRN PRN Reason: Headache/Fever or Pain Al Hydroxide/Mg Hydroxide (Maalox) 30 ml PO Q6H PRN PRN Reason: Heartburn or Indigestion Albuterol/Ipratropium (Duoneb) 3 ml NEB [id number] PRN PRN Reason: SOB &/or Wheezing Last Admin: 01/09/18 18:45 Dose: 3 ml Lipase/Protease/Amylase ([place] [id number]) 1 cap FS .PER PROTOCOL PRN PRN Reason: TUBE OCCLUSION PROTOCOL Artificial Tears (Tears Naturale) 0 drop EA EYE PRN PRN PRN Reason: Dry Eyes Dextrose/Water (Dextrose 50%) 25 gm SLOW IVP PRN PRN PRN Reason: Hypoglycemia Famotidine (Pepcid) 20 mg SLOW IVP DAILY [facility] Last Admin: 01/10/18 08:20 Dose: 20 mg Fluconazole (Diflucan) 100 mg PO DAILY [facility] Stop: 01/13/18 10:00 Last Admin: 01/10/18 08:20 Dose: 100 mg Furosemide (Lasix) 40 mg SLOW IVP 0600,1400 [facility] Glucagon (Glucagon) 1 mg IM PRN PRN PRN Reason: Hypoglycemia Dextrose/Water (D5w) 1,000 mls @ 0 mls/hr IV .Q0M PRN PRN Reason: Hypoglycemia Fentanyl Citrate 2,000 mcg/ (Sodium Chloride) 100 mls @ 0 mls/hr IV INF [facility]ILMER; Protocol Stop: 02/03/18 16:02 Fentanyl Citrate (Fentanyl Bolus) 250 mls @ 0 mls/hr IVPB PRN PRN PRN Reason: Breakthrough pain/agitation Stop: 02/03/18 16:02 Meropenem 500 mg/ Sodium (Chloride) 100 mls @ 200 mls/hr IVPB 0400,1600 [facility] Last Admin: 01/10/18 04:59 Dose: 100 mls Dextrose/Water (D5w) 1,000 mls @ 30 mls/hr IV .Q24H [facility] Last Admin: 01/10/18 12:27 Dose: 1,000 mls Insulin Human Lispro (Humalog) 0 units SC .MODERATE SLIDING SC PRN PRN Reason: Moderate Correctional Scale Last Admin: 01/06/18 00:14 Dose: 2 unit Insulin Human Lispro (Humalog) 0 units SC .BEDTIME SLIDING SC PRN PRN Reason: Bedtime Correctional Scale Loperamide HCl (Imodium) 2 mg PO PRN PRN PRN Reason: Diarrhea/Loose Stools Loratadine (Claritin) 10 mg PO DAILYPRN PRN PRN Reason: Sinus Symptoms Magnesium Hydroxide (Milk Of Magnesium) 30 ml PO DAILYPRN PRN PRN Reason: Constipation Mineral Oil/White Petrolatum (Eucerin Cream) 0 gm TOP BIDPRN PRN PRN Reason: Dry Skin Miscellaneous Medication (Pharmacy To Dose) 1 each IVPB PRN PRN PRN Reason: Pharmacy to dose Ondansetron HCl (Zofran Odt) 4 mg PO Q6H PRN PRN Reason: Nausea/Vomiting Ondansetron HCl (Zofran) 4 mg IVP Q6H PRN PRN Reason: Nausea/Vomiting Phenol (Chloraseptic [place] 180 Ml Bot) 0 ml PO PRN PRN PRN Reason: Sore Throat Propofol (Diprivan) 1,000 mg IV INF PRN; Protocol PRN Reason: TO ACHIEVE GOAL RASS Stop: 02/03/18 16:02 Last Admin: 01/10/18 11:27 Dose: 1,000 mg Propofol (Diprivan Bolus) 20 mg IV Q5MIN PRN PRN Reason: BREAKTHROUGH AGITATION Stop: 02/03/18 16:02 Saccharomyces Boulardii (Florastor) 250 mg PO DAILY [facility] Last Admin: 01/10/18 08:20 Dose: 250 mg Senna (Senokot) 2 tab PO HSPRN PRN PRN Reason: Constipation Sevelamer Carbonate (Renvela) 1,600 mg PER TUBE [facility]ID-[facility] Last Admin: 01/10/18 11:27 Dose: 1,600 mg Sodium Bicarbonate (Bicarbonate, Sodium) 650 mg PER TUBE .PER PROTOCOL PRN PRN Reason: ENTERAL TUBE OCCLUSION Sodium Chloride ([place] Nasal [place] 0.65%) 0 ml EA NARE QIDPRN PRN PRN Reason: Nasal Congestion
--- NOTE | 2018-01-10 14:46 | PRG ---
DATE OF SERVICE: 01/07/2018 Mr. Lim is intubated. PHYSICAL EXAMINATION: VITAL SIGNS: His T-max is 98.4, blood pressure 114/58, pulse 84, respirations 31. Balance has been positive in the Is and O's. Urine output 520 mL out of Malik catheter. Orotracheal tube intubation. HEENT: Pupils are miotic. LUNGS: With coarse breath sounds. HEART: S1, S2, regular rate. ABDOMEN: Somewhat distended. EXTREMITIES: The right leg is uncovered and there is noticeable area of skin necrosis in a bandlike fashion extending from the dorsal aspect of the right foot all the way to the medial aspect of the region, right below the right knee. This area is cool to touch. It encompasses the previously elliptical incision that had been made by Dr. Farris. The incision appears to be necrotic , so this area seems to be an extensive area of skin necrosis, which appears to be full thickness surgical debridement. At this point, probably would be worthwhile to reconsult or call for repeat debridement of this area would be helpful. It looks like he would require debridement of this extensive area. LABORATORY DATA: White cell count is at 5.6, hemoglobin 10.7, platelets 30,000 , 58% neutrophils, 13% bands. Creatinine 6.6. The patient is undergoing hemodialysis. ASSESSMENT AND DESCRIPTION: Diabetes, chronic obstructive pulmonary disease, and congestive heart failure, liver cirrhosis associated with chronic hepatitis C, which has not been treated, chronic lower extremity edema with lymphedema, venous insufficiency, previous left lower extremity cellulitis, which was treated in the hospital for a protracted period of time with improvement and now with Serratia marcescens and cellulitis right side. I think there is no full-thickness skin necrosis. Patient with multiorgan dysfunction with respiratory failure and acute renal failure, currently continues on mechanical ventilation and is on broad-spectrum antimicrobial therapy to manage the gram negative caitie bacteremia. Patient had guarded to poor prognosis, he seems to be improving in terms of differential and white cell count, but still has this area of the extensiveness of skin necrosis that probably will require debridement. ALEJANDRINA
[2018-01-10] MEDS ORDERED: Bupivacaine/Epinephrine 0.25% 30 ML VIAL ONE (16:07)
[2018-01-10] MEDS ORDERED: Fentanyl 100 MCG/2 ML VIAL ONE (16:10)
[2018-01-10] MEDS ORDERED: Midazolam HCl 2 mg/2 ml Vial ONE ×2 (16:10→16:24)
--- NOTE | 2018-01-10 16:20 | PDOC.GSPN ---
Surgery Progress Note: Subj - Subjective Narrative: Called by WCT to see RLE; concern for necrotizing infection per Dr Weems. Deandre called yesterday but was in OR and couldn't see pt. Per WCT, leg looks worse today. When seen by Dr Farris Wednesday was reportedly erythematous, swollen and weeping but now has large areas of discoloration which appear consistent with full thickness necrosis. Erythema on inner thigh new since yesterday per WCT. No crepitance but pt w sepsis, MOSF, and necrotizing soft tissue process, needs emergent debridement in OR. Prognosis poor. Will eventually require Plastics consult for coverage if survives. Custodial contacted for consent; per RN report, no process in place for this so will get 2 MD consent. Platelets ordered. PT/PTT /INR normal in October, but repeat ordered; history of cirrhosis Surgery Progress Note: Obj - Vital signs Vital signs: Vital Signs - Most Recent Temp Pulse Resp BP Pulse Ox 99.0 F 109 H 34 H 102/45 L 98 01/10/18 16:00 01/10/18 14:44 01/10/18 16:00 01/10/18 14:44 01/10/18 07:11 Surgery Progress Note: Results - Labs Result Diagrams: 01/10/18 04:50 01/10/18 04:50 Lab results: Laboratory Results - last 24 hr 01/10/18 01/10/18 01/10/18 04:50 04:50 07:45 WBC 12.0 H RBC 3.36 L Hgb 10.4 L Hct 29.3 L MCV 87.1 MCH 30.8 MCHC 35.3 RDW 15.3 H Plt Count 47 L MPV 9.7 Neutrophils % (Manual) 50 Band Neuts % (Manual) 40 H Lymphocytes % (Manual) 6 L Monocytes % (Manual) 4 Plt Morphology Comment Appears Decreased L Specimen Type ARTERIAL Puncture Site RBRACH Bicarbonate Actual 19.3 L ABG pH 7.38 ABG pCO2 33.6 L ABG pO2 77.8 L ABG O2 Sat Calc/Rober 94.1 ABG O2 Content 16.7 L ABG Base Excess -5.0 L ABG Hematocrit 37.0 L ABG Hemoglobin 12.7 L ABG Oxyhemoglobin 93.3 L ABG Carboxyhemoglobin 0.5 ABG Methemoglobin 0.30 Moose Test POSITIVE A-a O2 Gradient 236.700 H Ionized Calcium 1.1 L Mode of Support SIMV Mechanical Rate 24 Inspired O2 50 Tidal Volume 500 Pressure Support 20 PEEP or CPAP 7.0 Sodium 136 133 L Potassium 4.2 4.1 Chloride 100 100 Carbon Dioxide 20 L Anion Gap 20 BUN 122 H Creatinine 5.14 H Estimated GFR (MDRD) 12 Glucose 119 H POC Glucose Calcium 8.2 01/10/18 01/10/18 11:54 15:35 WBC RBC Hgb Hct MCV MCH MCHC RDW Plt Count MPV Neutrophils % (Manual) Band Neuts % (Manual) Lymphocytes % (Manual) Monocytes % (Manual) Plt Morphology Comment Specimen Type Puncture Site Bicarbonate Actual ABG pH ABG pCO2 ABG pO2 ABG O2 Sat Calc/Rober ABG O2 Content ABG Base Excess ABG Hematocrit ABG Hemoglobin ABG Oxyhemoglobin ABG Carboxyhemoglobin ABG Methemoglobin Moose Test A-a O2 Gradient Ionized Calcium Mode of Support Mechanical Rate Inspired O2 Tidal Volume Pressure Support PEEP or CPAP Sodium Potassium Chloride Carbon Dioxide Anion Gap BUN Creatinine Estimated GFR (MDRD) Glucose POC Glucose 109 125 H Calcium
[2018-01-10 16:49] LABS: INR-International Normal Ratio 1.2; PTT 29.8 SEC (22.9-36.1); Prothrombin Time 15.5 SEC (12.0-14.7)
[2018-01-10] MEDS ORDERED: Rocuronium Bromide 50 MG/5 ML VIAL ONE (18:54)
--- NOTE | 2018-01-10 18:56 | PRG ---
DATE OF SERVICE: 01/10/2018 SUBJECTIVE: Mr. Lim is being taken to the OR today for I&D of the areas of necrotic skin of righ t lower extremity. OBJECTIVE: GENERAL: Still intubated and sedated. VITAL SIGNS: His T-max 100.1, BP 120/60, pulse 115. SKIN: Band-like areas of skin necrosis which appears to be full thickness. Plethoric facial skin. LUNGS: Coarse breath sounds. CARDIOVASCULAR: S1, S2, regular rate. ABDOMEN: Distended with question of ascites. LABORATORY DATA: The white cell count is up to 12,000, hemoglobin 10.4 and platelets 47,000 with 40% bands. Creatinine is 5.14, it peaked at 6.06 and microbiology with Serratia marcescens from leg and venous sample. ASSESSMENT AND DISCUSSION: Type 2 diabetes with chronic obstructive pulmonary disease and congestive heart failure, liver cirrhosis secondary to hepatitis C, untreated and recurrent cellulitis of lower extremities with recent admission for the left side and now with more severe infection secondary to Serratia marcescens on the right side with extensive areas of what appears to be full thickness necro sis, patient going for debridement, may end up requiring amputation of the extremity.
[2018-01-10] MEDS ORDERED: Albumin 5% 500 ML ONE (19:04)
--- NOTE | 2018-01-10 22:13 | PRG ---
DATE OF SERVICE: 01/10/2018 SUBJECTIVE: The patient was seen and examined, seems to be showing evidence of renal recovery. Note d with the following vital signs. OBJECTIVE: VITAL SIGNS: Afebrile with temperature 99, blood pressure 123/63. HEENT: Unremarkable. CARDIOVASCULAR SYSTEM: First and second heart sounds were heard. RESPIRATORY SYSTEM: Revealed vented sounds. DIGESTIVE SYSTEM: Revealed obese abdomen. EXTREMITIES: Showed weeping peripheral edema. NEUROLOGIC: The patient is sedated and intubated. LABORATORY INVESTIGATIONS: Showed a creatinine down to 5.14 with BUN of 122. IMPRESSION: 1. Acute tubular necrosis seems to be post-acute tubular necrosis diuretic phase. 2. Morbid obesity. 3. Sepsis. PLAN: 1. Plan will be very cautious with diuretic usage. Given the fact, the patient is more or less ____ _ diuretic phase of acute tubular necrosis. 2. Monitor the electrolytes and replete accordingly.
[2018-01-11] MEDS: Propofol 1,000 MG/100 ML VIAL IV PRN ×3 (01:08→17:01)
[2018-01-11 02:48] LABS: Actual Bicarbonate (HCO3a) 19.7 mEq/L (22-28); CO2 Tension 39.6 mmHg (35.0-45.0); pH, Arterial 7.32 (7.35-7.45)
[2018-01-11 02:49] LABS: Hemoglobin (Hb) 8.8 g/dL (14.0-18.0); Potassium - ABG Lab 4.6 mmol/L (3.70-5.30)
[2018-01-11 02:50] LABS: Puncture Site RRA
[2018-01-11] MEDS: Meropenem 500 MG in Sodium Chloride 0.9% 100 ML IVPB SCH ×2 (03:35→16:54)
[2018-01-11 04:10] LABS: Anion Gap 21 mmol/L (10-20); Calc. Creatinine Clearance 47 mL/min (70-130); Carbon Dioxide 20 mmol/L (22-29); Chloride 101 mmol/L (98-107); Estimated GFR-MDRD 13; Glucose 136 mg/dL (70-105); Potassium 4.7 mmol/L (3.5-5.1); Sodium 137 mmol/L (136-145)
[2018-01-11 04:22] LABS: BUN (Urea Nitrogen) 119 mg/dL (8.4-25.7)
[2018-01-11 04:51] LABS: Band 20 % (5-11); Hemoglobin 8.4 g/dL (14.0-18.0); Hypochromia SLIGHT = 6-15 cells (100X) (0-5/hpf); Lymphocytes 4 % (21-51); MDiff Complete? YES; Mean Corpuscular Hemoglobin 30.8 pg (27.0-31.0); Mean Platelet Volume 9.7 fL (7.4-10.4); Monocytes 8 % (0-10); Neutrophil 68 % (42-75); PLT Morphology Comment Appears Decreased; Platelet Count 73 thou/uL (130-400); RBC Distribution Width 15.2 % (11.5-14.5); Red Blood Cell (RBC) Count 2.72 mill/uL (4.70-6.10); White Blood Cell (WBC) Count 16.5 thou/uL (4.8-10.8)
[2018-01-11] MEDS: Furosemide 40 MG/4 ML VIAL SLOW IVP SCH ×2 (05:51→14:23)
[2018-01-11] MEDS: Fluconazole 100 MG TAB PO SCH (07:34)
[2018-01-11] MEDS: Sevelamer Carbonate 800 MG TAB PER TUBE SCH ×3 (07:34→16:54)
[2018-01-11] MEDS: Saccharomyces boulardii 250 MG CAP PO SCH (07:34)
[2018-01-11] MEDS: Famotidine/PF 20 mg/2ml Vial SLOW IVP SCH (07:34)
[2018-01-11] MEDS ORDERED: Sodium Chloride 0.9% 15 ML NEB ONE (07:48)
--- NOTE | 2018-01-11 10:44 | PRG ---
DATE OF SERVICE: 01/11/2018 SERVICE: Pulmonary Medicine. INTERVAL HISTORY: There were no overnight events. INTERVAL HISTORY: The patient cannot provide any additional elements of the history. He is currentl y intubated and sedated. His oxygen requirements are continued to improve. There has been no interv al change to his condition. PHYSICAL EXAMINATION: VITAL SIGNS: Afebrile currently with a T-max of 100.1 overnight, pulse 97, blood pressure 96/35, res pirations 30, saturation 100% on 41% FIO2 and a PEEP of 5. GENERAL: Patient is intubated and sedated. HEENT: Normocephalic, atraumatic. Sclerae are white, conjunctivae pink. Oral and nasal mucosa is m oist without lesions. LUNGS: Decent air entry. There are crackles present. No prolonged expiratory phase or wheezing is appreciated. HEART: Normal rate, regular. ABDOMEN: Soft, nontender, nondistended. Bowel sounds are positive. MUSCULOSKELETAL: No cyanosis or clubbing. There is diffuse 2+ pitting throughout. The right lower extremity is wrapped. LABORATORY DATA: WBC 16.5, hemoglobin 8.4, platelets 73,000. Band count is actually improving to 20 %. INR 1.2. PH of 7.32, pCO2 of 39, pO2 of 76. Creatinine 4.59 and down trending, BUN 119, also im proving. Sodium 137, bicarbonate 20, anion gap 21. All culture results from the surgical procedure are negative to date. Serratia marcescens is growing out of the right leg, and two blood cultures. ASSESSMENT: 1. Acute hypoxic respiratory failure secondary to volume overload. 2. Septic shock, improving. 3. Cellulitis secondary to Serratia, status post debridement. 4. Bacteremia secondary to Serratia. 5. Morbid obesity. 6. Acute kidney injury on chronic kidney disease 3, improving. DISCUSSION AND PLAN: We will continue to gently diurese the patient twice daily. Our goal is to con tinue to get him 1-2 liters negative over the next 24 hours. Oxygen requirements remain elevated. I n 24-48 hours, hopefully we will be talking about extubating the patient. We will repeat a spontaneo us breathing trial today. Hopefully, he will be able to go longer on this trial. Pulmonary will con thompson to follow. CRITICAL CARE TIME: 30 minutes.
--- NOTE | 2018-01-11 11:41 | PDOC.PN ---
- Subjective Encounter Start Date: 01/11/18 Encounter Start Time: 10:30 Patient seen and examined. No overnight events, yesterday pt underwent surgical debridement procedure for suspected necrotizing infection - Objective Resuscitation Status: Resuscitation Status FULL:Full Resuscitation MAR Reviewed: Yes Vital Signs & Weight: Vital Signs (12 hours) Temp Pulse Resp BP 01/11/18 11:12 108 H 114/53 L 01/11/18 07:38 102 H 98/35 L 01/11/18 06:00 18 01/11/18 05:00 98.2 F 01/11/18 04:00 21 H 01/11/18 03:28 85 104/43 L 01/11/18 02:00 21 H 01/11/18 01:00 98.0 F 01/11/18 00:00 21 H Weight Admit Weight 382 lb Weight 404 lb 5.244 oz Most Recent Monitor Data Heart Rate from ECG 97 NIBP 96/35 NIBP BP-Mean 47 Respiration from ECG 30 SpO2 100 I&O: 01/10/18 01/11/18 01/12/18 06:59 06:59 06:59 Intake Total 1774 1860 Output Total 2155 2565 Balance -381 -425 Result Diagrams: 01/11/18 03:35 01/11/18 03:35 Additional Labs: Accuchecks 01/11/18 01/11/18 01/10/18 08:57 03:43 21:51 POC Glucose 132 H 142 H 135 H 01/10/18 01/10/18 01/10/18 15:35 11:54 04:48 POC Glucose 125 H 109 122 H EKG Reviewed by me: Yes (nsr) Phys Exam - Physical Examination Constitutional: NAD intubated HEENT: PERRLA, sclera anicteric Neck: no JVD, supple Respiratory: no wheezing, no rales, no rhonchi Cardiovascular: RRR, no significant murmur, no rub Gastrointestinal: soft, no distention, positive bowel sounds obesity+ right leg is covered with dressing Skin: no rash, normal turgor Dx/Plan (1) Acute respiratory failure with hypoxia and hypercarbia Code(s): J96.01 - ACUTE RESPIRATORY FAILURE WITH HYPOXIA; J96.02 - ACUTE RESPIRATORY FAILURE WITH HYPERCAPNIA Status: Acute (2) Bacterial infection due to Serratia Code(s): A49.8 - OTHER BACTERIAL INFECTIONS OF UNSPECIFIED SITE Status: Acute (3) Acute metabolic encephalopathy Code(s): G93.41 - METABOLIC ENCEPHALOPATHY Status: Acute (4) Acute kidney failure Status: Acute Comment: creatinine is getting worse (5) Demand ischemia of myocardium Code(s): I24.8 - OTHER FORMS OF ACUTE ISCHEMIC HEART DISEASE Status: Acute Comment: due to sepsis (6) Lactic acidosis Code(s): E87.2 - ACIDOSIS Status: Acute (7) Sepsis associated hypotension Code(s): A41.9 - SEPSIS, UNSPECIFIED ORGANISM; I95.9 - HYPOTENSION, UNSPECIFIED Status: Acute Comment: on levophed and vasopressin (8) Sepsis due to cellulitis Code(s): L03.90 - CELLULITIS, UNSPECIFIED; A41.9 - SEPSIS, UNSPECIFIED ORGANISM Status: Acute Comment: Severe (9) Sepsis with acute organ dysfunction Code(s): A41.9 - SEPSIS, UNSPECIFIED ORGANISM; R65.20 - SEVERE SEPSIS WITHOUT SEPTIC SHOCK Status: Acute (10) Anemia, normocytic normochromic Code(s): D64.9 - ANEMIA, UNSPECIFIED Status: Chronic (11) COPD (chronic obstructive pulmonary disease) Status: Chronic Comment: stable, continue respiratory therapy (12) Chronic hepatitis C with cirrhosis Code(s): B18.2 - CHRONIC VIRAL HEPATITIS C; K74.60 - UNSPECIFIED CIRRHOSIS OF LIVER Status: Chronic (13) GERD (gastroesophageal reflux disease) Code(s): K21.9 - GASTRO-ESOPHAGEAL REFLUX DISEASE WITHOUT ESOPHAGITIS Status: Chronic (14) HTN (hypertension) Code(s): I10 - ESSENTIAL (PRIMARY) HYPERTENSION Status: Chronic (15) Morbid obesity due to excess calories Code(s): E66.01 - MORBID (SEVERE) OBESITY DUE TO EXCESS CALORIES Status: Chronic (16) JENNY (obstructive sleep apnea) Code(s): G47.33 - OBSTRUCTIVE SLEEP APNEA (ADULT) (PEDIATRIC) Status: Chronic (17) T2DM (type 2 diabetes mellitus) Status: Chronic (18) Thrombocytopenia Code(s): D69.6 - THROMBOCYTOPENIA, UNSPECIFIED Status: Chronic (19) Hyperphosphatemia Code(s): E83.39 - OTHER DISORDERS OF PHOSPHORUS METABOLISM Status: Acute (20) Hypocalcemia Code(s): E83.51 - HYPOCALCEMIA Status: Acute - Plan cont current plan of care, continue antibiotics, respiratory therapy * bandemia reduced, wbc count is still high * on meropenam * s/p surgical debridement, continue wound care * vent as per pulmonary * renal function continue to improve * medication reviewed as below * symptomatic treatment. Review of Systems - Review of Systems Other: unable to review due to intubated status - Medications/Allergies Allergies/Adverse Reactions: Allergies Allergy/AdvReac Type Severity Reaction Status Date / Time Penicillins Allergy Verified 11/19/17 18:41 Medications: Current Medications Acetaminophen (Tylenol) 650 mg PO Q4H PRN PRN Reason: Headache/Fever or Pain Al Hydroxide/Mg Hydroxide (Maalox) 30 ml PO Q6H PRN PRN Reason: Heartburn or Indigestion Albuterol/Ipratropium (Duoneb) 3 ml NEB [id number] PRN PRN Reason: SOB &/or Wheezing Last Admin: 01/09/18 18:45 Dose: 3 ml Lipase/Protease/Amylase ([place] [id number]) 1 cap FS .PER PROTOCOL PRN PRN Reason: TUBE OCCLUSION PROTOCOL Artificial Tears (Tears Naturale) 0 drop EA EYE PRN PRN PRN Reason: Dry Eyes Dextrose/Water (Dextrose 50%) 25 gm SLOW IVP PRN PRN PRN Reason: Hypoglycemia Famotidine (Pepcid) 20 mg SLOW IVP DAILY [facility] Last Admin: 01/11/18 07:34 Dose: 20 mg Fluconazole (Diflucan) 100 mg PO DAILY [facility] Stop: 01/13/18 10:00 Last Admin: 01/11/18 07:34 Dose: 100 mg Furosemide (Lasix) 40 mg SLOW IVP 0600,1400 [facility] Last Admin: 01/11/18 05:51 Dose: 40 mg Glucagon (Glucagon) 1 mg IM PRN PRN PRN Reason: Hypoglycemia Dextrose/Water (D5w) 1,000 mls @ 0 mls/hr IV .Q0M PRN PRN Reason: Hypoglycemia Fentanyl Citrate 2,000 mcg/ (Sodium Chloride) 100 mls @ 0 mls/hr IV INF [facility]; Protocol Stop: 02/03/18 16:02 Fentanyl Citrate (Fentanyl Bolus) 250 mls @ 0 mls/hr IVPB PRN PRN PRN Reason: Breakthrough pain/agitation Stop: 02/03/18 16:02 Meropenem 500 mg/ Sodium (Chloride) 100 mls @ 200 mls/hr IVPB 0400,1600 [facility] Last Admin: 01/11/18 03:35 Dose: 100 mls Dextrose/Water (D5w) 1,000 mls @ 30 mls/hr IV .Q24H [facility] Last Admin: 01/10/18 12:27 Dose: 1,000 mls Insulin Human Lispro (Humalog) 0 units SC .MODERATE SLIDING SC PRN PRN Reason: Moderate Correctional Scale Last Admin: 01/06/18 00:14 Dose: 2 unit Insulin Human Lispro (Humalog) 0 units SC .BEDTIME SLIDING SC PRN PRN Reason: Bedtime Correctional Scale Loperamide HCl (Imodium) 2 mg PO PRN PRN PRN Reason: Diarrhea/Loose Stools Loratadine (Claritin) 10 mg PO DAILYPRN PRN PRN Reason: Sinus Symptoms Magnesium Hydroxide (Milk Of Magnesium) 30 ml PO DAILYPRN PRN PRN Reason: Constipation Mineral Oil/White Petrolatum (Eucerin Cream) 0 gm TOP BIDPRN PRN PRN Reason: Dry Skin Miscellaneous Medication (Pharmacy To Dose) 1 each IVPB PRN PRN PRN Reason: Pharmacy to dose Ondansetron HCl (Zofran Odt) 4 mg PO Q6H PRN PRN Reason: Nausea/Vomiting Ondansetron HCl (Zofran) 4 mg IVP Q6H PRN PRN Reason: Nausea/Vomiting Phenol (Chloraseptic [place] 180 Ml Bot) 0 ml PO PRN PRN PRN Reason: Sore Throat Propofol (Diprivan) 1,000 mg IV INF PRN; Protocol PRN Reason: TO ACHIEVE GOAL RASS Stop: 02/03/18 16:02 Last Admin: 01/11/18 07:33 Dose: 1,000 mg Propofol (Diprivan Bolus) 20 mg IV Q5MIN PRN PRN Reason: BREAKTHROUGH AGITATION Stop: 02/03/18 16:02 Saccharomyces Boulardii (Florastor) 250 mg PO DAILY [facility] Last Admin: 01/11/18 07:34 Dose: 250 mg Senna (Senokot) 2 tab PO HSPRN PRN PRN Reason: Constipation Sevelamer Carbonate (Renvela) 1,600 mg PER TUBE TID-[facility] Last Admin: 08/14/18 07:34 Dose: 1,600 mg Sodium Bicarbonate (Bicarbonate, Sodium) 650 mg PER TUBE .PER PROTOCOL PRN PRN Reason: ENTERAL TUBE OCCLUSION Sodium Chloride ([place] Nasal [place] 0.65%) 0 ml EA NARE QIDPRN PRN PRN Reason: Nasal Congestion
[2018-01-11] MEDS: Dextrose 5% in Water 1,000 ML IV SCH (13:53)
[2018-01-11] MEDS ORDERED: Epoetin (ESRD) 10,000 UNITS/ML VIAL SC SCH (20:00)
--- NOTE | 2018-01-11 20:01 | PRG ---
DATE OF SERVICE: 01/11/2018 The patient was seen and examined, seems to be improving from the renal standpoint. PHYSICAL EXAMINATION: VITAL SIGNS: Pulse 95, blood pressure 106/53, respiratory rate of 25, O2 saturation 98%. HEENT: Remarkable for endotracheal tube in place. CARDIOVASCULAR: First and second heart sounds were heard. RESPIRATORY: Revealed vented sounds. ABDOMEN: Digestive system revealed an obese abdomen. EXTREMITIES: Extremity showed improving peripheral edema. LABORATORY INVESTIGATION: Showed a white count of 16,500 with hemoglobin of 8.4. Chemistry showed a creatinine down to 4.59 with BUN of 119. IMPRESSION: 1. Acute tubular necrosis, diuretic phase noted. 2. Morbid obesity. 3. Sepsis. PLAN: 1. We will continue renal supportive measures and avoid potentially nephrotoxic agents. 2. No indication for renal replacement therapy. 3. Monitor the electrolytes closely, especially in this disease of post-ATN diuresis and also be car eful with the use of diuretic medications. 4. We will administer erythropoiesis stimulating agent to address the anemia creeping in this patien t.
[2018-01-12 05:30] LABS: #Basophils 0.1 thou/uL (0.0-0.2); #Lymphocytes 0.5 thou/uL (1.20-3.40); #Monocytes 0.3 thou/uL (0.11-0.59); #Neutrophils 10.3 thou/uL (1.40-6.50); %Basophils 1.1 % (0.0-1.0); %Eosinophils 0.4 % (0.0-10.0); %Lymphocytes 4.6 % (21.0-51.0); %Monocytes 2.7 % (0.0-10.0); %Neutrophils 91.2 % (42.0-75.0); Hemoglobin 8.6 g/dL (14.0-18.0); Mean Corpuscular HGB CONC 33.9 g/dL (32.0-36.0); Mean Corpuscular Hemoglobin 30.2 pg (27.0-31.0); Mean Corpuscular Volume 89.1 fL (78.0-98.0); Mean Platelet Volume 9.7 fL (7.4-10.4); Platelet Count 90 thou/uL (130-400); RBC Distribution Width 15.2 % (11.5-14.5); Red Blood Cell (RBC) Count 2.83 mill/uL (4.70-6.10); White Blood Cell (WBC) Count 11.3 thou/uL (4.8-10.8)
[2018-01-12] MEDS: Meropenem 500 MG in Sodium Chloride 0.9% 100 ML IVPB SCH ×2 (05:32→16:08)
[2018-01-12] MEDS: Furosemide 40 MG/4 ML VIAL SLOW IVP SCH (05:37)
[2018-01-12 05:54] LABS: Anion Gap 17 mmol/L (10-20); BUN (Urea Nitrogen) 120 mg/dL (8.4-25.7); Calc. Creatinine Clearance 74 mL/min (70-130); Calcium 8.1 mg/dL (7.8-10.44); Carbon Dioxide 25 mmol/L (22-29); Chloride 102 mmol/L (98-107); Estimated GFR-MDRD 22; Glucose 117 mg/dL (70-105); Sodium 140 mmol/L (136-145)
[2018-01-12] MEDS: Sevelamer Carbonate 800 MG TAB PER TUBE SCH ×3 (08:19→16:08)
[2018-01-12] MEDS: Fluconazole 100 MG TAB PO SCH (08:19)
[2018-01-12] MEDS: Saccharomyces boulardii 250 MG CAP PO SCH (08:20)
[2018-01-12] MEDS: Famotidine/PF 20 mg/2ml Vial SLOW IVP SCH (08:29)
--- NOTE | 2018-01-12 10:35 | PRG ---
DATE OF SERVICE: 01/12/2018 SERVICE: Pulmonary Medicine. INTERVAL HISTORY: The patient is doing fine from a cardiovascular and respiratory standpoint. They are going down for debridement today of the leg. This is going to be possible amputation. Otherwise, there has been no interval change to his condition. His oxygen requirements are way down. His work of breathing is actually much improved. Otherwise, there has been no interval change to his condition. PHYSICAL EXAMINATION: VITAL SIGNS: Afebrile, pulse 90, blood pressure 145/64, respirations 35, saturation 96% on 29% FiO2 and a PEEP of 5. GENERAL: Patient is intubated and sedated. HEENT: Normocephalic, atraumatic. Sclerae are white, conjunctivae pink. Oral and nasal mucosa is moist without lesions. LUNGS: Decent air entry. There is no prolonged expiratory phase. No wheezing , rhonchi, or crackles are appreciated. HEART: Normal rate, regular. ABDOMEN: Soft, nontender, nondistended. Bowel sounds are positive. MUSCULOSKELETAL: No cyanosis or clubbing. There is 1+ pitting throughout. This is much improved. GENITOURINARY: Malik catheter in place. NEUROLOGIC: Grossly nonfocal. LABORATORY DATA: WBC 11.3, hemoglobin 8.6 and roughly stable, platelets 90,000 and improving. INR 1.2. Creatinine 2.93 and down trending, BUN remains elevated at 120. Sodium 140, chloride 102. All culture results remain negative to date outside of the original things that were growing Serratia in the blood. ASSESSMENT: 1. Acute hypoxic respiratory failure secondary to volume overload. 2. Septic shock, improving. 3. Cellulitis secondary to serratia, status post debridement. 4. Bacteremia secondary to serratia. 5. Morbid obesity. 6. Acute kidney injury on chronic kidney disease stage 3, resolving. DISCUSSION AND PLAN: We will back off on the diuretic to once daily. I will continue our free water over the next 24 hours. I will actually increase the rate ever so slightly to 75 mL per hour. Pulmonary and Critical Care will continue to follow along in this location. He is going back down for surgery today, but afterwards, we will put him on a CPAP trial to see whether or not he may be able to tolerate extubation. Critical care time: 30 minutes. [facility]ENTERGina
[2018-01-12] MEDS ORDERED: Midazolam HCl 2 mg/2 ml Vial ONE (11:17)
[2018-01-12] MEDS ORDERED: Fentanyl 250 MCG/5 ML VIAL ONE (11:17)
[2018-01-12] MEDS ORDERED: Norepinephrine 8 MG/0.9% NS 0 ML ONE (11:17)
[2018-01-12] MEDS ORDERED: Ketamine 50 MG/ML VIAL ONE (11:17)
[2018-01-12] MEDS ORDERED: Norepinephrine 4 MG/4 ML VIAL ONE (11:17)
[2018-01-12] MEDS ORDERED: Bupivacaine/Epinephrine 0.25% 30 ML VIAL ONE (11:19)
--- NOTE | 2018-01-12 11:28 | PDOC.PN ---
- Subjective Encounter Start Date: 01/12/18 Encounter Start Time: 10:15 pt is on ventilator - Objective Resuscitation Status: Resuscitation Status FULL:Full Resuscitation MAR Reviewed: Yes Vital Signs & Weight: Vital Signs (12 hours) Temp Pulse Resp BP Pulse Ox 01/12/18 10:07 90 145/64 H 01/12/18 10:00 20 01/12/18 07:52 15 01/12/18 07:28 80 135/60 01/12/18 07:27 98.2 F 76 15 98 01/12/18 07:00 98.2 F 01/12/18 06:00 25 H 01/12/18 04:00 98.2 F 25 H 01/12/18 02:18 101 H 153/64 H 01/12/18 02:00 25 H 01/12/18 00:00 98.8 F 25 H Weight Admit Weight 382 lb Weight 384 lb 7.779 oz Most Recent Monitor Data Heart Rate from ECG 94 NIBP 139/59 NIBP BP-Mean 78 Respiration from ECG 28 SpO2 95 I&O: 01/11/18 01/12/18 01/13/18 06:59 06:59 06:59 Intake Total 1860 1668.8 Output Total 2565 5960 1425 [facility]705 -4291.2 -1425 Result Diagrams: 01/12/18 05:20 01/12/18 05:20 EKG Reviewed by me: Yes (nsr) Phys Exam - Physical Examination Constitutional: NAD on ventilator HEENT: PERRLA, sclera anicteric Neck: no JVD, supple Respiratory: no wheezing, no rales, no rhonchi Cardiovascular: RRR, no significant murmur, no rub Gastrointestinal: soft, non-tender, no distention, positive bowel sounds morbid obesity+ right leg with dressing Dx/Plan (1) Acute respiratory failure with hypoxia and hypercarbia Code(s): J96.01 - ACUTE RESPIRATORY FAILURE WITH HYPOXIA; J96.02 - ACUTE RESPIRATORY FAILURE WITH HYPERCAPNIA Status: Acute (2) Bacterial infection due to Serratia Code(s): A49.8 - OTHER BACTERIAL INFECTIONS OF UNSPECIFIED SITE Status: Acute (3) Acute metabolic encephalopathy Code(s): G93.41 - METABOLIC ENCEPHALOPATHY Status: Acute (4) Acute kidney failure Status: Acute Comment: creatinine is getting worse (5) Demand ischemia of myocardium Code(s): I24.8 - OTHER FORMS OF ACUTE ISCHEMIC HEART DISEASE Status: Acute Comment: due to sepsis (6) Lactic acidosis Code(s): E87.2 - ACIDOSIS Status: Acute (7) Sepsis associated hypotension Code(s): A41.9 - SEPSIS, UNSPECIFIED ORGANISM; I95.9 - HYPOTENSION, UNSPECIFIED Status: Acute Comment: on levophed and vasopressin (8) Sepsis due to cellulitis Code(s): L03.90 - CELLULITIS, UNSPECIFIED; A41.9 - SEPSIS, UNSPECIFIED ORGANISM Status: Acute Comment: Severe (9) Sepsis with acute organ dysfunction Code(s): A41.9 - SEPSIS, UNSPECIFIED ORGANISM; R65.20 - SEVERE SEPSIS WITHOUT SEPTIC SHOCK Status: Acute (10) Anemia, normocytic normochromic Code(s): D64.9 - ANEMIA, UNSPECIFIED Status: Chronic (11) COPD (chronic obstructive pulmonary disease) Status: Chronic Comment: stable, continue respiratory therapy (12) Chronic hepatitis C with cirrhosis Code(s): B18.2 - CHRONIC VIRAL HEPATITIS C; K74.60 - UNSPECIFIED CIRRHOSIS OF LIVER Status: Chronic (13) GERD (gastroesophageal reflux disease) Code(s): K21.9 - GASTRO-ESOPHAGEAL REFLUX DISEASE WITHOUT ESOPHAGITIS Status: Chronic (14) HTN (hypertension) Code(s): I10 - ESSENTIAL (PRIMARY) HYPERTENSION Status: Chronic (15) Morbid obesity due to excess calories Code(s): E66.01 - MORBID (SEVERE) OBESITY DUE TO EXCESS CALORIES Status: Chronic (16) JENNY (obstructive sleep apnea) Code(s): G47.33 - OBSTRUCTIVE SLEEP APNEA (ADULT) (PEDIATRIC) Status: Chronic (17) T2DM (type 2 diabetes mellitus) Status: Chronic (18) Thrombocytopenia Code(s): D69.6 - THROMBOCYTOPENIA, UNSPECIFIED Status: Chronic (19) Hyperphosphatemia Code(s): E83.39 - OTHER DISORDERS OF PHOSPHORUS METABOLISM Status: Acute (20) Hypocalcemia Code(s): E83.51 - HYPOCALCEMIA Status: Acute - Plan cont current plan of care, continue antibiotics, respiratory therapy * today pt is planned for another surgery for possible I & D * continue meropenam * renal function improving * vent as per pulmonary * medication reviewed as below * symptomatic treatment. Review of Systems - Review of Systems Other: unable to review due to intubated status - Medications/Allergies Allergies/Adverse Reactions: Allergies Allergy/AdvReac Type Severity Reaction Status Date / Time Penicillins Allergy Verified 11/19/17 18:41 Medications: Current Medications Acetaminophen (Tylenol) 650 mg PO Q4H PRN PRN Reason: Headache/Fever or Pain Al Hydroxide/Mg Hydroxide (Maalox) 30 ml PO Q6H PRN PRN Reason: Heartburn or Indigestion Albuterol/Ipratropium (Duoneb) 3 ml NEB [id number] PRN PRN Reason: SOB &/or Wheezing Last Admin: 01/09/18 18:45 Dose: 3 ml Lipase/Protease/[place]ylase ([place] [id number]) 1 cap FS .PER PROTOCOL PRN PRN Reason: TUBE OCCLUSION PROTOCOL Artificial Tears (Tears Naturale) 0 drop EA EYE PRN PRN PRN Reason: Dry Eyes Dextrose/Water (Dextrose 50%) 25 gm SLOW IVP PRN PRN PRN Reason: Hypoglycemia Epoetin Dev (Procrit) 10,000 units SC Q7D [facility] Last Admin: 01/11/18 22:24 Dose: 10,000 units Famotidine (Pepcid) 20 mg SLOW IVP DAILY [facility] Last Admin: 01/12/18 08:29 Dose: 20 mg Fluconazole (Diflucan) 100 mg PO DAILY [facility] Stop: 01/13/18 10:00 Last Admin: 01/12/18 08:19 Dose: Not Given Furosemide (Lasix) 40 mg SLOW IVP 0600 [facility] Glucagon (Glucagon) 1 mg IM PRN PRN PRN Reason: Hypoglycemia Dextrose/Water (D5w) 1,000 mls @ 0 mls/hr IV .Q0M PRN PRN Reason: Hypoglycemia Fentanyl Citrate 2,000 mcg/ (Sodium Chloride) 100 mls @ 0 mls/hr IV INF [facility]; Protocol Stop: 02/03/18 16:02 Fentanyl Citrate (Fentanyl Bolus) 250 mls @ 0 mls/hr IVPB PRN PRN PRN Reason: Breakthrough pain/agitation Stop: 02/03/18 16:02 Meropenem 500 mg/ Sodium (Chloride) 100 mls @ 200 mls/hr IVPB 0400,1600 [facility] Last Admin: 01/12/18 05:32 Dose: 100 mls Dextrose/Water (D5w) 1,000 mls @ 70 mls/hr IV .[id number] [facility] Insulin Human Lispro (Humalog) 0 units SC .MODERATE SLIDING SC PRN PRN Reason: Moderate Correctional Scale Last Admin: 01/06/18 00:14 Dose: 2 unit Insulin Human Lispro (Humalog) 0 units SC .BEDTIME SLIDING SC PRN PRN Reason: Bedtime Correctional Scale Loperamide HCl (Imodium) 2 mg PO PRN PRN PRN Reason: Diarrhea/Loose Stools Loratadine (Claritin) 10 mg PO DAILYPRN PRN PRN Reason: Sinus Symptoms Magnesium Hydroxide (Milk Of Magnesium) 30 ml PO DAILYPRN PRN PRN Reason: Constipation Mineral Oil/White Petrolatum (Eucerin Cream) 0 gm TOP BIDPRN PRN PRN Reason: Dry Skin Miscellaneous Medication (Pharmacy To Dose) 1 each IVPB PRN PRN PRN Reason: Pharmacy to dose Ondansetron HCl (Zofran Odt) 4 mg PO Q6H PRN PRN Reason: Nausea/Vomiting Ondansetron HCl (Zofran) 4 mg IVP Q6H PRN PRN Reason: Nausea/Vomiting Phenol (Chloraseptic [place] 180 Ml Bot) 0 ml PO PRN PRN PRN Reason: Sore Throat Propofol (Diprivan) 1,000 mg IV INF PRN; Protocol PRN Reason: TO ACHIEVE GOAL RASS Stop: 02/03/18 16:02 Last Admin: 01/11/18 17:01 Dose: 1,000 mg Propofol (Diprivan Bolus) 20 mg IV Q5MIN PRN PRN Reason: BREAKTHROUGH AGITATION Stop: 02/03/18 16:02 Saccharomyces Boulardii (Florastor) 250 mg PO DAILY [facility] Last Admin: 01/12/18 08:20 Dose: Not Given Senna (Senokot) 2 tab PO HSPRN PRN PRN Reason: Constipation Sevelamer Carbonate (Renvela) 1,600 mg PER TUBE [facility] Last Admin: 01/12/18 08:19 Dose: Not Given Sodium Bicarbonate (Bicarbonate, Sodium) 650 mg PER TUBE .PER PROTOCOL PRN PRN Reason: ENTERAL TUBE OCCLUSION Sodium Chloride ([place] Nasal [place] 0.65%) 0 ml EA NARE QIDPRN PRN PRN Reason: Nasal Congestion Sodium Chloride (Flush - Normal Saline) 10 ml IVF Q12HR [facility] Last Admin: 01/12/18 08:20 Dose: Not Given Sodium Chloride (Flush - Normal Saline) 10 ml IVF PRN PRN PRN Reason: Saline Flush
[2018-01-12] MEDS: Dextrose 5% in Water 1,000 ML IV SCH ×2 (11:54→14:24)
[2018-01-12] MEDS: Propofol 1,000 MG/100 ML VIAL IV PRN (14:24)
[2018-01-12] MEDS ORDERED: PROPOFOL 200 MG/20 ML VIAL ONE (14:29)
[2018-01-12] MEDS ORDERED: PHENYLEPHRINE-NS 100 MCG/ML 10 ML SYRINGE ONE ×2 (14:29→14:47)
[2018-01-12] MEDS ORDERED: Lidocaine 1% PF 5 ML VIAL ONE (14:29)
[2018-01-12] MEDS ORDERED: Ondansetron HCl/PF 4 MG/2 ML Vial ONE (14:47)
[2018-01-12] MEDS ORDERED: ePHEDrine/0.9% NaCl/PF SYRINGE 50 mg/10 ml ONE (14:47)
--- NOTE | 2018-01-12 19:50 | PRG ---
DATE OF SERVICE: 01/12/2018 The patient was seen and examined, seems to be doing much better renal swenson, noted with the following vital signs. PHYSICAL EXAMINATION: VITAL SIGNS: Blood pressure 127/60, pulse 76, respiratory rate of 19, O2 sat 96%. HEENT: Unremarkable except for endotracheal tube in place. CARDIOVASCULAR: First and second heart sounds were heard. RESPIRATORY: Reveals vented sounds. ABDOMEN: Digestive system revealed an obese abdomen. EXTREMITIES: Showed improving lower extremity edema. LABORATORY INVESTIGATIONS: Show a hemoglobin of 8.6. Chemistry showed a creatinine down to 2.93 wit h BUN of 120. IMPRESSION: 1. Acute tubular necrosis seems to be much improved. 2. Sepsis. 3. Morbid obesity. PLAN: 1. We will continue renal supportive measures. 2. Continue to avoid potentially nephrotoxic agents. 3. Renally dose all medications for low GFR. 4. Further management to be dependent on the clinical course.
[2018-01-13] MEDS: Propofol 1,000 MG/100 ML VIAL IV PRN (01:03)
[2018-01-13] MEDS: Meropenem 500 MG in Sodium Chloride 0.9% 100 ML IVPB SCH ×2 (03:54→16:03)
[2018-01-13 04:39] LABS: Anion Gap 14 mmol/L (10-20); BUN (Urea Nitrogen) 100 mg/dL (8.4-25.7); Calc. Creatinine Clearance 114 mL/min (70-130); Calcium 8.3 mg/dL (7.8-10.44); Carbon Dioxide 29 mmol/L (22-29); Chloride 104 mmol/L (98-107); Estimated GFR-MDRD 39; Glucose 163 mg/dL (70-105); Potassium 3.7 mmol/L (3.5-5.1); Sodium 143 mmol/L (136-145)
[2018-01-13] MEDS: Dextrose 5% in Water 1,000 ML IV SCH ×4 (04:48→20:26)
[2018-01-13 04:54] LABS: Band 25 % (5-11); Hemoglobin 8.9 g/dL (14.0-18.0); Lymphocytes 7 % (21-51); MDiff Complete? YES; Mean Corpuscular HGB CONC 34.8 g/dL (32.0-36.0); Mean Corpuscular Hemoglobin 30.8 pg (27.0-31.0); Mean Corpuscular Volume 88.6 fL (78.0-98.0); Mean Platelet Volume 9.3 fL (7.4-10.4); Monocytes 3 % (0-10); Neutrophil 65 % (42-75); PLT Morphology Comment Appears Decreased; Platelet Count 110 thou/uL (130-400); Red Blood Cell (RBC) Count 2.88 mill/uL (4.70-6.10); Toxic Granulation SLIGHT; White Blood Cell (WBC) Count 10.9 thou/uL (4.8-10.8)
[2018-01-13] MEDS ORDERED: Furosemide 40 MG/4 ML VIAL SLOW IVP SCH (06:00)
[2018-01-13] MEDS: Fluconazole 100 MG TAB PO SCH (09:14)
[2018-01-13] MEDS: Famotidine/PF 20 mg/2ml Vial SLOW IVP SCH (09:14)
[2018-01-13] MEDS: Sevelamer Carbonate 800 MG TAB PER TUBE SCH ×3 (09:14→16:03)
[2018-01-13] MEDS: Saccharomyces boulardii 250 MG CAP PO SCH (09:14)
--- NOTE | 2018-01-13 09:34 | PDOC.PN ---
- Subjective Encounter Start Date: 01/13/18 Encounter Start Time: 07:00 this morning pt is on ventilator, he had I & D of right leg performed and after that wound vac is applied his renal function is continue to improve - Objective Resuscitation Status: Resuscitation Status FULL:Full Resuscitation MAR Reviewed: Yes Vital Signs & Weight: Vital Signs (12 hours) Temp Pulse Resp BP Pulse Ox 01/13/18 08:00 20 01/13/18 07:19 98.0 F 75 16 95 01/13/18 07:00 98.0 F 01/13/18 06:12 73 142/57 H 01/13/18 06:00 15 01/13/18 04:00 97.8 F 18 01/13/18 02:49 87 01/13/18 02:00 01/13/18 00:00 98.7 F 20 01/12/18 22:41 78 01/12/18 22:00 18 Weight Admit Weight 382 lb Weight 383 lb 9.669 oz Most Recent Monitor Data Heart Rate from ECG 79 NIBP 141/46 NIBP BP-Mean 66 Respiration from ECG 30 SpO2 94 I&O: 01/12/18 01/13/18 01/14/18 06:59 06:59 06:59 Intake Total 1668.8 2379 30 Output Total 5960 4570 1050 [facility]4291.2 -2191 -1020 Result Diagrams: 01/13/18 04:05 01/13/18 04:05 EKG Reviewed by me: Yes (nsr) Phys Exam - Physical Examination Constitutional: NAD on ventilator HEENT: PERRLA, sclera anicteric Neck: no JVD, supple Respiratory: no wheezing, no rales, no rhonchi Cardiovascular: RRR, no significant murmur, no rub Gastrointestinal: soft, no distention, positive bowel sounds obesity+ right leg wound with wound vac Lymphatic: no nodes Dx/Plan (1) Acute respiratory failure with hypoxia and hypercarbia Code(s): J96.01 - ACUTE RESPIRATORY FAILURE WITH HYPOXIA; J96.02 - ACUTE RESPIRATORY FAILURE WITH HYPERCAPNIA Status: Acute (2) Bacterial infection due to Serratia Code(s): A49.8 - OTHER BACTERIAL INFECTIONS OF UNSPECIFIED SITE Status: Acute (3) Acute metabolic encephalopathy Code(s): G93.41 - METABOLIC ENCEPHALOPATHY Status: Acute (4) Acute kidney failure Status: Acute Comment: (5) Demand ischemia of myocardium Code(s): I24.8 - OTHER FORMS OF ACUTE ISCHEMIC HEART DISEASE Status: Acute Comment: due to sepsis (6) Lactic acidosis Code(s): E87.2 - ACIDOSIS Status: Resolved (7) Sepsis associated hypotension Code(s): A41.9 - SEPSIS, UNSPECIFIED ORGANISM; I95.9 - HYPOTENSION, UNSPECIFIED Status: Resolved Comment: (8) Sepsis due to cellulitis Code(s): L03.90 - CELLULITIS, UNSPECIFIED; A41.9 - SEPSIS, UNSPECIFIED ORGANISM Status: Acute Comment: Severe (9) Sepsis with acute organ dysfunction Code(s): A41.9 - SEPSIS, UNSPECIFIED ORGANISM; R65.20 - SEVERE SEPSIS WITHOUT SEPTIC SHOCK Status: Acute (10) Anemia, normocytic normochromic Code(s): D64.9 - ANEMIA, UNSPECIFIED Status: Chronic (11) COPD (chronic obstructive pulmonary disease) Status: Chronic Comment: (12) Chronic hepatitis C with cirrhosis Code(s): B18.2 - CHRONIC VIRAL HEPATITIS C; K74.60 - UNSPECIFIED CIRRHOSIS OF LIVER Status: Chronic (13) GERD (gastroesophageal reflux disease) Code(s): K21.9 - GASTRO-ESOPHAGEAL REFLUX DISEASE WITHOUT ESOPHAGITIS Status: Chronic (14) HTN (hypertension) Code(s): I10 - ESSENTIAL (PRIMARY) HYPERTENSION Status: Chronic (15) Morbid obesity due to excess calories Code(s): E66.01 - MORBID (SEVERE) OBESITY DUE TO EXCESS CALORIES Status: Chronic (16) JENNY (obstructive sleep apnea) Code(s): G47.33 - OBSTRUCTIVE SLEEP APNEA (ADULT) (PEDIATRIC) Status: Chronic (17) T2DM (type 2 diabetes mellitus) Status: Chronic (18) Thrombocytopenia Code(s): D69.6 - THROMBOCYTOPENIA, UNSPECIFIED Status: Chronic (19) Hyperphosphatemia Code(s): E83.39 - OTHER DISORDERS OF PHOSPHORUS METABOLISM Status: Acute (20) Hypocalcemia Code(s): E83.51 - HYPOCALCEMIA Status: Resolved - Plan 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 * given complicated wound, once he is stable, he will need to transfer to [facility] for further care * medication reviewed as below * symptomatic treatment. Review of Systems - Review of Systems Other: unable to review due to intubated status - Medications/Allergies Allergies/Adverse Reactions: Allergies Allergy/AdvReac Type Severity Reaction Status Date / Time Penicillins Allergy Verified 11/19/17 18:41 Medications: Current Medications Acetaminophen (Tylenol) 650 mg PO Q4H PRN PRN Reason: Headache/Fever or Pain Al Hydroxide/Mg Hydroxide (Maalox) 30 ml PO Q6H PRN PRN Reason: Heartburn or Indigestion Albuterol/Ipratropium (Duoneb) 3 ml NEB [id number] PRN PRN Reason: SOB &/or Wheezing Last Admin: 01/09/18 18:45 Dose: 3 ml Lipase/Protease/Amylase ([place] [id number]) 1 cap FS .PER PROTOCOL PRN PRN Reason: TUBE OCCLUSION PROTOCOL Artificial Tears (Tears Naturale) 0 drop EA EYE PRN PRN PRN Reason: Dry Eyes Dextrose/Water (Dextrose 50%) 25 gm SLOW IVP PRN PRN PRN Reason: Hypoglycemia Epoetin Dev (Procrit) 10,000 units SC Q7D [facility] Last Admin: 01/11/18 22:24 Dose: 10,000 units Famotidine (Pepcid) 20 mg SLOW IVP DAILY [facility] Last Admin: 01/13/18 09:14 Dose: 20 mg Fluconazole (Diflucan) 100 mg PO DAILY [facility] Stop: 01/13/18 10:00 Last Admin: 01/13/18 09:14 Dose: 100 mg Furosemide (Lasix) 40 mg SLOW IVP 0600 [facility] Last Admin: 01/13/18 06:01 Dose: 40 mg Glucagon (Glucagon) 1 mg IM PRN PRN PRN Reason: Hypoglycemia Dextrose/Water (D5w) 1,000 mls @ 0 mls/hr IV .Q0M PRN PRN Reason: Hypoglycemia Fentanyl Citrate 2,000 mcg/ (Sodium Chloride) 100 mls @ 0 mls/hr IV INF [facility]; Protocol Stop: 02/03/18 16:02 Fentanyl Citrate (Fentanyl Bolus) 250 mls @ 0 mls/hr IVPB PRN PRN PRN Reason: Breakthrough pain/agitation Stop: 02/03/18 16:02 Meropenem 500 mg/ Sodium (Chloride) 100 mls @ 200 mls/hr IVPB 0400,1600 [facility] Last Admin: 01/13/18 03:54 Dose: 100 mls Dextrose/Water (D5w) 1,000 mls @ 70 mls/hr IV .[id number] [facility] Last Admin: 01/13/18 04:48 Dose: 1,000 mls Insulin Human Lispro (Humalog) 0 units SC .MODERATE SLIDING SC PRN PRN Reason: Moderate Correctional Scale Last Admin: 01/06/18 00:14 Dose: 2 unit Insulin Human Lispro (Humalog) 0 units SC .BEDTIME SLIDING SC PRN PRN Reason: Bedtime Correctional Scale Loperamide HCl (Imodium) 2 mg PO PRN PRN PRN Reason: Diarrhea/Loose Stools Loratadine (Claritin) 10 mg PO DAILYPRN PRN PRN Reason: Sinus Symptoms Magnesium Hydroxide (Milk Of Magnesium) 30 ml PO DAILYPRN PRN PRN Reason: Constipation Mineral Oil/White Petrolatum (Eucerin Cream) 0 gm TOP BIDPRN PRN PRN Reason: Dry Skin Miscellaneous Medication (Pharmacy To Dose) 1 each IVPB PRN PRN PRN Reason: Pharmacy to dose Ondansetron HCl (Zofran Odt) 4 mg PO Q6H PRN PRN Reason: Nausea/Vomiting Ondansetron HCl (Zofran) 4 mg IVP Q6H PRN PRN Reason: Nausea/Vomiting Phenol (Chloraseptic [place] 180 Ml Bot) 0 ml PO PRN PRN PRN Reason: Sore Throat Propofol (Diprivan) 1,000 mg IV INF PRN; Protocol PRN Reason: TO ACHIEVE GOAL RASS Stop: 02/03/18 16:02 Last Admin: 01/13/18 01:03 Dose: 1,000 mg Propofol (Diprivan Bolus) 20 mg IV Q5MIN PRN PRN Reason: BREAKTHROUGH AGITATION Stop: 02/03/18 16:02 Saccharomyces Boulardii (Florastor) 250 mg PO DAILY [facility] Last Admin: 01/13/18 09:14 Dose: 250 mg Senna (Senokot) 2 tab PO HSPRN PRN PRN Reason: Constipation Sevelamer Carbonate (Renvela) 1,600 mg PER TUBE TID-WM [facility] Last Admin: 01/13/18 09:14 Dose: 1,600 mg Sodium Bicarbonate (Bicarbonate, Sodium) 650 mg PER TUBE .PER PROTOCOL PRN PRN Reason: ENTERAL TUBE OCCLUSION Sodium Chloride ([address] Nasal [place] 0.65%) 0 ml EA NARE QIDPRN PRN PRN Reason: Nasal Congestion Sodium Chloride (Flush - Normal Saline) 10 ml IVF Q12HR [facility] Last Admin: 01/13/18 09:14 Dose: 10 ml Sodium Chloride (Flush - Normal Saline) 10 ml IVF PRN PRN PRN Reason: Saline Flush
--- NOTE | 2018-01-13 14:50 | PRG ---
DATE OF SERVICE: 01/13/2018 SERVICE: Pulmonary Medicine. INTERVAL HISTORY: The patient is doing outstanding from a respiratory standpoint. Oxygen requiremen ts are way down. He tolerated his procedure yesterday. Otherwise, there has been no interval change to his condition. Nursing reports no overnight events. PHYSICAL EXAMINATION: VITAL SIGNS: Afebrile, pulse 79, blood pressure 141/46, respirations 30, saturation 94% on 27% FiO2 and a PEEP of 5. GENERAL: Patient is intubated and sedated. HEENT: Normocephalic, atraumatic. Sclerae are white, conjunctivae pink. Oral mucosa is moist witho ut lesions. LUNGS: Excellent air entry. There is no prolonged expiratory phase, wheezing, rhonchi, or crackles present. HEART: Normal rate, regular. ABDOMEN: Soft, nontender and nondistended. Bowel sounds are positive. MUSCULOSKELETAL: No cyanosis or clubbing. There is trace pitting in the bilateral lower extremities . NEUROLOGIC: Grossly nonfocal. LABORATORY DATA: WBC 10.9, hemoglobin 8.9, platelets 110,000 and beautifully improving. Band count 25%. INR 1.2. Creatinine 1.80, BUN 100, sodium 143. Basic metabolic profile is otherwise unremarka ble. ASSESSMENT: 1. Acute hypoxic respiratory failure secondary to volume overload. 2. Septic shock, resolving. 3. Cellulitis secondary to serratia, status post extensive debridement. 4. Bacteremia secondary to serratia. 5. Morbid obesity. 6. Acute kidney injury on chronic kidney disease 3, resolving. DISCUSSION AND PLAN: I will give the patient a holiday from [facility] starting tomorrow morning. We gino l continue D5 water at 75 mL per hour for the next 24 hours. We will put him on a spontaneous breath ing trial. If he demonstrates excellent strength, we can consider extubating him. We will have him work with physical therapy. In 1-2 days, if he cannot tolerate extubation, will be looking at a tra cheostomy because of deconditioning and weakness. CRITICAL CARE TIME: 30 minutes.
[2018-01-13] MEDS: Heparin 5,000 UNITS/ML VIAL SC SCH (20:26)
[2018-01-13] MEDS: HumaLOG 300 UNITS/3 ML VIAL SC PRN (20:35)
--- NOTE | 2018-01-14 01:32 | PRG ---
DATE OF SERVICE: 01/13/2018 SUBJECTIVE: The patient was seen and examined, still on life support with much improved, noted with the following vital signs. PHYSICAL EXAMINATION: VITAL SIGNS: Blood pressure 127/41, pulse . HEENT: Unremarkable for endotracheal tube in place. CARDIOVASCULAR: First and second heart sounds were heard. RESPIRATORY: Revealed vented sounds. DIGESTIVE: obese abdomen. EXTREMITIES: No new changes. IMPRESSION: 1. Acute tubular necrosis which seems to much improve. 2. Cardiopulmonary failure. 3. Sepsis in the context of lower extremity infection/cellulitis. PLAN: 1. Continue current renal supportive measures. 2. Avoid potentially nephrotoxic agents. 3. Further management to be dependent on the clinical course.
[2018-01-14] MEDS: Meropenem 500 MG in Sodium Chloride 0.9% 100 ML IVPB SCH (03:14)
[2018-01-14 05:04] LABS: Anion Gap 10 mmol/L (10-20); BUN (Urea Nitrogen) 68 mg/dL (8.4-25.7); Calc. Creatinine Clearance 187 mL/min (70-130); Calcium 8.1 mg/dL (7.8-10.44); Carbon Dioxide 34 mmol/L (22-29); Chloride 105 mmol/L (98-107); Estimated GFR-MDRD 69; Glucose 146 mg/dL (70-105); Potassium 3.6 mmol/L (3.5-5.1); Sodium 145 mmol/L (136-145)
[2018-01-14] MEDS: Famotidine/PF 20 mg/2ml Vial SLOW IVP SCH (08:05)
[2018-01-14] MEDS: Sevelamer Carbonate 800 MG TAB PER TUBE SCH ×3 (08:05→17:16)
[2018-01-14] MEDS: Saccharomyces boulardii 250 MG CAP PO SCH (08:05)
[2018-01-14] MEDS: Heparin 5,000 UNITS/ML VIAL SC SCH ×2 (08:06→19:48)
[2018-01-14 10:22] LABS: Fungus Stain Final report (.)
[2018-01-14 10:22] LABS: Fungus Stain Final report (.)
--- NOTE | 2018-01-14 10:46 | PDOC.PN ---
- Subjective Encounter Start Date: 01/14/18 Encounter Start Time: 07:00 Pt seen for followup re: cellulitis. Intubated, unable to complete ROS. - Objective Resuscitation Status: Resuscitation Status FULL:Full Resuscitation MAR Reviewed: Yes Vital Signs & Weight: Vital Signs (12 hours) Temp Pulse Resp BP Pulse Ox 01/14/18 10:41 93 135/62 01/14/18 10:00 17 01/14/18 08:00 17 01/14/18 07:32 98.3 F 82 22 H 90 L 01/14/18 07:00 98.3 F 01/14/18 06:00 13 01/14/18 04:00 98.7 F 13 01/14/18 02:53 91 149/53 H 01/14/18 02:00 14 01/14/18 00:00 98.6 F 16 Weight Admit Weight 382 lb Weight 383 lb 2.614 oz Most Recent Monitor Data Heart Rate from ECG 95 NIBP 135/62 NIBP BP-Mean 86 Respiration from ECG 16 SpO2 95 I&O: 01/13/18 01/14/18 01/15/18 06:59 06:59 06:59 Intake Total 2379 3029 30 Output Total 4570 4915 700 [facility] -[phone] -670 Result Diagrams: 01/13/18 04:05 01/14/18 04:25 Additional Labs: Accuchecks 01/14/18 01/13/18 04:25 20:31 POC Glucose 144 H 173 H EKG Reviewed by me: Yes (Tele: NSR) Phys Exam - Physical Examination Morbid obesity HEENT: moist MMs, sclera anicteric Intubated, pupils equal and reactive Respiratory: no wheezing Salvador crackles Cardiovascular: RRR, no rub S1, S2 Gastrointestinal: soft, non-tender, positive bowel sounds distention Neurological: moves all 4 limbs Psychiatric: normal affect Deviation from normal: Unable to assess orientation to person, place or time Deviation from normal: R leg wound vac, debrided Dx/Plan (1) Cellulitis Code(s): L03.90 - CELLULITIS, UNSPECIFIED Status: Acute Comment: continue IV meropenem (2) Acute respiratory failure with hypoxia and hypercarbia Code(s): J96.01 - ACUTE RESPIRATORY FAILURE WITH HYPOXIA; J96.02 - ACUTE RESPIRATORY FAILURE WITH HYPERCAPNIA Status: Acute Comment: Intubated and mechanically ventilated (3) Bacterial infection due to Serratia Code(s): A49.8 - OTHER BACTERIAL INFECTIONS OF UNSPECIFIED SITE Status: Acute Comment: continue IV meropenem (4) GERD (gastroesophageal reflux disease) Code(s): K21.9 - GASTRO-ESOPHAGEAL REFLUX DISEASE WITHOUT ESOPHAGITIS Status: Chronic Comment: stable (5) HTN (hypertension) Code(s): I10 - ESSENTIAL (PRIMARY) HYPERTENSION Status: Chronic Comment: controlled (6) Morbid obesity due to excess calories Code(s): E66.01 - MORBID (SEVERE) OBESITY DUE TO EXCESS CALORIES Status: Chronic (7) T2DM (type 2 diabetes mellitus) Status: Chronic - Plan * . Review of Systems - Medications/Allergies Allergies/Adverse Reactions: Allergies Allergy/AdvReac Type Severity Reaction Status Date / Time Penicillins Allergy Verified 11/19/17 18:41 Medications: Current Medications Acetaminophen (Tylenol) 650 mg PO Q4H PRN PRN Reason: Headache/Fever or Pain Al Hydroxide/Mg Hydroxide (Maalox) 30 ml PO Q6H PRN PRN Reason: Heartburn or Indigestion Albuterol/Ipratropium (Duoneb) 3 ml NEB [id number] PRN PRN Reason: SOB &/or Wheezing Last Admin: 01/09/18 18:45 Dose: 3 ml Lipase/Protease/Amylase ([place] [address]) 1 cap FS .PER PROTOCOL PRN PRN Reason: TUBE OCCLUSION PROTOCOL Artificial Tears (Tears Naturale) 0 drop EA EYE PRN PRN PRN Reason: Dry Eyes Dextrose/Water (Dextrose 50%) 25 gm SLOW IVP PRN PRN PRN Reason: Hypoglycemia Epoetin Dev (Procrit) 10,000 units SC Q7D [facility] Last Admin: 01/11/18 22:24 Dose: 10,000 units Famotidine (Pepcid) 20 mg SLOW IVP DAILY [facility] Last Admin: 01/14/18 08:05 Dose: 20 mg Glucagon (Glucagon) 1 mg IM PRN PRN PRN Reason: Hypoglycemia Heparin Sodium (Porcine) (Heparin) 5,000 units SC BID [facility] Last Admin: 01/14/18 08:06 Dose: 5,000 units Dextrose/Water (D5w) 1,000 mls @ 0 mls/hr IV .Q0M PRN PRN Reason: Hypoglycemia Dextrose/Water (D5w) 1,000 mls @ 100 mls/hr IV .Q10H [facility] Last Admin: 01/13/18 20:26 Dose: 1,000 mls Meropenem 1 gm/ Device 50 mls @ 100 mls/hr IVPB 0400,1200,2000 [facility] Insulin Human Lispro (Humalog) 0 units SC .MODERATE SLIDING SC PRN PRN Reason: Moderate Correctional Scale Last Admin: 01/13/18 20:35 Dose: 2 unit Insulin Human Lispro (Humalog) 0 units SC .BEDTIME SLIDING SC PRN PRN Reason: Bedtime Correctional Scale Loperamide HCl (Imodium) 2 mg PO PRN PRN PRN Reason: Diarrhea/Loose Stools Loratadine (Claritin) 10 mg PO DAILYPRN PRN PRN Reason: Sinus Symptoms Magnesium Hydroxide (Milk Of Magnesium) 30 ml PO DAILYPRN PRN PRN Reason: Constipation Mineral Oil/White Petrolatum (Eucerin Cream) 0 gm TOP BIDPRN PRN PRN Reason: Dry Skin Miscellaneous Medication (Pharmacy To Dose) 1 each IVPB PRN PRN PRN Reason: Pharmacy to dose Morphine Sulfate (Morphine) 2 mg SLOW IVP Q2H PRN PRN Reason: PAIN 4-6 Last Admin: 01/14/18 08:02 Dose: 2 mg Ondansetron HCl (Zofran Odt) 4 mg PO Q6H PRN PRN Reason: Nausea/Vomiting Ondansetron HCl (Zofran) 4 mg IVP Q6H PRN PRN Reason: Nausea/Vomiting Phenol (Chloraseptic [place] 180 Ml Bot) 0 ml PO PRN PRN PRN Reason: Sore Throat Saccharomyces Boulardii (Florastor) 250 mg PO DAILY [facility] Last Admin: 01/14/18 08:05 Dose: 250 mg Senna (Senokot) 2 tab PO HSPRN PRN PRN Reason: Constipation Sevelamer Carbonate (Renvela) 1,600 mg PER TUBE TID-[facility] Last Admin: 01/14/18 08:05 Dose: 1,600 mg Sodium Bicarbonate (Bicarbonate, Sodium) 650 mg PER TUBE .PER PROTOCOL PRN PRN Reason: ENTERAL TUBE OCCLUSION Sodium Chloride ([place] Nasal [place] 0.65%) 0 ml EA NARE QIDPRN PRN PRN Reason: Nasal Congestion Sodium Chloride (Flush - Normal Saline) 10 ml IVF Q12HR [facility] Last Admin: 01/14/18 08:24 Dose: 10 ml Sodium Chloride (Flush - Normal Saline) 10 ml IVF PRN PRN PRN Reason: Saline Flush
--- NOTE | 2018-01-14 11:27 | PRG ---
DATE OF SERVICE: 01/14/2018 SERVICE: Pulmonary Medicine. INTERVAL HISTORY: The patient is doing great from a respiratory standpoint. That being said, whenever we dropped his pressure support, his tidal volumes dropped off to 150-250. He becomes increasingly tachypneic and then becomes encephalopathic, probably associated with hypercapnia. We put him back on ____ _ wakes back up. Otherwise, mechanics of his lungs are actually just fine. At this point, however, I think he is a bit too weak to breathe. He cannot provide any additional elements of the history currently. When he wakes up on sedation, he indicates that his right lower extremity is uncomfortable. He got multiple doses of pain medication through the night. PHYSICAL EXAMINATION: VITAL SIGNS: Afebrile, pulse 95, blood pressure 135/62, respirations 16, saturation 95% on 31% FiO2. GENERAL: The patient is intubated and under the influence of sedation. HEENT: Normocephalic, atraumatic. Sclerae are white, conjunctivae pink. Oral mucosa is moist without lesions. LUNGS: Decent air entry. There is no prolonged expiratory phase, wheezing, rhonchi, or crackles present. HEART: Normal rate, regular. ABDOMEN: Soft, nontender and nondistended. Bowel sounds are positive. MUSCULOSKELETAL: No cyanosis or clubbing. There is no pitting in the bilateral lower extremities. NEUROLOGIC: Grossly nonfocal. LABORATORY DATA: Potassium 3.6, sodium up trending to 145. BUN and creatinine both are improving. Bicarbonate is currently 34. Debridement is growing gram negative rods once again. Serratia was previously growing in blood cultures x2 , and the leg culture. ASSESSMENT: 1. Acute hypoxic respiratory failure, improving. 2. Septic shock, resolving. 3. Cellulitis secondary to serratia, status post extensive debridement. 4. Bacteremia secondary to serratia. 5. Morbid obesity. 6. Acute kidney injury on chronic kidney disease 3, resolved. 7. Deconditioning. 8. Critical care weakness. DISCUSSION AND PLAN: We are going to frequently put him on and off spontaneous breathing trials throughout the day. If it looks like he is making some progress, we will continue in that direction. If by tomorrow, we are making no progress, or worse if he is weak, we will move forward with tracheostomy and start a slow weaning process through time. Pulmonary or Critical Care will continue to follow along. Potassium will be replaced today. I am going to check his magnesium and phosphorus to make certain they have not fallen off. Critical care time: 30 minutes. ALEJANDRINA
[2018-01-14] MEDS ORDERED: MEROPENEM 1 GM/50 ML 1 GM in Premix Bag 1 BAG IVPB SCH (12:00)
--- NOTE | 2018-01-14 12:19 | PRG ---
DATE OF SERVICE: 01/14/2018 The patient is intubated. The patient had debridement by Dr. Richardson and has a negative pressure nimisha ssing at this time. PHYSICAL EXAMINATION: VITAL SIGNS: His vital signs have stabilized. He has been afebrile and O2 sats are at 90-94%. His I's and O's have been negative. His urinary output has markedly increased with improvement in renal function. HEENT: The ocular movements are not able to be tested at this time. Pupils are miotic. Symmetric a ir entry. HEART: S1, S2, regular rate. No wheezing or crackles. ABDOMEN: Moderately distended. The right leg with a negative pressure dressing, extensive area of c overage below the knee in the areas of debridement. Those correspond to the areas of necrosis previo usly noted. White cell count at 10.9, hemoglobin 8.9, platelets 110 and those indexes have been improving lately. Marked improvement in creatinine down to 1.8 from just a few days ago. Microbiology with gram nega tive caitie still retrieved from the leg, likely the Serratia marcescens previously identified. ASSESSMENT AND DISCUSSION: Type 2 diabetes with chronic obstructive pulmonary disease, congestive he art failure, liver cirrhosis secondary to hepatitis C which has not been treated yet and recurrent ce llulitis of lower extremities with recent admission for the left side, now with a necrotizing infecti on secondary to Serratia marcescens on the right leg. The patient has markedly improved after surgic al debridement with improvement in multiple organ functions. We will transition to Rocephin, discont inue meropenem. Continue supportive care. The pathology of the tissue demonstrated necrosis with ac darnell inflammation.
[2018-01-14] MEDS: cefTRIAXone\\ROCEPHIN 2 GM in Sodium Chloride 0.9% 100 ML IVPB SCH (13:08)
[2018-01-14] MEDS: Dextrose 5% in Water 1,000 ML IV SCH (13:11)
[2018-01-14] MEDS ORDERED: Morphine 4 MG/ML VIAL ONE (14:57)
[2018-01-14] MEDS ORDERED: Propofol 1,000 MG/100 ML VIAL IV ONE (15:01)
[2018-01-14] MEDS: HumaLOG 300 UNITS/3 ML VIAL SC PRN (15:24)
[2018-01-14] MEDS ORDERED: Propofol BOLUS 1,000 MG/100 ML VIAL IV PRN (15:59)
--- NOTE | 2018-01-14 18:47 | PRG ---
DATE OF SERVICE: 01/14/2018 SUBJECTIVE: The patient was seen and examined, showed remarkable renal improvement. Noted with the following vital signs. OBJECTIVE: VITAL SIGNS: Blood pressure 134/44, respiratory rate of 17, O2 saturation of 95%. HEENT: Unremarkable except for endotracheal tube in place. CARDIOVASCULAR SYSTEM: First and second heart sounds were heard. RESPIRATORY SYSTEM: Revealed vented sounds. DIGESTIVE SYSTEM: Revealed obese abdomen. EXTREMITIES: Showed resolved peripheral edema. NEUROLOGIC: The patient is sedated. IMPRESSION: 1. Acute kidney injury in the context of sepsis, much improved, more or less back to the patient's b aseline. 2. We will continue renal supportive measures. 3. Further management to be dependent on the clinical course.
[2018-01-14] MEDS: Propofol 1,000 MG/100 ML VIAL IV PRN (19:48)
--- NOTE | 2018-01-14 23:34 | PDOC.GSPN ---
Surgery Progress Note: Subj - Subjective Narrative: Patient seen with wound care team. Most of the wound is healthy and viable and there is been no extension of the infectious process. There is some nonviable subcutaneous tissue and skin around the margins of the wound especially on the foot which I do not believe the patient will tolerate having debrided at the bedside. In addition his verify rep feels that he requires a tracheostomy and PEG tube placement him since he is too weak to be weaned from the vent. I will plan to take him to the operating room tomorrow for tracheostomy, PEG tube , and debridement of right leg. The patient was more alert today and I was able to explain the plan for treatment of his right leg and he indicated agreement with this. All cultures are growing Serratia. Surgery Progress Note: Obj - Vital signs Vital signs: Vital Signs - Most Recent Temp Pulse Resp BP Pulse Ox 99.2 F 79 17 157/58 H 95 01/14/18 20:00 01/14/18 20:00 01/14/18 20:00 01/14/18 14:45 01/14/18 20:00 Surgery Progress Note: Results - Labs Result Diagrams: 01/13/18 04:05 01/14/18 04:25 Lab results: Laboratory Results - last 24 hr 01/14/18 01/14/18 15:22 19:49 POC Glucose 171 H 126 H
[2018-01-15] MEDS: Propofol 1,000 MG/100 ML VIAL IV PRN ×2 (01:54→07:43)
[2018-01-15] MEDS: Dextrose 5% in Water 1,000 ML IV SCH ×3 (01:55→14:43)
[2018-01-15 04:10] LABS: Anion Gap 11 mmol/L (10-20); BUN (Urea Nitrogen) 61 mg/dL (8.4-25.7); Calc. Creatinine Clearance 188 mL/min (70-130); Calcium 8.3 mg/dL (7.8-10.44); Carbon Dioxide 32 mmol/L (22-29); Chloride 105 mmol/L (98-107); Estimated GFR-MDRD 73; Glucose 152 mg/dL (70-105); Magnesium 1.2 mg/dL (1.6-2.6); Phosphorus 4.1 mg/dL (2.3-4.7); Sodium 144 mmol/L (136-145)
[2018-01-15] MEDS: Famotidine/PF 20 mg/2ml Vial SLOW IVP SCH (07:43)
[2018-01-15] MEDS ORDERED: Fentanyl 100 MCG/2 ML VIAL ONE (09:23)
[2018-01-15] MEDS ORDERED: Midazolam HCl 5 mg/5 ml Vial ONE (09:23)
--- NOTE | 2018-01-15 10:51 | EKG ---
Test Reason : DYSPNEA Blood Pressure : / mmHG Vent. Rate : 122 BPM Atrial Rate : 122 BPM P-R Int : 138 ms QRS Dur : 080 ms QT Int : 310 ms P-R-T Axes : 042 040 069 degrees QTc Int : 441 ms Sinus tachycardia Low voltage QRS Borderline ECG Confirmed by LILLI NASH DO ([id number]), food expeditor OUMOU GOMEZ ([id number]) on 01/15/2018 10:51:23 AM Referred By: CHARITY Confirmed By:LILLI NASH DO
[2018-01-15] MEDS ORDERED: PHENYLEPHRINE-NS 100 MCG/ML 10 ML SYRINGE ONE (11:11)
[2018-01-15] MEDS: Heparin 5,000 UNITS/ML VIAL SC SCH ×2 (11:35→21:47)
[2018-01-15] MEDS: Sevelamer Carbonate 800 MG TAB PER TUBE SCH ×3 (11:35→18:18)
[2018-01-15] MEDS: Saccharomyces boulardii 250 MG CAP PO SCH (11:36)
--- NOTE | 2018-01-15 13:22 | PDOC.PN ---
- Subjective Encounter Start Date: 01/15/18 Encounter Start Time: 09:40 -: non-verbal Pt seen for followup re: cellulitis. Intubated, nonverbal, unable to complete ROS. - Objective Resuscitation Status: Resuscitation Status FULL:Full Resuscitation MAR Reviewed: Yes Vital Signs & Weight: Vital Signs (12 hours) Temp Pulse Resp BP Pulse Ox 01/15/18 13:10 81 152/68 H 01/15/18 10:00 19 01/15/18 08:05 71 156/41 H 01/15/18 08:00 98.6 F 71 21 H 99 01/15/18 07:00 98.6 F 01/15/18 06:00 19 01/15/18 03:49 98.9 F 01/15/18 03:47 17 01/15/18 02:00 17 Weight Admit Weight 382 lb Weight 367 lb 15.224 oz Most Recent Monitor Data Heart Rate from ECG 70 NIBP 147/49 NIBP BP-Mean 73 Respiration from ECG 21 SpO2 94 I&O: 01/14/18 01/15/18 01/16/18 06:59 06:59 06:59 Intake Total 3029 698.5 Output Total 4915 2370 445 Balance -1886 -1671.5 -445 Result Diagrams: 01/13/18 04:05 01/15/18 03:30 Additional Labs: Accuchecks 01/14/18 01/14/18 19:49 15:22 POC Glucose 126 H 171 H EKG Reviewed by me: Yes (Tele: NSR) Phys Exam - Physical Examination Morbid obesity HEENT: moist MMs, sclera anicteric ETT, OGT Respiratory: no wheezing, no rales, no rhonchi, clear to auscultation bilateral Cardiovascular: RRR, no rub S1, s2 Gastrointestinal: soft, non-tender, positive bowel sounds distention No spontaneous movements of four extremities (pt on propofol drip) Deviation from normal: Unabloe to assess mood, affect or orientation to person, place or time Deviation from normal: RLE wound Dx/Plan (1) Cellulitis Code(s): L03.90 - CELLULITIS, UNSPECIFIED Status: Acute Comment: continue IV meropenem, pt going for repeat debridement for diabetic leg infection (2) Acute respiratory failure with hypoxia and hypercarbia Code(s): J96.01 - ACUTE RESPIRATORY FAILURE WITH HYPOXIA; J96.02 - ACUTE RESPIRATORY FAILURE WITH HYPERCAPNIA Status: Acute Comment: Intubated and mechanically ventilated, awaiting tracheostomy (3) Bacterial infection due to Serratia Code(s): A49.8 - OTHER BACTERIAL INFECTIONS OF UNSPECIFIED SITE Status: Acute Comment: continue IV meropenem (4) GERD (gastroesophageal reflux disease) Code(s): K21.9 - GASTRO-ESOPHAGEAL REFLUX DISEASE WITHOUT ESOPHAGITIS Status: Chronic Comment: stable (5) HTN (hypertension) Code(s): I10 - ESSENTIAL (PRIMARY) HYPERTENSION Status: Chronic Comment: controlled (6) Morbid obesity due to excess calories Code(s): E66.01 - MORBID (SEVERE) OBESITY DUE TO EXCESS CALORIES Status: Chronic (7) T2DM (type 2 diabetes mellitus) Status: Chronic - Plan * . Review of Systems - Medications/Allergies Allergies/Adverse Reactions: Allergies Allergy/AdvReac Type Severity Reaction Status Date / Time Penicillins Allergy Verified 11/19/17 18:41 Medications: Current Medications Acetaminophen (Tylenol) 650 mg PO Q4H PRN PRN Reason: Headache/Fever or Pain Al Hydroxide/Mg Hydroxide (Maalox) 30 ml PO Q6H PRN PRN Reason: Heartburn or Indigestion Albuterol/Ipratropium (Duoneb) 3 ml NEB [id number] PRN PRN Reason: SOB &/or Wheezing Last Admin: 01/09/18 18:45 Dose: 3 ml Lipase/Protease/Amylase ([place] [id number]) 1 cap FS .PER PROTOCOL PRN PRN Reason: TUBE OCCLUSION PROTOCOL Artificial Tears (Tears Naturale) 0 drop EA EYE PRN PRN PRN Reason: Dry Eyes Dextrose/Water (Dextrose 50%) 25 gm SLOW IVP PRN PRN PRN Reason: Hypoglycemia Epoetin Dev (Procrit) 10,000 units SC Q7D [facility] Last Admin: 01/11/18 22:24 Dose: 10,000 units Famotidine (Pepcid) 20 mg SLOW IVP DAILY [facility] Last Admin: 01/15/18 07:43 Dose: 20 mg Glucagon (Glucagon) 1 mg IM PRN PRN PRN Reason: Hypoglycemia Heparin Sodium (Porcine) (Heparin) 5,000 units SC BID [facility] Last Admin: 01/15/18 11:35 Dose: Not Given Dextrose/Water (D5w) 1,000 mls @ 0 mls/hr IV .Q0M PRN PRN Reason: Hypoglycemia Dextrose/Water (D5w) 1,000 mls @ 100 mls/hr IV .Q10H [facility] Last Admin: 01/15/18 09:04 Dose: 1,000 mls Ceftriaxone Sodium 2 gm/ (Sodium Chloride) 100 mls @ 200 mls/hr IVPB Q24HR [facility] Last Admin: 01/14/18 13:08 Dose: 100 mls Insulin Human Lispro (Humalog) 0 units SC .MODERATE SLIDING SC PRN PRN Reason: Moderate Correctional Scale Last Admin: 01/14/18 15:24 Dose: 2 unit Insulin Human Lispro (Humalog) 0 units SC .BEDTIME SLIDING SC PRN PRN Reason: Bedtime Correctional Scale Loperamide HCl (Imodium) 2 mg PO PRN PRN PRN Reason: Diarrhea/Loose Stools Loratadine (Claritin) 10 mg PO DAILYPRN PRN PRN Reason: Sinus Symptoms Magnesium Hydroxide (Milk Of Magnesium) 30 ml PO DAILYPRN PRN PRN Reason: Constipation Mineral Oil/White Petrolatum (Eucerin Cream) 0 gm TOP BIDPRN PRN PRN Reason: Dry Skin Miscellaneous Medication (Pharmacy To Dose) 1 each IVPB PRN PRN PRN Reason: Pharmacy to dose Morphine Sulfate (Morphine) 2 mg SLOW IVP Q2H PRN PRN Reason: PAIN 4-6 Last Admin: 01/15/18 04:58 Dose: 2 mg Ondansetron HCl (Zofran Odt) 4 mg PO Q6H PRN PRN Reason: Nausea/Vomiting Ondansetron HCl (Zofran) 4 mg IVP Q6H PRN PRN Reason: Nausea/Vomiting Phenol (Chloraseptic [place] 180 Ml Bot) 0 ml PO PRN PRN PRN Reason: Sore Throat Propofol (Diprivan) 1,000 mg IV INF PRN; Protocol PRN Reason: TO ACHIEVE GOAL RASS Stop: 02/13/18 15:59 Last Admin: 01/15/18 07:43 Dose: 1,000 mg Propofol (Diprivan Bolus) 20 mg IV Q5MIN PRN PRN Reason: BREAKTHROUGH AGITATION Stop: 02/13/18 15:59 Saccharomyces Boulardii (Florastor) 250 mg PO DAILY [facility] Last Admin: 01/15/18 11:36 Dose: Not Given Senna (Senokot) 2 tab PO HSPRN PRN PRN Reason: Constipation Sevelamer Carbonate (Renvela) 1,600 mg PER TUBE TID-WM [facility] Last Admin: 01/15/18 11:35 Dose: Not Given Sodium Bicarbonate (Bicarbonate, Sodium) 650 mg PER TUBE .PER PROTOCOL PRN PRN Reason: ENTERAL TUBE OCCLUSION Sodium Chloride ([place] Nasal [place] 0.65%) 0 ml EA NARE QIDPRN PRN PRN Reason: Nasal Congestion Sodium Chloride (Flush - Normal Saline) 10 ml IVF Q12HR [facility] Last Admin: 01/15/18 11:36 Dose: Not Given Sodium Chloride (Flush - Normal Saline) 10 ml IVF PRN PRN PRN Reason: Saline Flush
[2018-01-15] MEDS: cefTRIAXone\\ROCEPHIN 2 GM in Sodium Chloride 0.9% 100 ML IVPB SCH (13:44)
[2018-01-15] MEDS ORDERED: Magnesium Sulfate 4 GM in Sodium Chloride 0.9% 250 ML 250 ML IVPB SCH (14:15)
--- NOTE | 2018-01-15 14:36 | PRG ---
DATE OF SERVICE: 01/15/2018 SERVICE: Pulmonary Medicine. INTERVAL HISTORY: The patient is doing fine from a respiratory standpoint. He just got back from his procedure. He is on mechanical ventilation. He is back on his propofol drip. Otherwise, there has been no interval change to his condition. PHYSICAL EXAMINATION: VITAL SIGNS: Afebrile, pulse 91, blood pressure 155/68, respirations 20, saturation 100% on 27% FiO2 and a PEEP of 5. GENERAL: Patient is intubated and sedated. HEENT: Normocephalic, atraumatic. Sclerae are white, conjunctivae pink. Oral mucosa is moist without lesions. LUNGS: Decent air entry. There is no prolonged expiratory phase. No wheezing is present. Crackles are gone. HEART: Normal rate, regular. ABDOMEN: Soft, nontender, nondistended. Bowel sounds are positive. MUSCULOSKELETAL: No cyanosis or clubbing. There is trace pitting in the bilateral lower extremities. NEUROLOGIC: Grossly nonfocal. LABORATORY DATA: Creatinine down trended to 1.05, BUN 61 and down trending. Sodium 144. Magnesium 1.2, phosphorus 4.1. Right foot culture and blood culture once again growing Serratia which demonstrate sensitivities to Rocephin still. ASSESSMENT: 1. Acute hypoxic respiratory failure, resolving. 2. Septic shock, resolved. 3. Necrotizing fasciitis secondary to serratia, status post debridement x2. 4. Bacteremia secondary to serratia. 5. Morbid obesity. 6. Acute kidney injury on chronic kidney disease 3, resolved. 7. Deconditioning. 8. Critical care weakness. DISCUSSION AND PLAN: I will replace magnesium. I will put him on pressure support ventilation. We will discontinue the propofol altogether. He will have morphine as needed for discomfort. He will remain in the ICU and we will wean our sedation through time. Once surgery is done cutting on the patient, and we have duration of antibiotic established, he will be stable for transition out of the hospital. I will put case management consultation in to start working on LTAC facility within the [facility] system. Critical care time: 30 minutes. ALEJANDRINA
[2018-01-15 19:08] LABS: Fungus Stain Final report (.)
[2018-01-15] MEDS: Acetaminophen 325 MG TAB PO PRN (21:33)
--- NOTE | 2018-01-15 22:00 | PRG ---
DATE OF SERVICE: 01/15/2018 SUBJECTIVE: The patient was seen and examined, status post trach. Noted with the following vital si gns. OBJECTIVE: VITAL SIGNS: Blood pressure , pulse of 73, O2 saturation of 95%. HEENT: Unremarkable with moist oral mucosa. No conjunctival injection or icterus. NECK: Supple CARDIOVASCULAR SYSTEM: First and second heart sounds were heard. RESPIRATORY SYSTEM: . DIGESTIVE SYSTEM: Revealed an obese abdomen. LABORATORY INVESTIGATION: Showed a creatinine down to 1.05. IMPRESSION: 1. Acute tubular necrosis, which has resolved. 2. Morbid obesity. 3. Sepsis, on treatment. PLAN: 1. Continue renal supportive measures. 2. Replete the magnesium. 3. Further management to be dependent on the clinical course.
[2018-01-16] MEDS: Dextrose 5% in Water 1,000 ML IV SCH ×2 (02:40→16:58)
[2018-01-16] MEDS: Famotidine/PF 20 mg/2ml Vial SLOW IVP SCH (08:27)
[2018-01-16] MEDS: Acetaminophen 325 MG TAB PO PRN ×2 (08:27→14:03)
[2018-01-16] MEDS: Heparin 5,000 UNITS/ML VIAL SC SCH ×2 (08:28→22:30)
[2018-01-16] MEDS: Saccharomyces boulardii 250 MG CAP PO SCH (08:29)
[2018-01-16] MEDS: Sevelamer Carbonate 800 MG TAB PER TUBE SCH (08:29)
[2018-01-16] MEDS: Famotidine 20 MG TAB PO SCH ×2 (09:14→22:18)
--- NOTE | 2018-01-16 09:18 | PRG ---
DATE OF SERVICE: 01/16/2018 SERVICE: Pulmonary Medicine. INTERVAL HISTORY: The patient is doing fine from a respiratory standpoint. He is breathing comforta nga this morning. I woke him up from sleep. He looked at me and he is cool, calm, and collected. H e indicates that his breathing was comfortable. There was some agitation last night. Otherwise, the re has been no interval change to his condition. PHYSICAL EXAMINATION: VITAL SIGNS: Currently afebrile. He had a T-max of 101.1 overnight. Pulse 64, blood pressure 128/5 2, respirations 16, saturation 98% on 27% FiO2 and a PEEP of 5. GENERAL: The patient is awake and alert, in no apparent distress. LUNGS: Good air entry. There is no prolonged expiratory phase. I cannot appreciate any adventitiou s sounds today. HEART: Normal rate, regular. ABDOMEN: Soft, nontender, nondistended. Bowel sounds are positive. MUSCULOSKELETAL: No cyanosis or clubbing. There is no pitting in the bilateral lower extremities. NEUROLOGIC: Grossly nonfocal. ASSESSMENT: 1. Acute hypoxic respiratory failure, improving. 2. Septic shock, resolved. 3. Necrotizing fasciitis secondary to serratia, status post debridement x2. 4. Bacteremia secondary to serratia. 5. Morbid obesity. 6. Acute kidney injury on chronic kidney disease, 3, resolved. 7. Deconditioning. 8. Critical care weakness. DISCUSSION AND PLAN: We will continue our mobilization efforts. He will remain on pressure support ventilation. We will put him on 21/5. We will put him on 5/5 three times a day and increase as tole rated. Once he tolerates that for 24 hours, we will start T-collar trials on and off. From my persp ective, he is stable for transition out of the hospital. He will need to go to an LTAC facility once Surgery indicates they are done operating on him in the short term. I will introduce a small dose o f Klonopin and Seroquel at night. Pulmonary will continue to follow.
[2018-01-16] MEDS: cefTRIAXone\\ROCEPHIN 2 GM in Sodium Chloride 0.9% 100 ML IVPB SCH (11:36)
[2018-01-16] MEDS: HumaLOG 300 UNITS/3 ML VIAL SC PRN (12:39)
--- NOTE | 2018-01-16 14:23 | PRG ---
DATE OF SERVICE: 01/16/2018 HISTORY: Mr. Lim has had a trach and PEG. He is sitting up in a neuro chair. A little bit of f ever overnight, but now he is better, little bit delusional. PHYSICAL EXAMINATION: VITAL SIGNS: T-max 101 yesterday, he is now 99.2, blood pressure 119/70, pulse 96. O2 sats 94. GENERAL: Awake, appears in no distress. Facial features are flushed. HEENT: Ocular movements conjugate. LUNGS: With coarse breath sounds, faint wheezing. Trach site appears okay. PEG site appears okay. ABDOMEN: Distended. No apparent tenderness. Bowel sounds are diminished. No diarrhea. GENITOURINARY: Urinary output is 2300 in the past 24 hours. LABORATORY DATA: White cell count down to 10.9, hemoglobin 8.9, platelets 110. This CBC is from . Creatinine is from yesterday, 1.05. Microbiology has been reviewed and the same serratia f rom the surgical sample. 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 Richardson with marked improvement in all features of his multiorgan dysfunction since the debridement was carried out. DISCUSSION: The patient had a temperature spike and we will have to evaluate for possible complicati ons such as line infection with repeat blood cultures. Follow up CBC. He has a PEG and trach. Cont inaram Richn.
--- NOTE | 2018-01-16 15:02 | PDOC.PN ---
- Subjective Encounter Start Date: 01/16/18 Encounter Start Time: 15:00 -: non-verbal Pt seen for followup re: cellulitis. s/p tracheostomy, pt unable to provide history, unable to complete ROS. - Objective Resuscitation Status: Resuscitation Status FULL:Full Resuscitation MAR Reviewed: Yes Vital Signs & Weight: Vital Signs (12 hours) Temp Pulse Resp BP Pulse Ox 01/16/18 14:41 79 01/16/18 13:40 25 H 01/16/18 13:00 96 119/70 01/16/18 12:00 99.2 F 28 H 01/16/18 10:51 85 142/60 H 01/16/18 10:00 38 H 01/16/18 09:55 101 H 01/16/18 08:00 99.8 F H 68 19 94 L 01/16/18 06:23 64 120/52 L 01/16/18 06:00 25 H 01/16/18 04:00 99.5 F 18 Weight Admit Weight 382 lb Weight 364 lb 3.258 oz Most Recent Monitor Data Heart Rate from ECG 92 NIBP 125/105 NIBP BP-Mean 116 Respiration from ECG 13 SpO2 100 I&O: 01/15/18 01/16/18 01/17/18 06:59 06:59 06:59 Intake Total 698.5 2147 50 Output Total 2370 3030 690 [facility] -1671.5 -883 -640 Result Diagrams: 01/13/18 04:05 01/15/18 03:30 Additional Labs: Accuchecks 01/16/18 01/16/18 01/16/18 11:46 06:42 00:28 POC Glucose 165 H 141 H 156 H 01/15/18 01/15/18 21:37 15:06 POC Glucose 166 H 137 H EKG Reviewed by me: Yes (Tele: NSR) Phys Exam - Physical Examination Morbid obesity tracheostomy Respiratory: clear to auscultation bilateral Cardiovascular: RRR Gastrointestinal: soft G-tube Neurological: moves all 4 limbs Psychiatric: normal affect Dx/Plan (1) Cellulitis Code(s): L03.90 - CELLULITIS, UNSPECIFIED Status: Acute Comment: continue IV ceftriaxone, pt had repeat debridement of diabetic leg wound, follow cultures (2) Acute respiratory failure with hypoxia and hypercarbia Code(s): J96.01 - ACUTE RESPIRATORY FAILURE WITH HYPOXIA; J96.02 - ACUTE RESPIRATORY FAILURE WITH HYPERCAPNIA Status: Acute Comment: s/p tracheostomy (3) Bacterial infection due to Serratia Code(s): A49.8 - OTHER BACTERIAL INFECTIONS OF UNSPECIFIED SITE Status: Acute Comment: continue IV ceftriaxone (4) GERD (gastroesophageal reflux disease) Code(s): K21.9 - GASTRO-ESOPHAGEAL REFLUX DISEASE WITHOUT ESOPHAGITIS Status: Chronic Comment: stable (5) HTN (hypertension) Code(s): I10 - ESSENTIAL (PRIMARY) HYPERTENSION Status: Chronic Comment: controlled (6) Morbid obesity due to excess calories Code(s): E66.01 - MORBID (SEVERE) OBESITY DUE TO EXCESS CALORIES Status: Chronic (7) T2DM (type 2 diabetes mellitus) Status: Chronic - Plan * . Pt had fever last night, cultures being repeated Review of Systems - Medications/Allergies Allergies/Adverse Reactions: Allergies Allergy/AdvReac Type Severity Reaction Status Date / Time Penicillins Allergy Verified 11/19/17 18:41 Medications: Current Medications Acetaminophen (Tylenol) 650 mg PO Q4H PRN PRN Reason: Headache/Fever or Pain Last Admin: 01/16/18 14:03 Dose: 650 mg Al Hydroxide/Mg Hydroxide (Maalox) 30 ml PO Q6H PRN PRN Reason: Heartburn or Indigestion Albuterol/Ipratropium (Duoneb) 3 ml NEB [id number] PRN PRN Reason: SOB &/or Wheezing Last Admin: 01/09/18 18:45 Dose: 3 ml Lipase/Protease/Amylase ([place] [id number]) 1 cap FS .PER PROTOCOL PRN PRN Reason: TUBE OCCLUSION PROTOCOL Clonazepam (Klonopin) 1 mg PO HS [facility] Dextrose/Water (Dextrose 50%) 25 gm SLOW IVP PRN PRN PRN Reason: Hypoglycemia Famotidine (Pepcid) 20 mg PO BID [facility] Last Admin: 01/16/18 09:14 Dose: Not Given Glucagon (Glucagon) 1 mg IM PRN PRN PRN Reason: Hypoglycemia Heparin Sodium (Porcine) (Heparin) 5,000 units SC BID [facility] Last Admin: 01/16/18 08:28 Dose: 5,000 units Dextrose/Water (D5w) 1,000 mls @ 0 mls/hr IV .Q0M PRN PRN Reason: Hypoglycemia Ceftriaxone Sodium 2 gm/ (Sodium Chloride) 100 mls @ 200 mls/hr IVPB Q24HR [facility] Last Admin: 01/16/18 11:36 Dose: 100 mls Dextrose/Water (D5w) 1,000 mls @ 75 mls/hr IV .[id number] [facility] Last Admin: 01/16/18 02:40 Dose: 1,000 mls Insulin Human Lispro (Humalog) 0 units SC .MODERATE SLIDING SC PRN PRN Reason: Moderate Correctional Scale Last Admin: 01/16/18 12:39 Dose: 2 unit Insulin Human Lispro (Humalog) 0 units SC .BEDTIME SLIDING SC PRN PRN Reason: Bedtime Correctional Scale Loperamide HCl (Imodium) 2 mg PO PRN PRN PRN Reason: Diarrhea/Loose Stools Loratadine (Claritin) 10 mg PO DAILYPRN PRN PRN Reason: Sinus Symptoms Magnesium Hydroxide (Milk Of Magnesium) 30 ml PO DAILYPRN PRN PRN Reason: Constipation Mineral Oil/White Petrolatum (Eucerin Cream) 0 gm TOP BIDPRN PRN PRN Reason: Dry Skin Miscellaneous Medication (Pharmacy To Dose) 1 each IVPB PRN PRN PRN Reason: Pharmacy to dose Morphine Sulfate (Morphine) 2 mg SLOW IVP Q2H PRN PRN Reason: PAIN 4-6 Last Admin: 01/16/18 12:31 Dose: 2 mg Ondansetron HCl (Zofran) 4 mg IVP Q6H PRN PRN Reason: Nausea/Vomiting Phenol (Chloraseptic [place] 180 Ml Bot) 0 ml PO PRN PRN PRN Reason: Sore Throat Quetiapine Fumarate (Seroquel) 50 mg PO [facility] Saccharomyces Boulardii (Florastor) 250 mg PO DAILY [facility] Last Admin: 01/16/18 08:29 Dose: 250 mg Senna (Senokot) 2 tab PO HSPRN PRN PRN Reason: Constipation Sodium Bicarbonate (Bicarbonate, Sodium) 650 mg PER TUBE .PER PROTOCOL PRN PRN Reason: ENTERAL TUBE OCCLUSION Sodium Chloride ([place] Nasal [place] 0.65%) 0 ml EA NARE QIDPRN PRN PRN Reason: Nasal Congestion Sodium Chloride (Flush - Normal Saline) 10 ml IVF Q12HR [facility] Last Admin: 01/16/18 08:30 Dose: 10 ml Sodium Chloride (Flush - Normal Saline) 10 ml IVF PRN PRN PRN Reason: Saline Flush
--- NOTE | 2018-01-16 18:00 | PRG ---
DATE OF SERVICE: 01/16/2018 SUBJECTIVE: The patient was seen and examined, seems to be doing much better, noted with the followi ng vital signs. PHYSICAL EXAMINATION: VITAL SIGNS: T-maximum of 101, blood pressure 190/70, pulse 96, respiratory rate of 20. HEENT: Unremarkable except endotracheal tube in place. CARDIOVASCULAR: First and second heart sounds were heard. RESPIRATORY: Clear to auscultation. DIGESTIVE: Revealed an obese abdomen. EXTREMITIES: No peripheral edema. LABORATORY INVESTIGATION: Showed a creatinine of 1 as of yesterday. IMPRESSION: 1. Acute kidney injury/acute tubular necrosis, which is much improved. 2. Sepsis originated from the leg, on treatment. 3. Morbid obesity. PLAN: 1. We will continue current renal supportive measures. 2. Further management will be dependent on the clinical course.
[2018-01-16] MEDS ORDERED: clonazePAM 1 MG TAB PO SCH (21:00)
[2018-01-16 23:46] LABS: #Lymphocytes 0.9 thou/uL (1.20-3.40); #Monocytes 0.6 thou/uL (0.11-0.59); #Neutrophils 5.4 thou/uL (1.40-6.50); %Basophils 0.6 % (0.0-1.0); %Eosinophils 0.7 % (0.0-10.0); %Lymphocytes 13.1 % (21.0-51.0); %Monocytes 8.9 % (0.0-10.0); %Neutrophils 76.7 % (42.0-75.0); Hemoglobin 8.4 g/dL (14.0-18.0); Mean Corpuscular HGB CONC 32.6 g/dL (32.0-36.0); Mean Corpuscular Hemoglobin 30.2 pg (27.0-31.0); Mean Corpuscular Volume 92.7 fL (78.0-98.0); Mean Platelet Volume 8.5 fL (7.4-10.4); Platelet Count 162 thou/uL (130-400); RBC Distribution Width 15.5 % (11.5-14.5); Red Blood Cell (RBC) Count 2.79 mill/uL (4.70-6.10); White Blood Cell (WBC) Count 7.1 thou/uL (4.8-10.8)
[2018-01-17 00:08] LABS: Anion Gap 8 mmol/L (10-20); BUN (Urea Nitrogen) 34 mg/dL (8.4-25.7); Calc. Creatinine Clearance 232 mL/min (70-130); Calcium 8.1 mg/dL (7.8-10.44); Carbon Dioxide 33 mmol/L (22-29); Chloride 106 mmol/L (98-107); Estimated GFR-MDRD Greater than 90; Glucose 167 mg/dL (70-105); Magnesium 1.2 mg/dL (1.6-2.6); Phosphorus 3.9 mg/dL (2.3-4.7); Potassium 3.6 mmol/L (3.5-5.1); Sodium 143 mmol/L (136-145)
[2018-01-17] MEDS ORDERED: Magnesium Sulfate 4 GM in Sodium Chloride 0.9% 250 ML 250 ML IVPB SCH ×2 (01:00→11:15)
[2018-01-17 04:55] LABS: #Basophils 0.1 thou/uL (0.0-0.2); #Eosinphils 0.1 thou/uL (0.0-0.7); #Lymphocytes 0.9 thou/uL (1.20-3.40); #Monocytes 0.4 thou/uL (0.11-0.59); #Neutrophils 4.1 thou/uL (1.40-6.50); %Basophils 1.2 % (0.0-1.0); %Eosinophils 1.1 % (0.0-10.0); %Lymphocytes 15.6 % (21.0-51.0); %Monocytes 7.9 % (0.0-10.0); %Neutrophils 74.3 % (42.0-75.0); Hemoglobin 7.8 g/dL (14.0-18.0); Mean Corpuscular HGB CONC 33.1 g/dL (32.0-36.0); Mean Corpuscular Hemoglobin 30.7 pg (27.0-31.0); Mean Corpuscular Volume 92.7 fL (78.0-98.0); Platelet Count 157 thou/uL (130-400); RBC Distribution Width 15.3 % (11.5-14.5); Red Blood Cell (RBC) Count 2.53 mill/uL (4.70-6.10); White Blood Cell (WBC) Count 5.5 thou/uL (4.8-10.8)
[2018-01-17] MEDS: Acetaminophen 325 MG TAB PO PRN (05:00)
[2018-01-17 05:01] LABS: Band 19 % (5-11); Hemoglobin 7.7 g/dL (14.0-18.0); Lymphocytes 12 % (21-51); MDiff Complete? YES; Mean Corpuscular HGB CONC 33.2 g/dL (32.0-36.0); Mean Corpuscular Hemoglobin 30.8 pg (27.0-31.0); Mean Corpuscular Volume 92.7 fL (78.0-98.0); Monocytes 4 % (0-10); Myelocyte 1 % (0-0); Neutrophil 64 % (42-75); Platelet Count 158 thou/uL (130-400); RBC Distribution Width 15.3 % (11.5-14.5); White Blood Cell (WBC) Count 5.7 thou/uL (4.8-10.8)
[2018-01-17 05:05] LABS: Anion Gap 8 mmol/L (10-20); BUN (Urea Nitrogen) 31 mg/dL (8.4-25.7); Calc. Creatinine Clearance 235 mL/min (70-130); Carbon Dioxide 33 mmol/L (22-29); Chloride 106 mmol/L (98-107); Estimated GFR-MDRD Greater than 90; Glucose 154 mg/dL (70-105); Magnesium 1.5 mg/dL (1.6-2.6); Potassium 3.5 mmol/L (3.5-5.1); Sodium 143 mmol/L (136-145)
[2018-01-17] MEDS: Dextrose 5% in Water 1,000 ML IV SCH (07:30)
[2018-01-17] MEDS ORDERED: Fentanyl 250 MCG/5 ML VIAL ONE (08:57)
--- NOTE | 2018-01-17 11:29 | PRG ---
DATE OF SERVICE: 01/17/2018 SERVICE: Pulmonary Medicine INTERVAL HISTORY: The patient is doing fine from a respiratory standpoint. Yesterday he breathed on pressure support ventilation on 10/02 basically for the entire day. That being said, this morning, susie remy is a little bit more sleepy. He has advancing erythema of the right leg. As such, we are making p reparations to move him back down to the operating room again. He is encephalopathic and cannot prov janel additional elements of the history. There are no overnight events otherwise. PHYSICAL EXAMINATION: VITAL SIGNS: Afebrile, pulse 60, blood pressure 124/59, respirations 12, saturation 94% on 27% FiO2 and a PEEP of 5. . GENERAL: The patient is somnolent. HEENT: Normocephalic, atraumatic. Sclerae are white, conjunctivae pink. Oral mucosa is moist witho ut lesions. LUNGS: Decent air entry. There is no prolonged expiratory phase or wheezing. Rhonchi is present. HEART: Normal rate, regular. ABDOMEN: Soft, nontender, nondistended. Bowel sounds positive. MUSCULOSKELETAL: No cyanosis or clubbing. There is no pitting in the bilateral lower extremities. The right lower extremity has a wound VAC over the leg. He also has advancing erythema coming above the knee now. LABORATORY DATA: WBC 5.7, hemoglobin 7.7, platelets 158,000. Band count is 19%. Potassium 3.5. An ion gap 8, bicarbonate 33. BUN and creatinine are stable. Basic metabolic profile is otherwise unre markable. Magnesium 1.5. Repeat blood cultures negative to date. Previous leg cultures were growin g Serratia. ASSESSMENT: 1. Acute hypoxic respiratory failure, resolving. 2. Septic shock, resolved. 3. Necrotizing fasciitis secondary to serratia, status post debridement x2, going back to the operat ing room today. 4. Bacteremia secondary to serratia. 5. Morbid obesity. 6. Deconditioning. 7. Critical care weakness. DISCUSSION AND PLAN: Once he is back from the OR, we will continue our vent weaning. Magnesium and potassium will be replaced today. Pulmonary Critical Care will continue to follow along while the viri lorenzana remains in this location. We will back off on our D5 water today.
[2018-01-17] MEDS: Saccharomyces boulardii 250 MG CAP PO SCH (11:56)
[2018-01-17] MEDS: Famotidine 20 MG TAB PO SCH ×2 (11:57→21:28)
[2018-01-17] MEDS: Heparin 5,000 UNITS/ML VIAL SC SCH ×3 (11:57→21:28)
[2018-01-17] MEDS: Sodium Chloride 0.45% 1,000 ML IV SCH (11:57)
[2018-01-17] MEDS ORDERED: Vecuronium 10 MG VIAL ONE (12:02)
[2018-01-17] MEDS ORDERED: PROPOFOL 200 MG/20 ML VIAL ONE (12:02)
[2018-01-17] MEDS ORDERED: Ondansetron HCl/PF 4 MG/2 ML Vial ONE (12:02)
[2018-01-17] MEDS: cefTRIAXone\\ROCEPHIN 2 GM in Sodium Chloride 0.9% 100 ML IVPB SCH (12:59)
--- NOTE | 2018-01-17 15:08 | PDOC.OP ---
Operative Note - Operative Note Operative Note: PROCEDURE: Debridement right leg wound DATE OF PROCEDURE: 01/17/2018 SURGEON: Katharine Richardson M.D. ASST.: Murphy Vicente MS 3 PREOPERATIVE DIAGNOSES: Necrotizing fasciitis of right leg POSTOPERATIVE DIAGNOSIS: Necrotizing fasciitis of right leg HISTORY: Patient with necrotizing fasciitis of the right leg status post multiple debridements. He has not tolerated dressing changes at the bedside so the decision was made to take him back to the operating room for debridement and VAC change. PROCEDURE IN DETAIL: After two-physician consent was obtained and appropriate antibiotics continued the patient was taken to the operating room and was placed in supine position and general anesthesia was administered. He was prepped and draped in standard sterile fashion and the wound carefully examined. There was minimal nonviable skin and subcutaneous tissues around the periphery of the wound which was sharply excised. The remainder of the wound was clean and granulating. There was no extension of the infectious process. The wound was irrigated and the wound care team called for replacement of the VAC dressing.
--- NOTE | 2018-01-17 15:14 | PDOC.OP ---
Operative Note - Operative Note Operative Note: PROCEDURE: Tracheostomy, PEG tube, and debridement of right leg SURGEON: Katharine Richardson M.D. DATE OF PROCEDURE: 01/15/2018 PREOPERATIVE DIAGNOSIS: Necrotizing fasciitis of the right leg. Respiratory failure and dysphagia. POSTOPERATIVE DIAGNOSIS: Necrotizing fasciitis of the right leg. Respiratory failure and dysphagia. HISTORY: Patient with necrotizing fasciitis. He is ventilator dependent and not expected to wean in the near future. Pulmonology has requested tracheostomy placement to assist in weaning from the ventilator. PEG tube placement has also been requested as the patient is too weak to safely swallow. PROCEDURE IN DETAIL: After informed consent was obtained and appropriate preoperative antibiotics were administered the patient was taken to the operating room and placed in supine position and general endotracheal anesthesia administered through the pre-existing endotracheal tube. The neck and chest were prepped and draped in the standard sterile fashion and local anesthesia infused the skin and subcutaneous tissues anterior to the trachea. A longitudinal incision was made and dissection carried down to the pretracheal fascia, dividing the isthmus of the thyroid with electrocautery. The cricoid cartilage and the first 3 tracheal rings were clearly exposed. Inspiratory oxygen levels were turned down by anesthesia to the lowest possible level prior to any entry into the trachea and no electrocautery was used after that point. Two traction sutures were placed around the third tracheal ring laterally and an incision made between the second and third tracheal rings. A tracheal artist manager was used to dilate the tracheostomy and the endotracheal tube was withdrawn to just above the level of the tracheostomy. A #8 Shiley tracheostomy was placed under direct vision into the trachea and the balloon was inflated. The inner obturator was removed and an inner cannula placed. The extension tubing was passed off the field to anesthesia and equal inspiratory and expiratory volumes were confirmed. End tidal CO2 was confirmed as well. Hemostasis at the operative site was confirmed and the old endotracheal tube was removed. Surgicel was placed into the wound as a precaution. The skin was reapproximated superior and inferior to the tracheostomy with Prolene sutures and the tracheostomy secured to the skin in 4 locations. A gauze dressing was placed around the tracheostomy and tracheostomy collar was secured. Attention was then turned to placement of the PEG tube. The gastroscope was passed down into the stomach under direct vision. The esophagus was grossly normal and the stomach insufflated normally. A finger impulse was clearly seen in the antrum with palpation in the left upper quadrant. This skin was sterilely prepped and local anesthesia infused. The skin incision was made and a needle and sheath placed into the gastric lumen under direct vision of the gastroscope. The needle was removed leaving the sheath in place and a wire advanced through the sheath. The wire was grasped by the gastroscope and drawn out through the mouth. This was secured to the 20 [place] pull PEG which was then drawn back out through the abdominal wall and secured to the skin with the outer flange with the skin at the 3 cm tracie. The tapered portion of the pull PEG was cut off and the adapter connected. The PEG was dressed with antibiotic ointment and gauze and tape. Attention was then turned to debridement of the right leg. Right leg was prepped and draped in standard sterile fashion and carefully examined. There was some additional necrotic skin mostly around the margin of the foot as well as small amount of necrotic subcutaneous tissue around the periphery of the wound which was debrided using the curettes. There was no extension of the infectious process. The wound was copiously irrigated and the wound care team was called to replace the VAC dressing. The patient was taken back to the critical care unit in good condition. Estimated blood loss was minimal. There were no complications. There were no specimens.
--- NOTE | 2018-01-17 15:22 | PRG ---
DATE OF SERVICE: 01/17/2018 SUBJECTIVE: Mr. Lim had a repeat debridement by Dr. Richardson. OBJECTIVE: GENERAL: He is awake, but obtunded, opens his eyes. VITAL SIGNS: Another recrudescence of temperature elevation earlier, now is 98.8, BP 120/62, pulse 6 0. HEENT: Somewhat disconjugate eye movements. He does not establish eye contact. LUNGS: With symmetric clear breath sounds. Tracheostomy exit site appears okay. Gastrostomy exit s ite appears alright. ABDOMEN: Not distended. LABORATORY DATA: White cell count 5.7, hemoglobin 7.7, platelets 158 with 98% bands, 64% neutrophils and creatinine 0.83. Cultures, 2 sets of blood cultures from 01/16/2018, thus far negative. ASSESSMENT AND DISCUSSION: Type 2 diabetes, chronic obstructive pulmonary disease, congestive heart failure, untreated hepatitis C, associated cirrhosis of the liver, recurrent episodes of cellulitis o f lower extremities, this time with aggressive necrotizing process right leg, which required extensiv e surgical debridement and caused by Serratia marcescens. The patient is steadily improving. He has been pegged and trached and currently on Rocephin could be eventually transitioned to oral ciprofloxacin if discharge planning is envisioned. It looks like it is going to be in the hospital for a while still.
--- NOTE | 2018-01-17 17:05 | PDOC.PN ---
- Subjective Encounter Start Date: 01/17/18 Encounter Start Time: 15:00 Pt seen for followup re: cellulitis. Trach, unable to answer questions. Unable to complete ROS. - Objective Resuscitation Status: Resuscitation Status FULL:Full Resuscitation MAR Reviewed: Yes Vital Signs & Weight: Vital Signs (12 hours) Temp Pulse Resp BP Pulse Ox 01/17/18 14:47 85 126/54 L 01/17/18 12:00 11 L 01/17/18 11:40 86 01/17/18 11:36 98.8 F 01/17/18 08:00 98.9 F 60 12 94 L 01/17/18 06:45 75 106/46 L 01/17/18 06:00 16 Weight Admit Weight 382 lb Weight 361 lb 8.929 oz Most Recent Monitor Data Heart Rate from ECG 96 NIBP 126/62 NIBP BP-Mean 90 Respiration from ECG 29 SpO2 95 I&O: 01/16/18 01/17/18 01/18/18 06:59 06:59 06:59 Intake Total 2147 2805 450 Output Total 3030 2635 545 Balance -883 170 -95 Result Diagrams: 01/17/18 04:00 01/17/18 04:00 Additional Labs: Accuchecks 01/17/18 01/17/18 01/16/18 13:02 04:09 21:36 POC Glucose 133 H 153 H 142 H EKG Reviewed by me: Yes (Tele: NSR) Phys Exam - Physical Examination Morbid obesity trach Respiratory: clear to auscultation bilateral Cardiovascular: RRR Gastrointestinal: soft Neurological: moves all 4 limbs Psychiatric: normal affect Deviation from normal: LLE dressing Dx/Plan (1) Cellulitis Code(s): L03.90 - CELLULITIS, UNSPECIFIED Status: Acute Comment: continue IV ceftriaxone, pt had I&D today. Follow cultures (2) Acute respiratory failure with hypoxia and hypercarbia Code(s): J96.01 - ACUTE RESPIRATORY FAILURE WITH HYPOXIA; J96.02 - ACUTE RESPIRATORY FAILURE WITH HYPERCAPNIA Status: Acute Comment: s/p tracheostomy (3) Bacterial infection due to Serratia Code(s): A49.8 - OTHER BACTERIAL INFECTIONS OF UNSPECIFIED SITE Status: Acute Comment: on IV ceftriaxone (4) GERD (gastroesophageal reflux disease) Code(s): K21.9 - GASTRO-ESOPHAGEAL REFLUX DISEASE WITHOUT ESOPHAGITIS Status: Chronic Comment: stable (5) HTN (hypertension) Code(s): I10 - ESSENTIAL (PRIMARY) HYPERTENSION Status: Chronic Comment: controlled (6) Morbid obesity due to excess calories Code(s): E66.01 - MORBID (SEVERE) OBESITY DUE TO EXCESS CALORIES Status: Chronic (7) T2DM (type 2 diabetes mellitus) Status: Chronic - Plan * . Review of Systems - Medications/Allergies Allergies/Adverse Reactions: Allergies Allergy/AdvReac Type Severity Reaction Status Date / Time Penicillins Allergy Verified 11/19/17 18:41 Medications: Current Medications Acetaminophen (Tylenol) 650 mg PO Q4H PRN PRN Reason: Headache/Fever or Pain Last Admin: 01/17/18 05:00 Dose: 650 mg Al Hydroxide/Mg Hydroxide (Maalox) 30 ml PO Q6H PRN PRN Reason: Heartburn or Indigestion Albuterol/Ipratropium (Duoneb) 3 ml NEB [id number] PRN PRN Reason: SOB &/or Wheezing Last Admin: 01/09/18 18:45 Dose: 3 ml Lipase/Protease/Amylase ([place] [address]) 1 cap FS .PER PROTOCOL PRN PRN Reason: TUBE OCCLUSION PROTOCOL Clonazepam (Klonopin) 0.5 mg PO HS [facility] Dextrose/Water (Dextrose 50%) 25 gm SLOW IVP PRN PRN PRN Reason: Hypoglycemia Famotidine (Pepcid) 20 mg PO BID [facility] Last Admin: 01/17/18 11:57 Dose: 20 mg Glucagon (Glucagon) 1 mg IM PRN PRN PRN Reason: Hypoglycemia Heparin Sodium (Porcine) (Heparin) 5,000 units SC BID [facility] Last Admin: 01/17/18 11:59 Dose: Not Given Dextrose/Water (D5w) 1,000 mls @ 0 mls/hr IV .Q0M PRN PRN Reason: Hypoglycemia Ceftriaxone Sodium 2 gm/ (Sodium Chloride) 100 mls @ 200 mls/hr IVPB Q24HR [facility] Last Admin: 01/17/18 12:59 Dose: 100 mls Sodium Chloride (1/2 Normal Saline) 1,000 mls @ 100 mls/hr IV .Q10H [facility] Last Admin: 01/17/18 11:57 Dose: 1,000 mls Insulin Human Lispro (Humalog) 0 units SC .MODERATE SLIDING SC PRN PRN Reason: Moderate Correctional Scale Last Admin: 01/16/18 12:39 Dose: 2 unit Insulin Human Lispro (Humalog) 0 units SC .BEDTIME SLIDING SC PRN PRN Reason: Bedtime Correctional Scale Loperamide HCl (Imodium) 2 mg PO PRN PRN PRN Reason: Diarrhea/Loose Stools Loratadine (Claritin) 10 mg PO DAILYPRN PRN PRN Reason: Sinus Symptoms Magnesium Hydroxide (Milk Of Magnesium) 30 ml PO DAILYPRN PRN PRN Reason: Constipation Mineral Oil/White Petrolatum (Eucerin Cream) 0 gm TOP BIDPRN PRN PRN Reason: Dry Skin Miscellaneous Medication (Pharmacy To Dose) 1 each IVPB PRN PRN PRN Reason: Pharmacy to dose Morphine Sulfate (Morphine) 2 mg SLOW IVP Q2H PRN PRN Reason: PAIN 4-6 Last Admin: 01/16/18 21:30 Dose: 2 mg Ondansetron HCl (Zofran) 4 mg IVP Q6H PRN PRN Reason: Nausea/Vomiting Phenol (Chloraseptic [place] 180 Ml Bot) 0 ml PO PRN PRN PRN Reason: Sore Throat Quetiapine Fumarate (Seroquel) 25 mg PO HS [facility] Saccharomyces Boulardii (Florastor) 250 mg PO DAILY [facility] Last Admin: 01/17/18 11:56 Dose: 250 mg Senna (Senokot) 2 tab PO HSPRN PRN PRN Reason: Constipation Sodium Bicarbonate (Bicarbonate, Sodium) 650 mg PER TUBE .PER PROTOCOL PRN PRN Reason: ENTERAL TUBE OCCLUSION Sodium Chloride ([place] Nasal [place] 0.65%) 0 ml EA NARE QIDPRN PRN PRN Reason: Nasal Congestion Sodium Chloride (Flush - Normal Saline) 10 ml IVF Q12HR [facility] Last Admin: 01/17/18 11:58 Dose: 10 ml Sodium Chloride (Flush - Normal Saline) 10 ml IVF PRN PRN PRN Reason: Saline Flush
--- NOTE | 2018-01-17 19:56 | PRG ---
DATE OF SERVICE: 01/17/2018 The patient was seen and examined, very much better noted with the following vital signs. PHYSICAL EXAMINATION: VITAL SIGNS: Blood pressure 129/58, pulse 85, O2 sat 100%. HEENT: Unremarkable. CARDIOVASCULAR: First and second heart sounds were heard. RESPIRATORY: Clear to auscultation. DIGESTIVE: Revealed a benign abdomen with positive bowel sounds. EXTREMITIES: Show no peripheral edema. SKIN: No new gross rash. IMPRESSION: 1. Acute tubular necrosis, which is much improved. 2. Morbid obesity. PLAN: 1. We will continue with current renal supportive measures. 2. Further management to be dependent on the clinical course.
[2018-01-17] MEDS: clonazePAM 1 MG TAB PO SCH (21:27)
[2018-01-18 05:19] LABS: Hemoglobin 7.7 g/dL (14.0-18.0)
[2018-01-18 05:33] LABS: Anion Gap 9 mmol/L (10-20); BUN (Urea Nitrogen) 25 mg/dL (8.4-25.7); Calc. Creatinine Clearance 265 mL/min (70-130); Carbon Dioxide 34 mmol/L (22-29); Chloride 107 mmol/L (98-107); Estimated GFR-MDRD Greater than 90; Glucose 125 mg/dL (70-105); Magnesium 1.5 mg/dL (1.6-2.6); Potassium 3.8 mmol/L (3.5-5.1); Sodium 146 mmol/L (136-145)
[2018-01-18] MEDS: Sodium Chloride 0.45% 1,000 ML IV SCH ×2 (06:07→09:31)
--- NOTE | 2018-01-18 08:28 | PRG ---
PHYSICAL EXAMINATION: VITAL SIGNS: Afebrile with temperature 98.9, pulse 79, blood pressure 116/60, O2 sat 99%. HEENT: Unremarkable. CARDIOVASCULAR: First and second heart sounds were heard. RESPIRATORY: Clear to auscultation. DIGESTIVE: Revealed an obese abdomen. EXTREMITIES: No peripheral edema. SKIN: No new gross rash. IMPRESSION: 1. Acute tubular necrosis, which has resolved. 2. Sepsis. PLAN: 1. Continue renal supportive measures and avoid potentially nephrotoxic agents. 2. Further management to be dependent on the clinical course.
[2018-01-18] MEDS: Famotidine 20 MG TAB PO SCH ×2 (09:30→21:27)
[2018-01-18] MEDS: Heparin 5,000 UNITS/ML VIAL SC SCH ×2 (09:30→21:28)
[2018-01-18] MEDS: Saccharomyces boulardii 250 MG CAP PO SCH (09:30)
[2018-01-18] MEDS ORDERED: Magnesium Sulfate 4 GM in Sodium Chloride 0.9% 250 ML 250 ML IVPB SCH (10:00)
--- NOTE | 2018-01-18 10:12 | PRG ---
DATE OF SERVICE: 01/18/2018 SERVICE: Pulmonary Medicine INTERVAL HISTORY: The patient went down for further debridement yesterday. Otherwise, there has bee n no interval change to his condition. He is awake and alert this morning. He is conversive. He is trying to communicate with me, but unfortunately cannot really read his lips. He denies having any significant abdominal discomfort, or difficulty with breathing. PHYSICAL EXAMINATION: VITAL SIGNS: Afebrile, pulse 99, blood pressure 168/60, respirations 14, saturation 99% on 27% FiO2 and a PEEP of 5. GENERAL: The patient is awake and alert, in no apparent distress. LUNGS: Excellent air entry. There is no rhonchi or crackles present today. HEART: Normal rate, regular. ABDOMEN: Soft, nontender, nondistended. Bowel sounds are positive. MUSCULOSKELETAL: No cyanosis or clubbing. There is no pitting in the bilateral lower extremities. NEUROLOGIC: Grossly nonfocal. LABORATORY DATA: Hemoglobin 7.7. Sodium 146 and gently up trending once again. Bicarbonate 34. Ma gnesium 1.5. Blood cultures x2 remain negative to date. Original blood cultures were growing Serrat ia. ASSESSMENT: 1. Acute hypoxic respiratory failure, resolving. 2. Septic shock, resolved. 3. Necrotizing fasciitis secondary to serratia, status post debridement x3. 4. Bacteremia secondary to serratia. 5. Morbid obesity. 6. Deconditioning. 7. Critical care weakness. DISCUSSION AND PLAN: We will continue our vent weaning attempts. He will remain in the ICU until Boyer rgery is done with him. Pulmonary and Critical Care will continue to follow while he remains in this location. He is going to require Plastic Surgery at some point in the future once he heals up from this infection.
[2018-01-18] MEDS: cefTRIAXone\\ROCEPHIN 2 GM in Sodium Chloride 0.9% 100 ML IVPB SCH (13:19)
--- NOTE | 2018-01-18 14:55 | PDOC.PN ---
- Subjective Encounter Start Date: 01/18/18 Encounter Start Time: 09:00 Serenetent remains Intubated planned SBT. - Objective Resuscitation Status: Resuscitation Status FULL:Full Resuscitation MAR Reviewed: Yes Vital Signs & Weight: Vital Signs (12 hours) Temp Pulse Resp BP Pulse Ox 01/18/18 12:00 98.1 F 32 H 01/18/18 11:09 87 145/74 H 01/18/18 10:00 31 H 01/18/18 08:00 98.9 F 86 17 99 01/18/18 07:02 99 135/57 L 01/18/18 06:00 29 H 01/18/18 04:00 99.3 F 28 H 01/18/18 03:23 90 Weight Admit Weight 382 lb Weight 352 lb 1.251 oz Most Recent Monitor Data Heart Rate from ECG 78 NIBP 123/45 NIBP BP-Mean 67 Respiration from ECG 21 SpO2 100 I&O: 01/17/18 01/18/18 01/19/18 06:59 06:59 06:59 Intake Total 2805 2882 200 Output Total 2635 2220 395 Balance 170 662 -195 Result Diagrams: 01/18/18 04:35 01/18/18 04:35 Additional Labs: Accuchecks 01/18/18 01/18/18 01/17/18 10:40 04:35 21:23 POC Glucose 129 H 129 H 131 H 01/17/18 18:22 POC Glucose 122 H Radiology Reviewed by me: Yes Phys Exam - Physical Examination HEENT: PERRLA, moist MMs Neck: no nodes, no JVD Respiratory: no wheezing, no rales Cardiovascular: no significant murmur Gastrointestinal: soft, non-tender Musculoskeletal: no edema NEcrotizing fascitis, debridement done. Dx/Plan (1) Acute kidney failure Status: Resolved Qualifiers: Acute renal failure type: unspecified Qualified Code(s): N17.9 - Acute kidney failure, unspecified Comment: resolved, continue with IV fluids. (2) Acute metabolic encephalopathy Code(s): G93.41 - METABOLIC ENCEPHALOPATHY Status: Acute Comment: Likely from Sepsis. Persistant due to intubation and Sedation. (3) Acute respiratory failure with hypoxia and hypercarbia Code(s): J96.01 - ACUTE RESPIRATORY FAILURE WITH HYPOXIA; J96.02 - ACUTE RESPIRATORY FAILURE WITH HYPERCAPNIA Status: Acute Comment: s/p tracheostomy , Plan to Wean as tolerated. (4) Bacterial infection due to Serratia Code(s): A49.8 - OTHER BACTERIAL INFECTIONS OF UNSPECIFIED SITE Status: Acute Comment: on IV ceftriaxone. sensitive. (5) Cellulitis Code(s): L03.90 - CELLULITIS, UNSPECIFIED Status: Acute Comment: continue IV ceftriaxone, pt had I&D today. Follow cultures (6) Demand ischemia of myocardium Code(s): I24.8 - OTHER FORMS OF ACUTE ISCHEMIC HEART DISEASE Status: Acute Comment: due to sepsis (7) Anemia, normocytic normochromic Code(s): D64.9 - ANEMIA, UNSPECIFIED Status: Chronic (8) COPD (chronic obstructive pulmonary disease) Status: Chronic Comment: stbale, continue to Monitor.Pulmonary on Board. (9) Chronic hepatitis C with cirrhosis Code(s): B18.2 - CHRONIC VIRAL HEPATITIS C; K74.60 - UNSPECIFIED CIRRHOSIS OF LIVER Status: Chronic (10) GERD (gastroesophageal reflux disease) Code(s): K21.9 - GASTRO-ESOPHAGEAL REFLUX DISEASE WITHOUT ESOPHAGITIS Status: Chronic Comment: stable (11) HTN (hypertension) Code(s): I10 - ESSENTIAL (PRIMARY) HYPERTENSION Status: Chronic Comment: controlled - Plan cont current plan of care, PT/OT, manager social work, incentive spirometry * . Review of Systems - Review of Systems Other: Unable to obtain ROS. - Medications/Allergies Allergies/Adverse Reactions: Allergies Allergy/AdvReac Type Severity Reaction Status Date / Time Penicillins Allergy Verified 11/19/17 18:41 Medications: Current Medications Acetaminophen (Tylenol) 650 mg PO Q4H PRN PRN Reason: Headache/Fever or Pain Last Admin: 01/17/18 05:00 Dose: 650 mg Al Hydroxide/Mg Hydroxide (Maalox) 30 ml PO Q6H PRN PRN Reason: Heartburn or Indigestion Albuterol/Ipratropium (Duoneb) 3 ml NEB [id number] PRN PRN Reason: SOB &/or Wheezing Last Admin: 01/09/18 18:45 Dose: 3 ml Lipase/Protease/[place] ([place] [id number]) 1 cap FS .PER PROTOCOL PRN PRN Reason: TUBE OCCLUSION PROTOCOL Clonazepam (Klonopin) 0.5 mg PO HS [facility] Last Admin: 01/17/18 21:27 Dose: 0.5 mg Dextrose/Water (Dextrose 50%) 25 gm SLOW IVP PRN PRN PRN Reason: Hypoglycemia Famotidine (Pepcid) 20 mg PO BID [facility] Last Admin: 01/18/18 09:30 Dose: 20 mg Glucagon (Glucagon) 1 mg IM PRN PRN PRN Reason: Hypoglycemia Heparin Sodium (Porcine) (Heparin) 5,000 units SC BID [facility] Last Admin: 01/18/18 09:30 Dose: 5,000 units Dextrose/Water (D5w) 1,000 mls @ 0 mls/hr IV .Q0M PRN PRN Reason: Hypoglycemia Ceftriaxone Sodium 2 gm/ (Sodium Chloride) 100 mls @ 200 mls/hr IVPB Q24HR [facility] Last Admin: 01/18/18 13:19 Dose: 100 mls Insulin Human Lispro (Humalog) 0 units SC .MODERATE SLIDING SC PRN PRN Reason: Moderate Correctional Scale Last Admin: 01/16/18 12:39 Dose: 2 unit Insulin Human Lispro (Humalog) 0 units SC .BEDTIME SLIDING SC PRN PRN Reason: Bedtime Correctional Scale Loperamide HCl (Imodium) 2 mg PO PRN PRN PRN Reason: Diarrhea/Loose Stools Loratadine (Claritin) 10 mg PO DAILYPRN PRN PRN Reason: Sinus Symptoms Magnesium Hydroxide (Milk Of Magnesium) 30 ml PO DAILYPRN PRN PRN Reason: Constipation Mineral Oil/White Petrolatum (Eucerin Cream) 0 gm TOP BIDPRN PRN PRN Reason: Dry Skin Miscellaneous Medication (Pharmacy To Dose) 1 each IVPB PRN PRN PRN Reason: Pharmacy to dose Morphine Sulfate (Morphine) 2 mg SLOW IVP Q2H PRN PRN Reason: PAIN 4-6 Last Admin: 01/18/18 09:29 Dose: 2 mg Ondansetron HCl (Zofran) 4 mg IVP Q6H PRN PRN Reason: Nausea/Vomiting Phenol (Chloraseptic [place] 180 Ml Bot) 0 ml PO PRN PRN PRN Reason: Sore Throat Quetiapine Fumarate (Seroquel) 25 mg PO [facility] Last Admin: 01/17/18 21:27 Dose: 25 mg Saccharomyces Boulardii (Florastor) 250 mg PO DAILY [facility] Last Admin: 01/18/18 09:30 Dose: 250 mg Senna (Senokot) 2 tab PO HSPRN PRN PRN Reason: Constipation Sodium Bicarbonate (Bicarbonate, Sodium) 650 mg PER TUBE .PER PROTOCOL PRN PRN Reason: ENTERAL TUBE OCCLUSION Sodium Chloride ([place] Nasal [place] 0.65%) 0 ml EA NARE QIDPRN PRN PRN Reason: Nasal Congestion Sodium Chloride (Flush - Normal Saline) 10 ml IVF Q12HR [facility] Last Admin: 01/18/18 10:40 Dose: 10 ml Sodium Chloride (Flush - Normal Saline) 10 ml IVF PRN PRN PRN Reason: Saline Flush
[2018-01-18] MEDS: clonazePAM 1 MG TAB PO SCH (21:27)
[2018-01-19] MEDS ORDERED: Morphine 4 MG/ML VIAL ONE (06:58)
--- NOTE | 2018-01-19 07:33 | HP ---
CHIEF COMPLAINT: Wounds, right leg. HISTORY OF PRESENT ILLNESS: The patient is a 57-year-old, 350-pounds type 2 diabetic with necrotizin g fasciitis of his foot, right lower extremity. His other relevant medical history is cirrhosis from hepatitis C, heart failure, morbid obesity, COPD, chronic venous insufficiency. The patient was bro ught to the hospital for sepsis. He has undergone debridements of his right leg. PAST MEDICAL HISTORY: As above plus JENNY, GERD, anxiety, depression, and bipolar. PAST SURGICAL HISTORY: As above plus cholecystectomy, left lower extremity surgery, tonsillectomy. REVIEW OF SYSTEMS: Noncontributory. PHYSICAL EXAMINATION: GENERAL: Patient is morbidly obese, restrained patient with a trach. He is unable to effectively co mmunicate even to direct yes or no questions. The wound VAC was removed this morning. He has got fu ll-thickness loss over the distal two-thirds of the leg circumferentially. There is a potential of s kin proximally and anteriorly. The tendons were exposed at the toes. There still appears to be some necrotic tissue on the great toe and the adjacent 2 toes. The bottom of his foot is viable. The se nsibility of it was unable to be assessed accurately. The wound goes up to the popliteal fossa. The underlying muscle appears viable. The paratenon has gone of the extensors. ASSESSMENT AND PLAN: A 57-year-old man. Per the guards, he has been wheelchair bound for over a yea r. I do not think that the potential for saving the leg is great. The cost of attempting would also be very morbid compared to an amputation. I think this is particularly true in a nonambulatory dann ent with his comorbidities. I will discuss this with the General Surgery team.
--- NOTE | 2018-01-19 08:49 | PDOC.GSPN ---
Surgery Progress Note: Subj - Subjective Narrative: Plastics does not feel the leg is salvageable due to exposed tendons. I agree that AKA would heal more quickly and with greater chance of success. Will attempt to get consent from warden for AKA; unable to communicate w pt as he does not indicate understanding of situation and only responds intermittently to simple questions. Wound is stable and no further debridement done today. Infectious process controlled. Surgery Progress Note: Obj - Vital signs Vital signs: Vital Signs - Most Recent Temp Pulse Resp BP Pulse Ox 98.4 F 95 21 H 124/67 100 01/19/18 04:00 01/19/18 06:50 01/19/18 06:00 01/19/18 06:50 01/18/18 20:00 Surgery Progress Note: Results - Labs Result Diagrams: 01/18/18 04:35 01/18/18 04:35 Lab results: Laboratory Results - last 24 hr 01/19/18 05:17 POC Glucose 115 H
[2018-01-19] MEDS: Famotidine 20 MG TAB PO SCH ×2 (09:01→21:10)
[2018-01-19] MEDS: Heparin 5,000 UNITS/ML VIAL SC SCH ×2 (09:01→21:10)
[2018-01-19] MEDS: Saccharomyces boulardii 250 MG CAP PO SCH (09:01)
--- NOTE | 2018-01-19 11:13 | PRG ---
DATE OF SERVICE: 01/19/2018 SERVICE: Pulmonary Medicine INTERVAL HISTORY: The patient had a significant setback. Plastics evaluated the patient and suggest ed there is no way can graft a flap of the wound that is left over. As such, he is recommending that we do an amputation. We will be moving forward with that soon enough. Otherwise, there were no dana nts overnight. He is currently in and out. Occasionally he is alert, but not really ever making any sense. I do think that he is able to understand the implications of his choices. As such, we are n ot going to be able to consent the patient directly. PHYSICAL EXAMINATION: VITAL SIGNS: Afebrile, pulse 83, blood pressure 141/69, respirations 33, saturation 95% on 27% FiO2 and a PEEP of 5. GENERAL: The patient is somnolent. HEENT: Normocephalic, atraumatic. Sclerae are white, conjunctivae pink. Oral mucosa is moist witho ut lesions. LUNGS: Decent air entry. There is no prolonged expiratory phase, wheezing, rhonchi, or crackles pre sent. HEART: Normal rate, regular. ABDOMEN: Soft, nontender, nondistended. Bowel sounds are positive. MUSCULOSKELETAL: No cyanosis or clubbing. There is no pitting in the bilateral lower extremities. NEUROLOGIC: Grossly nonfocal. ASSESSMENT: 1. Acute hypoxic respiratory failure, improving. 2. Septic shock, resolved. 3. Necrotizing fasciitis secondary to Serratia, status post debridement x3. 4. Bacteremia secondary to Serratia. 5. Morbid obesity. 6. Deconditioning. 7. Critical care weakness. DISCUSSION AND PLAN: The patient is doing fine from a respiratory standpoint. Once we are able to e stablish consent, he will go down for an amputation above the knee. He will remain on pressure suppo rt ventilation which we will wean away as tolerated. We will try to mobilize the patient as much as tolerated moving forward.
[2018-01-19] MEDS: cefTRIAXone\\ROCEPHIN 2 GM in Sodium Chloride 0.9% 100 ML IVPB SCH (13:05)
--- NOTE | 2018-01-19 15:54 | PDOC.PN ---
- Subjective Encounter Start Date: 01/19/18 Encounter Start Time: 14:00 PAtient is seen today, remains on trac ventilation. Pt has worseing Necrotizing fascitis, He will need AKA according to surgery. - Objective Resuscitation Status: Resuscitation Status FULL:Full Resuscitation MAR Reviewed: Yes Vital Signs & Weight: Vital Signs (12 hours) Temp Pulse Resp BP Pulse Ox 01/19/18 14:33 87 149/78 H 01/19/18 14:00 21 H 01/19/18 12:00 98.1 F 23 H 01/19/18 10:39 83 141/69 H 01/19/18 10:00 30 H 01/19/18 09:11 77 01/19/18 08:00 98.4 F 88 34 H 100 01/19/18 06:50 95 124/67 01/19/18 06:00 21 H 01/19/18 04:00 98.4 F 25 H Weight Admit Weight 382 lb Weight 351 lb 3.142 oz Most Recent Monitor Data Heart Rate from ECG 86 NIBP 135/54 NIBP BP-Mean 83 Respiration from ECG 34 SpO2 95 I&O: 01/18/18 01/19/18 01/20/18 06:59 06:59 06:59 Intake Total 2882 2288 500 Output Total 2220 1735 675 Balance 662 227 -093 Result Diagrams: 01/20/18 04:25 01/20/18 04:25 Additional Labs: Accuchecks 01/19/18 01/19/18 01/18/18 10:32 05:17 17:14 POC Glucose 109 115 H 123 H Radiology Reviewed by me: Yes Phys Exam - Physical Examination HEENT: PERRLA, moist MMs Respiratory: no wheezing, no rales Cardiovascular: RRR, no significant murmur Gastrointestinal: soft, non-tender Musculoskeletal: pulses present, edema present Sevre Right Leg necrosis Psychiatric: normal affect Dx/Plan (1) Acute kidney failure Status: Resolved Qualifiers: Acute renal failure type: unspecified Qualified Code(s): N17.9 - Acute kidney failure, unspecified Comment: resolved, continue with IV fluids. (2) Acute metabolic encephalopathy Code(s): G93.41 - METABOLIC ENCEPHALOPATHY Status: Acute Comment: Likely from Sepsis. Persistant due to intubation and Sedation. (3) Acute respiratory failure with hypoxia and hypercarbia Code(s): J96.01 - ACUTE RESPIRATORY FAILURE WITH HYPOXIA; J96.02 - ACUTE RESPIRATORY FAILURE WITH HYPERCAPNIA Status: Acute Comment: s/p tracheostomy , Plan to Wean as tolerated. (4) Bacterial infection due to Serratia Code(s): A49.8 - OTHER BACTERIAL INFECTIONS OF UNSPECIFIED SITE Status: Acute Comment: on IV ceftriaxone. sensitive. (5) Cellulitis Code(s): L03.90 - CELLULITIS, UNSPECIFIED Status: Acute Comment: continue IV ceftriaxone, pt had I&D today. Poor Healing, worseing Necrosis, planned for AKA. Follow recommedations (6) Demand ischemia of myocardium Code(s): I24.8 - OTHER FORMS OF ACUTE ISCHEMIC HEART DISEASE Status: Acute Comment: due to sepsis (7) Anemia, normocytic normochromic Code(s): D64.9 - ANEMIA, UNSPECIFIED Status: Chronic (8) COPD (chronic obstructive pulmonary disease) Status: Chronic Comment: stbale, continue to Monitor.Pulmonary on Board. (9) Chronic hepatitis C with cirrhosis Code(s): B18.2 - CHRONIC VIRAL HEPATITIS C; K74.60 - UNSPECIFIED CIRRHOSIS OF LIVER Status: Chronic (10) GERD (gastroesophageal reflux disease) Code(s): K21.9 - GASTRO-ESOPHAGEAL REFLUX DISEASE WITHOUT ESOPHAGITIS Status: Chronic Comment: stable (11) HTN (hypertension) Code(s): I10 - ESSENTIAL (PRIMARY) HYPERTENSION Status: Chronic Comment: controlled - Plan cont current plan of care, continue antibiotics, incentive spirometry, DVT proph w/lovenox * . Review of Systems - Review of Systems Respiratory: Shortness of Breath Cardiovascular: negative: chest pain, palpitations, orthopnea, paroxysmal nocturnal dyspnea, edema, light headedness, other Musculoskeletal: Leg Pain, Foot Pain - Medications/Allergies Allergies/Adverse Reactions: Allergies Allergy/AdvReac Type Severity Reaction Status Date / Time Penicillins Allergy Verified 11/19/17 18:41 Medications: Current Medications Acetaminophen (Tylenol) 650 mg PO Q4H PRN PRN Reason: Headache/Fever or Pain Last Admin: 01/19/18 20:07 Dose: 650 mg Al Hydroxide/Mg Hydroxide (Maalox) 30 ml PO Q6H PRN PRN Reason: Heartburn or Indigestion Albuterol/Ipratropium (Duoneb) 3 ml NEB [id number] PRN PRN Reason: SOB &/or Wheezing Last Admin: 01/09/18 18:45 Dose: 3 ml Lipase/Protease/Amylase ([place] [id number]) 1 cap FS .PER PROTOCOL PRN PRN Reason: TUBE OCCLUSION PROTOCOL Dextrose/Water (Dextrose 50%) 25 gm SLOW IVP PRN PRN PRN Reason: Hypoglycemia Famotidine (Pepcid) 20 mg PO BID [facility] Last Admin: 01/19/18 21:10 Dose: 20 mg Glucagon (Glucagon) 1 mg IM PRN PRN PRN Reason: Hypoglycemia Heparin Sodium (Porcine) (Heparin) 5,000 units SC BID [facility] Last Admin: 01/19/18 21:10 Dose: 5,000 units Dextrose/Water (D5w) 1,000 mls @ 0 mls/hr IV .Q0M PRN PRN Reason: Hypoglycemia Ceftriaxone Sodium 2 gm/ (Sodium Chloride) 100 mls @ 200 mls/hr IVPB Q24HR [facility] Last Admin: 01/19/18 13:05 Dose: 100 mls Insulin Human Lispro (Humalog) 0 units SC .MODERATE SLIDING SC PRN PRN Reason: Moderate Correctional Scale Last Admin: 01/16/18 12:39 Dose: 2 unit Insulin Human Lispro (Humalog) 0 units SC .BEDTIME SLIDING SC PRN PRN Reason: Bedtime Correctional Scale Loperamide HCl (Imodium) 2 mg PO PRN PRN PRN Reason: Diarrhea/Loose Stools Loratadine (Claritin) 10 mg PO DAILYPRN PRN PRN Reason: Sinus Symptoms Magnesium Hydroxide (Milk Of Magnesium) 30 ml PO DAILYPRN PRN PRN Reason: Constipation Mineral Oil/White Petrolatum (Eucerin Cream) 0 gm TOP BIDPRN PRN PRN Reason: Dry Skin Miscellaneous Medication (Pharmacy To Dose) 1 each IVPB PRN PRN PRN Reason: Pharmacy to dose Morphine Sulfate (Morphine) 2 mg SLOW IVP Q2H PRN PRN Reason: PAIN 4-6 Last Admin: 01/20/18 02:41 Dose: 2 mg Ondansetron HCl (Zofran) 4 mg IVP Q6H PRN PRN Reason: Nausea/Vomiting Phenol (Chloraseptic [place] 180 Ml Bot) 0 ml PO PRN PRN PRN Reason: Sore Throat Quetiapine Fumarate (Seroquel) 25 mg PO HS [facility] Last Admin: 01/19/18 21:10 Dose: 25 mg Saccharomyces Boulardii (Florastor) 250 mg PO DAILY [facility] Last Admin: 01/19/18 09:01 Dose: 250 mg Senna (Senokot) 2 tab PO HSPRN PRN PRN Reason: Constipation Sodium Bicarbonate (Bicarbonate, Sodium) 650 mg PER TUBE .PER PROTOCOL PRN PRN Reason: ENTERAL TUBE OCCLUSION Sodium Chloride ([place] Nasal [place] 0.65%) 0 ml EA NARE QIDPRN PRN PRN Reason: Nasal Congestion Sodium Chloride (Flush - Normal Saline) 10 ml IVF Q12HR [facility] Last Admin: 01/19/18 21:10 Dose: 10 ml Sodium Chloride (Flush - Normal Saline) 10 ml IVF PRN PRN PRN Reason: Saline Flush
[2018-01-19] MEDS: Acetaminophen 325 MG TAB PO PRN (20:07)
--- NOTE | 2018-01-19 20:18 | PRG ---
DATE OF SERVICE: 01/19/2018 SUBJECTIVE: The patient was seen and examined with no new complaint noted with the following vital s igns. PHYSICAL EXAMINATION: VITAL SIGNS: Afebrile with temperature 98.1, pulse 67, respiratory rate 21, blood pressure 149/78, O 2 sat of 100%. HEENT: Unremarkable. CARDIOVASCULAR: First and second heart sounds were heard. RESPIRATORY SYSTEM: Clear to auscultation. ABDOMEN: Digestive system revealed a benign abdomen. EXTREMITIES: No peripheral edema noted. LABORATORY INVESTIGATION: Showed a creatinine down to 0.73, hemoglobin 7.7. IMPRESSION: 1. Acute kidney injury/acute tubular necrosis seems to have resolved. 2. Sepsis originating from the lower extremity. 3. Morbid obesity. PLAN: 1. We will continue current renal measures. 2. Further management to be dependent on the clinical course.
[2018-01-20 04:34] LABS: #Eosinphils 0.1 thou/uL (0.0-0.7); #Monocytes 0.4 thou/uL (0.11-0.59); %Basophils 0.9 % (0.0-1.0); %Eosinophils 1.4 % (0.0-10.0); %Lymphocytes 22.3 % (21.0-51.0); %Neutrophils 66.5 % (42.0-75.0); Hemoglobin 7.4 g/dL (14.0-18.0); Mean Corpuscular HGB CONC 32.8 g/dL (32.0-36.0); Mean Corpuscular Hemoglobin 30.5 pg (27.0-31.0); Mean Corpuscular Volume 93.2 fL (78.0-98.0); Mean Platelet Volume 8.3 fL (7.4-10.4); Platelet Count 148 thou/uL (130-400); RBC Distribution Width 15.1 % (11.5-14.5); Red Blood Cell (RBC) Count 2.41 mill/uL (4.70-6.10); White Blood Cell (WBC) Count 4.5 thou/uL (4.8-10.8)
[2018-01-20 04:46] LABS: Anion Gap 11 mmol/L (10-20); BUN (Urea Nitrogen) 17 mg/dL (8.4-25.7); Calc. Creatinine Clearance 244 mL/min (70-130); Calcium 7.9 mg/dL (7.8-10.44); Carbon Dioxide 30 mmol/L (22-29); Chloride 110 mmol/L (98-107); Estimated GFR-MDRD Greater than 90; Glucose 136 mg/dL (70-105); Magnesium 1.1 mg/dL (1.6-2.6); Phosphorus 2.9 mg/dL (2.3-4.7); Potassium 3.7 mmol/L (3.5-5.1); Sodium 147 mmol/L (136-145)
[2018-01-20 06:28] VITALS: BMI 50.4
[2018-01-20] MEDS: Famotidine 20 MG TAB PO SCH (08:54)
[2018-01-20] MEDS: Heparin 5,000 UNITS/ML VIAL SC SCH (08:54)
[2018-01-20] MEDS: Saccharomyces boulardii 250 MG CAP PO SCH (08:54)
[2018-01-20] MEDS ORDERED: Magnesium 2 GM/NS 0.9% 100 ML 2 GM in Premix Bag 1 BAG IVPB SCH ×2 (09:30→10:15)
--- NOTE | 2018-01-20 09:40 | PDOC.PN ---
- Subjective Encounter Start Date: 01/20/18 Encounter Start Time: 09:38 Mr. Lim was seen today in follow-up of severe sepsis, from infected right leg. He is intubated and awake. He is trying to communicate with me, and I believe he is asking for medication for pain. - Objective Resuscitation Status: Resuscitation Status FULL:Full Resuscitation MAR Reviewed: Yes Vital Signs & Weight: Vital Signs (12 hours) Temp Pulse Resp BP Pulse Ox 01/20/18 07:57 98.5 F 97 15 96 01/20/18 07:55 15 01/20/18 07:12 84 158/85 H 01/20/18 07:00 98.4 F 01/20/18 06:00 14 01/20/18 04:00 98.7 F 15 01/20/18 02:00 22 H 01/20/18 00:00 98.9 F 17 01/19/18 22:00 15 Weight Admit Weight 382 lb Weight 351 lb 10.197 oz Most Recent Monitor Data Heart Rate from ECG 92 NIBP 135/66 NIBP BP-Mean 94 Respiration from ECG 7 SpO2 98 I&O: 01/19/18 01/20/18 01/21/18 06:59 06:59 06:59 Intake Total 2288 1850 Output Total 2515 1709 135 Balance -227 141 -135 Result Diagrams: 01/20/18 04:25 01/20/18 04:25 Additional Labs: Accuchecks 01/20/18 01/19/18 01/19/18 04:25 22:06 17:40 POC Glucose 147 H 133 H 122 H 01/19/18 10:32 POC Glucose 109 Phys Exam - Physical Examination HEENT: PERRLA Respiratory: no wheezing, no rales, no rhonchi, clear to auscultation bilateral Cardiovascular: RRR, no significant murmur, no rub Gastrointestinal: soft, non-tender, positive bowel sounds Musculoskeletal: edema present Leg is dressed- wound photos noted Dx/Plan (1) Necrotizing fasciitis Code(s): M72.6 - NECROTIZING FASCIITIS Status: Acute (2) Bacterial infection due to Serratia Code(s): A49.8 - OTHER BACTERIAL INFECTIONS OF UNSPECIFIED SITE Status: Acute Comment: on IV ceftriaxone. sensitive. (3) Sepsis with acute organ dysfunction Code(s): A41.9 - SEPSIS, UNSPECIFIED ORGANISM; R65.20 - SEVERE SEPSIS WITHOUT SEPTIC SHOCK Status: Acute (4) COPD (chronic obstructive pulmonary disease) Status: Chronic Comment: stbale, continue to Monitor.Pulmonary on Board. (5) HTN (hypertension) Code(s): I10 - ESSENTIAL (PRIMARY) HYPERTENSION Status: Chronic Comment: controlled (6) Morbid obesity due to excess calories Code(s): E66.01 - MORBID (SEVERE) OBESITY DUE TO EXCESS CALORIES Status: Chronic (7) JENNY (obstructive sleep apnea) Code(s): G47.33 - OBSTRUCTIVE SLEEP APNEA (ADULT) (PEDIATRIC) Status: Chronic (8) T2DM (type 2 diabetes mellitus) Status: Chronic - Plan * Chart reviewed and patient examined. Mr. Lim has a history of diabetes mellitus, and chronic cellulitis of the right leg. He was admitted with severe sepsis, with acute renal failure from necrotizing faciitis of the right leg. Wound culture and blood cultures are growing Serratia Marcescens, which is sensitive to Rocephin. He has required mechanical ventilation as a consequence of the severe sepsis, and his body habitus. He has a tach, and PEG tube now. Acute renal failure has improved, he had a peak creatinine of 6.06, and it is now down to 0.77. The plan is to have an AKA of the right leg tomorrow, for definitive treatment. * DM- blood glucose is stable- continue SSI * HTN- blood pressure is stable * COPD- stable * Hypomagnesemia- replace Magnesium * Symptom management * Nutritional support-Tube feeds.
[2018-01-20] MEDS ORDERED: Magnesium Sulfate 2 GM in Sodium Chloride 0.9% 100 ML IVPB SCH (10:00)
[2018-01-20 11:06] VITALS: BP 138/71
[2018-01-20] MEDS: cefTRIAXone\\ROCEPHIN 2 GM in Sodium Chloride 0.9% 100 ML IVPB SCH (12:40)
[2018-01-20 12:47] VITALS: TEMP 98.4
--- NOTE | 2018-01-20 15:42 | PRG ---
DATE OF SERVICE: 01/20/2018 SERVICE: Pulmonary Medicine. INTERVAL HISTORY: The patient is doing fine from a respiratory standpoint. He was going to go down to the operating room for an amputation in the morning. Nursing requested that we put in a transfer order to [facility]. In anticipation of his taken a couple of days, we went ahead and fulfilled that request. They are actually ready to take the patient soon. They are okay to receive the patient wit h a pending amputation. Otherwise, the patient is currently awake and alert. He is breathing comfor tably. He has no chest discomfort, nausea, vomiting, fevers or chills. He is breathing comfortably on pressure support ventilation at 5/5. PHYSICAL EXAMINATION: VITAL SIGNS: Afebrile, pulse 96, blood pressure 153/67, respirations 16, saturation 96% on 21% FiO2 and a PEEP of 5. GENERAL: The patient is awake and alert. He is on pressure support ventilation at 5/5. HEENT: Normocephalic, atraumatic. Sclerae are white. Conjunctivae are pink. Oral mucosa is moist without lesions. LUNGS: Decent air entry. There is no prolonged expiratory phase. Dependent crackles are minimal. No wheezing or rhonchi appreciated. HEART: Normal rate, regular. ABDOMEN: Soft, nontender, nondistended. Bowel sounds are positive. MUSCULOSKELETAL: No cyanosis or clubbing. There is no pitting in the bilateral lower extremities. NEUROLOGIC: Grossly nonfocal. LABORATORY DATA: WBC 4.5, hemoglobin 7.4, platelets 148,000. Neutrophil count falls within the norm al limits. INR 1.2. Basic metabolic profile is essentially unremarkable except for a magnesium of 1 .1. Sodium 147. Cultures are growing Serratia marcescens, which is essentially pansensitive. Blood cultures are negative x2. ASSESSMENT: 1. Acute hypoxic respiratory failure, resolved. 2. Septic shock, resolved. 3. Necrotizing fasciitis secondary to Serratia, status post debridement x3, pending amputation. 4. Bacteremia secondary to Serratia. 5. Morbid obesity. 6. Deconditioning. 7. Critical care weakness. DISCUSSION AND PLAN: The patient is doing fine from a respiratory standpoint. We are going to make preparation for him to be transitioned to [facility]. Pulmonary will continue to follow if he remains in house for any reason. We will continue our vent weaning as tolerated. He is doing much better a nd his strength is improving. He is tolerating pressure support ventilation for most of the day, but still gets a little tired into the evening requiring return to higher pressure support.
--- NOTE | 2018-01-21 13:20 | DIS ---
DATE OF ADMISSION: 01/03/2018 DATE OF DISCHARGE: 01/20/2018 DISCHARGE DISPOSITION: To [facility] in [place]. DISCHARGE DIAGNOSES: 1. Necrotizing fasciitis of the right lower extremity. 2. Diabetes mellitus, type 2. 3. Serratia marcescens sepsis. 4. Hypertension. 5. Chronic respiratory failure secondary to chronic obstructive pulmonary disease. 6. Hypomagnesemia. 7. Obstructive sleep apnea. 8. Morbid obesity. 9. Acute on chronic kidney disease. DISCHARGE MEDICATIONS: Include IV vancomycin, DuoNebs. He was also on Flomax 0.4 mg daily, normal s brandon infusion at 100 mL per hour, Renvela 1600 mg t.i.d., Senokot 2 tablets daily, Florastor 250 mg daily, Seroquel 25 mg at bedtime, Diprivan, propofol, prednisone 40 mg daily, Protonix 40 mg daily, Z ofran as needed, morphine 2 mg q.4 hours as needed, Solu-Medrol 40 mg IV daily, Ativan p.r.n., levofl oxacin 750 mg daily, Humalog sliding scale, Lasix p.r.n., Diflucan 100 mg daily, fentanyl sedation pr otocol, Epogen, p.r.n., Rocephin 1 gram IV daily, and DuoNebs as needed. PROCEDURES DONE DURING ADMISSION: The patient had a renal ultrasound, which was negative for any obs truction or hydronephrosis was noted. The patient had a CT scan of the abdomen and pelvis showing de nse bilateral atelectasis and consolidation at the lung bases. There were some splenomegaly, tiny as nonobstructing calculus in the right upper kidney, possible partial small-bowel obstruction. CODE STATUS: FULL CODE. ALLERGIES: PENICILLIN. HOSPITAL COURSE: Mr. Lim is a 57-year-old gentleman who presented to the emergency room with com plaints of leg pain and altered mental status. He was found to have severe sepsis due to necrotizing fasciitis of the right leg. Wound cultures as well as blood cultures grew Serratia marcescens. Thi s was sensitive to Rocephin. He decompensated after being admitted and required ventilation for this severe sepsis as well as his severe body habitus. He has since been trached and pegged, has had a t dylan tube placed as well as a PEG tube placed. He also had acute renal failure from the severe sepsi s with a peak creatinine of 6.06. The creatinine at the time of discharge was down to 0.77. He was seen by Nephrology for this. He was also seen by Infectious Disease specialist as well as General Boyer rgery for the infection of the right leg. It was felt that the limb could not be salvaged and the pl an was to proceed with an [id number] amputation. However, since the patient is a prisoner, he is being transferred to the [facility] in [place] for continued treatment.
--- NOTE | 2018-01-21 14:42 | EKG ---
Test Reason : Blood Pressure : / mmHG Vent. Rate : 068 BPM Atrial Rate : 068 BPM P-R Int : 166 ms QRS Dur : 096 ms QT Int : 388 ms P-R-T Axes : 061 044 068 degrees QTc Int : 412 ms Sinus rhythm with frequent Premature ventricular complexes Low voltage QRS Borderline ECG Confirmed by SILVIA NATH MD ([id number]) on 01/21/2018 2:41:26 PM Referred By: SOWMYA Confirmed By:SILVIA NATH MD
--- NOTE | 2018-01-26 12:02 | PDOC.OP ---
Operative Note - Operative Note Operative Note: PROCEDURE: Extensive debridement of right leg DATE OF PROCEDURE: 01/11/20 SURGEON: Katharine Richardson M.D. PREOPERATIVE DIAGNOSES: Necrotizing soft tissue infection of the right leg POSTOPERATIVE DIAGNOSIS: Necrotizing fasciitis of the right leg HISTORY: Patient with chronic lymphedema of the right leg admitted for sepsis. He has had Klebsiella grow from multiple sources including an I&D performed of his right leg last week, and today has obvious full-thickness necrosis of multiple areas of the skin of his right leg. The patient is intubated and sedated and multiple organ system failure and we are unable to contact family due to his incarcerated status. After discussion with his other care providers the decision was made to proceed to the operating room emergently for debridement of the necrotic and infected tissue for an attempt at life and limb salvage. PROCEDURE IN DETAIL: After emergency consent obtained with 2 physician signature and appropriate preoperative antibiotics continued, the patient was taken to the operating room he was placed in supine position and general endotracheal anesthesia administered. He was prepped and draped in the standard sterile fashion including the entire length up to the groin. The necrotic skin was incised over the medial calf and no bleeding seen. Dissection was carried down to the fascia which was necrotic and there was dishwater-like fluid in the tissues along the fascial plane. The underlying muscles were healthy in appearance. The necrotic tissue, fat and skin were excised back to viable appearing tissue. The process extended over the entire dorsal foot and along the back of the calf. The skin and subcutaneous tissues overlying the anterior portion of the leg appeared potentially viable but the underlying fascia was necrotic and was excised leaving the subcutaneous tissue and skin in place. An additional area of necrotic skin and subcutaneous tissue over the right lateral lower thigh was also debrided and appeared to communicate with the lower leg wound, although the fascia at this level was viable. In all, approximately two thirds of the skin of the right lower leg were removed, sparing the anterior yoo area and the plantar foot and ankle areas. The wound was copiously pulse irrigated and wet to dry dressings placed. The patient was taken back to the ICU in stable condition. Estimated blood loss was minimal. There were no complications. Specimens are necrotic skin, fat, and fascia, with only a small portion of the excised tissues sent.
--- NOTE | 2018-01-26 12:05 | PDOC.OP ---
Operative Note - Operative Note Operative Note: PROCEDURE: Debridement of right leg and VAC placement DATE OF PROCEDURE: 01/12/2018 SURGEON: Katharine Richardson M.D. PREOPERATIVE DIAGNOSES: Necrotizing fasciitis of the right leg POSTOPERATIVE DIAGNOSIS: Necrotizing fasciitis of the right leg, with no extension of the infectious process HISTORY: Patient with necrotizing fasciitis of the right leg status post extensive debridement on 01/10/2018. His clinical condition has improved and he comes back today for a planned relook and debridement. PROCEDURE IN DETAIL: After two-physician consent was obtained and appropriate preoperative antibiotic continued, the patient was taken to the operating room he is placed in the supine position and general endotracheal anesthesia was administered. He was prepped and draped in a standard sterile fashion and in the leg is examined. The skin overlying the yoo which had appeared potentially salvageable I clearly demarcated and was nonviable. This was sharply excised back to bleeding viable tissue. In addition the margins of the wound around the foot had extended somewhat and these were sharply debrided back to viable tissue as well. The deep tissue margin was stable and no additional necrotic fascia was found. There is no evidence of active infection and the decision was made to place a wound VAC. The wound was copiously irrigated and hemostasis verified. The wound care team came to the operating room and placed a wound VAC and the patient was taken back to the critical care unit in stable condition. Estimated blood loss was minimal. There were no complications. There were no specimens.
== END 2018-01-20 14:05 | disposition short-term general hospital (02) | DRG 3 ==
LOC: ERS 05:51 → CCU 10:42 → EEVIPCON 10:42 → CCU 01-15 17:42
PROVIDERS: ADMIT Internal Medicine; ATTEND Internal Medicine
PROC: 3E033XZ Introduction of Vasopressor into Peripheral Vein, Percutaneous Approach (ICD-10-PCS; 2018-01-03)
PROC: 0J9N0ZX Drainage of Right Lower Leg Subcutaneous Tissue and Fascia, Open Approach, Diagnostic (ICD-10-PCS; 2018-01-03)
PROC: 0BH17EZ Insertion of Endotracheal Airway into Trachea, Via Natural or Artificial Opening (ICD-10-PCS; 2018-01-04)
PROC: 5A1955Z Respiratory Ventilation, Greater than 96 Consecutive Hours (ICD-10-PCS; 2018-01-04)
PROC: 3E0G76Z Introduction of Nutritional Substance into Upper GI, Via Natural or Artificial Opening (ICD-10-PCS; 2018-01-05)
PROC: 0T9B80Z Drainage of Bladder with Drainage Device, Via Natural or Artificial Opening Endoscopic (ICD-10-PCS; 2018-01-05)
PROC: 30233N1 Transfusion of Nonautologous Red Blood Cells into Peripheral Vein, Percutaneous Approach (ICD-10-PCS; 2018-01-10)
PROC: 0JBN0ZZ Excision of Right Lower Leg Subcutaneous Tissue and Fascia, Open Approach (ICD-10-PCS; 2018-01-10)
PROC: 0JBN0ZZ Excision of Right Lower Leg Subcutaneous Tissue and Fascia, Open Approach (ICD-10-PCS; 2018-01-12)
PROC: 2W1QX6Z Compression of Right Lower Leg using Pressure Dressing (ICD-10-PCS; 2018-01-12)
PROC: 0B110F4 Bypass Trachea to Cutaneous with Tracheostomy Device, Open Approach (ICD-10-PCS; principal; 2018-01-15)
PROC: 5A1955Z Respiratory Ventilation, Greater than 96 Consecutive Hours (ICD-10-PCS; 2018-01-15)
PROC: 0JBN0ZZ Excision of Right Lower Leg Subcutaneous Tissue and Fascia, Open Approach (ICD-10-PCS; 2018-01-15)
PROC: 0DH63UZ Insertion of Feeding Device into Stomach, Percutaneous Approach (ICD-10-PCS; 2018-01-15)
PROC: 0JBN0ZZ Excision of Right Lower Leg Subcutaneous Tissue and Fascia, Open Approach (ICD-10-PCS; 2018-01-17)
DX: A41.53 Sepsis due to Serratia (principal); M72.6 Necrotizing fasciitis; R65.21 Severe sepsis with septic shock; G93.41 Metabolic encephalopathy; N17.0 Acute kidney failure with tubular necrosis; J96.22 Acute and chronic respiratory failure with hypercapnia; J96.21 Acute and chronic respiratory failure with hypoxia; Z68.43 Body mass index [BMI] 50.0-59.9, adult; I13.0 Hypertensive heart and chronic kidney disease with heart failure and stage 1 through stage 4 chronic kidney disease, or unspecified chronic kidney disease; L03.115 Cellulitis of right lower limb; I50.32 Chronic diastolic (congestive) heart failure; E87.2 Acidosis; L03.116 Cellulitis of left lower limb; I24.8 Other forms of acute ischemic heart disease; E66.01 Morbid (severe) obesity due to excess calories; J44.9 Chronic obstructive pulmonary disease, unspecified; I87.2 Venous insufficiency (chronic) (peripheral); G47.33 Obstructive sleep apnea (adult) (pediatric); K21.9 Gastro-esophageal reflux disease without esophagitis; F41.9 Anxiety disorder, unspecified; F31.9 Bipolar disorder, unspecified; Z99.3 Dependence on wheelchair; Z88.0 Allergy status to penicillin; E11.22 Type 2 diabetes mellitus with diabetic chronic kidney disease; B18.2 Chronic viral hepatitis C; D69.6 Thrombocytopenia, unspecified; D64.9 Anemia, unspecified; K74.60 Unspecified cirrhosis of liver; E83.42 Hypomagnesemia; K43.2 Incisional hernia without obstruction or gangrene; R13.10 Dysphagia, unspecified; E83.51 Hypocalcemia; E83.39 Other disorders of phosphorus metabolism; N18.3 Chronic kidney disease, stage 3 (moderate); Z79.4 Long term (current) use of insulin
CPT/HCPCS: 36415; 36416; 36430; 36556; 51702; 71045; 74176; 76770; 80048; 80053; 80076; 80202; 82010; 82533; 82805; 83605; 83735; 84100; 84443; 84484; 85014; 85018; 85025; 85060; 86140; 86850; 86900; 86901; 87040; 87070; 87077; 87102; 87149; 87186; 87205; 87206; 87324; 87449; 88304; 88305; 88312; 93005; 93010; 93923; 94002; 94003; 94640; 94660; 96361; 96365; 96366; 96367; 96375; A4216; A4218; G8978-GP-CM; G8979-GP-CL; J0696; J1644; J1720; J1940; J1956; J2001; J2060; J2185; J2250; J2270; J2405; J2704; J3010; J3370; J3475; J3490; J7042; J7050; J7070; J7620; P9016; P9035; P9045; Q4081; S0028